=== PATIENT | female | born 1945 | race Caucasian/White ===

== ENCOUNTER 2018-02-16 22:19 | Emergency (ER) | payer MEDICARE, MEDICAID ==
[2018-02-16 23:08] LABS: BASO % 0.3 % (0.0-1.0); EOS # 0.4 10^3/uL (0.0-0.50); EOS % 4.5 % (0.0-3.0); HEMATOCRIT 36.9 % (36.0-47.0); IMMATURE GRANULOCYTE % 0.3 % (0-3.0); LYMPH # 2.3 10^3/uL (1.5-4.5); LYMPH % 27.1 % (24.0-44.0); MEAN CORPUSCULAR HEMOGLOBIN 27.4 pg (27.0-33.0); MEAN CORPUSCULAR HGB CONC 32.5 g/dl (32.0-36.5); MEAN CORPUSCULAR VOLUME 84.2 fl (80.0-96.0); MONO # 0.7 10^3/uL (0.0-0.8); MONO % 7.9 % (0.0-5.0); NEUTROPHILS # 5.1 10^3/uL (1.8-7.7); NEUTROPHILS % 59.9 % (36.0-66.0); PLATELET COUNT, AUTOMATED 235 10^3/uL (150-450); RED BLOOD COUNT 4.38 10^6/uL (4.00-5.40); RED CELL DISTRIBUTION WIDTH 13.4 % (11.5-14.5); WHITE BLOOD COUNT 8.6 10^3/uL (4.0-10.0)
[2018-02-16] MEDS: ASPIRIN 81 MG CHEW TABLET PO (23:08)
[2018-02-16 23:37] LABS: ALBUMIN 3.8 GM/DL (3.2-5.2); ALKALINE PHOSPHATASE 80 U/L (45-117); ALT/SGPT 25 U/L (12-78); ANION GAP 7 MEQ/L (8-16); AST/SGOT 18 U/L (7-37); BILIRUBIN,DIRECT 0.1 MG/DL (0.0-0.2); BILIRUBIN,TOTAL 0.4 MG/DL (0.2-1.0); BLOOD UREA NITROGEN 12 MG/DL (7-18); CALCIUM LEVEL 8.6 MG/DL (8.8-10.2); CARBON DIOXIDE LEVEL 29 MEQ/L (21-32); CHLORIDE LEVEL 105 MEQ/L (98-107); CK-MB VALUE MASS 1.6 NG/ML (<3.6); CPK CREATINE PHOSPHOKINASE 101 U/L (26-192); CREATININE FOR GFR 1.04 MG/DL (0.55-1.30); GLOMERULAR FILTRATION RATE 55.6 (>39); GLUCOSE, FASTING 138 MG/DL (70-100); MB/CK RELATIVE INDEX 1.58 (< OR =4); NT-PRO BNP 108 PG/ML (<125); POTASSIUM SERUM 3.3 MEQ/L (3.5-5.1); SODIUM LEVEL 141 MEQ/L (136-145); TOTAL PROTEIN 7.6 GM/DL (6.4-8.2); TROPONIN I < 0.02 NG/ML (< 0.10)
[2018-02-17] MEDS: PERCOCET 5MG/325MG TAB PO (00:34)
[2018-02-17 02:13] LABS: CPK CREATINE PHOSPHOKINASE 93 U/L (26-192); TROPONIN I 0.02 NG/ML (< 0.10)
[2018-02-17 02:14] LABS: CK-MB VALUE MASS 1.6 NG/ML (<3.6); MB/CK RELATIVE INDEX 1.72 (< OR =4)
== END 2018-02-17 02:34 | disposition home or self-care (01) ==
LOC: M ED 02-17 02:34
DX: R07.9 Chest pain, unspecified (principal); M79.601 Pain in right arm; R06.02 Shortness of breath; I10 Essential (primary) hypertension; I25.2 Old myocardial infarction; E78.5 Hyperlipidemia, unspecified; K44.9 Diaphragmatic hernia without obstruction or gangrene; M54.9 Dorsalgia, unspecified; F41.9 Anxiety disorder, unspecified; F32.9 Major depressive disorder, single episode, unspecified; Z88.0 Allergy status to penicillin; Z79.899 Other long term (current) drug therapy
CPT/HCPCS: 71045

== ENCOUNTER 2019-02-09 20:31 | Emergency (ER) | payer MEDICARE, MEDICAID ==
[~2019-02-09] VITALS: Ht 162.6 cm; Wt 85.5 kg
[~2019-02-09 20:31] MED LIST: ACET65TA OR; BENA20TA2 OR; BENA20TA6 PO; BENICAR HCT OR; CELE20TA OR; COUM1TAB18 OR; COUM2.5T17 PO; HYDR12CA PO; LOSA50TA88 PO; OMEP20TA7 OR; PAXI30TA11 PO; PERC5TAB12 PO; PRAV10TA2 OR; PROAAER10 INH; TRAM50TA2 OR; TYLE325T5 PO; hydrochlorothiazide OR; ibuprofen; naproxen OR
[2019-02-09] MEDS ORDERED: PRAV10TA4 PO (20:42)
[2019-02-09 21:09] LABS: BASO % 0.3 % (0.0-1.0); EOS # 0.3 10^3/uL (0.0-0.50); HEMATOCRIT 38.3 % (36.0-47.0); HEMOGLOBIN 12.3 g/dl (12.0-15.5); LYMPH # 2.1 10^3/uL (1.5-4.5); LYMPH % 15.5 % (24.0-44.0); MEAN CORPUSCULAR HEMOGLOBIN 27.8 pg (27.0-33.0); MEAN CORPUSCULAR HGB CONC 32.1 g/dl (32.0-36.5); MEAN CORPUSCULAR VOLUME 86.7 fl (80.0-96.0); MONO # 1.1 10^3/uL (0.0-0.8); MONO % 7.9 % (0.0-5.0); NEUTROPHILS # 9.9 10^3/uL (1.8-7.7); NEUTROPHILS % 73.9 % (36.0-66.0); PLATELET COUNT, AUTOMATED 237 10^3/uL (150-450); RED BLOOD COUNT 4.42 10^6/uL (4.00-5.40); WHITE BLOOD COUNT 13.4 10^3/uL (4.0-10.0)
[2019-02-09 21:25] LABS: BLOOD UREA NITROGEN 13 MG/DL (7-18); CARBON DIOXIDE LEVEL 28 MEQ/L (21-32); CHLORIDE LEVEL 102 MEQ/L (98-107); CPK CREATINE PHOSPHOKINASE 70 U/L (26-192); CREATININE FOR GFR 0.83 MG/DL (0.55-1.30); GLOMERULAR FILTRATION RATE > 60.0 (>39); GLUCOSE, FASTING 121 MG/DL (70-100); MB/CK RELATIVE INDEX 1.86 (< OR =4); POTASSIUM SERUM 3.6 MEQ/L (3.5-5.1); SODIUM LEVEL 136 MEQ/L (136-145); TROPONIN I < 0.02 NG/ML (< 0.10)
[2019-02-09] MEDS ORDERED: KETOROLAC 30 MG/ML VIAL (J1885) IV ONE (21:45)
--- NOTE | 2019-02-09 22:02 | REP ---
Clinical: Acute chest pain . Comparison: 02/16/2018 to the . Technique: PA and lateral. Findings: The mediastinum and cardiac silhouette are normal. The lung clark are clear and without acute consolidation, effusion, or pneumothorax. The skeletal structures are intact and normal. Impression: 1. No acute cardiopulmonary process. Electronically Signed by Harish Murray MD 02/09/2019 09:54 P
[2019-02-09] MEDS ORDERED: ISOVUE-370 76% 100ML VIAL (Q9967) As Ordered ONE (23:48)
--- NOTE | 2019-02-10 00:17 | REP ---
Clinical: Acute chest pain. Technique: Axial contrast enhanced images from the thoracic inlet to the upper abdomen using 100 ml Isovue 370 intravenous contrast material with coronal and sagittal re-formations. Findings: Satisfactory enhancement of the pulmonary vasculature is achieved and no filling defects are identified to suggest pulmonary embolus. Atherosclerotic changes to the thoracic aorta noted along with aneurysmal dilatation of the ascending thoracic aorta measuring 4.6 cm maximal diameter. Heart and pericardium are normal. Minimal posterior basilar dependent changes and trace atelectasis. No nodule or mass lesion. No pleural effusion/reaction. No pneumothorax. No adenopathy. Impression: No evidence for pulmonary embolus. Ascending thoracic aorta measures 4.6 cm maximal diameter. Minimal posterior basilar dependent changes and trace atelectasis. Electronically Signed by Harish Murray MD 02/10/2019 12:07 A
[2019-02-10 01:01] VITALS: BP 145/86
[2019-02-10] MEDS ORDERED: HYDR-3715 PO (01:07)
[2019-02-10] MEDS ORDERED: NAPR-885 PO (01:07)
[2019-02-10] MEDS ORDERED: NORCO 5/325MG TABLET (BULK FOR ED) PO ONE (01:15)
--- NOTE | 2019-02-10 20:14 | ECGEPIP ---
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
--- NOTE | 2019-02-14 14:01 | ED PDOC ---
Post-Departure Follow-Up dr abi srinivasan faxed formal report of cta chest for fu Portia Smith MD Feb 14, 2019 14:00
== END 2019-02-10 01:30 | disposition home or self-care (01) ==
LOC: M ED 20:31
DX: S22.000A Wedge compression fracture of unspecified thoracic vertebra, initial encounter for closed fracture (principal); X58.XXXA Exposure to other specified factors, initial encounter; Y92.89 Other specified places as the place of occurrence of the external cause; I10 Essential (primary) hypertension; I25.10 Atherosclerotic heart disease of native coronary artery without angina pectoris; K21.9 Gastro-esophageal reflux disease without esophagitis; E78.5 Hyperlipidemia, unspecified; Z79.899 Other long term (current) drug therapy; Z88.0 Allergy status to penicillin; Z88.5 Allergy status to narcotic agent; Z87.891 Personal history of nicotine dependence
CPT/HCPCS: 71046; 71275; 80048; 82550; 82553; 84484; 85025; 85379; 93005; 93041; 94760; 96374; 99285; J1885; Q9967

== ENCOUNTER → 2019-03-22 | Outpatient (CLI) | payer MEDICARE, MEDICAID ==
[~2019-03-22] MED LIST changes: +HYDR-3715 PO; +NAPR-885 PO; +PRAV10TA4 PO
[2019-03-22 12:45] LABS: BASO % 0.5 % (0.0-1.0); EOS # 0.3 10^3/uL (0.0-0.50); EOS % 4.5 % (0.0-3.0); HEMATOCRIT 38.7 % (36.0-47.0); HEMOGLOBIN 12.2 g/dl (12.0-15.5); LYMPH # 2.3 10^3/uL (1.5-4.5); LYMPH % 31.1 % (24.0-44.0); MEAN CORPUSCULAR HEMOGLOBIN 27.4 pg (27.0-33.0); MEAN CORPUSCULAR HGB CONC 31.5 g/dl (32.0-36.5); MONO # 0.6 10^3/uL (0.0-0.8); MONO % 8.2 % (0.0-5.0); NEUTROPHILS # 4.1 10^3/uL (1.8-7.7); NEUTROPHILS % 55.2 % (36.0-66.0); PLATELET COUNT, AUTOMATED 272 10^3/uL (150-450); RED BLOOD COUNT 4.45 10^6/uL (4.00-5.40); WHITE BLOOD COUNT 7.4 10^3/uL (4.0-10.0)
[2019-03-22 12:46] LABS: BLOOD UREA NITROGEN 11 MG/DL (7-18); CALCIUM LEVEL 8.8 MG/DL (8.8-10.2); CARBON DIOXIDE LEVEL 31 MEQ/L (21-32); CHLORIDE LEVEL 102 MEQ/L (98-107); CREATININE FOR GFR 0.76 MG/DL (0.55-1.30); GLOMERULAR FILTRATION RATE > 60.0 (>39); GLUCOSE, FASTING 113 MG/DL (70-100); POTASSIUM SERUM 4.1 MEQ/L (3.5-5.1); SODIUM LEVEL 138 MEQ/L (136-145)
== END ==
LOC: M WUC 09:50
PROVIDERS: ATTEND Internal Medicine Cardiovascular Disease
DX: Z01.810 Encounter for preprocedural cardiovascular examination (principal); I35.0 Nonrheumatic aortic (valve) stenosis

== ENCOUNTER 2020-12-30 13:35 | Emergency (ER) | payer MEDICARE ==
[~2020-12-30] VITALS: Ht 162.6 cm; Wt 86.4 kg
--- OUTSIDE RECORDS SUMMARY | 2020-12-30 13:41 | CCD | Continuity of Care Document ---
Author Author Chelle BRISENO D.O. Organization Unknown Address [address] [place] [id number] Phone [phone] Problems Active Problems Provider Date Depressive disorder Nir Covarrubias RPA Onset: 12/03/2006 Gastroesophageal reflux disease Nir Covarrubias RPA Onset : 12/03/2006 Hyperlipidemia Nir Covarrubias RPA Onset: 12/03/2006 Essential hypertension Nir Covarrubias RPA Onset: 008 Sleep apnea Robert Briseno D.O., GEOVANNYFP Onset: 11/08 Note: C PAP Diaphragmatic hernia Robert Briseno D.O., GEOVANNYFP Onset: Benign essential hypertension Kristen Bartlett, INTERFACE CONTROL OFFICER-C Onset: 05/23/2013 Diverticulosis of sigmoid colon Robert Briseno D.O., FAAFP Onset: 11/12/2014 Note: SANTOS DIVERTICULOSIS Social History Type Date Description Comments Sex Unknown Tobacco Use Start: Unknown End: Unknown Former Cigarette Smo ker 2 Packs Daily for 40 years Tobacco Use Start: Unknown , quit 2002. 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 Recreational Drug Use Denies Drug Use Tobacco Use Start: Unknown End: Unknown Patient is a former smoker Smoking Status Reviewed: 12/05/20 Patient is a former smoker Exercise Type/Frequency Does not currently exerc ise Allergies, Adverse Reactions, Alerts Active Allergies Reaction Severity Comments Date Penicillin (Hives) 07/31/2005 Naproxen Urticaria Rash Generalized 8 Medications Active Medications SIG Qnty Indications Ordering Provide r Date Sertraline HCL 50mg Tablets 1 by mouth every day 90tabs Robert Briseno D.O., FAAFP Betamethasone Dipropionate 0.05% C ream apply three times a day to left ankle 30units Robert Briseno D.O., [facility] 01/05/2019 Shingrix 50mcg Suspension Rec Recieved Both 1 intramuscular today repeat in 2-6 months 1units Robert Briseno D.O., [facility] Proventil HFA 108(90Base) mcg/Act Aerosol 2 puffs every 6 hours as needed 1units Robert Briseno D.O., [facility] 11/22/2015 Pravastatin Sodium 40mg Tablets Take 1 tablet by mouth once daily 90tabs Robert Briseno D.O. , [facility] 02/13/2015 Replacement Cpap Machine And Supplies as directed for obstructiv e Sleep Apnea 780.57 Robert Briseno D.O., [facility] 10/26/2013 Hydrochlorothiazide 12.5mg Capsule s Take 1 Capsule By Mouth Once Daily . DO Not Exceed 1 Per 24 Hours [facility] Robert Briseno D.O., [facility] 04/26/[address] Take 1 Capsule By Mouth In The Morning . DO Not Exceed 1 Per 24 Hours [facility] Robert Briseno D.O., [facility] 11/25/2011 Aspirin Ec 325mg Tablets DR 1 by mouth every day Unknown Losartan Potassium 25mg Tablets take 1 tablet by mouth once daily 90tabs Robert Briseno D.O. , [facility] Metoprolol Tartrate 25mg Tablets take 1/2 (one-half) tablet by mouth twice daily 90tabs Robert Briseno D.O., [facility] History Medications Clindamycin HCL 300mg Capsules 2 caps po 30-60 min prior to procedure 2caps Brian Merida., [facility] 09/26/2020 - 09/27/2020 Medications Administered in Office Medication SIG Qnty Indications Ordering Provider Date Injection (SC)/(Im) Injection Robert Briseno D.O., [facility] 09/08/2017 Injection Subcutaneous Or Intramuscular Injection Nir Covarrubias, RPA 03/14 Injection (SC)/(Im) Injection Nir Covarrubias, RPA 07/31/2005 Immunizations CPT Code Status Date Vaccine Reaction Lot # [id number] Given 08/29/2020 Influenza Virus Vaccine, Quadrivalent, Slit Virus, Im Use 3Y & Up [id number] 62222 Given 07/26/2019 Influenza Virus Vaccine, Quadrivalent, Slit Virus, Im Use 3Y & Up [id number] 83290 Given 07/07/2018 Influenza Virus Vaccine, Quadrivalent, Slit Virus, Im Use 3Y & Up [id number] 51535 Given 09/08/2017 Influenza Virus Vaccine, Quadrivalent, Slit Virus, Im Use 3Y & Up [id number] 19244 Given 08/07/2016 Influenza Vaccin e (Fluzone) 3Yrs Of Age Or Older Medicare Plans [id number] 56957 Given 08/07/2016 Influenza Virus Vaccine, Quadrivalent, Slit Virus, Im Use 3Y & Up 05116 Given 09/06/2015 Influenza Vaccin e (Fluzone) 3Yrs Of Age Or Older Medicare Plans [id number] 61493 Given 08/01/2014 Influenza Vaccin e (Fluzone) 3Yrs Of Age Or Older Medicare Plans [id number] Given 08/01/2014 Influenza Vaccin e (Fluvirin) 3Yrs Of Age Or Older Medicare Plans [id number] 75665 Given 08/23/2013 Influenza Virus Vac. Split Virus Individuals 3 Years And Above [id number] 57100 Given 09/21/2012 Pneumococcal Immunization [id number] 70112 Given 09/21/2012 Influenza Virus Vac. Split Virus Individuals 3 Years And Above [id number] 96269 Given 07/31/2005 Influenza Virus Vac. Split Virus Individuals 3 Years And Above Vital Signs Date Vital Result Comment 12/05/2020 1:09pm BP Systolic 126 mmHg BP Diastolic 84 mmHg Body Temperature 97.3 F Heart Rate 70 /min Respiratory Rate 16 /min Height 64 inches 5'4" Weight 190.00 lb [place] Body Weight 120 lb BMI (Body Mass Index) 32.6 kg/m2 O2 % BldC Oximetry 97 % 09/23/2020 10:22am BP Systolic 132 mmHg BP Diastolic 80 mmHg Body Temperature 97.8 F Heart Rate 73 /min Respiratory Rate 16 /min Height 64 inches 5'4" Weight 189.00 lb [place] Body Weight 120 lb BMI (Body Mass Index) 32.4 kg/m2 O2 % BldC Oximetry 92 % (AT Rest), (Room Air ) Results Test Acquired Date Facility Test Result H/L Range Note Laboratory test finding 12/05/2020 [facility] TSH <pending> Laboratory test finding 12/05/2020 [facility] CK <pending> Influenza A And B Rna Probe 11/01/2020 [place] [address] [phone] Influenza A NEGATIVE Normal: Negative Influenza B NEGATIVE Normal: Negative Influenza A Reenter NEGATIVE Normal: Negative Influenza B [place]enter NEGATIVE Normal: Negative 1 Laboratory test finding 11/01/2020 [place] [address] [phone] Coronavirus Covid-19 Not Detected Not Dete cted 2 Laboratory test finding 09/26/2020 [place] [address] [phone] Coronavirus Covid-19 Not Detected Not Dete cted 3 U/A DIP 09/23/2020 [facility] Color lt yellow QUAL 4 Clarity clear QUAL Glucose-Ua Negative g/dL Negative Bilirubin,Urine Negative QUAL Negative Ketone Negative mg/dL Negative Specific [place] 1.015 # 1.000 - 1.030 Blood - Ua Trace-intact QUAL Abnormal Negative pH 6.0 # 5.0 - 8.0 Protein Negative mg/dL Negative Urobilinogen 0.2 NA 0.2 - 1.0 Nitrite Negative QUAL Negative Leukocyte Large QUAL Abnormal Negative Comment SAMPLE QNS NA High CMP 09/23/2020 [facility] Glu 108 mg/dL 70 - 110 BUN 9 mg/dL 8 - 23 Creat 0.9 mg/dL 0.5 - 1.0 BUN/Creatinine Ratio 10.0 CALC Na 136 mmol/L 136 - 145 K 4.9 mmol/L 3.5 - 5.1 CL 98.7 mmol/L 98.0 - 107.0 Co2 29.6 mmol/L High 22.0 - 29.0 CA 9.7 mg/dL 8.6 - 10.2 TP 6.5 g/dL Low 6.6 - 8.7 Alb 4.2 g/dL 3.4 - 4.8 A/G Ratio 1.8 CALC Globulin 2.3 CALC Alp 57.8 U/L 35 - 129 Alt (SGPT) 16 U/L 0 - 41 Ast (Sgot) 19 U/L 0 - 40 Tbili 0.37 mg/dL 0.0 - 1.2 Osmolality-Calculated 271.0 CALC Anion Gap 12 mmol/L eGFR 74 # Calc 5 eGFR Non-Afr. [place] 63 # Calc 6 CBC 09/23/2020 [facility] WBC 6.4 10E3/uL 4.1 - 10.9 RBC 4.37 10E6/uL 4.20 - 6.30 HGB 13.1 g/dL 12.0 - 18.0 HCT 39.4 % 37.0 - 51.0 MCV 90.2 fL 80.0 - 97.0 MCH 30.0 pg 26.0 - 32.0 MCHC 33.2 g/dL 31.0 - 36.0 PLT 214 10E3/uL 140 - 440 RDW-CV 12.9 % 11.5 - 14.5 Lym% 29.1 % 10.0 - 58.5 Neut% 61.4 % 37.0 - 92.0 MXD% 9.5 % 0.1 - 24.0 Lym# 1.9 10E3/uL 0.6 - 4.1 Neut# 3.9 % 2.0 - 7.8 MXD# 0.6 10E3/uL 0.0 - 1.8 MPV 8.6 fL Low 9.0 - 13.0 U/A DIP [facility]PA 08/29/2020 [facility] Asso ciates Color Urine YELLOW Yellow Appearance CLEAR Clear Specific [place] 1.015 1.00-1.03 PH Urine 6.0 5.0-8.0 Glucose Urine NEG Negative Bilirubin Urine NEG Negative Ketones NEG Negative Blood Urine TRACE Negative Protein Urine NEG Negative Urobilinogen .2 EU/dl 0.2-1.0 Nitrite NEG Negative Leukocytes 2+ High Negative Microalb/Creat Ratio 08/29/2020 [facility] Alb 10 mg/L 1 - 30 Creatinine, Urine 50 mg/dL 10 - 300 A/C Ratio 30 - 300 mg/g % Abnormal CBC 08/29/2020 [facility] WBC 6.8 10E3/uL 4.1 - 10.9 7 RBC 4.40 10E6/uL 4.20 - 6.30 HGB 13.4 g/dL 12.0 - 18.0 HCT 40.0 % 37.0 - 51.0 MCV 90.9 fL 80.0 - 97.0 MCH 30.5 pg 26.0 - 32.0 MCHC 33.5 g/dL 31.0 - 36.0 PLT 203 10E3/uL 140 - 440 RDW-CV 12.4 % 11.5 - 14.5 Lym% 22.7 % 10.0 - 58.5 Neut% 67.5 % 37.0 - 92.0 MXD% 9.8 % 0.1 - 24.0 Lym# 1.5 10E3/uL 0.6 - 4.1 Neut# 4.6 % 2.0 - 7.8 MXD# 0.7 10E3/uL 0.0 - 1.8 MPV 8.9 fL Low 9.0 - 13.0 CMP 08/29/2020 [facility] Glu 96 mg/dL 70 - 110 BUN 13 mg/dL 8 - 23 Creat 0.8 mg/dL 0.5 - 1.0 BUN/Creatinine Ratio 15.4 CALC Na 135 mmol/L Low 136 - 145 K 4.5 mmol/L 3.5 - 5.1 CL 98.3 mmol/L 98.0 - 107.0 Co2 23.9 mmol/L 22.0 - 29.0 CA 9.5 mg/dL 8.6 - 10.2 TP 6.8 g/dL 6.6 - 8.7 Alb 4.3 g/dL 3.4 - 4.8 A/G Ratio 1.7 CALC Globulin 2.5 CALC Alp 58.3 U/L 35 - 129 Alt (SGPT) 16 U/L 0 - 41 Ast (Sgot) 19 U/L 0 - 40 Tbili 0.49 mg/dL 0.0 - 1.2 Osmolality-Calculated 269.4 CALC Anion Gap 17 mmol/L eGFR 85 # Calc 8 eGFR Non-Afr. [place]er 73 # Calc 9 Lipid Panel 08/29/2020 [facility] Chol 189 mg/dL 0 - 200 Trig 162 mg/dL 40 - 200 HDL 48 mg/dL 45 - 65 LDL_C 108 Calc 75 - 129 Cho/HDL Ratio 3.9 CALC Laboratory test finding 08/29/2020 [facility] CK 49 U/L 26 - 192 1 PROCEDURAL CONTROL VALID KIT LOT # _[id number] 12/25/20.1346.TAD. . . KIT EXP DATE _01.28.21 11/01/201346.TAD. . . The Influenza A & B assay is a rapid molecular in vitro diagnostic test utilizing an isothermal nucleic acid amplification technology for the qualitative detection of influenza A and B viral RNA. Negative results do not preclude influenza virus infection and should not be used as the sole basis for diagnosis, treatment or other patient management decisions. 2 This nucleic acid amplificat ion test was developed and its performance characteristics determined by [employer]. Nucleic acid amplification tests include PCR and TMA. This test has not been FDA cleared or approved. This test has been authorized by FDA under an Emergency Use Authorization (EUA). This test is only authorized for the duration of time the declaration that circumstances exist justifying the authorization of the emergency use of in vitro diagnostic tests for detection of SARS-CoV-2 virus and/or diagnosis of COVID-19 infection under section 564(b)(1) of the Act, 21 U.S.C. 360bbb-3(b) (1), unless the authorizatio n is terminated or revoked sooner. When diagnostic testing is negative, the possibility of a false negative result should be considered in the context of a patient's recent exposures and the presence of clinical signs and symptoms consistent with COVID-19. An individual without symptoms of COVID-19 and who is not shedding SARS-CoV-2 virus would expect to have a negative (not detected) result in this assay. 3 This nucleic acid amplificat ion test was developed and its performance characteristics determined by [employer]. Nucleic acid amplification tests include PCR and TMA. This test has not been FDA cleared or approved. This test has been authorized by FDA under an Emergency Use Authorization (EUA). This test is only authorized for the duration of time the declaration that circumstances exist justifying the authorization of the emergency use of in vitro diagnostic tests for detection of SARS-CoV-2 virus and/or diagnosis of COVID-19 infection under section 564(b)(1) of the Act, 21 U.S.C. 360bbb-3(b) (1), unless the authorizatio n is terminated or revoked sooner. When diagnostic testing is negative, the possibility of a false negative result should be considered in the context of a patient's recent exposures and the presence of clinical signs and symptoms consistent with COVID-19. An individual without symptoms of COVID-19 and who is not shedding SARS-CoV-2 virus would expect to have a negative (not detected) result in this assay. 4 NORMAL RANGES Age WBC RBC HGB HCT MCV PLT Adult M 4.1-10.9 4.20-6.30 12.0-18.0 37.0-51.0 80-97 140-440 Adult F 4.1-10.9 4.04-5.48 12.0-18.0 37.0-51.0 80-97 140-440 0 -1 Yr 5.0-20.0 3.9-5.9 15-18 MV: 44 MV: 91 MV: 277 2-9 Yr. 6.0-17.0 3.8-5.4 11-13 MV: 37 MV: 78 MV: 300 10 Yrs. 5.0-13.0 3.8-5.4 12-15 MV: 39 MV: 80 MV: 250 NOTE: * FOR ADULT BLACK MALES AND FEMALES, NORMAL WBC IS 2.9-7.7 K/ML * FOR ADULT BLACK MALES AND FEMALES, NORMAL RBC,HGB, AND HCT IS 5% LESS SOURCE FOR DATA: [employer] 1800 OPERATION MANUAL( AUTOMATED BLOOD COUNTS AND DIFF.) APPENDIX B-3 CHRONIC KIDNEY DISEASE STAGING PER NKF: MALE GFR INTERPRETATION: 20-49 YRS: >60 mL/min Normal 50-59 YRS: >56 mL/min Normal 60-69 YRS: >49 mL/min Normal 70-79 YRS: >42 mL/min Normal 80 and above >35 mL/min Normal FEMALE GRF INTERPRETATION: 20-39 YRS: >60 mL/min Normal 40-49 YRS: >58 mL/min Normal 50-59 YRS: >51 mL/min Normal 60-69 YRS: >45 mL/min Normal 70-79 YRS: >39 mL/min Normal 80 and above >32 mL/min Normal 5 CKD-EPI 6 CKD-EPI 7 NORMAL RANGES Age WBC RBC HGB HCT MCV PLT Adult M 4.1-10.9 4.20-6.30 12.0-18.0 37.0-51.0 80-97 140-440 Adult F 4.1-10.9 4.04-5.48 12.0-18.0 37.0-51.0 80-97 140-440 0 -1 Yr 5.0-20.0 3.9-5.9 15-18 MV: 44 MV: 91 MV: 277 2-9 Yr. 6.0-17.0 3.8-5.4 11-13 MV: 37 MV: 78 MV: 300 10 Yrs. 5.0-13.0 3.8-5.4 12-15 MV: 39 MV: 80 MV: 250 NOTE: * FOR ADULT BLACK MALES AND FEMALES, NORMAL WBC IS 2.9-7.7 K/ML * FOR ADULT BLACK MALES AND FEMALES, NORMAL RBC,HGB, AND HCT IS 5% LESS SOURCE FOR DATA: [employer] 1800 OPERATION MANUAL( AUTOMATED BLOOD COUNTS AND DIFF.) APPENDIX B-3 CHRONIC KIDNEY DISEASE STAGING PER NKF: MALE GFR INTERPRETATION: 20-49 YRS: >60 mL/min Normal 50-59 YRS: >56 mL/min Normal 60-69 YRS: >49 mL/min Normal 70-79 YRS: >42 mL/min Normal 80 and above >35 mL/min Normal FEMALE GRF INTERPRETATION: 20-39 YRS: >60 mL/min Normal 40-49 YRS: >58 mL/min Normal 50-59 YRS: >51 mL/min Normal 60-69 YRS: >45 mL/min Normal 70-79 YRS: >39 mL/min Normal 80 and above >32 mL/min NormalCLASSIFICATION CHOLESTEROL FOR ADULTS CHILDREN/ADOLESCENTS* DESIRABLE: <200 MG/DL <170 MG/DL BORDER-LINE HIGH RISK: 200-239 MG/DL 170-199 MG/DL HIGH RISK: >240 MG/DL >200 MG/DL CLASS. FOR PRIMARY LDL CHOL PREVENTION: LDL CHOL-CHILD/ADOLESCENTS* DESIRABLE: <130 MG/DL <110 MG/DL BORDERLINE-HIGH RISK: 130-159 MG/DL 110-129 MG/DL HIGH RISK: >160 MG/DL >130 MG/DL *CHILDREN AND ADOLESCENTS REPRESENTS INDIVIDUALA AGED 2-19 YEARS EXCLUSIVE. 8 CKD-EPI 9 CKD-EPI Procedures Date Code Description Status 09/23/2020 95448 Electrocardiogram Complete Compl eted Medical Devices Description No Information Available Encounters Type Date Location Provider Dx Diagnosis Office Visit 12/05/2020 1:00p [place] [facility] Brian Merida, FAAFP E78.5 Hyperlipidemia, unspecified I10 Essential (primary) hyperten cuauhtemoc F33.8 Other recurrent depressive d isorders K21.9 Gastro-esophageal reflux dis ease without esophagitis Office Visit 09/23/2020 10:20a [place] [facility] Floyd Yates PA Z01.818 Encounter for other preprocedural examin ation Z01.818 Encounter for other preproce dural examination Z12.11 Encounter for screening for malignant neoplasm of colon Z86.010 Personal history of colonic polyps Z80.0 Family history of malignant neoplasm of digestive organs Office Visit 08/29/2020 11:15a [place] [facility] Brian Merida, FAAFP E78.5 Hyperlipidemia, unspecified I10 Essential (primary) hyperten cuauhtemoc F33.8 Other recurrent depressive d isorders K21.9 Gastro-esophageal reflux dis ease without esophagitis Z86.010 Personal history of colonic polyps Z80.0 Family history of malignant neoplasm of digestive organs G31.84 Mild cognitive impairment, s o stated Z23 Encounter for immunization Assessments Date Code Description Provider 12/05/2020 E78.5 Hyperlipidemia, unspecified Al Briseno D.O., FAAFP 12/05/2020 I10 Essential (primary) hypertension Robert Briseno D.O., FAAFP 12/05/2020 F33.8 Other recurrent depressive disor ders Robert Briseno D.O., FAAFP 12/05/2020 K21.9 Gastro-esophageal reflux disease without esophagitis Robert Briseno D.O., [facility] 09/23/2020 Z01.818 Encounter for other preprocedura l examination Mary Yates PA 09/23/2020 Z01.818 Encounter for other preprocedura l examination Mary Yates PA 09/23/2020 Z12.11 Encounter for screening for kriss gnant neoplasm of colon Mary Yatse, PA 09/23/2020 Z86.010 Personal history of colonic poly ps Mary Yates PA 09/23/2020 Z80.0 Family history of malignant neop lasm of digestive organs Mary Yates PA 08/29/2020 E78.5 Hyperlipidemia, unspecified Al Briseno D.O., FAAFP 08/29/2020 I10 Essential (primary) hypertension Robert Briseno D.O., FAAFP 08/29/2020 F33.8 Other recurrent depressive disor ders Robert Briseno D.O., FAAFP 08/29/2020 K21.9 Gastro-esophageal reflux disease without esophagitis Robert Briseno D.O., FAAFP 08/29/2020 Z86.010 Personal history of colonic poly ps Robert Briseno D.O., FAAFP 08/29/2020 Z80.0 Family history of malignant neop lasm of digestive organs Robert rBiseno D.O., FAAFP 08/29/2020 G31.84 Mild cognitive impairment, so st ated Robert Briseno D.O., [facility] 08/29/2020 Z23 Encounter for immunization Guevara Briseno D.O., [facility] Plan of Treatment Future Appointment(s):* 03/20/2021 2:00 pm - Robert Briseno D.O., [facility] at [facility] Functional Status Description No Information Available Mental Status Description No Information Available Referrals Refer to Reason for Referral Status Appt Date Pierce Kebede M.D. family hx colon cancer pt hx of polyps please edward for screening colonoscopy Sent [address] [place], [place] [id number] [phone]
--- OUTSIDE RECORDS SUMMARY | 2020-12-30 13:42 | CCD ---
Author Author [facility] Organization [facility] Address Unknown Phone Unavailable Care Team Providers Care Seamless Hosiery Knitter Name Role Phone JATIN PRIEST MD Unavailable Unavailable JATIN PRIEST MD Unavailable Unavailable JATIN PRIEST MD Unavailable Unavailable JATIN PRIEST MD Unavailable Unavailable JATIN PRIEST MD Unavailable Unavailable JATIN PRIEST MD Unavailable Unavailable JATIN PRIEST MD Unavailable Unavailable JATIN PRIEST MD Unavailable Unavailable JATIN PRIEST MD Unavailable Unavailable JATIN PRIEST MD Unavailable Unavailable JATIN PRIEST MD Unavailable Unavailable JATIN PRIEST MD Unavailable Unavailable JATIN PRIEST MD Unavailable Unavailable JATIN PRIEST MD Unavailable Unavailable JATIN PRIEST MD Unavailable Unavailable JATIN PRIEST MD Unavailable Unavailable JATIN PRIEST MD Unavailable Unavailable JATIN PRIEST MD Unavailable Unavailable JATIN PRIEST MD Unavailable Unavailable JATIN PRIEST MD Unavailable Unavailable JATIN PRIEST MD Unavailable Unavailable JATIN PRIEST MD Unavailable Unavailable JATIN PRIEST MD Unavailable Unavailable JATIN PRIEST MD Unavailable Unavailable NAZEM, AHMAD MD Unavailable Unavailable NAZEM, AHMAD MD Unavailable Unavailable NAZEM, AHMAD MD Unavailable Unavailable NAZEM, AHMAD MD Unavailable Unavailable NAZEM, AHMAD MD Unavailable Unavailable NAZEM, AHMAD MD Unavailable Unavailable NAZEM, AHMAD MD Unavailable Unavailable NAZEM, AHMAD MD Unavailable Unavailable NAZEM, AHMAD MD Unavailable Unavailable NAZEM, AHMAD MD Unavailable Unavailable NAZEM, AHMAD MD Unavailable Unavailable NAZEM, AHMAD MD Unavailable Unavailable NAZEM, AHMAD MD Unavailable Unavailable NAZEM, AHMAD MD Unavailable Unavailable NAZEM, AHMAD MD Unavailable Unavailable NAZEM, AHMAD MD Unavailable Unavailable NAZEM, AHMAD MD Unavailable Unavailable NAZEM, AHMAD MD Unavailable Unavailable NAZEM, AHMAD MD Unavailable Unavailable NAZEM, AHMAD MD Unavailable Unavailable NAZEM, AHMAD MD Unavailable Unavailable NAZEM, AHMAD MD Unavailable Unavailable NAZEM, AHMAD MD Unavailable Unavailable NAZEM, AHMAD MD Unavailable Unavailable NAZEM, AHMAD MD Unavailable Unavailable NAZEM, AHMAD MD Unavailable Unavailable NAZEM, AHMAD MD Unavailable Unavailable NAZEM, AHMAD MD Unavailable Unavailable NAZEM, AHMAD MD Unavailable Unavailable NAZEM, AHMAD MD Unavailable Unavailable NAZEM, AHMAD MD Unavailable Unavailable NAZEM, AHMAD MD Unavailable Unavailable NAZEM, AHMAD MD Unavailable Unavailable NAZEM, AHMAD MD Unavailable Unavailable NAZEM, AHMAD MD Unavailable Unavailable NAZEM, AHMAD MD Unavailable Unavailable Barraclough, Mary PA Unavailable Unavailable Barraclough, Mary PA Unavailable Unavailable Barraclough, Mary PA Unavailable Unavailable Barraclough, Mary PA Unavailable Unavailable Barraclough, Mary PA Unavailable Unavailable Barraclough, Mary PA Unavailable Unavailable Fish, J Robert Unavailable Unavailable Fish, J Robert Unavailable Unavailable Fish, J Robert Unavailable Unavailable Fish, J Robert Unavailable Unavailable Fish, J Robert Unavailable Unavailable Fish, J Robert Unavailable Unavailable Fish, J Robert Unavailable Unavailable Fish, J Robert Unavailable Unavailable Fish, J Robert Unavailable Unavailable Fish, J Robert Unavailable Unavailable Fish, J Robert Unavailable Unavailable Fish, J Robert Unavailable Unavailable Fish, J Robert Unavailable Unavailable Fish, J Robert Unavailable Unavailable Fish, J Robert Unavailable Unavailable Fish, J Robert Unavailable Unavailable Fish, J Robert Unavailable Unavailable Fish, J Robert Unavailable Unavailable Fish, J Robert Unavailable Unavailable Fish, J Robert Unavailable Unavailable Fish, J Robert Unavailable Unavailable Fish, J Robert Unavailable Unavailable Fish, J Robert Unavailable Unavailable Fish, J Robert Unavailable Unavailable Fish, J Robert Unavailable Unavailable Fish, J Roebrt Unavailable Unavailable Fish, J Robert Unavailable Unavailable Fish, J Robert Unavailable Unavailable Fish, J Robert Unavailable Unavailable Fish, J Robert Unavailable Unavailable Fish, J Robert Unavailable Unavailable Fish, J Robert Unavailable Unavailable Fish, J Robert Unavailable Unavailable Fish, J Robert Unavailable Unavailable Fish, J Robert Unavailable Unavailable Fish, J Robert Unavailable Unavailable Fish, J Robert Unavailable Unavailable Fish, J Robert Unavailable Unavailable Fish, J Robert Unavailable Unavailable Fish, J Robert Unavailable Unavailable Fish, J Robert Unavailable Unavailable Fish, J Robert Unavailable Unavailable Fish, J Robert Unavailable Unavailable Fish, J Robert Unavailable Unavailable Fish, J Robert Unavailable Unavailable Fish, J Robert Unavailable Unavailable Fish, J Robert Unavailable Unavailable Fish, J Robert Unavailable Unavailable Fish, J Robert Unavailable Unavailable Fish, J Robert Unavailable Unavailable Fish, J Robert Unavailable Unavailable Fish, J Robert Unavailable Unavailable Fish, J Robert Unavailable Unavailable Fish, J Robert Unavailable Unavailable Fish, J Robert Unavailable Unavailable Fish, J Robert Unavailable Unavailable Fish, J Robert Unavailable Unavailable Fish, J Robert Unavailable Unavailable Fish, J Robert Unavailable Unavailable Fish, J Robert Unavailable Unavailable Fish, J Robert Unavailable Unavailable Fish, J Robert Unavailable Unavailable Fish, J Robert Unavailable Unavailable Fish, J Robert Unavailable Unavailable Fish, J Robert Unavailable Unavailable Fish, J Robert Unavailable Unavailable Fish, J Robert Unavailable Unavailable Fish, J Robert Unavailable Unavailable Fish, J Robert Unavailable Unavailable Fish, J Robert Unavailable Unavailable Fish, J Robert Unavailable Unavailable Fish, J Robert Unavailable Unavailable Fish, J Robert Unavailable Unavailable Fish, J Robert Unavailable Unavailable Fish, J Robert Unavailable Unavailable Fish, J Robert Unavailable Unavailable Fish, J Robert Unavailable Unavailable Fish, J Robert Unavailable Unavailable Fish, J Robert Unavailable Unavailable Fish, J Robert Unavailable Unavailable Fish, J Robert Unavailable Unavailable Fish, J Robert Unavailable Unavailable Fish, J Robert Unavailable Unavailable Fish, J Robert Unavailable Unavailable Fish, J Robert Unavailable Unavailable Johnny Kebede MD Unavailable Unavailable YandyJohnny stein MD Unavailable Unavailable YandyJohnny stein MD Unavailable Unavailable YandyJohnny stein MD Unavailable Unavailable YandyJohnny stein MD Unavailable Unavailable YandyJohnny stein MD Unavailable Unavailable YandyJohnny stein MD Unavailable Unavailable YandyJohnny stein MD Unavailable Unavailable YandyJohnny stein MD Unavailable Unavailable Johnny Kebede MD Unavailable Unavailable Johnny Kebede MD Unavailable Unavailable Johnny Kebede MD Unavailable Unavailable Johnny Kebede MD Unavailable Unavailable YandyJohnny stein MD Unavailable Unavailable YandyJohnny stein MD Unavailable Unavailable Johnny Kebede MD Unavailable Unavailable YandyJohnny stein MD Unavailable Unavailable YandyJohnny stein MD Unavailable Unavailable YandyJohnny stein MD Unavailable Unavailable Johnny Kebede MD Unavailable Unavailable Johnny Kebede MD Unavailable Unavailable YandyJohnny stein MD Unavailable Unavailable YandyJohnny stein MD Unavailable Unavailable Johnny Kebede MD Unavailable Unavailable Johnny Kebede MD Unavailable Unavailable Johnny Kebede MD Unavailable Unavailable Johnny Kebede MD Unavailable Unavailable Johnny Kebede MD Unavailable Unavailable Johnny Kebede MD Unavailable Unavailable Johnny Kebede MD Unavailable Unavailable Johnny Kebede MD Unavailable Unavailable Johnny Kebede MD Unavailable Unavailable Johnny Kebede MD Unavailable Unavailable Johnny Kebede MD Unavailable Unavailable Johnny Kebede MD Unavailable Unavailable Johnny Kebede MD Unavailable Unavailable Johnny Kebede MD Unavailable Unavailable Johnny Kebede MD Unavailable Unavailable Johnny Kebede MD Unavailable Unavailable Johnny Kebede MD Unavailable Unavailable Johnny Kebede MD Unavailable Unavailable Johnny Kebede MD Unavailable Unavailable YandyJohnny stein MD Unavailable Unavailable YandyJohnny stein MD Unavailable Unavailable Fish, J Robert Unavailable Unavailable Fish, J Robert Unavailable Unavailable Fish, J Robert Unavailable Unavailable Fish, J Robert Unavailable Unavailable Fish, J Robert Unavailable Unavailable Fish, J Robert Unavailable Unavailable Fish, J Robert Unavailable Unavailable Fish, J Robert Unavailable Unavailable Fish, J Robert Unavailable Unavailable Fish, J Robert Unavailable Unavailable Fish, J Robert Unavailable Unavailable Fish, J Robert Unavailable Unavailable Fish, J Robert Unavailable Unavailable Fish, J Robert Unavailable Unavailable Fish, J Robert Unavailable Unavailable Fish, J Robert Unavailable Unavailable Fish, J Robert Unavailable Unavailable Fish, J Robert Unavailable Unavailable Fish, J Robert Unavailable Unavailable Fish, J Robert Unavailable Unavailable Fish, J Robert Unavailable Unavailable Fish, J Robert Unavailable Unavailable Fish, J Robert Unavailable Unavailable Fish, J Robert Unavailable Unavailable Fish, J Robert Unavailable Unavailable Fish, J Robert Unavailable Unavailable Fish, J Robert Unavailable Unavailable Fish, J Robert Unavailable Unavailable Fish, J Robert Unavailable Unavailable Fish, J Robert Unavailable Unavailable Fish, J Robert Unavailable Unavailable Fish, J Robert Unavailable Unavailable Fish, J Robert Unavailable Unavailable Fish, J Robert Unavailable Unavailable Fish, J Robert Unavailable Unavailable Fish, J Robert Unavailable Unavailable Fish, J Robert Unavailable Unavailable Fish, J Robert Unavailable Unavailable Fish, J Robert Unavailable Unavailable Fish, J Robert Unavailable Unavailable Fish, J Robert Unavailable Unavailable Fish, J Robert Unavailable Unavailable Fish, J Robert Unavailable Unavailable Fish, J Robert Unavailable Unavailable Fish, J Robert Unavailable Unavailable Fish, J Robert Unavailable Unavailable Fish, J Robert Unavailable Unavailable Fish, J Robert Unavailable Unavailable Fish, J Robert Unavailable Unavailable Fish, J Robert Unavailable Unavailable Fish, J Robert Unavailable Unavailable Fish, J Robert Unavailable Unavailable Fish, J Robert Unavailable Unavailable Fish, J Robert Unavailable Unavailable Fish, J Robert Unavailable Unavailable Fish, J Robert Unavailable Unavailable Fish, J Robert Unavailable Unavailable Fish, J Robert Unavailable Unavailable Fish, J Robert Unavailable Unavailable Fish, J Robert Unavailable Unavailable Fish, J Robert Unavailable Unavailable Fish, J Robert Unavailable Unavailable Fish, J Robert Unavailable Unavailable Fish, J Robert Unavailable Unavailable Fish, J Robert Unavailable Unavailable Fish, J Robert Unavailable Unavailable Fish, J Robert Unavailable Unavailable Fish, J Robert Unavailable Unavailable Fish, J Robert Unavailable Unavailable Fish, J Robert Unavailable Unavailable Fish, J Robert Unavailable Unavailable Fish, J Robert Unavailable Unavailable Fish, J Robert Unavailable Unavailable Fish, J Robert Unavailable Unavailable Fish, J Robert Unavailable Unavailable Fish, J Robert Unavailable Unavailable Fish, J Robert Unavailable Unavailable Fish, J Robert Unavailable Unavailable Fish, J Robert Unavailable Unavailable Fish, J Robert Unavailable Unavailable Fish, J Robert Unavailable Unavailable Fish, J Robert Unavailable Unavailable Fish, J Robert Unavailable Unavailable Fish, J Robert Unavailable Unavailable Fish, J Robert Unavailable Unavailable NAZEM, AHMAD MD Unavailable Unavailable NAZEM, AHMAD MD Unavailable Unavailable NAZEM, AHMAD MD Unavailable Unavailable NAZEM, AHMAD MD Unavailable Unavailable NAZEM, AHMAD MD Unavailable Unavailable NAZEM, AHMAD MD Unavailable Unavailable NAZEM, AHMAD MD Unavailable Unavailable NAZEM, AHMAD MD Unavailable Unavailable NAZEM, AHMAD MD Unavailable Unavailable NAZEM, AHMAD MD Unavailable Unavailable NAZEM, AHMAD MD Unavailable Unavailable NAZEM, AHMAD MD Unavailable Unavailable NAZEM, AHMAD MD Unavailable Unavailable NAZEM, AHMAD MD Unavailable Unavailable NAZEM, AHMAD MD Unavailable Unavailable NAZEM, AHMAD MD Unavailable Unavailable NAZEM, AHMAD MD Unavailable Unavailable NAZEM, AHMAD MD Unavailable Unavailable NAZEM, AHMAD MD Unavailable Unavailable NAZEM, AHMAD MD Unavailable Unavailable NAZEM, AHMAD MD Unavailable Unavailable NAZEM, AHMAD MD Unavailable Unavailable NAZEM, AHMAD MD Unavailable Unavailable NAZEM, AHMAD MD Unavailable Unavailable NAZEM, AHMAD MD Unavailable Unavailable NAZEM, AHMAD MD Unavailable Unavailable NAZEM, AHMAD MD Unavailable Unavailable NAZEM, AHMAD MD Unavailable Unavailable NAZEM, AHMAD MD Unavailable Unavailable NAZEM, AHMAD MD Unavailable Unavailable NAZEM, AHMAD MD Unavailable Unavailable NAZEM, AHMAD MD Unavailable Unavailable NAZEM, AHMAD MD Unavailable Unavailable NAZEM, AHMAD MD Unavailable Unavailable NAZEM, AHMAD MD Unavailable Unavailable NAZEM, AHMAD MD Unavailable Unavailable NAZEM, AHMAD MD Unavailable Unavailable NAZEM, AHMAD MD Unavailable Unavailable NAZEM, AHMAD MD Unavailable Unavailable NAZEM, AHMAD MD Unavailable Unavailable NAZEM, AHMAD MD Unavailable Unavailable NAZEM, AHMAD MD Unavailable Unavailable NAZEM, AHMAD MD Unavailable Unavailable NAZEM, AHMAD MD Unavailable Unavailable NAZEM, AHMAD MD Unavailable Unavailable NAZEM, AHMAD MD Unavailable Unavailable NAZEM, AHMAD MD Unavailable Unavailable NAZEM, AHMAD MD Unavailable Unavailable NAZEM, AHMAD MD Unavailable Unavailable NAZEM, AHMAD MD Unavailable Unavailable NAZEM, AHMAD MD Unavailable Unavailable NAZEM, AHMAD MD Unavailable Unavailable NAZEM, AHMAD MD Unavailable Unavailable NAZEM, AHMAD MD Unavailable Unavailable NAZEM, AHMAD MD Unavailable Unavailable NAZEM, AHMAD MD Unavailable Unavailable NAZEM, AHMAD MD Unavailable Unavailable NAZEM, AHMAD MD Unavailable Unavailable NAZEM, AHMAD MD Unavailable Unavailable NAZEM, AHMAD MD Unavailable Unavailable Fish, J Robert Unavailable Unavailable Fish, J Robert Unavailable Unavailable Fish, J Robert Unavailable Unavailable Fish, J Robert Unavailable Unavailable Fish, J Robert Unavailable Unavailable Fish, J Robert Unavailable Unavailable Fish, J Robert Unavailable Unavailable Fish, J Robert Unavailable Unavailable Fish, J Robert Unavailable Unavailable Fish, J Robert Unavailable Unavailable Fish, J Robert Unavailable Unavailable Fish, J Robert Unavailable Unavailable Fish, J Robert Unavailable Unavailable Fish, J Robert Unavailable Unavailable Fish, J Robert Unavailable Unavailable Fish, J Robert Unavailable Unavailable Fish, J Robert Unavailable Unavailable Fish, J Robert Unavailable Unavailable Fish, J Robert Unavailable Unavailable Fish, J Robert Unavailable Unavailable Fish, J Robert Unavailable Unavailable Fish, J Robert Unavailable Unavailable Fish, J Robert Unavailable Unavailable Fish, J Robert Unavailable Unavailable Fish, J Robert Unavailable Unavailable Fish, J Robert Unavailable Unavailable Fish, J Robert Unavailable Unavailable Fish, J Robert Unavailable Unavailable Fish, J Robert Unavailable Unavailable Fish, J Robert Unavailable Unavailable Fish, J Robert Unavailable Unavailable Fish, J Robert Unavailable Unavailable Fish, J Robert Unavailable Unavailable Fish, J Robert Unavailable Unavailable Fish, J Robert Unavailable Unavailable Fish, J Robert Unavailable Unavailable Fish, J Robert Unavailable Unavailable Fish, J Robert Unavailable Unavailable Fish, J Robert Unavailable Unavailable Fish, J Robert Unavailable Unavailable Fish, J Robert Unavailable Unavailable Fish, J Robert Unavailable Unavailable Fish, J Robert Unavailable Unavailable Fish, J Robert Unavailable Unavailable Fish, J Robert Unavailable Unavailable Fish, J Robert Unavailable Unavailable Fish, J Robert Unavailable Unavailable Fish, J Robert Unavailable Unavailable Fish, J Robert Unavailable Unavailable Fish, J Robert Unavailable Unavailable Fish, J Robert Unavailable Unavailable Fish, J Robert Unavailable Unavailable Fish, J Robert Unavailable Unavailable Fish, J Robert Unavailable Unavailable Fish, J Robert Unavailable Unavailable Fish, J Robert Unavailable Unavailable Fish, J Robert Unavailable Unavailable Fish, J Robert Unavailable Unavailable Fish, J Robert Unavailable Unavailable Fish, J Robert Unavailable Unavailable Fish, J Robert Unavailable Unavailable Fish, J Robert Unavailable Unavailable Fish, J Robert Unavailable Unavailable Fish, J Robert Unavailable Unavailable Fish, J Robert Unavailable Unavailable Fish, J Robert Unavailable Unavailable Fish, J Robert Unavailable Unavailable Fish, J Robert Unavailable Unavailable Fish, J Robert Unavailable Unavailable Fish, J Robert Unavailable Unavailable Fish, J Robert Unavailable Unavailable Fish, J Robert Unavailable Unavailable Fish, J Robert Unavailable Unavailable Fish, J Robert Unavailable Unavailable Fish, J Robert Unavailable Unavailable Fish, J Robert Unavailable Unavailable Fish, J Robert Unavailable Unavailable Fish, J Robert Unavailable Unavailable Fish, J Robert Unavailable Unavailable Fish, J Robert Unavailable Unavailable Fish, J Robert Unavailable Unavailable Fish, J Robert Unavailable Unavailable Fish, J Robert Unavailable Unavailable Fish, J Robert Unavailable Unavailable Fish, J Robert Unavailable Unavailable Tricia BAEZ MD Unavailable Unavailable Tricia BAEZ MD Unavailable Unavailable Tricia BAEZ MD Unavailable Unavailable Tricia BAEZ MD Unavailable Unavailable Tricia BAEZ MD Unavailable Unavailable Tricia BAEZ MD Unavailable Unavailable Tricia BAEZ MD Unavailable Unavailable Tricia BAEZ MD Unavailable Unavailable Tricia BAEZ MD Unavailable Unavailable Re-disclosure Warning The records that you are about to access may contain information from federally-assisted alcohol or drug abuse programs. If such information is present, then the following federally mandated warning applies: This information has been disclosed to you from records protected by federal confidentiality rules (42 CFR part 2). The federal rules prohibit you from making any further disclosure of this information unless further disclosure is expressly permitted by the written consent of the person to whom it pertains or as otherwise permitted by 42 CFR part 2. A general authorization for the release of medical or other information is NOT sufficient for this purpose. The Federal rules restrict any use of the information to criminally investigate or prosecute any alcohol or drug abuse patient.The records that you are about to access may contain highly sensitive health information, the redisclosure of which is protected by Article 27-F of the [facility] Public Health law. If you continue you may have access to information: Regarding HIV / AIDS; Provided by facilities licensed or operated by the [facility] Office of Mental Health; or Provided by the [facility] Office for People With Developmental Disabilities. If such information is present, then the following [facility] mandated warning applies: This information has been disclosed to you from confidential records which are protected by state law. State law prohibits you from making any further disclosure of this information without the specific written consent of the person to whom it pertains, or as otherwise permitted by law. Any unauthorized further disclosure in violation of state law may result in a fine or skilled nursing sentence or both. A general authorization for the release of medical or other information is NOT sufficient authorization for further disc losure. Allergies and Adverse Reactions Type Description Substance Reaction Status Data Source(s ) CLASS PCN (penicillin) PCN (penicillin) HIVES [facility] Family History Family Member Name Family Member Gender Family Member Status Date o f Status Description Data Source(s) Unknown Unknown Problem [facility] ([facility] Unknown Unknown Problem [facility] ([facility] Unknown Male Problem [facility] ([facility]) Encounters Encounter Providers Location Date Indications Data Source(s ) Outpatient Attender: Robert KanConsultant: Robert Kan 12/13/2020 10:44:00 AM EST - 12/13/2020 11:44:00 AM EST [facility] Patient discharged. Outpatient Attender: Robert KanConsultant: Robert Lucius 12/09/2020 02:56:54 PM EST - 12/10/2020 09:31:00 AM [facility] Patient discharged. Outpatient Attender: Robert Kan [facility] 12/05/2020 12:00:0 0 PM EST [facility] ([facility] Emergency Attender: HARRIET BAEZ MDConsultant: Robert Fi 11/01/2020 12:58:00 PM EST - 11/01/2020 02:19:00 PM [facility] Patient discharged. Outpatient Attender: Pierce Kebede MDConsultant: Robert Thorpe 09/30/2020 07:15:00 AM EST - 09/30/2020 09:24:00 AM [facility] Patient discharged. Outpatient Attender: Pierce Kebede MDConsultant: Robert Fis h 09/26/2020 10:48:00 AM EST - 09/26/2020 11:48:00 AM [facility] Patient discharged. Outpatient Attender: Pierce Kebede MDConsultant: Robert Thorpe 09/26/2020 10:13:36 AM EST - 09/27/2020 11:30:00 AM [facility] Patient discharged. Outpatient Attender: Mary TREADWELL [facility] 09/23/2020 09:20:00 AM EST [facility] ([facility] Outpatient Attender: Pierce Kebede MDConsultant: Robert [facility] 09/19/2020 01:41:00 PM EST - 09/19/2020 01:41:00 PM [facility] Outpatient Attender: Robert Lucius [facility] 08/29/2020 11:15:0 0 AM EDT [facility] ([facility] Outpatient Attender: Robertolga Kan [facility] 05/13/2020 03:00:0 0 PM EDT [facility] ([facility] Outpatient Attender: JATIN ACEVEDO-MOEVE 020 12:00:00 AM EDT - 04/23/2020 10:35:01 AM EDT [facility] Outpatient Referrer: JATIN PRIEST MD 03/25/2020 02:55:04 PM EDT [facility] Outpatient Attender: Robert Kan [facility] 02/27/2020 10:40:0 0 AM EDT MED[facility] ([facility] Outpatient Attender: Robert KanConsultant: Robert Kan 12/05/2019 01:18:00 PM EST [facility] Outpatient Referrer: Robert Kan 11/09/2019 05:57:[address] [facility] Outpatient Referrer: Robert Kan 11/09/2019 05:57:[address] [facility] Outpatient Referrer: Robert Kan 11/09/2019 03:09:[address] [facility] Outpatient Referrer: Robert Lucius 11/09/2019 03:07:[address] [facility] Outpatient Referrer: Robert Kan 11/09/2019 03:05:[address] [facility] Outpatient Referrer: Robert Kan 11/09/2019 03:05:[address] [facility] Outpatient Referrer: Robert Kan 11/09/2019 02:56:[address] [facility] Outpatient Attender: Robert Kan [facility] 11/09/2019 12:45:0 0 PM EST [facility] ([facility] Immunizations Vaccine Date Status Description Data Source(s) New in 2012. IIV4 08/29/2020 11:40:00 AM EDT completed [facility] ([facility] Medications Medication Brand Name Start Date Product Form Dose Route Admi nistrative Instructions Pharmacy Instructions Status Indications Reaction Description Data Source(s) Clindamycin 300 MG Oral Capsule Clindamycin HCL 09/26/2020 12:00:00 A M EST ORAL completed [facility] ([facility] Sertraline 50 MG Oral Tablet Sertraline HCL 08/29/2020 12:00:00 AM EDT ORAL active [facility] ([facility] Paroxetine HCL Paroxetine HCL 05/13/2020 12:00:00 AM EDT OR AL completed [facility] ([facility] include 234 beds at the [facility] Insurance Providers Payer name Policy type / Coverage type Policy ID Covered republican ID Covered republican's relationship to bocanegra Policy [employer] Plan Information ALEX [id number] SP [id number] MEDICARE [id number] SP [id number] [employer] HE[employer] C[employer] OPTIONS -R [id number] 18 [id number] MEDICARE PART A -O/P [id number] 18 [id number] AAR HE[employer] CARE OPTIONS -RECURRING [id number] 18 [id number] MEDICARE PART A [facility] [id number] 18 [id number] SELECT [facility] [id number] Charisse [id number] MEDICAID [id number] Charisse [id number] MEDICARE [id number] Charisse [id number] MEDICARE -RECURRING [id number] 18 [id number] MEDICAID -RECURRING [id number] MEDICAID -CLINIC [id number] MEDICARE PART A -O/P [id number] 18 [id number] MEDICAID -CLINIC [id number] AARP O [id number] S [id number] MEDICAID M [id number] MEDICARE C [id number] S [id number] Medicaid Medigap Part B [id number] Self [id number] Aarp Medigap Part B [id number] Self [id number] Medicare Medicare Primary [id number] Self [id number] [facility] [id number] Charisse [id number] MEDICARE [id number] Charisse [id number] MEDICAID [id number] Charisse [id number] [facility] PI PI MEDICARE PI PI MEDICAID [id number] SP [id number] Medicaid Medigap Part B [id number] Self [id number] Medicare Medicare Primary [id number] Self [id number] MEDICAID PI PI Medicaid Medigap Part B [id number] Self [id number] Medicare Medicare Primary [id number] Self [id number] Medicaid Medigap Part B [id number] Self [id number] Medicare Medicare Primary [id number] Self [id number] Medicaid Medigap Part B [id number] Self [id number] Medicare Medicare Primary [id number] Self [id number] Medicaid Medigap Part B [id number] Self [id number] Medicare Medicare Primary [id number] Self [id number] MEDICARE [id number] SP [id number] [place] Part B [id number] Self [id number] Medicare [place] Gov[place] Serv[place] Medicare Primary [id number] Self [id number] Medicaid Medigap Part B [id number] Self [id number] Medicare Medicare Primary [id number] Self [id number] MEDICARE C [id number] S [id number] [place] [id number] Self [id number] Medicare [place] Gov't Servi Medicare Primary [id number] Self [id number] MEDICAID -O/P [id number] 18 [id number] [place] [id number] Self [id number] Medicare [place] Gov't Servi Medicare Primary [id number] Self [id number] [facility] () Workers Compensation [id number] Self [id number] [facility]() Workers Compensation [id number] Self [id number] [facility] () Workers Compensation [id number] Family Health Plus Medigap Part B [id number] Self [id number] [place] B [id number] Self [id number] Medicare Dme Supplies Medigap Part B [id number] Self [id number] [place] Primary [id number] Self [id number] Medicaid Medigap Part B [id number] Self [id number] Medicare Medicare Primary [id number] Self 06 [id number] Medicaid Medigap Part B [id number] Self [id number] Medicare Medicare Primary [id number] Self 06 [id number] Medicaid Medigap Part B Self Medicare Medicare Primary Self MEDICARE -O/P [id number] 18 [id number] MEDICARE PART A -CLINIC [id number] 18 [id number] MEDICARE [id number] SP [id number] S MEDICARE [id number] SP [id number] S O BLUE [id number] SP [id number] Problems, Conditions, and Diagnoses Code Display Name Description Problem Type Effective Dates Data Source(s) R911 Solitary pulmonary nodule Solitary pulmonary nodule Di agnosis 12/13/2020 10:44:00 AM [facility] I517 Cardiomegaly Cardiomegaly Diagnosis 12/13/2020 10:44:00 A [facility] [id number] Collapsed vertebra, not else where classified, thoracic region, initial encounter for fracture Collapsed vertebra, not elsewhere classi fied, thoracic region, initial encounter for fracture Diagnosis 12/13/2020 10:44:00 A [facility] R99 Ill-defined and unknown cause of mortali ty Ill-defined and unknown cause of mortality Diagnosis 12/10/2020 09:31:00 AM [facility] [id number] Personal history of nicotine dependence Personal history of nicotine dependence Diagnosis 11/01/2020 12:58:00 PM [facility] Z60784 Contact with and (suspected) exposure to other viral communicable diseases Contact with and (suspected) exposure to other viral communicable diseases Diagnosis 11/01/2020 12:58:00 PM [facility] J40 Bronchitis, not specified as acute or ch ronic Bronchitis, not specified as acute or chronic Diagnosis 11/01/2020 12:58:00 PM [facility] R05 Cough Cough Diagnosis 11/01/2020 12:58:00 PM ES T [facility] K648 Other hemorrhoids Other hemorrhoids Diagnosis 09/30/2020 07:15:00 AM [facility] K5730 Diverticulosis of large inte jazmín without perforation or abscess without bleeding Diverticulosis of large intestine withou t perforation or abscess without bleeding Diagnosis 09/30/2020 07:15:00 AM [facility] Z800 Family history of malignant neoplasm of digestive organs Family history of malignant neoplasm of digestive organs Diagnosis 09/30/2020 07:15:00 A M [facility] K921 Melena Melena Diagnosis 09/30/2020 07:15:00 AM ES T [facility] U45037 Encounter for other preprocedural examin ation Encounter for other preprocedural examination Diagnosis 09/27/2020 10:30:00 AM [facility] Z1211 Encounter for screening for malignant ne oplasm of colon Encounter for screening for malignant neoplasm of colon Diagnosis 09/26/2020 10:48:0 0 AM [facility] Z1159 Encounter for screening for other viral diseases Encounter for screening for other viral diseases Diagnosis 09/26/2020 10:48:00 AM [facility] A88312 Primary osteoarthritis, left hand Primary osteoa rthritis, left hand Diagnosis 12/05/2019 01:18:00 PM [facility] L59735 Primary osteoarthritis, right hand Primary osteo arthritis, right hand Diagnosis 12/05/2019 01:18:00 PM [facility] Surgeries/Procedures Procedure Description Date Indications Data Source(s) Electrocardiogram Complete 09/23/2020 12:00:00 AM EST [facility] ([facility] Electrocardiogram Complete 05/13/2020 12:00:00 AM EDT [facility] ([facility] Results ID Date Data Source [id number] 12/16/2020 10:18:00 AM [facility] [address] [place] [address] PHONE: [phone] FAX: [phone] Name .................. : URSULA Garzon Acct Number.................. : [id number] ROOM. ................. : MR Number ................... : [id number] Stay type ............. : O/P Discharge Date......... ... : 12/13/20 Admit Date ....... .. : 12/13/20 Admit Phys .................... : LUCIUS NEW Date of ....... : 1945 Family Phys ................... : LUCISU NEW Phone .................. : [phone] Age ................................ : 75 Film# .................. .:[id number] Sex ................................. : F Unsigned transcriptions are preliminary reports and do not represent a medical or legal document CT THORAX W/O CONTRAST [id number] COMPLETE:12/13/20 12:14 KJE 3682 (REASON FOR CHEST: FORMER SMOKER, CONCERN R UPPER LUNG CT OF THE THORAX WITHOUT CONTRAST: COMPARISON: PA and lateral chest from 03/10/17. CLINICAL HISTORY: Former smoker, concern right upper lung. FINDINGS: The lung clark are free of infiltrates and masses. The right upper lung is normal. There is a 0.3 cm nodule in the right upper lobe on image 35. The heart is enlarged. There is a worsening compression fracture to T12. IMPRESSION: Worsening compression fracture to T12. Cardiomegaly. 0.3 cm nodule in the right upper lobe. A one year follow up examination is suggested. While performing the above CT examination, radiation dose reduction was accomplished utilizing automated exposure control, adjusting of the mA and kV based on the patient's body size and/or the use of imperative reconstructive techniques. CT dose: 464.8 mGycm Electronically Reviewed and Signed By Nir Spencer MD , 12/16/20 10:18, [facility] Transcribe Initials: FREDO , Transcribe Date: 12/14/20 00:41, Dictation Date: Page 1 of [address] [place] [address] PHONE: [phone] FAX: [phone] Name .................. : URSULA Garzon Acct Number.................. : [id number] ROOM. ................. : MR Number ................... : [id number] Stay type ............. : O/P Discharge Date......... ... : 12/13/20 Admit Date ......... : 12/13/20 Admit Phys .................... : LUCIUS NEW Date of ....... : 1945 Family Phys ................... : LUCIUS NEW Phone .................. : [phone] Age ................................ : 75 Film# .................. .:[id number] Sex ................................. : F Unsigned transcriptions are preliminary reports and do not represent a medical or legal document CT THORAX W/O CONTRAST [id number] COMPLETE:12/13/20 12:14 KJE 3682 (REASON FOR CHEST: FORMER SMOKER, CONCERN R UPPER LUNG Copy for: LUCIUS JOY via fax Copy for: 710 MED REC Page 2 of 2 Name Value Range Interpretation Code Description Data Danisha rce(s) Supporting Document(s) ID Date Data Source [id number] 12/05/2020 01:44:00 PM EST [facility] Name Value Range Interpretation Code Description Data Danisha rce(s) Supporting Document(s) Thyrotropin [Units/volume] in Serum or Plasma Laboratory test result [facility] ([facility] ID Date Data Source [id number] 12/05/2020 01:43:00 PM EST [facility] ([facility] Name Value Range Interpretation Code Description Data Danisha rce(s) Supporting Document(s) Creatine kinase [Enzymatic activity/volume] in Serum o r Plasma Laboratory test result [facility] ([facility] ID Date Data Source [id number] 11/01/2020 12:58:00 PM EST [facility] 1 OrderSheet [facility] Emergency Department [address] [place] [address] Phone #: ext- [phone] 11/01/2020 12:55 Patient: CHELLE RIVERA Sex: F : 1945 Age: 75yWEIGHT:83.4 kg (S) HEIGHT:64 inches (S) BMI:31.6ALLERGIES: PenicillinsCHIEF COMPLAINT: "hurts all over", "flu", fever, coughDIAGNOSIS: Severe acute respiratory syndrome coronavirusLAB ORDERSOrder Description Priority Entered Acknowledged InitialedCORONAVIRUS STAT 13:14 11/01/2020 13:14 Berkley Coates-19 Kaylee Coates R.N.; R.N.(Symptomatic as Verbal order per;Defined by CDC) Ayad Ashford(10/31/20) (First PATest) (NotHospitalized) (Not) (NotResident inCongregate CareSetting) (NotEmployed inHealthcare Setting)Influenza Nasal A B STAT 13:14 11/01/2020 13:14 Kaylee Coates Julie R.N.; R.N. Verbal order per; Ayad Ashford PADIAGNOSTIC STUDY ORDERSOrder Description Priority Entered Acknowledged InitialedMEDICATION/IV/DRIP/FLUID ORDERSOrder Description Priority Entered Acknowledged InitialedGENERAL ORDERSOrder Description Priority Entered Acknowledged Initialed[Electronically signed by Kaylee Coates R.N. (14:19 11/01/2020)][Electronically signed by Ayad Ashford (21:48 11/01/2020)][Electronically locked by Kaylee Coates R.N. (14:19 11/01/2020)] Name Value Range Interpretation Code Description Data Danisha rce(s) Supporting Document(s) ID Date Data Source [id number] 11/01/2020 12:58:00 PM EST [facility] 1 Medication Reconciliation Report [facility] Emergency Department [address] [place] [address] Phone #: ext- [phone] 11/01/2020 12:55 Patient: CHELLE RIVERA Sex: F : 1945 Age: 75yWeight: 83.4 kgHeight/Length: 64 in.BMI: 31.6ALLERGIES: PenicillinsThe patient's Home Medications are listed below:CONTINUE TAKING THE FOLLOWING MEDICATIONS: BETABLOCKER Sertraline HCl Oral (50 mg), dailyThe source(s) of the original Home Medication information:Not obtained.The following Medications were given to the patient in the Emergency Department:None.The following Medications were prescribed to the patient:azithromycin 250 mg tablet -- Take 2 tablets on the first day then one tablet daily for 4 days, totalduration is 5 days. Dispense 6 tablet. Refills: 0. Substitution permitted.Pharmacy - [facility] [id number] [id number] [facility] [address] ; [place] [address]. . -- MILE Orellana Name Value Range Interpretation Code Description Data Danisha rce(s) Supporting Document(s) ID Date Data Source [id number] 11/01/2020 12:58:00 PM [facility] 1 Medication Administration Record [facility] Emergency Department [address] [place] [address] Phone #: ext- [phone] 11/01/2020 12:55 Patient: CHELLE RIVERA Sex: F : 1945 Age: 75yWeight: 83.4 kgHeight/Length: 64 inBMI: 31.6ALLERGIES: PenicillinsDate/Time Medication Administered Medication Ordered Name Value Range Interpretation Code Description Data Danisha rce(s) Supporting Document(s) ID Date Data Source [id number] 11/01/2020 12:58:00 PM [facility] 1 General Instructions [facility] Emergency Department [address] [place] [address] Phone #: ext- [phone] 11/01/2020 12:55 Patient: CHELLE RIVERA Sex: F : 1945 Age: 75y Coronavirus COVID-19 presumed (confirmatory testing pending) with bronchitis.INSTRUCTIONS Warnings: GENERAL WARNINGS: Return or contact your physician immediately if your condition worsens or changes unexpectedly, if not improving as expected, or if other problems arise. SPECIFICALLY, return if you develop chest pain, difficulty breathing or fever greater than 102 degrees F and not controlled by acetaminophen and ibuprofen. Your Current Medications: Your c urrent home medications have been reviewed. CONTINUE TAKING THE FOLLOWING MEDICATIONS: BETABLOCKER*. Sertraline HCl Oral : Tablet 50 mg, daily. Prescription Medications: azithromycin 250 mg tablet -- Take 2 tablets on the first day then one tablet daily for 4 days, total duration is 5 days. Dispense 6 tablet. Refills: 0. Substitution permitted. Pharmacy - [facility] [id number] [facility] [address] ; [place] [address]. . Follow-up: Follow up with your doctor in two weeks if not better. Reason for referral: evaluation and treatment. Summary of care pro vided to patient. Understanding of the discharge instructions verbalized by patient. ADDITIONAL INFORMATIONUnderstanding Coronavirus Disease 2019 (COVID-19)Coronavirus disease 2019 (COVID-19) is a virus that causes a respiratory illness. It is caused by acoronavirus called 2019 novel coronavirus (2019-nCoV). There are many types of coronavirus.Coronaviruses are a very common cause of bronchitis. They may sometimes cause lung infection(pneumonia). Symptoms can range from mild to severe respiratory illness. These viruses are alsofound in some animals. COVID- 19 was first found in people in [facility] in late 2018. In 2019,several cases of COVID-19 have been confirmed in the [place] COVID-19 is a rapidly- emerginginfectious disease. This means that scientists are actively researching it. There are information 2 General Instructions [facility] Emergency Department [address] [place] [address], [place] [address] Phone #: ext- [phone] 11/01/2020 12:55 Patient: CHELLE RIVERA Sex: F : 1945 Age: 75yupdates regularly.Public health officials are working to find the source. How the virus spreads is not yet fullyunderstood, but it seems to spread and infect people fairly easily. Some people who have beeninfected in an area may be unsure how or where they became infected. The virus may be spreadthrough droplets of fluid that a person coughs or sneezes into the air. It may be spread if you touch asurface with virus on it, such as a handle or object, and then touch your eyes, nose, or mouth.For the latest information, visit the CDC website at www.cdc.gov/coronavirus/2019-ncov.What are the symptoms of COVID-19?Some people have no symptoms or mild symptoms. Symptoms may appear 2 to 14 days aftercontact with the virus. Symptoms can include: Fever Coughing Trouble breathingWhat are possible complications from COVID-19?In many cases, this virus can cause infection (pneumonia) in both lungs. In some cases, this cancause .How is COVID-19 diagnosed?Your healthcare provider will ask about your symptoms. He or she will also ask about your recenttravel and contact with sick people. If your healthcare provider thinks you may have COVID-19, vladimir kohli will work closely with your local health department and the CDC on testing. Follow a ll instructionsfrom your healthcare provider. COVID-19 is diagnosed by: Nasal and throat swab. A cotton-tipped swab is wiped inside your nose or throat. This is done to check for viruses in your nasal mucus. Sputum culture. A small sample of mucus coughed from your lungs (sputum) is collected if you have a cough. It is checked for the virus.How is COVID-19 treated?There is currently no medicine to treat the virus. Treatment is done to help your body while it fightsthe virus. This is known as supportive care. Supportive care may include: Pain medicine. These include acetaminophen and ibuprofen. They are used to help ease pain and reduce fever. 3 General Instructions [facility] Emergency Department [address] [place] [address] Phone #: ext- [phone] 11/01/2020 12:55 Patient: CHELLE RIVERA Sex: F : 1945 Age: 75y Bed rest. This helps your body fight the illness.For severe illness, you may need to stay in the hospital. Care during severe illness may include: IV (intravenous) fluids.These are given through a vein to help keep your body hydrated. Oxygen. Supplemental oxygen or ventilation with a breathing machine (ventilator) may be given. This is done so you get enough oxygen in your body.Are you at risk for COVID-19?You are at risk for infection if you've been to a place where people have been sick with this virus or ifthere are people with COVID-19 in your area. You are at risk if you: Recently traveled to an area with a COVID-19 outbreak Had contact with a sick person who recently traveled to an area with a COVID-19 outbreak Had contact with a person who was diagnosed with or who may have COVID-19How can COVID-19 be prevented?There is no vaccine yet. The best prevention is to not have contact with the virus. The CDC advisesthat people should not travel to areas where there are COVID-19 outbreaks right now for any reasonthat is not urgent. For the most current CDC travel advisories, visit the CDC website atwww.cdc.gov/coronavirus/2019-ncov/travelers. 4 General Instructions [facility] Emergency Department [address] [place] [address] Phone #: ext- [phone] 11/01/2020 12:55 [facility]: [id number] Sex: F : 1945 Age: 75yTo help prevent spreading the infection, wash your hands often, or use an alcohol-based hand dish cloth inspector.The CDC advises that you shouldn't wear a face mask if you are not sick.To protect yourself from COVID-19: Wash your hands often with soap and clean, running water for at least 20 seconds. If you don't have access to soap and water, use an alcohol-based hand dish cloth inspector often. Make sure it has at least 60% alcohol. Don't touch your eyes, nose, or mouth unless you have clean hands. Don't have contact with people who are sick. Follow local instructions about being in public. For example, you may be told to not use public transport for a period of time. Experts don't know if animals spread 2019-nCoV. But it's always a good idea to wash your hands after touching any animals. Don't touch animals that may be sick. Don't share eating or drinking tools with sick people. 5 General Instructions [facility] Emergency Department [address] [place] [address] Phone #: ext- [phone] 11/01/2020 12:55 Patient: CHELLE RIVERA Sex: F : 1945 Age: 75y Don't kiss someone who is sick. Clean surfaces often with disinfectant.If you were in an area with COVID-19 in the last 14 days: Call your healthcare provider. He or she can talk with local health staff to see what action may be needed. Follow all instructions from your provider. Take your temperature every morning and evening for at least 14 days. This is to check for fever. Keep a record of the readings. Keep watch for symptoms of the virus. Tell your provider right away if you have symptoms. Stay home if you are sick for any reason.If you were in an area with COVID-19 and have a fever or other symptoms: Stay home. Don't panic. Keep in mind that other illnesses can cause similar symptoms. Stay away from work, school, and public places. Limit physical contact with family members. Don't kiss anyone or share eating or drinking utensils. Clean surfaces you touch with disinfectant. This is to help prevent the virus from spreading. Cough or sneeze into a tissue, then throw away the tissue in the trash. Or cough or sneeze into the bend of your elbow. Wear a face mask. Call your healthcare provider. Explain that you have been exposed to COVID-19 and have symptoms. Do this before going to any hospital. Wait for instructions. Keep in mind that healthcare staff may wear protective equipment such as masks, gowns, gloves, and eye protection. You may be put in a separate room. This is to prevent the possible virus from spreading. Tell the healthcare staff about recent travel. This includes local travel on public transport. Staff may need to find other people you have been in contact with. Follow all instructions the healthcare staff give you.If you have been diagnosed with COVID-19 Stay home. Don't leave your home unless you need to get medical care. 6 General Instructions [facility] Emergency Department [address] [place] [address] Phone #: ext- [phone] 11/01/2020 12:55 Patient: CHELLE RIVERA Sex: F D OB: 1945 Age: 75y Follow all instructions from your healthcare provider. Call your healthcare provider's office before going. They can prepare and give you instructions. This will help prevent the virus from spreading. Don't go to work, school, or public areas. Don't use public transport or taxis. Stay away from other people in your home. Wear a face mask. This is to protect other people from your germs. They do not need to wear face masks. Don't share household items or food. Cover your face with a tissue when you cough or sneeze. Throw the tissue away. Then wash your hands. Wash your hands often.Caregivers should: Follow all instructions from healthcare staff. Wear protective clothing as advised. Make sure the sick person wears a mask. Wash hands often. Keep track of the sick person's symptoms. Clean surfaces, fabrics, and laundry thoroughly. Keep other people away from the sick person.When to call your healthcare providerCall your healthcare provider: If you've recently traveled and have symptoms If you have been diagnosed with COVID-19 and your symptoms are worse [phone] [employer]. [address] [place] [address], [place] [address]. All rights reserved. This information is not intended as asubstitute for professional medical care. Always follow your healthcare professional's instructions. You have been given the following additional information: 7 General Instructions [facility] Emergency Department [address] [place] [address] Phone #: ext- [phone] 11/01/2020 12:55 Patient: CHELLE RIVERA Sex: F : 1945 Age: 75y Coronavirus Disease 2019 (COVID-19)(Electronically signed by MILE Orellana 11/01/2020 21:48) Name Value Range Interpretation Code Description Data Danisha rce(s) Supporting Document(s) ID Date Data Source [id number] 11/01/2020 12:58:00 PM EST [facility] 1 Clinical Report - Nurses [facility] Emergency Department [address] [place] [address] Phone #: ext- [phone] 11/01/2020 12:55 Patient: CHELLE RIVERA Sex: F : 1945 Age: 75yTRIAGEArrived by private vehicle. Historian: patient. Unaccompanied. ( body aches, dry cough and feveryesterday).Acuity: LEVEL 3.Chief Complaint: FEVER, COUGH and BODY ACHES.Alert. No acute distress.This started yesterday. She has had a headache. No recent travel.Treatment GENERAL INTERNAL MEDICINE PHYSICIAN:None.SEPSIS SCREEN: SIRS SCREEN NEGATIVE. SEPSIS SCREEN NEGATIVE. No suspected or confirmedsigns of infection present. --13:03 11/01/20 Kaylee Coates R.N.12:55 11/01/20. BP: 120/53. MAP: 75. HR: 65. RR: 20. O2 saturation: 94%. Temp: 97.4 F. Pain level now:0/10. --13:03 11/01/20 Kaylee Coates R.N.Weight: 83.4 kg stated. Height/Length: 64 inches Per Patient. BMI: 31.6. --12:54 11/01/20 Kaylee Coates R.N.MedicationsB ETABLOCKER. --13:00 11/01/20 Kaylee Coates R.N. Sertraline HCl Oral (Tablet 50 mg), daily. --13:38 11/01/20 Kaylee Coates R.N.AllergiesPenicillins. --12:57 11/01/20 Kaylee Coates R.N.PROBLEMS:Depression. --13:00 11/01/20 Kaylee Coates R.N.HistoryPAST MEDICAL HX: Immunizations: up-to-date. The patient is post- menopausal.SOCIAL HX: Smoker- current status unknown (quit 25 years ago). Patient is a recovering alcoholic. (quit25 year ago). No drug use. No recent travel. No known contact with a sick individual. She was offeredHIV testing but declined and hepatitis C testing but declined. She has not traveled outside the [place]Infectious disease exposure: No infectious disease exposure. Patient is not a known carrier of tuberculosis,hepatitis, HIV, MRSA or VRE. Patient is not a known carrier of CRE.SELF HARM ASSESSMENT: Self harm assessment was performed. The patient answered "no" to the 2 Clinical Report - Nurses [facility] Emergency Department [address] [place] [address] Phone #: ext- [phone] 11/01/2020 12:55 Patient: CHELLE RIVERA Sex: F : 1945 Age: 75y question(s) "Have you recently felt down, depressed, or hopeless?", "Do you have thoughts of harming or killing yourself?", "Do you have a plan for harming or killing yourself?", "Have you recently had thoughts about harming or killing others?", "Do you have any dangerous items in your possession?", "Have you noticed less interest or pleasure in doing things?", "Are you here because you tried to hurt yourself?" and "Have you ever tried to hurt yourself before today?". ABUSE ASSESSMENT: Abuse assessment. Abuse denied. No suspicion of abuse. No report of abuse. NUTRITIONAL RISK ASSESSMENT: The nutritional risk assessment revealed no deficiencies. FUNCTIONAL ASSESSMENT: Functional assessment: no impairments noted. LEARNING NEEDS ASSESSMENT: The learning needs assessment revealed no barriers. FALL RISK ASSESSMENT: Fall risk assessment completed. No risk factors identified. SKIN INTEGRITY ASSESSMENT: Skin integrity risk assessment completed. No skin integrity risk identified. --13:11/01/20 Kaylee Coates R.N. Interventions Identification band on patient. To treatment room. --13:11/01/20 Kaylee Coates R.N.PHYSICAL ASSESSMENT( body aches).GENERAL / NEURO / PSYCH: Alert. Oriented X 4. Appears in no acute distress.HEENT: Mucous membranes are pink.RESPIRATORY: Respirations not labored. Nonproductive cough. Chest nontender. Breath soundswithin normal limits.CVS: Normal sinus rhythm noted. Capillary refill less than 2 seconds. Pulses within normal limits.GI / : Abdomen soft and nontender and normal bowel sounds.SKIN: Skin intact. Skin is warm and dry. Normal skin turgor. --13:11/01/20 Kaylee Coates R.N.NURSING PROGRESS NOTESReassurance given. Two patient identifiers checked. Call light placed in reach. Side rails up x 2. Bedplaced in lowest position. Brakes of bed on. Patient ready for evaluation- ED physician and PA notified.--13:11/01/20 Kaylee Coates R.N. ( pt requests a covid test). --13:11/01/20 Kaylee Coates R.N. Patient ID band checked for patient name and birthdate: patient confirmed. COVID-19 specimen obtained by RN via nasopharyngeal swab. Labeled in the presence of the patient and sent to lab. Patient ID band checked for patient name and birthdate: patient confirmed. Flu swab obtained by RN via nasal swab. Labeled in the presence of the patient and sent to lab. --13:14 11/01/20 Kaylee Coates R.N. 3 Clinical Report - Nurses [facility] Emergency Department [address] [place] [address] Phone #: ext- [phone] 11/01/2020 12:55 Patient: CHELLE RIVERA Sex: F : 1945 Age: 75y 13:30 11/01/20. BP: 122/56. MAP: 78. HR: 65. RR: 18. O2 saturation: 96%. --13:58 11/01/20 Kaylee Coates R.N. late entry - 13:30 11/01/20. ( resting waiting on test results). --13:58 11/01/20 Kaylee Coates R.N.DISPOSITION / DISCHARGE Condition at departure: unchanged. No learning barriers present. Discharge instructions provided and reviewed with the patient. Reviewed medication(s) side effects, precautions, dosing and course information. Prescription(s) given to the patient and sent electronically to pharmacy. Reviewed fever care instructions. Patient verbalized understanding. Written instructions provided in Tu[place]uan. ( covid test results will be called to you need to quarantine until you receive results or 14 days). The patient was discharged home and accompanied by spouse. She left ambulatory and via private vehicle. Patient driving. --14:17 11/01/20 Kaylee Coates R.N. 14:14 11/01/20. BP: 118/63. MAP: 81. HR: 59. RR: 18. O2 saturation: 95%. Temp: 98.2 F. Pain level now: 0/10. --14:17 11/01/20 Kaylee Coates R.N. Departure time: 14:17 11/01/2020. --14:17 11/01/20 Kaylee Coates R.N.Locked/Released at 11/01/2020 14:19 by Kaylee Coates R.N. Name Value Range Interpretation Code Description Data Danisha rce(s) Supporting Document(s) ID Date Data Source [id number] 11/01/2020 12:58:00 PM EST [facility] 1 Clinical Report - Physicians/Mid Levels [facility] Emergency Department [address] [place] [address] Phone #: ext- [phone] 11/01/2020 12:55 Patient: CHELLE RIVERA Sex: F : 1945 Age: 75y Time Seen: 13:10 11/01/2020. Arrived- By private vehicle. Historian- patient.HISTORY OF PRESENT ILLNESS Chief Complaint: "FLU", FEVER and COUGH and "HURTS ALL OVER". This started 2 days ago and is still present. The patient has had a cough, fever, chills and muscle aches but not been confused. No skin rash, headache, sinus drainage or nasal congestion or discharge. No sore throat, loss of taste, smell or appetite or difficulty breathing. No chest discomfort or chest pain, nausea, vomiting or diarrhea. No sputum production. 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 Similar symptoms previously. None. Recent medical care: Not recently seen/assessed.REVIEW OF SYSTEMSNo fatigue, weight loss, photophobia, sinus pain or toothache. No weakness, dizziness, palpitations, calfpain or abdominal pain. No bloody stools, joint pain, enlarged lymph nodes, tick bite or back pain.PAST HISTORYProblems:Depression. Medications: BETABLOCKER. Allergies: Penicillins.SOCIAL HISTORYFormer smoker. Patient is a recovering alcoholic. Not exposed to second-hand smoke at home. Nodrug use.PHYSICAL EXAMVital Signs: 11/01/2020 12:55 BP: 120/53. MAP: 75. HR: 65. RR: 20. O2 saturation: 94%. Temp: 97.4 F.Pain level now: 0/10. Have been reviewed as normal. Oxygen saturation normal.Appearance: Alert. No acute distress.Eyes: Pupils equal, round and reactive to light. Eyes normal inspection.ENT: Ears normal. Nose normal. Pharynx normal. Uvula midline.Neck: Normal inspection. Neck supple.CVS: Normal heart rate. Heart sounds normal. 2 Clinical Report - Physicians/Mid Levels [facility] Emergency Department [address] [place] [address] Phone #: ext- [phone] 11/01/2020 12:55 Patient: CHELLE RIVERA Sex: F : 1945 Age: 75y Respiratory: No respiratory distress. Breath sounds normal. Abdomen: Soft and nontender. Back: Normal inspection. Skin: Skin warm and dry. Normal skin color. No rash. Normal skin turgor. Extremities: Extremities exhibit normal ROM. Neuro: Oriented X 3.LABS, X-RAYS, AND EKGLaboratory Tests: Laboratory tests have been ordered, with results reviewed and considered in themedical decision making process. Influenza Nasal A B: (MAGALI: 11/01/2020 13:05) ( MsgRcvd 11/01/2020 13:47) Final results Test Result Flag Units (Reference) INFLUENZA A NEGATIVE (NORMAL: NEGAT INFLUENZA B NEGATIVE (NORMAL: NEGAT INFLUENZA A REENTER NEGATIVE (NORMAL: NEGAT INFLUENZA B REENTER NEGATIVE (NORMAL: NEGAT PROCEDURAL CONTROL VALID KIT LOT # _[id number] 11/01/20.TAD. . . KIT EXP DATE _01.28.21 11/01/20.TAD. . .The Influenza A utilizing an isothermal nucleic acid amplification technology for thequalitative detection of influenza A and B viral RNA.Negative results do not preclude influenza virus infection and should not beused as the sole basis for diagnosis, treatment or other patient managementdecisions..PROGRESS AND PROCEDURESCourse of Care: 13:55 Nov 01 2020. Evaluation after observation. (discussed negative flu test and covidquarantine and pt is agreeable with dx and tx plan.). Patient counseled in person regarding the patient's stable condition, test results and diagnosis. Patient agrees with plan of care. 13:55 Nov 01 2020. Disposition: Discharged home in good and improved condition (13:56 Nov 01 2020).CLINICAL IMPRESSION Cor onavirus COVID-19 presumed (confirmatory testing pending) with bronchitis.INSTRUCTIONS Warnings: GENERAL WARNINGS: Return or contact your physician immediately if your condition worsens or changes unexpectedly, if not improving as expected, or if other problems arise. SPECIFICALLY, return if you develop chest pain, difficulty breathing or fever greater than 102 degrees F and not controlled by acetaminophen and ibuprofen. 3 Clinical Report - Physicians/Mid Levels [facility] Emergency Department [address] [place] [address] Phone #: ext- [phone] 11/01/2020 12:55 Patient: CHELLE RIVERA Sex: F : 1945 Age: 75y Your Current Medications: Your current home medications have been reviewed. CONTINUE TAKING THE FOLLOWING MEDICATIONS: BETABLOCKER*. Sertraline HCl Oral : Tablet 50 mg, daily. Prescription Medications: azithromycin 250 mg tablet -- Take 2 tablets on the first day then one tablet daily for 4 days, total duration is 5 days. Dispense 6 tablet. Refills: 0. Substitution permitted. Pharmacy - [facility] [id number] ; [place] [address]. . Follow-up: Follow up with your doctor in two weeks if not better. Reason for referral: evaluation and treatment. Summary of care provided to patient. Understanding of the discharge instructions verbalized by patient.(Electronically signed by MILE Orellana 11/01/2020 21:48) Name Value Range Interpretation Code Description Data Danisha rce(s) Supporting Document(s) ID Date Data Source [id number] 11/01/2020 12:58:00 PM EST [id number] Date: 15:06covid test negative, pt made aware(Electronically signed by Maribel Smith RN - 11/03/2020 15:06) Name Value Range Interpretation Code Description Data [facility] rce(s) Supporting Document(s) ID Date Data Source [id number] 11/01/2020 01:05:00 PM EST [facility] ([facility] Name Value Range Interpretation Code Description Data [facility] rce(s) Supporting Document(s) Coronavirus Covid-19 Laboratory test result [facility] ([facility] This nucleic acid amplification test was developed and its performance characteristics determined by [employer]. Nucleic acid amplification tests include PCR and [...] negative (not detected) result in this assay. ID Date Data Source [id number] 11/01/2020 01:05:00 PM EST [facility] ([facility] Name Value Range Interpretation Code Description Data Danisha rce(s) Supporting Document(s) Influenza B Laboratory test result [facility] ([facility] Influenza A Laboratory test result [facility] ([facility] Influenza A [facility] Laboratory test result [facility] ([facility] Influenza B [facility] Laboratory test result [facility] ([facility] <content>PROCEDURAL CONTROL VALID</con tent>
<content>KIT LOT # _[id number] 11/01/20.1346.TAD. . .</content>
<content>KIT EXP DATE _01.28.21 11/01/20.1346.TAD. . .</content>
<content>The Influenza A & B assay is a rapid molecular in vitro diagnostic test </content>
<content>utilizing an isothermal nucleic acid amplification technology for the</content>
<content>qualitative detection of influenza A and B viral RNA.</content>
<content>Negative results do not preclude influenza virus infection and should not be</content>
<content>used as the sole basis for diagnosis, treatment or other patient management</content>
<content>decisions.</content>
<content></content> ID Date Data Source [id number] 11/01/2020 01:05:00 PM EST [facility] Name Value Range Interpretation Code Description Data Danisha rce(s) Supporting Document(s) SARS coronavirus 2 [facility] This lab was ordered by [facility] irina and reported by [employer]. ID Date Data Source [id number] 11/03/2020 02:15:00 PM EST [facility] Name Value Range Interpretation Code Description Data Danisha rce(s) Supporting Document(s) SARS-CoV-2, KIAH Not Detected Not Detected [facility] This nucleic acid amplification test was developed and its performancecharacteristics determined by [employer]. Nucleic acidamplification tests include PCR and TMA. This test has not been FDAcleared or approved. This test has been authorized by FDA under anEmergency Use Authorization (EUA). This test is only authorized forthe duration of time the declaration that circumstances existjustifying the authorization of the emergency use of in vitrodiagnostic tests for detection of SARS-CoV-2 virus and/or diagnosisof COVID-19 infection under section 564(b)(1) of the Act, 21 U.S.C.360bbb-3(b) (1), unless the authorization is terminated or revokedsooner.When diagnostic testing is negative, the possibility of a falsenegative result should be considered in the context of a patient'srecent exposures and the presence of clinical signs and symptomsconsistent with COVID- 19. An individual without symptoms of COVID-19and who is not shedding SARS-CoV-2 virus would expect to have anegative (not detected) result in this assay. ID Date Data Source [id number] 11/01/2020 01:46:00 PM [facility] Name Value Range Interpretation Code Description Data Danisha rce(s) Supporting Document(s) Influenza virus A Ag [Presence] in Nasopharynx by [facility] y NEGATIVE NORMAL: NEGATIVE [facility] Influenza virus B Ag [Presence] in Nasopharynx by [facility] y NEGATIVE NORMAL: NEGATIVE [facility] NEGATIVENEGATIVE PROCEDURAL CO NTROL VALID KIT LOT # _[id number] 11/01/201346.TAD. . . KIT EXP DATE _01.28.21 11/01/201346.TAD. . .The Influenza A & B assay is a rapid molecular in vitro diagnostic testutilizing an isothermal nucleic acid amplification technology for thequalitative detection of influenza A and B viral RNA.Negative results do not preclude influenza virus infection and should not beused as the sole basis for diagnosis, treatment or other patient managementdecisions. ID Date Data Source [id number] 09/30/2020 09:03:00 [place] [address] OPERATIVE SUMMARYNAME: URSULA Garzon DATE OF : 1945ENDING PHYS: Pierce Kebede MD DATE: 09/30/20 MR#: [id number] OF PROCEDURE: 09/30/2020PRE- OPERATIVE DIAGNOSIS: Colonoscopy for blood in stool and family history of coloncancer.POST-OPERATIVE DIAGNOSIS: Colonoscopy for blood in stool and family history of coloncancer.ANESTHESIA: IV sedation.ANESTHESIOLOGIST: Dr. Joanna Cantor.ATTENDING SURGEON: Dr. Pierce Kebede.FINDINGS: 1. Severe sigmoid diverticulosis and moderate pandiverticulosis. 2. Severe internal/external hemorrhoids.PROCEDURE PERFORMED: Colonoscopy.DETAILS OF PROCEDURE:Patient was brought to the operating room, placed in the left lateral decubitus position, and givenIV sedation. Flexible colonoscope was inserted in the patient's rectum, and negotiated through therectum, sigmoid, left colon, transverse colon, and right colon. The cecum was clearly identified.During the passage of the colonoscope, the mucosa examined with the above findings noted.Patient had severe sigmoid diverticulosis and moderate pandiverticulosis. The remaining aspects ofthe colonic mucosa appeared normal. Bowel prep was noted to be excellent. After the cecum wasexamined, the scope was slowly and carefully withdrawn with a full re-inspection performed,confirming the above findings. A digital rectal exam was performed, which was unremarkableexcept for very large external/internal hemorrhoids.ESTIMATED BLOOD LOSS: None.IV FLUIDS: Crystalloid.DRAINS: None.COMPLICATIONS: None. [address] [place] [address] OPERATIVE SUMMARYNAME: URSULA Garzon DATE OF : 1945ENDING PHYS: Pierce Kebede MD DATE: 09/30/20 MR#: [id number]:Patient tolerated procedure well, and was sent to the recovery room in good condition.DD: Pierce Kebede MD 09/30/20 08:52DT: LLUVIA 09/30/20 08:59DS: Pierce Kebede MD 10/07/20 11:22 2 Name Value Range Interpretation Code Description Data Danisha rce(s) Supporting Document(s) ID Date Data Source [id number] 09/26/2020 09:30:00 AM EST [facility] ([facility] Name Value Range Interpretation Code Description Data Danisha rce(s) Supporting Document(s) Coronavirus Covid-19 Laboratory test result [facility] ([facility] This nucleic acid amplification test was developed and its performance characteristics determined by [facility]. Nucleic acid amplification tests include PCR and [...] negative (not detected) result in this assay. ID Date Data Source [id number] 09/26/2020 09:30:00 AM EST [facility] Name Value Range Interpretation Code Description Data Danisha e(s) Supporting Document(s) SARS coronavirus 2 RNA [facility] This lab was ordered by [facility] irina and reported by [facility]. ID Date Data Source [id number] 09/28/2020 07:13:00 AM EST [facility] Name Value Range Interpretation Code Description Data Danisha rce(s) Supporting Document(s) SARS-CoV-2, KIAH Not Detected Not Detected [facility] This nucleic acid amplification test was developed and its performancecharacteristics determined by [employer]. Nucleic acidamplification tests include PCR and TMA. This test has not been FDAcleared or approved. This test has been authorized by FDA under anEmergency Use Authorization (EUA). This test is only authorized forthe duration of time the declaration that circumstances existjustifying the authorization of the emergency use of in vitrodiagnostic tests for detection of SARS-CoV-2 virus and/or diagnosisof COVID-19 infection under section 564(b)(1) of the Act, 21 U.S.C.360bbb-3(b) (1), unless the authorization is terminated or revokedsooner.When diagnostic testing is negative, the possibility of a falsenegative result should be considered in the context of a patient'srecent exposures and the presence of clinical signs and symptomsconsistent with COVID- 19. An individual without symptoms of COVID-19and who is not shedding SARS-CoV-2 virus would expect to have anegative (not detected) result in this assay. ID Date Data Source [id number] 09/23/2020 10:48:00 AM [facility] ([facility] Name Value Range Interpretation Code Description Data Danisha rce(s) Supporting Document(s) WBC 6.4 10E3/uL 4.1-10.9 [facility] ([facility] NORMAL RANGES Age WBC RBC HGB HCT [...] HCT IS 5% LESS SOURCE FOR DATA: wiMAN 1800 OPERATION MANUAL( AUTOMATED BLOOD COUNTS AND [...] Normal 80 and above >32 mL/min Normal RBC 4.37 10E6/uL 4.20-6.30 [facility] NORMAL RANGES Age WBC RBC HGB HCT [...] HCT IS 5% LESS SOURCE FOR DATA: wiMAN 1800 OPERATION MANUAL( AUTOMATED BLOOD COUNTS AND [...] Normal 80 and above >32 mL/min Normal MCV 90.2 fL 80.0-97.0 [facility] ([facility] NORMAL RANGES Age WBC RBC HGB HCT [...] HCT IS 5% LESS SOURCE FOR DATA: wiMAN 1800 OPERATION MANUAL( AUTOMATED BLOOD COUNTS AND [...] Normal 80 and above >32 mL/min Normal HGB 13.1 g/dL 12.0-18.0 [facility] ([facility] NORMAL RANGES Age WBC RBC HGB HCT [...] HCT IS 5% LESS SOURCE FOR DATA: wiMAN 1800 OPERATION MANUAL( AUTOMATED BLOOD COUNTS AND [...] Normal 80 and above >32 mL/min Normal HCT 39.4 % 37.0-51.0 [facility] ([facility] NORMAL RANGES Age WBC RBC HGB HCT [...] HCT IS 5% LESS SOURCE FOR DATA: wiMAN 1800 OPERATION MANUAL( AUTOMATED BLOOD COUNTS AND [...] Normal 80 and above >32 mL/min Normal MCHC 33.2 g/dL 31.0-36.0 [facility] ([facility] NORMAL RANGES Age WBC RBC HGB HCT [...] HCT IS 5% LESS SOURCE FOR DATA: wiMAN 1800 OPERATION MANUAL( AUTOMATED BLOOD COUNTS AND [...] Normal 80 and above >32 mL/min Normal MCH 30.0 pg 26.0-32.0 [facility] NORMAL RANGES Age WBC RBC HGB HCT [...] HCT IS 5% LESS SOURCE FOR DATA: wiMAN 1800 OPERATION MANUAL( AUTOMATED BLOOD COUNTS AND [...] Normal 80 and above >32 mL/min Normal PLT 214 10E3/uL 140-440 [facility] ([facility] NORMAL RANGES Age WBC RBC HGB HCT [...] HCT IS 5% LESS SOURCE FOR DATA: wiMAN 1800 OPERATION MANUAL( AUTOMATED BLOOD COUNTS AND [...] Normal 80 and above >32 mL/min Normal RDW-CV 12.9 % 11.5-14.5 [facility] ([facility] NORMAL RANGES Age WBC RBC HGB HCT [...] HCT IS 5% LESS SOURCE FOR DATA: [employer] DYN 1800 OPERATION MANUAL( AUTOMATED BLOOD COUNTS AND [...] Normal 80 and above >32 mL/min Normal Lym% 29.1 % 10.0-58.5 [facility] NORMAL RANGES Age WBC RBC HGB HCT [...] HCT IS 5% LESS SOURCE FOR DATA: wiMAN 1800 OPERATION MANUAL( AUTOMATED BLOOD COUNTS AND [...] Normal 80 and above >32 mL/min Normal Neut% 61.4 % 37.0-92.0 [facility] NORMAL RANGES Age WBC RBC HGB HCT [...] HCT IS 5% LESS SOURCE FOR DATA: wiMAN 1800 OPERATION MANUAL( AUTOMATED BLOOD COUNTS AND [...] Normal 80 and above >32 mL/min Normal MXD% 9.5 % 0.1-24.0 [facility] NORMAL RANGES Age WBC RBC HGB HCT [...] HCT IS 5% LESS SOURCE FOR DATA: wiMAN 1800 OPERATION MANUAL( AUTOMATED BLOOD COUNTS AND [...] Normal 80 and above >32 mL/min Normal Neut# 3.9 % 2.0-7.8 [facility] ([facility] NORMAL RANGES Age WBC RBC HGB HCT [...] HCT IS 5% LESS SOURCE FOR DATA: wiMAN 1800 OPERATION MANUAL( AUTOMATED BLOOD COUNTS AND [...] Normal 80 and above >32 mL/min Normal Lym# 1.9 10E3/uL 0.6-4.1 MED[facility] ([facility] NORMAL RANGES Age WBC RBC HGB HCT [...] HCT IS 5% LESS SOURCE FOR DATA: wiMAN 1800 OPERATION MANUAL( AUTOMATED BLOOD COUNTS AND [...] Normal 80 and above >32 mL/min Normal MXD# 0.6 10E3/uL 0.0-1.8 [facility] ([facility] NORMAL RANGES Age WBC RBC HGB HCT [...] HCT IS 5% LESS SOURCE FOR DATA: wiMAN 1800 OPERATION MANUAL( AUTOMATED BLOOD COUNTS AND [...] Normal 80 and above >32 mL/min Normal MPV 8.6 fL 9.0-13.0 Below low normal [facility] ( [facility] NORMAL RANGES Age WBC RBC HGB HCT [...] HCT IS 5% LESS SOURCE FOR DATA: wiMAN 1800 OPERATION MANUAL( AUTOMATED BLOOD COUNTS AND [...] Normal 80 and above >32 mL/min Normal ID Date Data Source [id number] 09/23/2020 10:48:00 AM EST [facility] ([facility] Name Value Range Interpretation Code Description Data Danisha rce(s) Supporting Document(s) Glu 108 mg/dL 70-110 [facility] NORMAL RANGES Age WBC RBC HGB HCT [...] HCT IS 5% LESS SOURCE FOR DATA: KATI DYN 1800 OPERATION MANUAL( AUTOMATED BLOOD COUNTS AND [...] Normal 80 and above >32 mL/min Normal BUN 9 mg/dL 06-30 [facility] NORMAL RANGES Age WBC RBC HGB HCT [...] HCT IS 5% LESS SOURCE FOR DATA: wiMAN 1800 OPERATION MANUAL( AUTOMATED BLOOD COUNTS AND [...] Normal 80 and above >32 mL/min Normal Creat 0.9 mg/dL 0.5-1.0 [facility] NORMAL RANGES Age WBC RBC HGB HCT [...] HCT IS 5% LESS SOURCE FOR DATA: wiMAN 1800 OPERATION MANUAL( AUTOMATED BLOOD COUNTS AND [...] Normal 80 and above >32 mL/min Normal Na 136 mmol/L 136-145 [facility] ([facility] NORMAL RANGES Age WBC RBC HGB HCT [...] HCT IS 5% LESS SOURCE FOR DATA: wiMAN 1800 OPERATION MANUAL( AUTOMATED BLOOD COUNTS AND [...] Normal 80 and above >32 mL/min Normal BUN/Creatinine Ratio 10.0 [facility] ([facility] NORMAL RANGES Age WBC RBC HGB HCT [...] HCT IS 5% LESS SOURCE FOR DATA: wiMAN 1800 OPERATION MANUAL( AUTOMATED BLOOD COUNTS AND [...] Normal 80 and above >32 mL/min Normal CL 98.7 mmol/L 98.0-107.0 [facility] ([facility] NORMAL RANGES Age WBC RBC HGB HCT [...] HCT IS 5% LESS SOURCE FOR DATA: wiMAN 1800 OPERATION MANUAL( AUTOMATED BLOOD COUNTS AND [...] Normal 80 and above >32 mL/min Normal K 4.9 mmol/L 3.5-5.1 [facility] ([facility] NORMAL RANGES Age WBC RBC HGB HCT [...] HCT IS 5% LESS SOURCE FOR DATA: wiMAN 1800 OPERATION MANUAL( AUTOMATED BLOOD COUNTS AND [...] Normal 80 and above >32 mL/min Normal Co2 29.6 mmol/L 22.0-29.0 Above high normal [facility] ([facility] NORMAL RANGES Age WBC RBC HGB HCT [...] HCT IS 5% LESS SOURCE FOR DATA: wiMAN 1800 OPERATION MANUAL( AUTOMATED BLOOD COUNTS AND [...] Normal 80 and above >32 mL/min Normal TP 6.5 g/dL 6.6-8.7 Below low normal [facility] ( [facility] NORMAL RANGES Age WBC RBC HGB HCT [...] HCT IS 5% LESS SOURCE FOR DATA: wiMAN 1800 OPERATION MANUAL( AUTOMATED BLOOD COUNTS AND [...] Normal 80 and above >32 mL/min Normal CA 9.7 mg/dL 8.6-10.2 [facility] ([facility] NORMAL RANGES Age WBC RBC HGB HCT [...] HCT IS 5% LESS SOURCE FOR DATA: KATI DYN 1800 OPERATION MANUAL( AUTOMATED BLOOD COUNTS AND [...] Normal 80 and above >32 mL/min Normal Alb 4.2 g/dL 3.4-4.8 [facility] NORMAL RANGES Age WBC RBC HGB HCT MCV PLT Adult M 4.1-10.9 4.20-6.30 12.0-18.0 37.0-51.0 80-97 140-440 Adult F 4.1-10.9 4.04-5.48 12.0-18.0 37.0-51.0 80- 140-440 0 -1 Yr 5.0-20.0 3.9-5.9 15-18 [...] HCT IS 5% LESS SOURCE FOR DATA: KATI DYN 1800 OPERATION MANUAL( AUTOMATED BLOOD COUNTS AND [...] Normal 80 and above >32 mL/min Normal Globulin 2.3 [facility] ([facility] NORMAL RANGES Age WBC RBC HGB HCT MCV PLT Adult M 4.1-10.9 4.20-6.30 12.0-18.0 37.0-51.0 80-97 140-440 Adult F 4.1-10.9 4.04-5.48 12.0-18.0 37.0-51.0 80- 140-440 0 -1 Yr 5.0-20.0 3.9-5.9 15-18 [...] HCT IS 5% LESS SOURCE FOR DATA: wiMAN 1800 OPERATION MANUAL( AUTOMATED BLOOD COUNTS AND [...] Normal 80 and above >32 mL/min Normal A/G Ratio 1.8 CALC [facility] NORMAL RANGES Age WBC RBC HGB HCT [...] HCT IS 5% LESS SOURCE FOR DATA: wiMAN 1800 OPERATION MANUAL( AUTOMATED BLOOD COUNTS AND [...] Normal 80 and above >32 mL/min Normal Alp 57.8 U/L 35-129 [facility] ([facility] NORMAL RANGES Age WBC RBC HGB HCT [...] HCT IS 5% LESS SOURCE FOR DATA: wiMAN 1800 OPERATION MANUAL( AUTOMATED BLOOD COUNTS AND [...] Normal 80 and above >32 mL/min Normal Ast (Sgot) 19 U/L 0-40 [facility] ([facility] NORMAL RANGES Age WBC RBC HGB HCT [...] HCT IS 5% LESS SOURCE FOR DATA: wiMAN 1800 OPERATION MANUAL( AUTOMATED BLOOD COUNTS AND [...] Normal 80 and above >32 mL/min Normal Alt (SGPT) 16 U/L 0-41 [facility] ([facility] NORMAL RANGES Age WBC RBC HGB HCT [...] HCT IS 5% LESS SOURCE FOR DATA: wiMAN 1800 OPERATION MANUAL( AUTOMATED BLOOD COUNTS AND [...] Normal 80 and above >32 mL/min Normal Osmolality-Calculated 271.0 [facility] ([facility] NORMAL RANGES Age WBC RBC HGB HCT [...] HCT IS 5% LESS SOURCE FOR DATA: wiMAN 1800 OPERATION MANUAL( AUTOMATED BLOOD COUNTS AND [...] Normal 80 and above >32 mL/min Normal Tbili 0.37 mg/dL 0.0-1.2 [facility] ([facility] NORMAL RANGES Age WBC RBC HGB HCT [...] HCT IS 5% LESS SOURCE FOR DATA: wiMAN 1800 OPERATION MANUAL( AUTOMATED BLOOD COUNTS AND [...] Normal 80 and above >32 mL/min Normal Anion Gap 12 mmol/L [facility] ([facility] NORMAL RANGES Age WBC RBC HGB HCT [...] HCT IS 5% LESS SOURCE FOR DATA: wiMAN 1800 OPERATION MANUAL( AUTOMATED BLOOD COUNTS AND [...] Normal 80 and above >32 mL/min Normal eGFR Non-Afr. Nicaraguan 63 # [facility] ([facility] NORMAL RANGES Age WBC RBC HGB HCT [...] HCT IS 5% LESS SOURCE FOR DATA: wiMAN 1800 OPERATION MANUAL( AUTOMATED BLOOD COUNTS AND [...] Normal 80 and above >32 mL/min Normal eGFR 74 # [facility] ( [facility] NORMAL RANGES Age WBC RBC HGB HCT [...] HCT IS 5% LESS SOURCE FOR DATA: wiMAN 1800 OPERATION MANUAL( AUTOMATED BLOOD COUNTS AND [...] Normal 80 and above >32 mL/min Normal ID Date Data Source [id number] 09/23/2020 10:48:00 AM EST [facility] ([facility] Name Value Range Interpretation Code Description Data Danisha rce(s) Supporting Document(s) Color [facility] test [facility] ([facility] NORMAL RANGES Age WBC RBC HGB HCT [...] HCT IS 5% LESS SOURCE FOR DATA: wiMAN 1800 OPERATION MANUAL( AUTOMATED BLOOD COUNTS AND [...] Normal 80 and above >32 mL/min Normal Clarity Laboratory test result [facility] ([facility] NORMAL RANGES Age WBC RBC HGB HCT [...] HCT IS 5% LESS SOURCE FOR DATA: wiMAN 1800 OPERATION MANUAL( AUTOMATED BLOOD COUNTS AND [...] Normal 80 and above >32 mL/min Normal Glucose-Ua Laboratory test result [facility] ([facility] NORMAL RANGES Age WBC RBC HGB HCT [...] HCT IS 5% LESS SOURCE FOR DATA: wiMAN 1800 OPERATION MANUAL( AUTOMATED BLOOD COUNTS AND [...] Normal 80 and above >32 mL/min Normal Ketone Laboratory [facility] ([facility] NORMAL RANGES Age WBC RBC HGB HCT [...] HCT IS 5% LESS SOURCE FOR DATA: wiMAN 1800 OPERATION MANUAL( AUTOMATED BLOOD COUNTS AND [...] Normal 80 and above >32 mL/min Normal Bilirubin,Urine Laboratory test result [facility] ([facility] NORMAL RANGES Age WBC RBC HGB HCT [...] HCT IS 5% LESS SOURCE FOR DATA: wiMAN 1800 OPERATION MANUAL( AUTOMATED BLOOD COUNTS AND [...] Normal 80 and above >32 mL/min Normal Creatine kinase [Enzymatic activity/volume] in Serum or Plas ma 1.015 # 1.000-1.030 [facility] ([facility] NORMAL RANGES Age WBC RBC HGB HCT [...] HCT IS 5% LESS SOURCE FOR DATA: wiMAN 1800 OPERATION MANUAL( AUTOMATED BLOOD COUNTS AND [...] Normal 80 and above >32 mL/min Normal Blood - Ua Laboratory test result Abnormal (applies to non -numeric results) [facility] ([facility] NORMAL RANGES Age WBC RBC HGB HCT [...] HCT IS 5% LESS SOURCE FOR DATA: wiMAN 1800 OPERATION MANUAL( AUTOMATED BLOOD COUNTS AND [...] Normal 80 and above >32 mL/min Normal pH 6.0 # 5.0-8.0 [facility] NORMAL RANGES Age WBC RBC HGB HCT [...] HCT IS 5% LESS SOURCE FOR DATA: wiMAN 1800 OPERATION MANUAL( AUTOMATED BLOOD COUNTS AND [...] Normal 80 and above >32 mL/min Normal Protein Laboratory test result [facility] ([facility] NORMAL RANGES Age WBC RBC HGB HCT [...] HCT IS 5% LESS SOURCE FOR DATA: KATI DYN 1800 OPERATION MANUAL( AUTOMATED BLOOD COUNTS AND [...] Normal 80 and above >32 mL/min Normal Urobilinogen 0.2 NA 0.2-1.0 [facility] ([facility] NORMAL RANGES Age WBC RBC HGB HCT [...] HCT IS 5% LESS SOURCE FOR DATA: wiMAN 1800 OPERATION MANUAL( AUTOMATED BLOOD COUNTS AND [...] Normal 80 and above >32 mL/min Normal Nitrite Laboratory test result [facility] ([facility] NORMAL RANGES Age WBC RBC HGB HCT [...] HCT IS 5% LESS SOURCE FOR DATA: wiMAN 1800 OPERATION MANUAL( AUTOMATED BLOOD COUNTS AND [...] Normal 80 and above >32 mL/min Normal Leukocyte Laboratory test result Abnormal (applies to non -numeric results) [facility] ([facility] NORMAL RANGES Age WBC RBC HGB HCT [...] HCT IS 5% LESS SOURCE FOR DATA: wiMAN 1800 OPERATION MANUAL( AUTOMATED BLOOD COUNTS AND [...] Normal 80 and above >32 mL/min Normal Comment Laboratory test result Above high normal [facility] ([facility] NORMAL RANGES Age WBC RBC HGB HCT [...] HCT IS 5% LESS SOURCE FOR DATA: wiMAN 1800 OPERATION MANUAL( AUTOMATED BLOOD COUNTS AND [...] Normal 80 and above >32 mL/min Normal ID Date Data Source [id number] 08/29/2020 12:23:00 PM EDT [facility] ([facility] Name Value Range Interpretation Code Description Data Danisha rce(s) Supporting Document(s) Color Urine Laboratory test result M [facility] ([facility] Appearance of Urine Laboratory test result [facility] ([facility] Specific Hitchcock 1.015 1.00-1.03 [facility] ([facility] Glucose Urine Laboratory test result [facility] ([facility] PH Urine 6.0 5.0-8.0 [facility] ([facility] Bilirubin.total [Presence] in Urine by Test strip Laboratory test res ult [facility] ([facility] Ketones Laboratory test result [facility] ([facility] Blood Urine Laboratory test result M [facility] ([facility] Nitrite Laboratory test result [facility] ([facility] Urobilinogen 0.2 EU/dl 0.2-1.0 [facility] ([facility] Protein Urine Laboratory test result [facility] ([facility] Leukocytes Laboratory test result Above high normal [facility] ([facility] ID Date Data Source [id number] 08/29/2020 12:22:00 PM EDT [facility] ([facility] Name Value Range Interpretation Code Description Data Danisha rce(s) Supporting Document(s) Alb 10 mg/L 1-30 [facility] (Counts include 234 beds at the [facility] A/C Ratio Laboratory test result Abnormal (applies to non -numeric results) [facility] ([facility] Creatinine, Urine 50 mg/dL 10-300 [facility] ([facility] ID Date Data Source [id number] 08/29/2020 11:59:00 AM EDT [facility] ([facility] Name Value Range Interpretation Code Description Data Danisha rce(s) Supporting Document(s) Creatine kinase [Enzymatic activity/volume] in Serum or Plasma 49 U /L 26-192 [facility] ([facility] NORMAL RANGES Age WBC RBC HGB HCT [...] HCT IS 5% LESS SOURCE FOR DATA: wiMAN 1800 OPERATION MANUAL( AUTOMATED BLOOD COUNTS AND [...] ADOLESCENTS REPRESENTS INDIVIDUALA AGED 2-19 YEARS EXCLUSIVE. ID Date Data Source [id number] 08/29/2020 11:59:00 AM EDT [facility] ([facility] Name Value Range Interpretation Code Description Data Danisha rce(s) Supporting Document(s) Chol 189 mg/dL 0-200 [facility] ([facility] NORMAL RANGES Age WBC RBC HGB HCT [...] HCT IS 5% LESS SOURCE FOR DATA: wiMAN 1800 OPERATION MANUAL( AUTOMATED BLOOD COUNTS AND [...] ADOLESCENTS REPRESENTS INDIVIDUALA AGED 2-19 YEARS EXCLUSIVE. Trig 162 mg/dL 40-200 [facility] ([facility] NORMAL RANGES Age WBC RBC HGB HCT [...] HCT IS 5% LESS SOURCE FOR DATA: Crunchyroll DYN 1800 OPERATION MANUAL( AUTOMATED BLOOD COUNTS AND [...] ADOLESCENTS REPRESENTS INDIVIDUALA AGED 2-19 YEARS EXCLUSIVE. LDL_C 108 Calc 75-129 [facility] ([facility] NORMAL RANGES Age WBC RBC HGB HCT [...] HCT IS 5% LESS SOURCE FOR DATA: wiMAN 1800 OPERATION MANUAL( AUTOMATED BLOOD COUNTS AND [...] ADOLESCENTS REPRESENTS INDIVIDUALA AGED 2-19 YEARS EXCLUSIVE. Cholesterol in HDL [Mass/volume] in Serum or Plasma 48 mg/dL 45-65 [facility] ([facility] NORMAL RANGES Age WBC RBC HGB HCT [...] HCT IS 5% LESS SOURCE FOR DATA: wiMAN 1800 OPERATION MANUAL( AUTOMATED BLOOD COUNTS AND [...] DESIRABLE: <130 MG/DL <110 MG/DL BORDERLINE-HIGH RISK: 130- 159 MG/DL 110-129 MG/DL HIGH RISK: >160 MG/DL >130 MG/DL *CHILDREN AND ADOLESCENTS REPRESENTS INDIVIDUALA AGED 2-19 YEARS EXCLUSIVE. Cho/HDL Ratio 3.9 CALC [facility] ([facility] NORMAL RANGES Age WBC RBC HGB HCT [...] HCT IS 5% LESS SOURCE FOR DATA: wiMAN 1800 OPERATION MANUAL( AUTOMATED BLOOD COUNTS AND [...] DESIRABLE: <130 MG/DL <110 MG/DL BORDERLINE-HIGH RISK: 130- 159 MG/DL 110-129 MG/DL HIGH RISK: >160 MG/DL >130 MG/DL *CHILDREN AND ADOLESCENTS REPRESENTS INDIVIDUALA AGED 2-19 YEARS EXCLUSIVE. ID Date Data Source [id number] 08/29/2020 11:59:00 AM EDT [facility] ([facility] Name Value Range Interpretation Code Description Data Danisha rce(s) Supporting Document(s) Glu 96 mg/dL 70-110 [facility] ([facility] NORMAL RANGES Age WBC RBC HGB HCT [...] HCT IS 5% LESS SOURCE FOR DATA: wiMAN 1800 OPERATION MANUAL( AUTOMATED BLOOD COUNTS AND [...] DESIRABLE: <130 MG/DL <110 MG/DL BORDERLINE-HIGH RISK: 130- 159 MG/DL 110-129 MG/DL HIGH RISK: >160 MG/DL >130 MG/DL *CHILDREN AND ADOLESCENTS REPRESENTS INDIVIDUALA AGED 2-19 YEARS EXCLUSIVE. Creat 0.8 mg/dL 0.5-1.0 [facility] ([facility] NORMAL RANGES Age WBC RBC HGB HCT [...] HCT IS 5% LESS SOURCE FOR DATA: wiMAN 1800 OPERATION MANUAL( AUTOMATED BLOOD COUNTS AND [...] DESIRABLE: <130 MG/DL <110 MG/DL BORDERLINE-HIGH RISK: 130- 159 MG/DL 110-129 MG/DL HIGH RISK: >160 MG/DL >130 MG/DL *CHILDREN AND ADOLESCENTS REPRESENTS INDIVIDUALA AGED 2-19 YEARS EXCLUSIVE. BUN 13 mg/dL 8-23 [facility] ([facility] NORMAL RANGES Age WBC RBC HGB HCT [...] HCT IS 5% LESS SOURCE FOR DATA: wiMAN 1800 OPERATION MANUAL( AUTOMATED BLOOD COUNTS AND [...] DESIRABLE: <130 MG/DL <110 MG/DL BORDERLINE-HIGH RISK: 130- 159 MG/DL 110-129 MG/DL HIGH RISK: >160 MG/DL >130 MG/DL *CHILDREN AND ADOLESCENTS REPRESENTS INDIVIDUALA AGED 2-19 YEARS EXCLUSIVE. BUN/Creatinine Ratio 15.4 CALC [facility] ([facility] NORMAL RANGES Age WBC RBC HGB HCT [...] HCT IS 5% LESS SOURCE FOR DATA: wiMAN 1800 OPERATION MANUAL( AUTOMATED BLOOD COUNTS AND [...] DESIRABLE: <130 MG/DL <110 MG/DL BORDERLINE-HIGH RISK: 130- 159 MG/DL 110-129 MG/DL HIGH RISK: >160 MG/DL >130 MG/DL *CHILDREN AND ADOLESCENTS REPRESENTS INDIVIDUALA AGED 2-19 YEARS EXCLUSIVE. K 4.5 mmol/L 3.5-5.1 [facility] ([facility] NORMAL RANGES Age WBC RBC HGB HCT [...] HCT IS 5% LESS SOURCE FOR DATA: Crunchyroll DYN 1800 OPERATION MANUAL( AUTOMATED BLOOD COUNTS AND [...] DESIRABLE: <130 MG/DL <110 MG/DL BORDERLINE-HIGH RISK: 130- 159 MG/DL 110-129 MG/DL HIGH RISK: >160 MG/DL >130 MG/DL *CHILDREN AND ADOLESCENTS REPRESENTS INDIVIDUALA AGED 2-19 YEARS EXCLUSIVE. Na 135 mmol/L 136-145 Below low normal [facility] ( [facility] NORMAL RANGES Age WBC RBC HGB HCT [...] HCT IS 5% LESS SOURCE FOR DATA: wiMAN 1800 OPERATION MANUAL( AUTOMATED BLOOD COUNTS AND [...] DESIRABLE: <130 MG/DL <110 MG/DL BORDERLINE-HIGH RISK: 130- 159 MG/DL 110-129 MG/DL HIGH RISK: >160 MG/DL >130 MG/DL *CHILDREN AND ADOLESCENTS REPRESENTS INDIVIDUALA AGED 2-19 YEARS EXCLUSIVE. CL 98.3 mmol/L 98.0-107.0 [facility] ([facility] NORMAL RANGES Age WBC RBC HGB HCT [...] HCT IS 5% LESS SOURCE FOR DATA: wiMAN 1800 OPERATION MANUAL( AUTOMATED BLOOD COUNTS AND [...] DESIRABLE: <130 MG/DL <110 MG/DL BORDERLINE-HIGH RISK: 130- 159 MG/DL 110-129 MG/DL HIGH RISK: >160 MG/DL >130 MG/DL *CHILDREN AND ADOLESCENTS REPRESENTS INDIVIDUALA AGED 2-19 YEARS EXCLUSIVE. Co2 23.9 mmol/L 22.0-29.0 [facility] ([facility] NORMAL RANGES Age WBC RBC HGB HCT [...] HCT IS 5% LESS SOURCE FOR DATA: wiMAN 1800 OPERATION MANUAL( AUTOMATED BLOOD COUNTS AND [...] DESIRABLE: <130 MG/DL <110 MG/DL BORDERLINE-HIGH RISK: 130- 159 MG/DL 110-129 MG/DL HIGH RISK: >160 MG/DL >130 MG/DL *CHILDREN AND ADOLESCENTS REPRESENTS INDIVIDUALA AGED 2-19 YEARS EXCLUSIVE. CA 9.5 mg/dL 8.6-10.2 [facility] ([facility] NORMAL RANGES Age WBC RBC HGB HCT [...] HCT IS 5% LESS SOURCE FOR DATA: wiMAN 1800 OPERATION MANUAL( AUTOMATED BLOOD COUNTS AND [...] DESIRABLE: <130 MG/DL <110 MG/DL BORDERLINE-HIGH RISK: 130- 159 MG/DL 110-129 MG/DL HIGH RISK: >160 MG/DL >130 MG/DL *CHILDREN AND ADOLESCENTS REPRESENTS INDIVIDUALA AGED 2-19 YEARS EXCLUSIVE. TP 6.8 g/dL 6.6-8.7 [facility] ([facility] NORMAL RANGES Age WBC RBC HGB HCT [...] HCT IS 5% LESS SOURCE FOR DATA: wiMAN 1800 OPERATION MANUAL( AUTOMATED BLOOD COUNTS AND [...] DESIRABLE: <130 MG/DL <110 MG/DL BORDERLINE-HIGH RISK: 130- 159 MG/DL 110-129 MG/DL HIGH RISK: >160 MG/DL >130 MG/DL *CHILDREN AND ADOLESCENTS REPRESENTS INDIVIDUALA AGED 2-19 YEARS EXCLUSIVE. Alb 4.3 g/dL 3.4-4.8 [facility] ([facility] NORMAL RANGES Age WBC RBC HGB HCT [...] HCT IS 5% LESS SOURCE FOR DATA: Crunchyroll DYN 1800 OPERATION MANUAL( AUTOMATED BLOOD COUNTS AND [...] DESIRABLE: <130 MG/DL <110 MG/DL BORDERLINE-HIGH RISK: 130- 159 MG/DL 110-129 MG/DL HIGH RISK: >160 MG/DL >130 MG/DL *CHILDREN AND ADOLESCENTS REPRESENTS INDIVIDUALA AGED 2-19 YEARS EXCLUSIVE. A/G Ratio 1.7 [facility]C [facility] ([facility] NORMAL RANGES Age WBC RBC HGB HCT [...] HCT IS 5% LESS SOURCE FOR DATA: wiMAN 1800 OPERATION MANUAL( AUTOMATED BLOOD COUNTS AND [...] DESIRABLE: <130 MG/DL <110 MG/DL BORDERLINE-HIGH RISK: 130- 159 MG/DL 110-129 MG/DL HIGH RISK: >160 MG/DL >130 MG/DL *CHILDREN AND ADOLESCENTS REPRESENTS INDIVIDUALA AGED 2-19 YEARS EXCLUSIVE. Alp 58.3 U/L 35-129 [facility] ([facility] NORMAL RANGES Age WBC RBC HGB HCT [...] HCT IS 5% LESS SOURCE FOR DATA: wiMAN 1800 OPERATION MANUAL( AUTOMATED BLOOD COUNTS AND [...] DESIRABLE: <130 MG/DL <110 MG/DL BORDERLINE-HIGH RISK: 130- 159 MG/DL 110-129 MG/DL HIGH RISK: >160 MG/DL >130 MG/DL *CHILDREN AND ADOLESCENTS REPRESENTS INDIVIDUALA AGED 2-19 YEARS EXCLUSIVE. Globulin 2.5 CALC [facility] ([facility] NORMAL RANGES Age WBC RBC HGB HCT [...] HCT IS 5% LESS SOURCE FOR DATA: wiMAN 1800 OPERATION MANUAL( AUTOMATED BLOOD COUNTS AND [...] DESIRABLE: <130 MG/DL <110 MG/DL BORDERLINE-HIGH RISK: 130- 159 MG/DL 110-129 MG/DL HIGH RISK: >160 MG/DL >130 MG/DL *CHILDREN AND ADOLESCENTS REPRESENTS INDIVIDUALA AGED 2-19 YEARS EXCLUSIVE. Alt (SGPT) 16 U/L 0-41 [facility] ([facility] NORMAL RANGES Age WBC RBC HGB HCT [...] HCT IS 5% LESS SOURCE FOR DATA: wiMAN 1800 OPERATION MANUAL( AUTOMATED BLOOD COUNTS AND [...] DESIRABLE: <130 MG/DL <110 MG/DL BORDERLINE-HIGH RISK: 130- 159 MG/DL 110-129 MG/DL HIGH RISK: >160 MG/DL >130 MG/DL *CHILDREN AND ADOLESCENTS REPRESENTS INDIVIDUALA AGED 2-19 YEARS EXCLUSIVE. Ast (Sgot) 19 U/L 0-40 [facility] ([facility] NORMAL RANGES Age WBC RBC HGB HCT [...] HCT IS 5% LESS SOURCE FOR DATA: wiMAN 1800 OPERATION MANUAL( AUTOMATED BLOOD COUNTS AND [...] DESIRABLE: <130 MG/DL <110 MG/DL BORDERLINE-HIGH RISK: 130- 159 MG/DL 110-129 MG/DL HIGH RISK: >160 MG/DL >130 MG/DL *CHILDREN AND ADOLESCENTS REPRESENTS INDIVIDUALA AGED 2-19 YEARS EXCLUSIVE. Osmolality-Calculated 269.4 [facility] ([facility] NORMAL RANGES Age WBC RBC HGB HCT [...] HCT IS 5% LESS SOURCE FOR DATA: wiMAN 1800 OPERATION MANUAL( AUTOMATED BLOOD COUNTS AND [...] DESIRABLE: <130 MG/DL <110 MG/DL BORDERLINE-HIGH RISK: 130- 159 MG/DL 110-129 MG/DL HIGH RISK: >160 MG/DL >130 MG/DL *CHILDREN AND ADOLESCENTS REPRESENTS INDIVIDUALA AGED 2-19 YEARS EXCLUSIVE. Tbili 0.49 mg/dL 0.0-1.2 [facility] ([facility] NORMAL RANGES Age WBC RBC HGB HCT [...] HCT IS 5% LESS SOURCE FOR DATA: wiMAN 1800 OPERATION MANUAL( AUTOMATED BLOOD COUNTS AND [...] DESIRABLE: <130 MG/DL <110 MG/DL BORDERLINE-HIGH RISK: 130- 159 MG/DL 110-129 MG/DL HIGH RISK: >160 MG/DL >130 MG/DL *CHILDREN AND ADOLESCENTS REPRESENTS INDIVIDUALA AGED 2-19 YEARS EXCLUSIVE. Anion Gap 17 mmol/L [facility] ([facility] NORMAL RANGES Age WBC RBC HGB HCT [...] HCT IS 5% LESS SOURCE FOR DATA: Crunchyroll DYN 1800 OPERATION MANUAL( AUTOMATED BLOOD COUNTS AND [...] DESIRABLE: <130 MG/DL <110 MG/DL BORDERLINE-HIGH RISK: 130- 159 MG/DL 110-129 MG/DL HIGH RISK: >160 MG/DL >130 MG/DL *CHILDREN AND ADOLESCENTS REPRESENTS INDIVIDUALA AGED 2-19 YEARS EXCLUSIVE. eGFR 85 # [facility] ( [facility] NORMAL RANGES Age WBC RBC HGB HCT [...] HCT IS 5% LESS SOURCE FOR DATA: wiMAN 1800 OPERATION MANUAL( AUTOMATED BLOOD COUNTS AND [...] DESIRABLE: <130 MG/DL <110 MG/DL BORDERLINE-HIGH RISK: 130- 159 MG/DL 110-129 MG/DL HIGH RISK: >160 MG/DL >130 MG/DL *CHILDREN AND ADOLESCENTS REPRESENTS INDIVIDUALA AGED 2-19 YEARS EXCLUSIVE. eGFR Non-Afr. Nicaraguan 73 # [facility] ([facility] NORMAL RANGES Age WBC RBC HGB HCT [...] HCT IS 5% LESS SOURCE FOR DATA: wiMAN 1800 OPERATION MANUAL( AUTOMATED BLOOD COUNTS AND [...] DESIRABLE: <130 MG/DL <110 MG/DL BORDERLINE-HIGH RISK: 130- 159 MG/DL 110-129 MG/DL HIGH RISK: >160 MG/DL >130 MG/DL *CHILDREN AND ADOLESCENTS REPRESENTS INDIVIDUALA AGED 2-19 YEARS EXCLUSIVE. ID Date Data Source [id number] 08/29/2020 11:59:00 AM EDT [facility] ([facility] Name Value Range Interpretation Code Description Data Danisha rce(s) Supporting Document(s) WBC 6.8 10E3/uL 4.1-10.9 [facility] NORMAL RANGES Age WBC RBC HGB HCT [...] HCT IS 5% LESS SOURCE FOR DATA: Crunchyroll DYN 1800 OPERATION MANUAL( AUTOMATED BLOOD COUNTS AND [...] DESIRABLE: <130 MG/DL <110 MG/DL BORDERLINE-HIGH RISK: 130- 159 MG/DL 110-129 MG/DL HIGH RISK: >160 MG/DL >130 MG/DL *CHILDREN AND ADOLESCENTS REPRESENTS INDIVIDUALA AGED 2-19 YEARS EXCLUSIVE. HGB 13.4 g/dL 12.0-18.0 [facility] ([facility] NORMAL RANGES Age WBC RBC HGB HCT [...] HCT IS 5% LESS SOURCE FOR DATA: wiMAN 1800 OPERATION MANUAL( AUTOMATED BLOOD COUNTS AND [...] DESIRABLE: <130 MG/DL <110 MG/DL BORDERLINE-HIGH RISK: 130- 159 MG/DL 110-129 MG/DL HIGH RISK: >160 MG/DL >130 MG/DL *CHILDREN AND ADOLESCENTS REPRESENTS INDIVIDUALA AGED 2-19 YEARS EXCLUSIVE. RBC 4.40 10E6/uL 4.20-6.30 [facility] NORMAL RANGES Age WBC RBC HGB HCT [...] HCT IS 5% LESS SOURCE FOR DATA: wiMAN 1800 OPERATION MANUAL( AUTOMATED BLOOD COUNTS AND [...] DESIRABLE: <130 MG/DL <110 MG/DL BORDERLINE-HIGH RISK: 130- 159 MG/DL 110-129 MG/DL HIGH RISK: >160 MG/DL >130 MG/DL *CHILDREN AND ADOLESCENTS REPRESENTS INDIVIDUALA AGED 2-19 YEARS EXCLUSIVE. MCH 30.5 pg 26.0-32.0 [facility] ([facility] NORMAL RANGES Age WBC RBC HGB HCT [...] HCT IS 5% LESS SOURCE FOR DATA: wiMAN 1800 OPERATION MANUAL( AUTOMATED BLOOD COUNTS AND [...] DESIRABLE: <130 MG/DL <110 MG/DL BORDERLINE-HIGH RISK: 130- 159 MG/DL 110-129 MG/DL HIGH RISK: >160 MG/DL >130 MG/DL *CHILDREN AND ADOLESCENTS REPRESENTS INDIVIDUALA AGED 2-19 YEARS EXCLUSIVE. MCV 90.9 fL 80.0-97.0 [facility] ([facility] NORMAL RANGES Age WBC RBC HGB HCT [...] HCT IS 5% LESS SOURCE FOR DATA: wiMAN 1800 OPERATION MANUAL( AUTOMATED BLOOD COUNTS AND [...] DESIRABLE: <130 MG/DL <110 MG/DL BORDERLINE-HIGH RISK: 130- 159 MG/DL 110-129 MG/DL HIGH RISK: >160 MG/DL >130 MG/DL *CHILDREN AND ADOLESCENTS REPRESENTS INDIVIDUALA AGED 2-19 YEARS EXCLUSIVE. HCT 40.0 % 37.0-51.0 [facility] NORMAL RANGES Age WBC RBC HGB HCT [...] HCT IS 5% LESS SOURCE FOR DATA: wiMAN 1800 OPERATION MANUAL( AUTOMATED BLOOD COUNTS AND [...] DESIRABLE: <130 MG/DL <110 MG/DL BORDERLINE-HIGH RISK: 130- 159 MG/DL 110-129 MG/DL HIGH RISK: >160 MG/DL >130 MG/DL *CHILDREN AND ADOLESCENTS REPRESENTS INDIVIDUALA AGED 2-19 YEARS EXCLUSIVE. MCHC 33.5 g/dL 31.0-36.0 [facility] ([facility] NORMAL RANGES Age WBC RBC HGB HCT [...] HCT IS 5% LESS SOURCE FOR DATA: wiMAN 1800 OPERATION MANUAL( AUTOMATED BLOOD COUNTS AND [...] DESIRABLE: <130 MG/DL <110 MG/DL BORDERLINE-HIGH RISK: 130- 159 MG/DL 110-129 MG/DL HIGH RISK: >160 MG/DL >130 MG/DL *CHILDREN AND ADOLESCENTS REPRESENTS INDIVIDUALA AGED 2-19 YEARS EXCLUSIVE. RDW-CV 12.4 % 11.5-14.5 [facility] ([facility] NORMAL RANGES Age WBC RBC HGB HCT [...] HCT IS 5% LESS SOURCE FOR DATA: wiMAN 1800 OPERATION MANUAL( AUTOMATED BLOOD COUNTS AND [...] DESIRABLE: <130 MG/DL <110 MG/DL BORDERLINE-HIGH RISK: 130- 159 MG/DL 110-129 MG/DL HIGH RISK: >160 MG/DL >130 MG/DL *CHILDREN AND ADOLESCENTS REPRESENTS INDIVIDUALA AGED 2-19 YEARS EXCLUSIVE. PLT 203 10E3/uL 140-440 [facility] ([facility] NORMAL RANGES Age WBC RBC HGB HCT [...] HCT IS 5% LESS SOURCE FOR DATA: wiMAN 1800 OPERATION MANUAL( AUTOMATED BLOOD COUNTS AND [...] DESIRABLE: <130 MG/DL <110 MG/DL BORDERLINE-HIGH RISK: 130- 159 MG/DL 110-129 MG/DL HIGH RISK: >160 MG/DL >130 MG/DL *CHILDREN AND ADOLESCENTS REPRESENTS INDIVIDUALA AGED 2-19 YEARS EXCLUSIVE. Neut% 67.5 % 37.0-92.0 [facility] ([facility] NORMAL RANGES Age WBC RBC HGB HCT [...] HCT IS 5% LESS SOURCE FOR DATA: wiMAN 1800 OPERATION MANUAL( AUTOMATED BLOOD COUNTS AND [...] DESIRABLE: <130 MG/DL <110 MG/DL BORDERLINE-HIGH RISK: 130- 159 MG/DL 110-129 MG/DL HIGH RISK: >160 MG/DL >130 MG/DL *CHILDREN AND ADOLESCENTS REPRESENTS INDIVIDUALA AGED 2-19 YEARS EXCLUSIVE. Lym% 22.7 % 10.0-58.5 [facility] ([facility] NORMAL RANGES Age WBC RBC HGB HCT [...] HCT IS 5% LESS SOURCE FOR DATA: wiMAN 1800 OPERATION MANUAL( AUTOMATED BLOOD COUNTS AND [...] DESIRABLE: <130 MG/DL <110 MG/DL BORDERLINE-HIGH RISK: 130- 159 MG/DL 110-129 MG/DL HIGH RISK: >160 MG/DL >130 MG/DL *CHILDREN AND ADOLESCENTS REPRESENTS INDIVIDUALA AGED 2-19 YEARS EXCLUSIVE. MXD% 9.8 % 0.1-24.0 [facility] ([facility] NORMAL RANGES Age WBC RBC HGB HCT [...] HCT IS 5% LESS SOURCE FOR DATA: Crunchyroll DYN 1800 OPERATION MANUAL( AUTOMATED BLOOD COUNTS AND [...] DESIRABLE: <130 MG/DL <110 MG/DL BORDERLINE-HIGH RISK: 130- 159 MG/DL 110-129 MG/DL HIGH RISK: >160 MG/DL >130 MG/DL *CHILDREN AND ADOLESCENTS REPRESENTS INDIVIDUALA AGED 2-19 YEARS EXCLUSIVE. Neut# 4.6 % 2.0-7.8 [facility] ([facility] NORMAL RANGES Age WBC RBC HGB HCT [...] HCT IS 5% LESS SOURCE FOR DATA: wiMAN 1800 OPERATION MANUAL( AUTOMATED BLOOD COUNTS AND [...] DESIRABLE: <130 MG/DL <110 MG/DL BORDERLINE-HIGH RISK: 130- 159 MG/DL 110-129 MG/DL HIGH RISK: >160 MG/DL >130 MG/DL *CHILDREN AND ADOLESCENTS REPRESENTS INDIVIDUALA AGED 2-19 YEARS EXCLUSIVE. Lym# 1.5 10E3/uL 0.6-4.1 [facility] ([facility] NORMAL RANGES Age WBC RBC HGB HCT [...] HCT IS 5% LESS SOURCE FOR DATA: wiMAN 1800 OPERATION MANUAL( AUTOMATED BLOOD COUNTS AND [...] DESIRABLE: <130 MG/DL <110 MG/DL BORDERLINE-HIGH RISK: 130- 159 MG/DL 110-129 MG/DL HIGH RISK: >160 MG/DL >130 MG/DL *CHILDREN AND ADOLESCENTS REPRESENTS INDIVIDUALA AGED 2-19 YEARS EXCLUSIVE. MXD# 0.7 10E3/uL 0.0-1.8 [facility] ([facility] NORMAL RANGES Age WBC RBC HGB HCT [...] HCT IS 5% LESS SOURCE FOR DATA: wiMAN 1800 OPERATION MANUAL( AUTOMATED BLOOD COUNTS AND [...] DESIRABLE: <130 MG/DL <110 MG/DL BORDERLINE-HIGH RISK: 130- 159 MG/DL 110-129 MG/DL HIGH RISK: >160 MG/DL >130 MG/DL *CHILDREN AND ADOLESCENTS REPRESENTS INDIVIDUALA AGED 2-19 YEARS EXCLUSIVE. MPV 8.9 fL 9.0-13.0 Below low normal [facility] ( [facility] NORMAL RANGES Age WBC RBC HGB HCT [...] HCT IS 5% LESS SOURCE FOR DATA: wiMAN 1800 OPERATION MANUAL( AUTOMATED BLOOD COUNTS AND [...] DESIRABLE: <130 MG/DL <110 MG/DL BORDERLINE-HIGH RISK: 130- 159 MG/DL 110-129 MG/DL HIGH RISK: >160 MG/DL >130 MG/DL *CHILDREN AND ADOLESCENTS REPRESENTS INDIVIDUALA AGED 2-19 YEARS EXCLUSIVE. ID Date Data Source [id number] 05/13/2020 03:41:00 PM EDT [facility] Name Value Range Interpretation Code Description Data Danisha rce(s) Supporting Document(s) Creatine kinase [Enzymatic activity/volume] in Serum or Plasma 100 U/L 26-192 [facility] ([facility] NORMAL RANGES Age WBC RBC HGB HCT [...] HCT IS 5% LESS SOURCE FOR DATA: wiMAN 1800 OPERATION MANUAL( AUTOMATED BLOOD COUNTS AND [...] Normal 80 and above >32 mL/min Normal ID Date Data Source [id number] 05/13/2020 03:41:00 PM EDT [facility] ([facility] Name Value Range Interpretation Code Description Data Danisha rce(s) Supporting Document(s) Creat 1.0 mg/dL 0.5-1.0 [facility] NORMAL RANGES Age WBC RBC HGB HCT [...] HCT IS 5% LESS SOURCE FOR DATA: Crunchyroll DYN 1800 OPERATION MANUAL( AUTOMATED BLOOD COUNTS AND [...] Normal 80 and above >32 mL/min Normal BUN 13 mg/dL 8 [facility] NORMAL RANGES Age WBC RBC HGB HCT [...] HCT IS 5% LESS SOURCE FOR DATA: wiMAN 1800 OPERATION MANUAL( AUTOMATED BLOOD COUNTS AND [...] Normal 80 and above >32 mL/min Normal Glu 97 mg/dL 70-110 [facility] NORMAL RANGES Age WBC RBC HGB HCT [...] HCT IS 5% LESS SOURCE FOR DATA: wiMAN 1800 OPERATION MANUAL( AUTOMATED BLOOD COUNTS AND [...] Normal 80 and above >32 mL/min Normal K 4.2 mmol/L 3.5-5.1 [facility] ([facility] NORMAL RANGES Age WBC RBC HGB HCT [...] HCT IS 5% LESS SOURCE FOR DATA: wiMAN 1800 OPERATION MANUAL( AUTOMATED BLOOD COUNTS AND [...] Normal 80 and above >32 mL/min Normal Na 139 mmol/L 136-145 [facility] ([facility] NORMAL RANGES Age WBC RBC HGB HCT [...] HCT IS 5% LESS SOURCE FOR DATA: wiMAN 1800 OPERATION MANUAL( AUTOMATED BLOOD COUNTS AND [...] Normal 80 and above >32 mL/min Normal BUN/Creatinine Ratio 13.4 CALC [facility] ([facility] NORMAL RANGES Age WBC RBC HGB HCT [...] HCT IS 5% LESS SOURCE FOR DATA: wiMAN 1800 OPERATION MANUAL( AUTOMATED BLOOD COUNTS AND [...] Normal 80 and above >32 mL/min Normal Co2 28.0 mmol/L 22.0-29.0 [facility] NORMAL RANGES Age WBC RBC HGB HCT [...] HCT IS 5% LESS SOURCE FOR DATA: wiMAN 1800 OPERATION MANUAL( AUTOMATED BLOOD COUNTS AND [...] Normal 80 and above >32 mL/min Normal CA 9.9 mg/dL 8.6-10.2 [facility] NORMAL RANGES Age WBC RBC HGB HCT [...] HCT IS 5% LESS SOURCE FOR DATA: wiMAN 1800 OPERATION MANUAL( AUTOMATED BLOOD COUNTS AND [...] Normal 80 and above >32 mL/min Normal CL 100.4 mmol/L 98.0-107.0 [facility] ([facility] NORMAL RANGES Age WBC RBC HGB HCT [...] HCT IS 5% LESS SOURCE FOR DATA: wiMAN 1800 OPERATION MANUAL( AUTOMATED BLOOD COUNTS AND [...] Normal 80 and above >32 mL/min Normal Alb 4.4 g/dL 3.4-4.8 [facility] ([facility] NORMAL RANGES Age WBC RBC HGB HCT MCV PLT Adult M 4.1-10.9 4.20-6.30 12.0-18.0 37.0-51.0 80- 140-440 Adult F 4.1-10.9 4.04-5.48 12.0-18.0 37.0-51.0 [...] HCT IS 5% LESS SOURCE FOR DATA: KATI DYN 1800 OPERATION MANUAL( AUTOMATED BLOOD COUNTS AND [...] Normal 80 and above >32 mL/min Normal TP 7.0 g/dL 6.6-8.7 [facility] ([facility] NORMAL RANGES Age WBC RBC HGB HCT [...] HCT IS 5% LESS SOURCE FOR DATA: wiMAN 1800 OPERATION MANUAL( AUTOMATED BLOOD COUNTS AND [...] Normal 80 and above >32 mL/min Normal A/G Ratio 1.7 CALC [facility] NORMAL RANGES Age WBC RBC HGB HCT [...] HCT IS 5% LESS SOURCE FOR DATA: wiMAN 1800 OPERATION MANUAL( AUTOMATED BLOOD COUNTS AND [...] Normal 80 and above >32 mL/min Normal Globulin 2.6 CALC [facility] NORMAL RANGES Age WBC RBC HGB HCT [...] HCT IS 5% LESS SOURCE FOR DATA: wiMAN 1800 OPERATION MANUAL( AUTOMATED BLOOD COUNTS AND [...] Normal 80 and above >32 mL/min Normal Alt (SGPT) 21 U/L 0-41 [facility] ([facility] NORMAL RANGES Age WBC RBC HGB HCT [...] HCT IS 5% LESS SOURCE FOR DATA: wiMAN 1800 OPERATION MANUAL( AUTOMATED BLOOD COUNTS AND [...] Normal 80 and above >32 mL/min Normal Alp 59.1 U/L 35-129 [facility] ([facility] NORMAL RANGES Age WBC RBC HGB HCT [...] HCT IS 5% LESS SOURCE FOR DATA: wiMAN 1800 OPERATION MANUAL( AUTOMATED BLOOD COUNTS AND [...] Normal 80 and above >32 mL/min Normal Ast (Sgot) 25 U/L 0-40 [facility] NORMAL RANGES Age WBC RBC HGB HCT [...] HCT IS 5% LESS SOURCE FOR DATA: Crunchyroll DYN 1800 OPERATION MANUAL( AUTOMATED BLOOD COUNTS AND [...] Normal 80 and above >32 mL/min Normal Osmolality-Calculated 278.4 [facility]C [facility] ([facility] NORMAL RANGES Age WBC RBC HGB HCT [...] HCT IS 5% LESS SOURCE FOR DATA: Crunchyroll DYN 1800 OPERATION MANUAL( AUTOMATED BLOOD COUNTS AND [...] Normal 80 and above >32 mL/min Normal Tbili 0.57 mg/dL 0.0-1.2 [facility] ([facility] NORMAL RANGES Age WBC RBC HGB HCT [...] HCT IS 5% LESS SOURCE FOR DATA: wiMAN 1800 OPERATION MANUAL( AUTOMATED BLOOD COUNTS AND [...] Normal 80 and above >32 mL/min Normal eGFR 65 # [facility] ( [facility] NORMAL RANGES Age WBC RBC HGB HCT [...] HCT IS 5% LESS SOURCE FOR DATA: wiMAN 1800 OPERATION MANUAL( AUTOMATED BLOOD COUNTS AND [...] Normal 80 and above >32 mL/min Normal eGFR Non-Afr. Nicaraguan 56 # [facility] ([facility] NORMAL RANGES Age WBC RBC HGB HCT [...] HCT IS 5% LESS SOURCE FOR DATA: KATI DYN 1800 OPERATION MANUAL( AUTOMATED BLOOD COUNTS AND [...] Normal 80 and above >32 mL/min Normal Anion Gap 15 mmol/L [facility] ([facility] NORMAL RANGES Age WBC RBC HGB HCT [...] HCT IS 5% LESS SOURCE FOR DATA: wiMAN 1800 OPERATION MANUAL( AUTOMATED BLOOD COUNTS AND [...] Normal 80 and above >32 mL/min Normal ID Date Data Source [id number] 05/13/2020 03:41:00 PM EDT [facility] ([facility] Name Value Range Interpretation Code Description Data Danisha rce(s) Supporting Document(s) Erythrocyte sedimentation rate by Westergren method 7 mm/hr 0-19 [facility] ([facility] NORMAL RANGES Age WBC RBC HGB HCT [...] HCT IS 5% LESS SOURCE FOR DATA: wiMAN 1800 OPERATION MANUAL( AUTOMATED BLOOD COUNTS AND [...] Normal 80 and above >32 mL/min Normal ID Date Data Source [id number] 05/13/2020 03:41:00 PM EDT [facility] ([facility] Name Value Range Interpretation Code Description Data Danisha rce(s) Supporting Document(s) WBC 8.2 10E3/uL 4.1-10.9 [facility] ([facility] NORMAL RANGES Age WBC RBC HGB HCT [...] HCT IS 5% LESS SOURCE FOR DATA: wiMAN 1800 OPERATION MANUAL( AUTOMATED BLOOD COUNTS AND [...] Normal 80 and above >32 mL/min Normal HCT 40.8 % 37.0-51.0 [facility] ([facility] NORMAL RANGES Age WBC RBC HGB HCT [...] HCT IS 5% LESS SOURCE FOR DATA: wiMAN 1800 OPERATION MANUAL( AUTOMATED BLOOD COUNTS AND [...] Normal 80 and above >32 mL/min Normal RBC 4.49 10E6/uL 4.20-6.30 [facility] ([facility] NORMAL RANGES Age WBC RBC HGB HCT [...] HCT IS 5% LESS SOURCE FOR DATA: wiMAN 1800 OPERATION MANUAL( AUTOMATED BLOOD COUNTS AND [...] Normal 80 and above >32 mL/min Normal HGB 13.8 g/dL 12.0-18.0 [facility] ([facility] NORMAL RANGES Age WBC RBC HGB HCT [...] HCT IS 5% LESS SOURCE FOR DATA: wiMAN 1800 OPERATION MANUAL( AUTOMATED BLOOD COUNTS AND [...] Normal 80 and above >32 mL/min Normal MCH 30.7 pg 26.0-32.0 [facility] NORMAL RANGES Age WBC RBC HGB HCT [...] HCT IS 5% LESS SOURCE FOR DATA: wiMAN 1800 OPERATION MANUAL( AUTOMATED BLOOD COUNTS AND [...] Normal 80 and above >32 mL/min Normal MCHC 33.8 g/dL 31.0-36.0 [facility] ([facility] NORMAL RANGES Age WBC RBC HGB HCT MCV PLT Adult M 4.1-10.9 4.20-6.30 12.0-18.0 37.0-51.0 80 140-440 Adult F 4.1-10.9 4.04-5.48 12.0-18.0 37.0-51.0 140-440 0 -1 Yr 5.0-20.0 3.9-5.9 15-18 [...] HCT IS 5% LESS SOURCE FOR DATA: Crunchyroll DYN 1800 OPERATION MANUAL( AUTOMATED BLOOD COUNTS AND [...] Normal 80 and above >32 mL/min Normal MCV 90.9 fL 80.0-97.0 [facility] ([facility] NORMAL RANGES Age WBC RBC HGB HCT [...] HCT IS 5% LESS SOURCE FOR DATA: wiMAN 1800 OPERATION MANUAL( AUTOMATED BLOOD COUNTS AND [...] Normal 80 and above >32 mL/min Normal Lym% 24.2 % 10.0-58.5 [facility] ([facility] NORMAL RANGES Age WBC RBC HGB HCT [...] HCT IS 5% LESS SOURCE FOR DATA: wiMAN 1800 OPERATION MANUAL( AUTOMATED BLOOD COUNTS AND [...] Normal 80 and above >32 mL/min Normal RDW-CV 12.8 % 11.5-14.5 [facility] ([facility] NORMAL RANGES Age WBC RBC HGB HCT [...] HCT IS 5% LESS SOURCE FOR DATA: wiMAN 1800 OPERATION MANUAL( AUTOMATED BLOOD COUNTS AND [...] Normal 80 and above >32 mL/min Normal PLT 230 10E3/uL 140-440 [facility] ([facility] NORMAL RANGES Age WBC RBC HGB HCT [...] HCT IS 5% LESS SOURCE FOR DATA: wiMAN 1800 OPERATION MANUAL( AUTOMATED BLOOD COUNTS AND [...] Normal 80 and above >32 mL/min Normal Neut% 67.2 % 37.0-92.0 [facility] ([facility] NORMAL RANGES Age WBC RBC HGB HCT [...] HCT IS 5% LESS SOURCE FOR DATA: wiMAN 1800 OPERATION MANUAL( AUTOMATED BLOOD COUNTS AND [...] Normal 80 and above >32 mL/min Normal Lym# 2.0 10E3/uL 0.6-4.1 [facility] ([facility] NORMAL RANGES Age WBC RBC HGB HCT [...] HCT IS 5% LESS SOURCE FOR DATA: wiMAN 1800 OPERATION MANUAL( AUTOMATED BLOOD COUNTS AND [...] Normal 80 and above >32 mL/min Normal MXD% 8.6 % 0.1-24.0 [facility] ([facility] NORMAL RANGES Age WBC RBC HGB HCT [...] HCT IS 5% LESS SOURCE FOR DATA: wiMAN 1800 OPERATION MANUAL( AUTOMATED BLOOD COUNTS AND [...] Normal 80 and above >32 mL/min Normal MPV 8.7 fL 9.0-13.0 Below low normal [facility] ( [facility] NORMAL RANGES Age WBC RBC HGB HCT [...] HCT IS 5% LESS SOURCE FOR DATA: wiMAN 1800 OPERATION MANUAL( AUTOMATED BLOOD COUNTS AND [...] Normal 80 and above >32 mL/min Normal MXD# 0.7 10E3/uL 0.0-1.8 [facility] ([facility] NORMAL RANGES Age WBC RBC HGB HCT [...] HCT IS 5% LESS SOURCE FOR DATA: KATI DYN 1800 OPERATION MANUAL( AUTOMATED BLOOD COUNTS AND [...] Normal 80 and above >32 mL/min Normal Neut# 5.5 % 2.0-7.8 [facility] NORMAL RANGES Age WBC RBC HGB HCT [...] HCT IS 5% LESS SOURCE FOR DATA: Crunchyroll DYN 1800 OPERATION MANUAL( AUTOMATED BLOOD COUNTS AND [...] Normal 80 and above >32 mL/min Normal ID Date Data Source [id number] 04/25/2020 02:06:10 PM [facility]T [facility] Name Date of Age Gend*PT [id number] Chelle Rivera 1945 75 years F ---PT Location Admission Date/Time Visit ID Attending Provider --- --- --- --- EPI ID CSN Admitting Jennifer tirado [id number] ---CT Follow UpAssessment/Plan: Status post repair of the ascending aortic aneurysm and aortic valvereplacement by myself in last April the patient has been doing very well comesfor follow-up CT the patient's CT scan revealed a sending aorta is stable thepatient CT scan also shows there is some smooth thickening of the pericardiumwith the smaller shape of the heart sizePlan is to get Dr. Gordon to do an echocardiogram patient has no symptomatologywhatsoever I emphasized to the patient about losing weight and went over thisfor a while teaching how to have a dietDiagnostic Data: No results found for: VENTRATE, ATRIALRATE, PRINT, QRSDINT,QTINT, QTCINT, PAXIS, RAXIS, TWAVEAXISSubjective: Patient ID: Chelle Rivera is a 75 years female.HPI patient is 75-year-old white female status post aortic and ascending aorticaneurysm repair doing very well has no complaints the patient continues to beobeseThe following portions of the patient's history were reviewed and updated asappropriate: allergies, current medications were reconciled with dischargemedications if applicable, past family history, past medical history, pastsocial history, past surgical history, problem list and nutrition. Encouragedregular exercise and healthy diet. BMI management plan discussed..Past Medical History:Diagnosis Date Cardiac arrest 1997 Prior to gallbladder surgery at [facility] in [place]; hasundergone subsequent cholecystectomy as well as bilateral knee replacementswithout incident Compression fracture of spine Depression Early cataracts, bilateral GERD (gastroesophageal reflux disease) History of ETOH abuse Hyperlipidemia Hypertension Sleep apnea CPAP Valvular diseasePast Surgical History:Procedure Laterality Date CARDIAC CATHETERIZATION N/A 03/24/2019 Procedure: Cardiac catheterization; Surgeon: Tereza Mariee MD; Laterality:N/A; CARDIAC VALVE SURGERY N/A 04/26/2019 Procedure: REPLACEMENT AORTIC VALVE (MAGNA EASE 21MM) W REPLACEMENT ASCENDINGAORTA (HEMASHIELD 32X30),W TRANSESOPHAEGEAL ECHO; Surgeon: Jatin Priest MD;Laterality: N/A; CHOLECYSTECTOMY DILATION AND CURETTAGE, DIAGNOSTIC / THERAPEUTIC dilitation of esophagus JOINT REPLACEMENT Bilat. TKR KNEE SURGERY LAPAROSCOPIC CHOLECYSTECTOMY WRIST SURGERYFamily HistoryProblem Relation Age of Onset Heart disease Mother Emphysema FatherSocial HistorySocioeconomic History Marital status: Spouse name: None Number of children: None Years of education: None Highest education level: NoneOccupational History NoneSocial Needs Financial resource strain: None Food insecurity: Worry: None Inability: None Transportation needs: Medical: None Non-medical: NoneTobacco Use Smoking status: Former Smoker Packs/day: 1.50 Types: Cigarettes Last attempt to quit: 2002 Years since quittin.4 Smokeless tobacco: Never UsedSubstance and Sexual Activity Alcohol use: No Comment: States: "I'm a recovering alcoholic." Drug use: Never Sexual activity: NoneLifestyle Physical activity: Days per week: None Minutes per session: None Stress: NoneRelationships Social connections: Talks on phone: None Gets together: None Attends oriental orthodox service: None Active member of club or organization: None Attends meetings of clubs or organizations: None Relationship status: None Intimate partner violence: Fear of current or ex partner: None Emotionally abused: None Physically abused: None Forced sexual activity: NoneOther Topics Concern Bike Helmet Not Asked History of Falls Not Asked Self-Exams Not Asked Caffeine Concern Not Asked Hobby Hazards Not Asked Sleep Concern Not Asked Daily Calcium Supplement Not Asked Lead Exposure Not Asked Special Diet Not Asked Daily Vitamin D Supplement Not Asked Service Not Asked Stress Concern Not Asked Domestic Violence in home Not Asked Radon exposure Not Asked Weight Concern Not Asked Exercise Not Asked Seat Belt Not Asked Well water Not Asked Firearms in home Not AskedSocial History Narrative NoneCurrent Outpatient MedicationsMedication Sig Dispense Refill albuterol (PROVENTIL HFA;VENTOLIN HFA) 108 (90 Base) MCG/ACT inhaler Inhale 2puffs every 4 (four) hours as needed for wheezing hydrochlorothiazide (HYDRODIURIL) 12.5 MG tablet Take 12.5 mg by mouth daily ketoconazole (NIZORAL) 2 % cream Apply 1 application topically daily as needed(a) apply topically daily to affected area omeprazole (PRILOSEC) 20 MG capsule Take 20 mg by mouth daily PARoxetine (PAXIL) 30 MG tablet Take 30 mg by mouth every morning pravastatin (PRAVACHOL) 40 MG tablet Take 40 mg by mouth nightly 0 betamethasone dipropionate (DIPROLENE) 0.05 % cream Apply 1 applicationtopically 2 (two) times a day as needed (for rash)No current facility-administered medications for this visit.AllergiesAllergen Reactions Anesthesia S-I-60 Cardiac arrest in the pastAKA Propofol - tolerated during multiple surgeries since rxn 20 yrs ago SAS Morphine And Related Nausea And Vomiting Penicillins HivesReview of Systems negative for 14 system except what I mentioned in the historyof present illness and past medical history constitution: No chills, no fever,no skin lesion, no neurological or psycho logical disease, no renal hepaticurinary disease, no ENT issues, no GI or pulmonary disease, no past cardiacdisease, no peripheral edema, no muscular skeletal disease, no arthritis, nohistory of oncology or hematology disease, no thyroid disease or diabetes, noprednisone therapy.Status post aortic valve replacement and ascending aortic aneurysm repairObjective:Vitals: BP 110/72 (BP Location: Right upper arm, Patient Position: Sitting) |Pulse 62 | Resp 16 | LMP (LMP Unknown) | SpO2 96%Physical ExamHEENT:sclera non- icteric, conjunctiva non -anemic,Trachea in midlineNo supraclavicular node involvement, . No neck lymphadenopathy Lungs are clear on both sides no rales ,no rhonchi and no wheezing Chest is symmetric. No lesion. Healed midline incision Heart S1,S2 and no heart murmur No abdominal bruitFemoral pulses are palpable on both sides Back no CVA tenderness .Abdomen no organomegaly nor abdominal mass.Pattelar reflexes in normal limits. Lower extremity no pedal edema ,no cyanosis,and no clubbing. Name Value Range Interpretation Code Description Data Danisha rce(s) Supporting Document(s) ID Date Data Source [id number] 04/23/2020 08:52:00 AM EDT [facility] HEST WO IV CONTRASTCLINICAL HISTORY: Thoracic aortic aneurysm.COMPARISON: 02/09/2019TECHNIQUE: Helical acquisition performed through the chest.Coronal and parasagittal reconstructions are provided.FINDINGS: The patient is status post repair of an ascending thoracic aortic aneurysm with an aortic valve and a graph. There is stable calcification of the aortic arch. There is a normal caliber aortic arch and a normal branching pattern from the arch. There is coronary artery calcification. The patient is status post sternotomy as well. Suspected reactive lymph nodes are seen in the mediastinum. Mild pericardial thickening is new compared to the prior study. I am wondering if this could be causing constriction because the heart looks smaller.Ground-glass opacities are seen in the right upper lobe with measuring approximately 11 x 12 x 14 mm. There are foci of vasculature passing through the structures. Some of these structures appear somewhat branching such as tree-in-bud shape. In retrospect there might be a very small amount of airways disease in this region on axial image 28 and coronal image 65. It seems to be a little bit worse compared to that exam. Similar findings identified medial posterior right lung base. There is no endobronchial mass identified. Visualized portions of thyroid gland and esophagus appear normal. The visualized portions of the upper abdomen are unremarkable.Degenerative changes are seen throughout the thoracic spine and upper lumbar spine. There is an old burst fracture at T12 with posterior retropulsed fracture fragment and a stable AP dimension of approximately 9 or 10 mm.IMPRESSION: Repair of an ascending thoracic aortic aneurysm with an aortic valve stent graft.Probable mild reactive adenopathy in the mediastinum.Smooth thickened pericardium with a smaller shape of the heart size. Echocardiography is recommended.Degenerative changes in the spine. Old burst fracture at T12 with an AP canal dimension of 9 or 10 mm.New or increased parenchymal disease right upper lobe. Follow-up CT chest is recommended in 6 months.Dictated by: PABLO VELEZ M.D. on 04/23/2020 Transcribed by: [email or web address] on <<TranscriptionDateTime1>>cc: Name Value Range Interpretation Code Description Data Danisha rce(s) Supporting Document(s) ID Date Data Source [id number] 02/27/2020 11:13:00 AM EDT [facility] ([facility] Name Value Range Interpretation Code Description Data Danisha rce(s) Supporting Document(s) Trig 164 mg/dL 40-200 [facility] ([facility] CLASSIFICATION CHOLESTEROL FO R ADULTS CHILDREN/ADOLESCENTS* DESIRABLE: <200 MG/DL <170 MG/DL BORDER-LINE HIGH RISK: 200-239 MG/DL 170-199 MG/DL HIGH RISK: >240 MG/DL >200 MG/DL CLASS. FOR PRIMARY LDL CHOL PREVENTION: LDL CHOL-CHILD/ADOLESCENTS* DESIRABLE: <130 MG/DL <110 MG/DL BORDERLINE-HIGH RISK: 130-159 MG/DL 110-129 MG/DL HIGH RISK: >160 MG/DL >130 MG/DL *CHILDREN AND ADOLESCENTS REPRESENTS INDIVIDUALA AGED 2-19 YEARS EXCLUSIVE. CHRONIC KIDNEY DISEASE STAGING PER NKF: MALE [...] mL/min Normal 80 and above >32 mL/min NormalNORMAL RANGES Age WBC RBC HGB HCT MCV PLT Adult M 4.1-10.9 4.20-6.30 12.0-18.0 37.0-51.0 80-97 140-440 Adult F 4.1-10.9 4.04-5.48 12.0-18.0 37.0-51.0 80-97 140-440 0- 1 Yr 5.0-20.0 3.9-5.9 15-18 MV: 44 MV: 91 MV: 277 2-9 Yr. 6.0-17.0 3.8-5.4 11-13 MV: 37 MV: 78 MV: 300 10 Yrs. 5.0-13.0 3.8-5.4 12-15 MV: 39 MV: 80 MV: 250 NOTE: * FOR ADULT BLACK MALES AND FEMALES, NORMAL WBC IS 2.9-7.7 K/ML * FOR ADULT BLACK MALES AND FEMALES, NORMAL RBC,HGB, AND HCT IS 5% LESS SOURCE FOR DATA: KATI DYN 1800 OPERATION MANUAL( AUTOMATED BLOOD COUNTS AND DIFF.) APPENDIX B-3 Chol 191 mg/dL 0-200 [facility] CLASSIFICATION CHOLESTEROL FO R ADULTS CHILDREN/ADOLESCENTS* DESIRABLE: <200 MG/DL <170 MG/DL BORDER-LINE HIGH RISK: 200-239 MG/DL 170-199 MG/DL HIGH RISK: >240 MG/DL >200 MG/DL CLASS. FOR PRIMARY LDL CHOL PREVENTION: LDL CHOL-CHILD/ADOLESCENTS* DESIRABLE: <130 MG/DL <110 MG/DL BORDERLINE-HIGH RISK: 130-159 MG/DL 110-129 MG/DL HIGH RISK: >160 MG/DL >130 MG/DL *CHILDREN AND ADOLESCENTS REPRESENTS INDIVIDUALA AGED 2-19 YEARS EXCLUSIVE. CHRONIC KIDNEY DISEASE STAGING PER NKF: MALE [...] mL/min Normal 80 and above >32 mL/min NormalNORMAL RANGES Age WBC RBC HGB HCT MCV PLT Adult M 4.1-10.9 4.20-6.30 12.0-18.0 37.0-51.0 80-97 140-440 Adult F 4.1-10.9 4.04-5.48 12.0-18.0 37.0-51.0 80-97 140-440 0- 1 Yr 5.0-20.0 3.9-5.9 15-18 MV: 44 MV: 91 MV: 277 2-9 Yr. 6.0-17.0 3.8-5.4 11-13 MV: 37 MV: 78 MV: 300 10 Yrs. 5.0-13.0 3.8-5.4 12-15 MV: 39 MV: 80 MV: 250 NOTE: * FOR ADULT BLACK MALES AND FEMALES, NORMAL WBC IS 2.9-7.7 K/ML * FOR ADULT BLACK MALES AND FEMALES, NORMAL RBC,HGB, AND HCT IS 5% LESS SOURCE FOR DATA: [employer]unch[employer] DYN 1800 OPERATION MANUAL( AUTOMATED BLOOD COUNTS AND DIFF.) APPENDIX B-3 Cholesterol in HDL [Mass/volume] in Serum or Plasma 46 mg/dL 45-65 [facility] ([facility] CLASSIFICATION CHOLESTEROL FO R ADULTS CHILDREN/ADOLESCENTS* DESIRABLE: <200 MG/DL <170 MG/DL BORDER-LINE HIGH RISK: 200-239 MG/DL 170-199 MG/DL HIGH RISK: >240 MG/DL >200 MG/DL CLASS. FOR PRIMARY LDL CHOL PREVENTION: LDL CHOL-CHILD/ADOLESCENTS* DESIRABLE: <130 MG/DL <110 MG/DL BORDERLINE-HIGH RISK: 130-159 MG/DL 110-129 MG/DL HIGH RISK: >160 MG/DL >130 MG/DL *CHILDREN AND ADOLESCENTS REPRESENTS INDIVIDUALA AGED 2-19 YEARS EXCLUSIVE. CHRONIC KIDNEY DISEASE STAGING PER NKF: MALE [...] mL/min Normal 80 and above >32 mL/min NormalNORMAL RANGES Age WBC RBC HGB HCT MCV PLT Adult M 4.1-10.9 4.20-6.30 12.0-18.0 37.0-51.0 80-97 140-440 Adult F 4.1-10.9 4.04-5.48 12.0-18.0 37.0-51.0 80-97 140-440 0- 1 Yr 5.0-20.0 3.9-5.9 15-18 MV: 44 MV: 91 MV: 277 2-9 Yr. 6.0-17.0 3.8-5.4 11-13 MV: 37 MV: 78 MV: 300 10 Yrs. 5.0-13.0 3.8-5.4 12-15 MV: 39 MV: 80 MV: 250 NOTE: * FOR ADULT BLACK MALES AND FEMALES, NORMAL WBC IS 2.9-7.7 K/ML * FOR ADULT BLACK MALES AND FEMALES, NORMAL RBC,HGB, AND HCT IS 5% LESS SOURCE FOR DATA: wiMAN 1800 OPERATION MANUAL( AUTOMATED BLOOD COUNTS AND DIFF.) APPENDIX B-3 LDL_C 112 Calc 75-129 [facility] CLASSIFICATION CHOLESTEROL FO R ADULTS CHILDREN/ADOLESCENTS* DESIRABLE: <200 MG/DL <170 MG/DL BORDER-LINE HIGH RISK: 200-239 MG/DL 170-199 MG/DL HIGH RISK: >240 MG/DL >200 MG/DL CLASS. FOR PRIMARY LDL CHOL PREVENTION: LDL CHOL-CHILD/ADOLESCENTS* DESIRABLE: <130 MG/DL <110 MG/DL BORDERLINE-HIGH RISK: 130-159 MG/DL 110-129 MG/DL HIGH RISK: >160 MG/DL >130 MG/DL *CHILDREN AND ADOLESCENTS REPRESENTS INDIVIDUALA AGED 2-19 YEARS EXCLUSIVE. CHRONIC KIDNEY DISEASE STAGING PER NKF: MALE [...] mL/min Normal 80 and above >32 mL/min NormalNORMAL RANGES Age WBC RBC HGB HCT MCV PLT Adult M 4.1-10.9 4.20-6.30 12.0-18.0 37.0-51.0 80-97 140-440 Adult F 4.1-10.9 4.04-5.48 12.0-18.0 37.0-51.0 80-97 140-440 0- 1 Yr 5.0-20.0 3.9-5.9 15-18 MV: 44 MV: 91 MV: 277 2-9 Yr. 6.0-17.0 3.8-5.4 11-13 MV: 37 MV: 78 MV: 300 10 Yrs. 5.0-13.0 3.8-5.4 12-15 MV: 39 MV: 80 MV: 250 NOTE: * FOR ADULT BLACK MALES AND FEMALES, NORMAL WBC IS 2.9-7.7 K/ML * FOR ADULT BLACK MALES AND FEMALES, NORMAL RBC,HGB, AND HCT IS 5% LESS SOURCE FOR DATA: KATI DYN 1800 OPERATION MANUAL( AUTOMATED BLOOD COUNTS AND DIFF.) APPENDIX B-3 Cho/HDL Ratio 4.2 Calc [facility] ([facility] CLASSIFICATION CHOLESTEROL FO R ADULTS CHILDREN/ADOLESCENTS* DESIRABLE: <200 MG/DL <170 MG/DL BORDER-LINE HIGH RISK: 200-239 MG/DL 170-199 MG/DL HIGH RISK: >240 MG/DL >200 MG/DL CLASS. FOR PRIMARY LDL CHOL PREVENTION: LDL CHOL-CHILD/ADOLESCENTS* DESIRABLE: <130 MG/DL <110 MG/DL BORDERLINE-HIGH RISK: 130-159 MG/DL 110-129 MG/DL HIGH RISK: >160 MG/DL >130 MG/DL *CHILDREN AND ADOLESCENTS REPRESENTS INDIVIDUALA AGED 2-19 YEARS EXCLUSIVE. CHRONIC KIDNEY DISEASE STAGING PER NKF: MALE [...] mL/min Normal 80 and above >32 mL/min NormalNORMAL RANGES Age WBC RBC HGB HCT MCV PLT Adult M 4.1-10.9 4.20-6.30 12.0-18.0 37.0-51.0 80-97 140-440 Adult F 4.1-10.9 4.04-5.48 12.0-18.0 37.0-51.0 80-97 140-440 0- 1 Yr 5.0-20.0 3.9-5.9 15-18 MV: 44 MV: 91 MV: 277 2-9 Yr. 6.0-17.0 3.8-5.4 11-13 MV: 37 MV: 78 MV: 300 10 Yrs. 5.0-13.0 3.8-5.4 12-15 MV: 39 MV: 80 MV: 250 NOTE: * FOR ADULT BLACK MALES AND FEMALES, NORMAL WBC IS 2.9-7.7 K/ML * FOR ADULT BLACK MALES AND FEMALES, NORMAL RBC,HGB, AND HCT IS 5% LESS SOURCE FOR DATA: wiMAN 1800 OPERATION MANUAL( AUTOMATED BLOOD COUNTS AND DIFF.) APPENDIX B-3 ID Date Data Source [id number] 02/27/2020 11:13:00 AM EDT NELL ([facility] Name Value Range Interpretation Code Description Data Danisha rce(s) Supporting Document(s) Creatine kinase [Enzymatic activity/volume] in Serum or Plasma 49 U /L 26-192 [facility] ([facility] CLASSIFICATION CHOLESTEROL FO R ADULTS CHILDREN/ADOLESCENTS* DESIRABLE: <200 MG/DL <170 MG/DL BORDER-LINE HIGH RISK: 200-239 MG/DL 170-199 MG/DL HIGH RISK: >240 MG/DL >200 MG/DL CLASS. FOR PRIMARY LDL CHOL PREVENTION: LDL CHOL-CHILD/ADOLESCENTS* DESIRABLE: <130 MG/DL <110 MG/DL BORDERLINE-HIGH RISK: 130-159 MG/DL 110-129 MG/DL HIGH RISK: >160 MG/DL >130 MG/DL *CHILDREN AND ADOLESCENTS REPRESENTS INDIVIDUALA AGED 2-19 YEARS EXCLUSIVE. CHRONIC KIDNEY DISEASE STAGING PER NKF: MALE [...] mL/min Normal 80 and above >32 mL/min NormalNORMAL RANGES Age WBC RBC HGB HCT MCV PLT Adult M 4.1-10.9 4.20-6.30 12.0-18.0 37.0-51.0 80-97 140-440 Adult F 4.1-10.9 4.04-5.48 12.0-18.0 37.0-51.0 80-97 140-440 0- 1 Yr 5.0-20.0 3.9-5.9 15-18 MV: 44 MV: 91 MV: 277 2-9 Yr. 6.0-17.0 3.8-5.4 11-13 MV: 37 MV: 78 MV: 300 10 Yrs. 5.0-13.0 3.8-5.4 12-15 MV: 39 MV: 80 MV: 250 NOTE: * FOR ADULT BLACK MALES AND FEMALES, NORMAL WBC IS 2.9-7.7 K/ML * FOR ADULT BLACK MALES AND FEMALES, NORMAL RBC,HGB, AND HCT IS 5% LESS SOURCE FOR DATA: wiMAN 1800 OPERATION MANUAL( AUTOMATED BLOOD COUNTS AND DIFF.) APPENDIX B-3 ID Date Data Source [id number] 02/27/2020 11:13:00 AM EDT [facility] ([facility] Name Value Range Interpretation Code Description Data Danisha rce(s) Supporting Document(s) Glu 112 mg/dL 70-110 Above high normal [facility] ([facility] CLASSIFICATION CHOLESTEROL FO R ADULTS CHILDREN/ADOLESCENTS* DESIRABLE: <200 MG/DL <170 MG/DL BORDER-LINE HIGH RISK: 200-239 MG/DL 170-199 MG/DL HIGH RISK: >240 MG/DL >200 MG/DL CLASS. FOR PRIMARY LDL CHOL PREVENTION: LDL CHOL-CHILD/ADOLESCENTS* DESIRABLE: <130 MG/DL <110 MG/DL BORDERLINE-HIGH RISK: 130-159 MG/DL 110-129 MG/DL HIGH RISK: >160 MG/DL >130 MG/DL *CHILDREN AND ADOLESCENTS REPRESENTS INDIVIDUALA AGED 2-19 YEARS EXCLUSIVE. CHRONIC KIDNEY DISEASE STAGING PER NKF: MALE [...] mL/min Normal 80 and above >32 mL/min NormalNORMAL RANGES Age WBC RBC HGB HCT MCV PLT Adult M 4.1-10.9 4.20-6.30 12.0-18.0 37.0-51.0 80-97 140-440 Adult F 4.1-10.9 4.04-5.48 12.0-18.0 37.0-51.0 80-97 140-440 0- 1 Yr 5.0-20.0 3.9-5.9 15-18 MV: 44 MV: 91 MV: 277 2-9 Yr. 6.0-17.0 3.8-5.4 11-13 MV: 37 MV: 78 MV: 300 10 Yrs. 5.0-13.0 3.8-5.4 12-15 MV: 39 MV: 80 MV: 250 NOTE: * FOR ADULT BLACK MALES AND FEMALES, NORMAL WBC IS 2.9-7.7 K/ML * FOR ADULT BLACK MALES AND FEMALES, NORMAL RBC,HGB, AND HCT IS 5% LESS SOURCE FOR DATA: KATI DYN 1800 OPERATION MANUAL( AUTOMATED BLOOD COUNTS AND DIFF.) APPENDIX B-3 BUN 14 mg/dL 06-30 [facility] CLASSIFICATION CHOLESTEROL FO R ADULTS CHILDREN/ADOLESCENTS* DESIRABLE: <200 MG/DL <170 MG/DL BORDER-LINE HIGH RISK: 200-239 MG/DL 170-199 MG/DL HIGH RISK: >240 MG/DL >200 MG/DL CLASS. FOR PRIMARY LDL CHOL PREVENTION: LDL CHOL-CHILD/ADOLESCENTS* DESIRABLE: <130 MG/DL <110 MG/DL BORDERLINE-HIGH RISK: 130-159 MG/DL 110-129 MG/DL HIGH RISK: >160 MG/DL >130 MG/DL *CHILDREN AND ADOLESCENTS REPRESENTS INDIVIDUALA AGED 2-19 YEARS EXCLUSIVE. CHRONIC KIDNEY DISEASE STAGING PER NKF: MALE [...] mL/min Normal 80 and above >32 mL/min NormalNORMAL RANGES Age WBC RBC HGB HCT MCV PLT Adult M 4.1-10.9 4.20-6.30 12.0-18.0 37.0-51.0 80-97 140-440 Adult F 4.1-10.9 4.04-5.48 12.0-18.0 37.0-51.0 80-97 140-440 0- 1 Yr 5.0-20.0 3.9-5.9 15-18 MV: 44 MV: 91 MV: 277 2-9 Yr. 6.0-17.0 3.8-5.4 11-13 MV: 37 MV: 78 MV: 300 10 Yrs. 5.0-13.0 3.8-5.4 12-15 MV: 39 MV: 80 MV: 250 NOTE: * FOR ADULT BLACK MALES AND FEMALES, NORMAL WBC IS 2.9-7.7 K/ML * FOR ADULT BLACK MALES AND FEMALES, NORMAL RBC,HGB, AND HCT IS 5% LESS SOURCE FOR DATA: [employer] DYN 1800 OPERATION MANUAL( AUTOMATED BLOOD COUNTS AND DIFF.) APPENDIX B-3 Creat 0.8 mg/dL 0.5-1.0 [facility] ([facility] CLASSIFICATION CHOLESTEROL FO R ADULTS CHILDREN/ADOLESCENTS* DESIRABLE: <200 MG/DL <170 MG/DL BORDER-LINE HIGH RISK: 200-239 MG/DL 170-199 MG/DL HIGH RISK: >240 MG/DL >200 MG/DL CLASS. FOR PRIMARY LDL CHOL PREVENTION: LDL CHOL-CHILD/ADOLESCENTS* DESIRABLE: <130 MG/DL <110 MG/DL BORDERLINE-HIGH RISK: 130-159 MG/DL 110-129 MG/DL HIGH RISK: >160 MG/DL >130 MG/DL *CHILDREN AND ADOLESCENTS REPRESENTS INDIVIDUALA AGED 2-19 YEARS EXCLUSIVE. CHRONIC KIDNEY DISEASE STAGING PER NKF: MALE [...] mL/min Normal 80 and above >32 mL/min NormalNORMAL RANGES Age WBC RBC HGB HCT MCV PLT Adult M 4.1-10.9 4.20-6.30 12.0-18.0 37.0-51.0 80-97 140-440 Adult F 4.1-10.9 4.04-5.48 12.0-18.0 37.0-51.0 80-97 140-440 0- 1 Yr 5.0-20.0 3.9-5.9 15-18 MV: 44 MV: 91 MV: 277 2-9 Yr. 6.0-17.0 3.8-5.4 11-13 MV: 37 MV: 78 MV: 300 10 Yrs. 5.0-13.0 3.8-5.4 12-15 MV: 39 MV: 80 MV: 250 NOTE: * FOR ADULT BLACK MALES AND FEMALES, NORMAL WBC IS 2.9-7.7 K/ML * FOR ADULT BLACK MALES AND FEMALES, NORMAL RBC,HGB, AND HCT IS 5% LESS SOURCE FOR DATA: wiMAN 1800 OPERATION MANUAL( AUTOMATED BLOOD COUNTS AND DIFF.) APPENDIX B-3 BUN/Creatinine Ratio 17.1 CALC [facility] ([facility] CLASSIFICATION CHOLESTEROL FO R ADULTS CHILDREN/ADOLESCENTS* DESIRABLE: <200 MG/DL <170 MG/DL BORDER-LINE HIGH RISK: 200-239 MG/DL 170-199 MG/DL HIGH RISK: >240 MG/DL >200 MG/DL CLASS. FOR PRIMARY LDL CHOL PREVENTION: LDL CHOL-CHILD/ADOLESCENTS* DESIRABLE: <130 MG/DL <110 MG/DL BORDERLINE-HIGH RISK: 130-159 MG/DL 110-129 MG/DL HIGH RISK: >160 MG/DL >130 MG/DL *CHILDREN AND ADOLESCENTS REPRESENTS INDIVIDUALA AGED 2-19 YEARS EXCLUSIVE. CHRONIC KIDNEY DISEASE STAGING PER NKF: MALE [...] mL/min Normal 80 and above >32 mL/min NormalNORMAL RANGES Age WBC RBC HGB HCT MCV PLT Adult M 4.1-10.9 4.20-6.30 12.0-18.0 37.0-51.0 80- 140-440 Adult F 4.1-10.9 4.04-5.48 12.0-18.0 37.0-51.0 80 140-440 0- 1 Yr 5.0-20.0 3.9-5.9 15-18 MV: 44 MV: 91 MV: 277 2-9 Yr. 6.0-17.0 3.8-5.4 11-13 MV: 37 MV: 78 MV: 300 10 Yrs. 5.0-13.0 3.8-5.4 12-15 MV: 39 MV: 80 MV: 250 NOTE: * FOR ADULT BLACK MALES AND FEMALES, NORMAL WBC IS 2.9-7.7 K/ML * FOR ADULT BLACK MALES AND FEMALES, NORMAL RBC,HGB, AND HCT IS 5% LESS SOURCE FOR DATA: [employer] DYN 1800 OPERATION MANUAL( AUTOMATED BLOOD COUNTS AND DIFF.) APPENDIX B-3 Na 134 mmol/L 136-145 Below low normal [facility] ( [facility] CLASSIFICATION CHOLESTEROL FO R ADULTS CHILDREN/ADOLESCENTS* DESIRABLE: <200 MG/DL <170 MG/DL BORDER-LINE HIGH RISK: 200-239 MG/DL 170-199 MG/DL HIGH RISK: >240 MG/DL >200 MG/DL CLASS. FOR PRIMARY LDL CHOL PREVENTION: LDL CHOL-CHILD/ADOLESCENTS* DESIRABLE: <130 MG/DL <110 MG/DL BORDERLINE-HIGH RISK: 130-159 MG/DL 110-129 MG/DL HIGH RISK: >160 MG/DL >130 MG/DL *CHILDREN AND ADOLESCENTS REPRESENTS INDIVIDUALA AGED 2-19 YEARS EXCLUSIVE. CHRONIC KIDNEY DISEASE STAGING PER NKF: MALE [...] mL/min Normal 80 and above >32 mL/min NormalNORMAL RANGES Age WBC RBC HGB HCT MCV PLT Adult M 4.1-10.9 4.20-6.30 12.0-18.0 37.0-51.0 80-97 140-440 Adult F 4.1-10.9 4.04-5.48 12.0-18.0 37.0-51.0 80-97 140-440 0- 1 Yr 5.0-20.0 3.9-5.9 15-18 MV: 44 MV: 91 MV: 277 2-9 Yr. 6.0-17.0 3.8-5.4 11-13 MV: 37 MV: 78 MV: 300 10 Yrs. 5.0-13.0 3.8-5.4 12-15 MV: 39 MV: 80 MV: 250 NOTE: * FOR ADULT BLACK MALES AND FEMALES, NORMAL WBC IS 2.9-7.7 K/ML * FOR ADULT BLACK MALES AND FEMALES, NORMAL RBC,HGB, AND HCT IS 5% LESS SOURCE FOR DATA: wiMAN 1800 OPERATION MANUAL( AUTOMATED BLOOD COUNTS AND DIFF.) APPENDIX B-3 K 4.5 mmol/L 3.5-5.1 [facility] ([facility] CLASSIFICATION CHOLESTEROL FO R ADULTS CHILDREN/ADOLESCENTS* DESIRABLE: <200 MG/DL <170 MG/DL BORDER-LINE HIGH RISK: 200-239 MG/DL 170-199 MG/DL HIGH RISK: >240 MG/DL >200 MG/DL CLASS. FOR PRIMARY LDL CHOL PREVENTION: LDL CHOL-CHILD/ADOLESCENTS* DESIRABLE: <130 MG/DL <110 MG/DL BORDERLINE-HIGH RISK: 130-159 MG/DL 110-129 MG/DL HIGH RISK: >160 MG/DL >130 MG/DL *CHILDREN AND ADOLESCENTS REPRESENTS INDIVIDUALA AGED 2-19 YEARS EXCLUSIVE. CHRONIC KIDNEY DISEASE STAGING PER NKF: MALE [...] mL/min Normal 80 and above >32 mL/min NormalNORMAL RANGES Age WBC RBC HGB HCT MCV PLT Adult M 4.1-10.9 4.20-6.30 12.0-18.0 37.0-51.0 80-97 140-440 Adult F 4.1-10.9 4.04-5.48 12.0-18.0 37.0-51.0 80-97 140-440 0- 1 Yr 5.0-20.0 3.9-5.9 15-18 MV: 44 MV: 91 MV: 277 2-9 Yr. 6.0-17.0 3.8-5.4 11-13 MV: 37 MV: 78 MV: 300 10 Yrs. 5.0-13.0 3.8-5.4 12-15 MV: 39 MV: 80 MV: 250 NOTE: * FOR ADULT BLACK MALES AND FEMALES, NORMAL WBC IS 2.9-7.7 K/ML * FOR ADULT BLACK MALES AND FEMALES, NORMAL RBC,HGB, AND HCT IS 5% LESS SOURCE FOR DATA: KATI DYN 1800 OPERATION MANUAL( AUTOMATED BLOOD COUNTS AND DIFF.) APPENDIX B-3 CL 95.3 mmol/L 98.0-107.0 Below low normal [facility] ([facility] CLASSIFICATION CHOLESTEROL FO R ADULTS CHILDREN/ADOLESCENTS* DESIRABLE: <200 MG/DL <170 MG/DL BORDER-LINE HIGH RISK: 200-239 MG/DL 170-199 MG/DL HIGH RISK: >240 MG/DL >200 MG/DL CLASS. FOR PRIMARY LDL CHOL PREVENTION: LDL CHOL-CHILD/ADOLESCENTS* DESIRABLE: <130 MG/DL <110 MG/DL BORDERLINE-HIGH RISK: 130-159 MG/DL 110-129 MG/DL HIGH RISK: >160 MG/DL >130 MG/DL *CHILDREN AND ADOLESCENTS REPRESENTS INDIVIDUALA AGED 2-19 YEARS EXCLUSIVE. CHRONIC KIDNEY DISEASE STAGING PER NKF: MALE [...] mL/min Normal 80 and above >32 mL/min NormalNORMAL RANGES Age WBC RBC HGB HCT MCV PLT Adult M 4.1-10.9 4.20-6.30 12.0-18.0 37.0-51.0 80-97 140-440 Adult F 4.1-10.9 4.04-5.48 12.0-18.0 37.0-51.0 80-97 140-440 0- 1 Yr 5.0-20.0 3.9-5.9 15-18 MV: 44 MV: 91 MV: 277 2-9 Yr. 6.0-17.0 3.8-5.4 11-13 MV: 37 MV: 78 MV: 300 10 Yrs. 5.0-13.0 3.8-5.4 12-15 MV: 39 MV: 80 MV: 250 NOTE: * FOR ADULT BLACK MALES AND FEMALES, NORMAL WBC IS 2.9-7.7 K/ML * FOR ADULT BLACK MALES AND FEMALES, NORMAL RBC,HGB, AND HCT IS 5% LESS SOURCE FOR DATA: [employer] DYN 1800 OPERATION MANUAL( AUTOMATED BLOOD COUNTS AND DIFF.) APPENDIX B-3 Co2 25.2 mmol/L 22.0-29.0 [facility] ([facility] CLASSIFICATION CHOLESTEROL FO R ADULTS CHILDREN/ADOLESCENTS* DESIRABLE: <200 MG/DL <170 MG/DL BORDER-LINE HIGH RISK: 200-239 MG/DL 170-199 MG/DL HIGH RISK: >240 MG/DL >200 MG/DL CLASS. FOR PRIMARY LDL CHOL PREVENTION: LDL CHOL-CHILD/ADOLESCENTS* DESIRABLE: <130 MG/DL <110 MG/DL BORDERLINE-HIGH RISK: 130-159 MG/DL 110-129 MG/DL HIGH RISK: >160 MG/DL >130 MG/DL *CHILDREN AND ADOLESCENTS REPRESENTS INDIVIDUALA AGED 2-19 YEARS EXCLUSIVE. CHRONIC KIDNEY DISEASE STAGING PER NKF: MALE [...] mL/min Normal 80 and above >32 mL/min NormalNORMAL RANGES Age WBC RBC HGB HCT MCV PLT Adult M 4.1-10.9 4.20-6.30 12.0-18.0 37.0-51.0 80-97 140-440 Adult F 4.1-10.9 4.04-5.48 12.0-18.0 37.0-51.0 80-97 140-440 0- 1 Yr 5.0-20.0 3.9-5.9 15-18 MV: 44 MV: 91 MV: 277 2-9 Yr. 6.0-17.0 3.8-5.4 11-13 MV: 37 MV: 78 MV: 300 10 Yrs. 5.0-13.0 3.8-5.4 12-15 MV: 39 MV: 80 MV: 250 NOTE: * FOR ADULT BLACK MALES AND FEMALES, NORMAL WBC IS 2.9-7.7 K/ML * FOR ADULT BLACK MALES AND FEMALES, NORMAL RBC,HGB, AND HCT IS 5% LESS SOURCE FOR DATA: KATI DYN 1800 OPERATION MANUAL( AUTOMATED BLOOD COUNTS AND DIFF.) APPENDIX B-3 TP 7.2 g/dL 6.6-8.7 [facility] CLASSIFICATION CHOLESTEROL FO R ADULTS CHILDREN/ADOLESCENTS* DESIRABLE: <200 MG/DL <170 MG/DL BORDER-LINE HIGH RISK: 200-239 MG/DL 170-199 MG/DL HIGH RISK: >240 MG/DL >200 MG/DL CLASS. FOR PRIMARY LDL CHOL PREVENTION: LDL CHOL-CHILD/ADOLESCENTS* DESIRABLE: <130 MG/DL <110 MG/DL BORDERLINE-HIGH RISK: 130-159 MG/DL 110-129 MG/DL HIGH RISK: >160 MG/DL >130 MG/DL *CHILDREN AND ADOLESCENTS REPRESENTS INDIVIDUALA AGED 2-19 YEARS EXCLUSIVE. CHRONIC KIDNEY DISEASE STAGING PER NKF: MALE [...] mL/min Normal 80 and above >32 mL/min NormalNORMAL RANGES Age WBC RBC HGB HCT MCV PLT Adult M 4.1-10.9 4.20-6.30 12.0-18.0 37.0-51.0 80-97 140-440 Adult F 4.1-10.9 4.04-5.48 12.0-18.0 37.0-51.0 80-97 140-440 0- 1 Yr 5.0-20.0 3.9-5.9 15-18 MV: 44 MV: 91 MV: 277 2-9 Yr. 6.0-17.0 3.8-5.4 11-13 MV: 37 MV: 78 MV: 300 10 Yrs. 5.0-13.0 3.8-5.4 12-15 MV: 39 MV: 80 MV: 250 NOTE: * FOR ADULT BLACK MALES AND FEMALES, NORMAL WBC IS 2.9-7.7 K/ML * FOR ADULT BLACK MALES AND FEMALES, NORMAL RBC,HGB, AND HCT IS 5% LESS SOURCE FOR DATA: KATI DYN 1800 OPERATION MANUAL( AUTOMATED BLOOD COUNTS AND DIFF.) APPENDIX B-3 CA 10.0 mg/dL 8.6-10.2 [facility] CLASSIFICATION CHOLESTEROL FO R ADULTS CHILDREN/ADOLESCENTS* DESIRABLE: <200 MG/DL <170 MG/DL BORDER-LINE HIGH RISK: 200-239 MG/DL 170-199 MG/DL HIGH RISK: >240 MG/DL >200 MG/DL CLASS. FOR PRIMARY LDL CHOL PREVENTION: LDL CHOL-CHILD/ADOLESCENTS* DESIRABLE: <130 MG/DL <110 MG/DL BORDERLINE-HIGH RISK: 130-159 MG/DL 110-129 MG/DL HIGH RISK: >160 MG/DL >130 MG/DL *CHILDREN AND ADOLESCENTS REPRESENTS INDIVIDUALA AGED 2-19 YEARS EXCLUSIVE. CHRONIC KIDNEY DISEASE STAGING PER NKF: MALE [...] mL/min Normal 80 and above >32 mL/min NormalNORMAL RANGES Age WBC RBC HGB HCT MCV PLT Adult M 4.1-10.9 4.20-6.30 12.0-18.0 37.0-51.0 80-97 140-440 Adult F 4.1-10.9 4.04-5.48 12.0-18.0 37.0-51.0 80-97 140-440 0- 1 Yr 5.0-20.0 3.9-5.9 15-18 MV: 44 MV: 91 MV: 277 2-9 Yr. 6.0-17.0 3.8-5.4 11-13 MV: 37 MV: 78 MV: 300 10 Yrs. 5.0-13.0 3.8-5.4 12-15 MV: 39 MV: 80 MV: 250 NOTE: * FOR ADULT BLACK MALES AND FEMALES, NORMAL WBC IS 2.9-7.7 K/ML * FOR ADULT BLACK MALES AND FEMALES, NORMAL RBC,HGB, AND HCT IS 5% LESS SOURCE FOR DATA: wiMAN 1800 OPERATION MANUAL( AUTOMATED BLOOD COUNTS AND DIFF.) APPENDIX B-3 Alb 5.1 g/dL 3.4-4.8 Above high normal [facility] ([facility] CLASSIFICATION CHOLESTEROL FO R ADULTS CHILDREN/ADOLESCENTS* DESIRABLE: <200 MG/DL <170 MG/DL BORDER-LINE HIGH RISK: 200-239 MG/DL 170-199 MG/DL HIGH RISK: >240 MG/DL >200 MG/DL CLASS. FOR PRIMARY LDL CHOL PREVENTION: LDL CHOL-CHILD/ADOLESCENTS* DESIRABLE: <130 MG/DL <110 MG/DL BORDERLINE-HIGH RISK: 130-159 MG/DL 110-129 MG/DL HIGH RISK: >160 MG/DL >130 MG/DL *CHILDREN AND ADOLESCENTS REPRESENTS INDIVIDUALA AGED 2-19 YEARS EXCLUSIVE. CHRONIC KIDNEY DISEASE STAGING PER NKF: MALE [...] mL/min Normal 80 and above >32 mL/min NormalNORMAL RANGES Age WBC RBC HGB HCT MCV PLT Adult M 4.1-10.9 4.20-6.30 12.0-18.0 37.0-51.0 80-97 140-440 Adult F 4.1-10.9 4.04-5.48 12.0-18.0 37.0-51.0 80-97 140-440 0- 1 Yr 5.0-20.0 3.9-5.9 15-18 MV: 44 MV: 91 MV: 277 2-9 Yr. 6.0-17.0 3.8-5.4 11-13 MV: 37 MV: 78 MV: 300 10 Yrs. 5.0-13.0 3.8-5.4 12-15 MV: 39 MV: 80 MV: 250 NOTE: * FOR ADULT BLACK MALES AND FEMALES, NORMAL WBC IS 2.9-7.7 K/ML * FOR ADULT BLACK MALES AND FEMALES, NORMAL RBC,HGB, AND HCT IS 5% LESS SOURCE FOR DATA: wiMAN 1800 OPERATION MANUAL( AUTOMATED BLOOD COUNTS AND DIFF.) APPENDIX B-3 Globulin 2.1 [facility] CLASSIFICATION CHOLESTEROL FO R ADULTS CHILDREN/ADOLESCENTS* DESIRABLE: <200 MG/DL <170 MG/DL BORDER-LINE HIGH RISK: 200-239 MG/DL 170-199 MG/DL HIGH RISK: >240 MG/DL >200 MG/DL CLASS. FOR PRIMARY LDL CHOL PREVENTION: LDL CHOL-CHILD/ADOLESCENTS* DESIRABLE: <130 MG/DL <110 MG/DL BORDERLINE-HIGH RISK: 130-159 MG/DL 110-129 MG/DL HIGH RISK: >160 MG/DL >130 MG/DL *CHILDREN AND ADOLESCENTS REPRESENTS INDIVIDUALA AGED 2-19 YEARS EXCLUSIVE. CHRONIC KIDNEY DISEASE STAGING PER NKF: MALE [...] mL/min Normal 80 and above >32 mL/min NormalNORMAL RANGES Age WBC RBC HGB HCT MCV PLT Adult M 4.1-10.9 4.20-6.30 12.0-18.0 37.0-51.0 80-97 140-440 Adult F 4.1-10.9 4.04-5.48 12.0-18.0 37.0-51.0 80-97 140-440 0- 1 Yr 5.0-20.0 3.9-5.9 15-18 MV: 44 MV: 91 MV: 277 2-9 Yr. 6.0-17.0 3.8-5.4 11-13 MV: 37 MV: 78 MV: 300 10 Yrs. 5.0-13.0 3.8-5.4 12-15 MV: 39 MV: 80 MV: 250 NOTE: * FOR ADULT BLACK MALES AND FEMALES, NORMAL WBC IS 2.9-7.7 K/ML * FOR ADULT BLACK MALES AND FEMALES, NORMAL RBC,HGB, AND HCT IS 5% LESS SOURCE FOR DATA: KATI DYN 1800 OPERATION MANUAL( AUTOMATED BLOOD COUNTS AND DIFF.) APPENDIX B-3 A/G Ratio 2.4 CALC [facility] CLASSIFICATION CHOLESTEROL FO R ADULTS CHILDREN/ADOLESCENTS* DESIRABLE: <200 MG/DL <170 MG/DL BORDER-LINE HIGH RISK: 200-239 MG/DL 170-199 MG/DL HIGH RISK: >240 MG/DL >200 MG/DL CLASS. FOR PRIMARY LDL CHOL PREVENTION: LDL CHOL-CHILD/ADOLESCENTS* DESIRABLE: <130 MG/DL <110 MG/DL BORDERLINE-HIGH RISK: 130-159 MG/DL 110-129 MG/DL HIGH RISK: >160 MG/DL >130 MG/DL *CHILDREN AND ADOLESCENTS REPRESENTS INDIVIDUALA AGED 2-19 YEARS EXCLUSIVE. CHRONIC KIDNEY DISEASE STAGING PER NKF: MALE [...] mL/min Normal 80 and above >32 mL/min NormalNORMAL RANGES Age WBC RBC HGB HCT MCV PLT Adult M 4.1-10.9 4.20-6.30 12.0-18.0 37.0-51.0 80-97 140-440 Adult F 4.1-10.9 4.04-5.48 12.0-18.0 37.0-51.0 80-97 140-440 0- 1 Yr 5.0-20.0 3.9-5.9 15-18 MV: 44 MV: 91 MV: 277 2-9 Yr. 6.0-17.0 3.8-5.4 11-13 MV: 37 MV: 78 MV: 300 10 Yrs. 5.0-13.0 3.8-5.4 12-15 MV: 39 MV: 80 MV: 250 NOTE: * FOR ADULT BLACK MALES AND FEMALES, NORMAL WBC IS 2.9-7.7 K/ML * FOR ADULT BLACK MALES AND FEMALES, NORMAL RBC,HGB, AND HCT IS 5% LESS SOURCE FOR DATA: wiMAN 1800 OPERATION MANUAL( AUTOMATED BLOOD COUNTS AND DIFF.) APPENDIX B-3 Alp 65.3 U/L 35-129 [facility] CLASSIFICATION CHOLESTEROL FO R ADULTS CHILDREN/ADOLESCENTS* DESIRABLE: <200 MG/DL <170 MG/DL BORDER-LINE HIGH RISK: 200-239 MG/DL 170-199 MG/DL HIGH RISK: >240 MG/DL >200 MG/DL CLASS. FOR PRIMARY LDL CHOL PREVENTION: LDL CHOL-CHILD/ADOLESCENTS* DESIRABLE: <130 MG/DL <110 MG/DL BORDERLINE-HIGH RISK: 130-159 MG/DL 110-129 MG/DL HIGH RISK: >160 MG/DL >130 MG/DL *CHILDREN AND ADOLESCENTS REPRESENTS INDIVIDUALA AGED 2-19 YEARS EXCLUSIVE. CHRONIC KIDNEY DISEASE STAGING PER NKF: MALE [...] mL/min Normal 80 and above >32 mL/min NormalNORMAL RANGES Age WBC RBC HGB HCT MCV PLT Adult M 4.1-10.9 4.20-6.30 12.0-18.0 37.0-51.0 80-97 140-440 Adult F 4.1-10.9 4.04-5.48 12.0-18.0 37.0-51.0 80-97 140-440 0- 1 Yr 5.0-20.0 3.9-5.9 15-18 MV: 44 MV: 91 MV: 277 2-9 Yr. 6.0-17.0 3.8-5.4 11-13 MV: 37 MV: 78 MV: 300 10 Yrs. 5.0-13.0 3.8-5.4 12-15 MV: 39 MV: 80 MV: 250 NOTE: * FOR ADULT BLACK MALES AND FEMALES, NORMAL WBC IS 2.9-7.7 K/ML * FOR ADULT BLACK MALES AND FEMALES, NORMAL RBC,HGB, AND HCT IS 5% LESS SOURCE FOR DATA: KATI DYN 1800 OPERATION MANUAL( AUTOMATED BLOOD COUNTS AND DIFF.) APPENDIX B-3 Alt (SGPT) 18 U/L 0-41 [facility] ([facility] CLASSIFICATION CHOLESTEROL FO R ADULTS CHILDREN/ADOLESCENTS* DESIRABLE: <200 MG/DL <170 MG/DL BORDER-LINE HIGH RISK: 200-239 MG/DL 170-199 MG/DL HIGH RISK: >240 MG/DL >200 MG/DL CLASS. FOR PRIMARY LDL CHOL PREVENTION: LDL CHOL-CHILD/ADOLESCENTS* DESIRABLE: <130 MG/DL <110 MG/DL BORDERLINE-HIGH RISK: 130-159 MG/DL 110-129 MG/DL HIGH RISK: >160 MG/DL >130 MG/DL *CHILDREN AND ADOLESCENTS REPRESENTS INDIVIDUALA AGED 2-19 YEARS EXCLUSIVE. CHRONIC KIDNEY DISEASE STAGING PER NKF: MALE [...] mL/min Normal 80 and above >32 mL/min NormalNORMAL RANGES Age WBC RBC HGB HCT MCV PLT Adult M 4.1-10.9 4.20-6.30 12.0-18.0 37.0-51.0 80-97 140-440 Adult F 4.1-10.9 4.04-5.48 12.0-18.0 37.0-51.0 80-97 140-440 0- 1 Yr 5.0-20.0 3.9-5.9 15-18 MV: 44 MV: 91 MV: 277 2-9 Yr. 6.0-17.0 3.8-5.4 11-13 MV: 37 MV: 78 MV: 300 10 Yrs. 5.0-13.0 3.8-5.4 12-15 MV: 39 MV: 80 MV: 250 NOTE: * FOR ADULT BLACK MALES AND FEMALES, NORMAL WBC IS 2.9-7.7 K/ML * FOR ADULT BLACK MALES AND FEMALES, NORMAL RBC,HGB, AND HCT IS 5% LESS SOURCE FOR DATA: Crunchyroll DYN 1800 OPERATION MANUAL( AUTOMATED BLOOD COUNTS AND DIFF.) APPENDIX B-3 Ast (Sgot) 21 U/L 0-40 [facility] ([facility] CLASSIFICATION CHOLESTEROL FO R ADULTS CHILDREN/ADOLESCENTS* DESIRABLE: <200 MG/DL <170 MG/DL BORDER-LINE HIGH RISK: 200-239 MG/DL 170-199 MG/DL HIGH RISK: >240 MG/DL >200 MG/DL CLASS. FOR PRIMARY LDL CHOL PREVENTION: LDL CHOL-CHILD/ADOLESCENTS* DESIRABLE: <130 MG/DL <110 MG/DL BORDERLINE-HIGH RISK: 130-159 MG/DL 110-129 MG/DL HIGH RISK: >160 MG/DL >130 MG/DL *CHILDREN AND ADOLESCENTS REPRESENTS INDIVIDUALA AGED 2-19 YEARS EXCLUSIVE. CHRONIC KIDNEY DISEASE STAGING PER NKF: MALE [...] mL/min Normal 80 and above >32 mL/min NormalNORMAL RANGES Age WBC RBC HGB HCT MCV PLT Adult M 4.1-10.9 4.20-6.30 12.0-18.0 37.0-51.0 80-97 140-440 Adult F 4.1-10.9 4.04-5.48 12.0-18.0 37.0-51.0 80-97 140-440 0- 1 Yr 5.0-20.0 3.9-5.9 15-18 MV: 44 MV: 91 MV: 277 2-9 Yr. 6.0-17.0 3.8-5.4 11-13 MV: 37 MV: 78 MV: 300 10 Yrs. 5.0-13.0 3.8-5.4 12-15 MV: 39 MV: 80 MV: 250 NOTE: * FOR ADULT BLACK MALES AND FEMALES, NORMAL WBC IS 2.9-7.7 K/ML * FOR ADULT BLACK MALES AND FEMALES, NORMAL RBC,HGB, AND HCT IS 5% LESS SOURCE FOR DATA: wiMAN 1800 OPERATION MANUAL( AUTOMATED BLOOD COUNTS AND DIFF.) APPENDIX B-3 Tbili 0.49 mg/dL 0.0-1.2 [facility] ([facility] CLASSIFICATION CHOLESTEROL FO R ADULTS CHILDREN/ADOLESCENTS* DESIRABLE: <200 MG/DL <170 MG/DL BORDER-LINE HIGH RISK: 200-239 MG/DL 170-199 MG/DL HIGH RISK: >240 MG/DL >200 MG/DL CLASS. FOR PRIMARY LDL CHOL PREVENTION: LDL CHOL-CHILD/ADOLESCENTS* DESIRABLE: <130 MG/DL <110 MG/DL BORDERLINE-HIGH RISK: 130-159 MG/DL 110-129 MG/DL HIGH RISK: >160 MG/DL >130 MG/DL *CHILDREN AND ADOLESCENTS REPRESENTS INDIVIDUALA AGED 2-19 YEARS EXCLUSIVE. CHRONIC KIDNEY DISEASE STAGING PER NKF: MALE [...] mL/min Normal 80 and above >32 mL/min NormalNORMAL RANGES Age WBC RBC HGB HCT MCV PLT Adult M 4.1-10.9 4.20-6.30 12.0-18.0 37.0-51.0 80-97 140-440 Adult F 4.1-10.9 4.04-5.48 12.0-18.0 37.0-51.0 80-97 140-440 0- 1 Yr 5.0-20.0 3.9-5.9 15-18 MV: 44 MV: 91 MV: 277 2-9 Yr. 6.0-17.0 3.8-5.4 11-13 MV: 37 MV: 78 MV: 300 10 Yrs. 5.0-13.0 3.8-5.4 12-15 MV: 39 MV: 80 MV: 250 NOTE: * FOR ADULT BLACK MALES AND FEMALES, NORMAL WBC IS 2.9-7.7 K/ML * FOR ADULT BLACK MALES AND FEMALES, NORMAL RBC,HGB, AND HCT IS 5% LESS SOURCE FOR DATA: KATI DYN 1800 OPERATION MANUAL( AUTOMATED BLOOD COUNTS AND DIFF.) APPENDIX B-3 Anion Gap 18 mmol/L [facility] CLASSIFICATION CHOLESTEROL FO R ADULTS CHILDREN/ADOLESCENTS* DESIRABLE: <200 MG/DL <170 MG/DL BORDER-LINE HIGH RISK: 200-239 MG/DL 170-199 MG/DL HIGH RISK: >240 MG/DL >200 MG/DL CLASS. FOR PRIMARY LDL CHOL PREVENTION: LDL CHOL-CHILD/ADOLESCENTS* DESIRABLE: <130 MG/DL <110 MG/DL BORDERLINE-HIGH RISK: 130-159 MG/DL 110-129 MG/DL HIGH RISK: >160 MG/DL >130 MG/DL *CHILDREN AND ADOLESCENTS REPRESENTS INDIVIDUALA AGED 2-19 YEARS EXCLUSIVE. CHRONIC KIDNEY DISEASE STAGING PER NKF: MALE [...] mL/min Normal 80 and above >32 mL/min NormalNORMAL RANGES Age WBC RBC HGB HCT MCV PLT Adult M 4.1-10.9 4.20-6.30 12.0-18.0 37.0-51.0 80-97 140-440 Adult F 4.1-10.9 4.04-5.48 12.0-18.0 37.0-51.0 80-97 140-440 0- 1 Yr 5.0-20.0 3.9-5.9 15-18 MV: 44 MV: 91 MV: 277 2-9 Yr. 6.0-17.0 3.8-5.4 11-13 MV: 37 MV: 78 MV: 300 10 Yrs. 5.0-13.0 3.8-5.4 12-15 MV: 39 MV: 80 MV: 250 NOTE: * FOR ADULT BLACK MALES AND FEMALES, NORMAL WBC IS 2.9-7.7 K/ML * FOR ADULT BLACK MALES AND FEMALES, NORMAL RBC,HGB, AND HCT IS 5% LESS SOURCE FOR DATA: KATI DYN 1800 OPERATION MANUAL( AUTOMATED BLOOD COUNTS AND DIFF.) APPENDIX B-3 Osmolality-Calculated 268.6 [facility]C [facility] ([facility] CLASSIFICATION CHOLESTEROL FO R ADULTS CHILDREN/ADOLESCENTS* DESIRABLE: <200 MG/DL <170 MG/DL BORDER-LINE HIGH RISK: 200-239 MG/DL 170-199 MG/DL HIGH RISK: >240 MG/DL >200 MG/DL CLASS. FOR PRIMARY LDL CHOL PREVENTION: LDL CHOL-CHILD/ADOLESCENTS* DESIRABLE: <130 MG/DL <110 MG/DL BORDERLINE-HIGH RISK: 130-159 MG/DL 110-129 MG/DL HIGH RISK: >160 MG/DL >130 MG/DL *CHILDREN AND ADOLESCENTS REPRESENTS INDIVIDUALA AGED 2-19 YEARS EXCLUSIVE. CHRONIC KIDNEY DISEASE STAGING PER NKF: MALE [...] mL/min Normal 80 and above >32 mL/min NormalNORMAL RANGES Age WBC RBC HGB HCT MCV PLT Adult M 4.1-10.9 4.20-6.30 12.0-18.0 37.0-51.0 80-97 140-440 Adult F 4.1-10.9 4.04-5.48 12.0-18.0 37.0-51.0 80-97 140-440 0- 1 Yr 5.0-20.0 3.9-5.9 15-18 MV: 44 MV: 91 MV: 277 2-9 Yr. 6.0-17.0 3.8-5.4 11-13 MV: 37 MV: 78 MV: 300 10 Yrs. 5.0-13.0 3.8-5.4 12-15 MV: 39 MV: 80 MV: 250 NOTE: * FOR ADULT BLACK MALES AND FEMALES, NORMAL WBC IS 2.9-7.7 K/ML * FOR ADULT BLACK MALES AND FEMALES, NORMAL RBC,HGB, AND HCT IS 5% LESS SOURCE FOR DATA: wiMAN 1800 OPERATION MANUAL( AUTOMATED BLOOD COUNTS AND DIFF.) APPENDIX B-3 eGFR 85 # [facility] ( [facility] CLASSIFICATION CHOLESTEROL FO R ADULTS CHILDREN/ADOLESCENTS* DESIRABLE: <200 MG/DL <170 MG/DL BORDER-LINE HIGH RISK: 200-239 MG/DL 170-199 MG/DL HIGH RISK: >240 MG/DL >200 MG/DL CLASS. FOR PRIMARY LDL CHOL PREVENTION: LDL CHOL-CHILD/ADOLESCENTS* DESIRABLE: <130 MG/DL <110 MG/DL BORDERLINE-HIGH RISK: 130-159 MG/DL 110-129 MG/DL HIGH RISK: >160 MG/DL >130 MG/DL *CHILDREN AND ADOLESCENTS REPRESENTS INDIVIDUALA AGED 2-19 YEARS EXCLUSIVE. CHRONIC KIDNEY DISEASE STAGING PER NKF: MALE [...] mL/min Normal 80 and above >32 mL/min NormalNORMAL RANGES Age WBC RBC HGB HCT MCV PLT Adult M 4.1-10.9 4.20-6.30 12.0-18.0 37.0-51.0 80-97 140-440 Adult F 4.1-10.9 4.04-5.48 12.0-18.0 37.0-51.0 80-97 140-440 0- 1 Yr 5.0-20.0 3.9-5.9 15-18 MV: 44 MV: 91 MV: 277 2-9 Yr. 6.0-17.0 3.8-5.4 11-13 MV: 37 MV: 78 MV: 300 10 Yrs. 5.0-13.0 3.8-5.4 12-15 MV: 39 MV: 80 MV: 250 NOTE: * FOR ADULT BLACK MALES AND FEMALES, NORMAL WBC IS 2.9-7.7 K/ML * FOR ADULT BLACK MALES AND FEMALES, NORMAL RBC,HGB, AND HCT IS 5% LESS SOURCE FOR DATA: KATI DYN 1800 OPERATION MANUAL( AUTOMATED BLOOD COUNTS AND DIFF.) APPENDIX B-3 eGFR Non-Afr. Nicaraguan 73 # [facility] ([facility] CLASSIFICATION CHOLESTEROL FO R ADULTS CHILDREN/ADOLESCENTS* DESIRABLE: <200 MG/DL <170 MG/DL BORDER-LINE HIGH RISK: 200-239 MG/DL 170-199 MG/DL HIGH RISK: >240 MG/DL >200 MG/DL CLASS. FOR PRIMARY LDL CHOL PREVENTION: LDL CHOL-CHILD/ADOLESCENTS* DESIRABLE: <130 MG/DL <110 MG/DL BORDERLINE-HIGH RISK: 130-159 MG/DL 110-129 MG/DL HIGH RISK: >160 MG/DL >130 MG/DL *CHILDREN AND ADOLESCENTS REPRESENTS INDIVIDUALA AGED 2-19 YEARS EXCLUSIVE. CHRONIC KIDNEY DISEASE STAGING PER NKF: MALE [...] mL/min Normal 80 and above >32 mL/min NormalNORMAL RANGES Age WBC RBC HGB HCT MCV PLT Adult M 4.1-10.9 4.20-6.30 12.0-18.0 37.0-51.0 80-97 140-440 Adult F 4.1-10.9 4.04-5.48 12.0-18.0 37.0-51.0 80-97 140-440 0- 1 Yr 5.0-20.0 3.9-5.9 15-18 MV: 44 MV: 91 MV: 277 2-9 Yr. 6.0-17.0 3.8-5.4 11-13 MV: 37 MV: 78 MV: 300 10 Yrs. 5.0-13.0 3.8-5.4 12-15 MV: 39 MV: 80 MV: 250 NOTE: * FOR ADULT BLACK MALES AND FEMALES, NORMAL WBC IS 2.9-7.7 K/ML * FOR ADULT BLACK MALES AND FEMALES, NORMAL RBC,HGB, AND HCT IS 5% LESS SOURCE FOR DATA: wiMAN 1800 OPERATION MANUAL( AUTOMATED BLOOD COUNTS AND DIFF.) APPENDIX B-3 ID Date Data Source [id number] 02/27/2020 11:13:00 AM EDT [facility] ([facility] Name Value Range Interpretation Code Description Data Danisha rce(s) Supporting Document(s) WBC 7.6 10E3/uL 4.1-10.9 [facility] ([facility] CLASSIFICATION CHOLESTEROL FO R ADULTS CHILDREN/ADOLESCENTS* DESIRABLE: <200 MG/DL <170 MG/DL BORDER-LINE HIGH RISK: 200-239 MG/DL 170-199 MG/DL HIGH RISK: >240 MG/DL >200 MG/DL CLASS. FOR PRIMARY LDL CHOL PREVENTION: LDL CHOL-CHILD/ADOLESCENTS* DESIRABLE: <130 MG/DL <110 MG/DL BORDERLINE-HIGH RISK: 130-159 MG/DL 110-129 MG/DL HIGH RISK: >160 MG/DL >130 MG/DL *CHILDREN AND ADOLESCENTS REPRESENTS INDIVIDUALA AGED 2-19 YEARS EXCLUSIVE. CHRONIC KIDNEY DISEASE STAGING PER NKF: MALE [...] mL/min Normal 80 and above >32 mL/min NormalNORMAL RANGES Age WBC RBC HGB HCT MCV PLT Adult M 4.1-10.9 4.20-6.30 12.0-18.0 37.0-51.0 80-97 140-440 Adult F 4.1-10.9 4.04-5.48 12.0-18.0 37.0-51.0 80-97 140-440 0- 1 Yr 5.0-20.0 3.9-5.9 15-18 MV: 44 MV: 91 MV: 277 2-9 Yr. 6.0-17.0 3.8-5.4 11-13 MV: 37 MV: 78 MV: 300 10 Yrs. 5.0-13.0 3.8-5.4 12-15 MV: 39 MV: 80 MV: 250 NOTE: * FOR ADULT BLACK MALES AND FEMALES, NORMAL WBC IS 2.9-7.7 K/ML * FOR ADULT BLACK MALES AND FEMALES, NORMAL RBC,HGB, AND HCT IS 5% LESS SOURCE FOR DATA: wiMAN 1800 OPERATION MANUAL( AUTOMATED BLOOD COUNTS AND DIFF.) APPENDIX B-3 HGB 13.7 g/dL 12.0-18.0 [facility] ([facility] CLASSIFICATION CHOLESTEROL FO R ADULTS CHILDREN/ADOLESCENTS* DESIRABLE: <200 MG/DL <170 MG/DL BORDER-LINE HIGH RISK: 200-239 MG/DL 170-199 MG/DL HIGH RISK: >240 MG/DL >200 MG/DL CLASS. FOR PRIMARY LDL CHOL PREVENTION: LDL CHOL-CHILD/ADOLESCENTS* DESIRABLE: <130 MG/DL <110 MG/DL BORDERLINE-HIGH RISK: 130-159 MG/DL 110-129 MG/DL HIGH RISK: >160 MG/DL >130 MG/DL *CHILDREN AND ADOLESCENTS REPRESENTS INDIVIDUALA AGED 2-19 YEARS EXCLUSIVE. CHRONIC KIDNEY DISEASE STAGING PER NKF: MALE [...] mL/min Normal 80 and above >32 mL/min NormalNORMAL RANGES Age WBC RBC HGB HCT MCV PLT Adult M 4.1-10.9 4.20-6.30 12.0-18.0 37.0-51.0 80-97 140-440 Adult F 4.1-10.9 4.04-5.48 12.0-18.0 37.0-51.0 80-97 140-440 0- 1 Yr 5.0-20.0 3.9-5.9 15-18 MV: 44 MV: 91 MV: 277 2-9 Yr. 6.0-17.0 3.8-5.4 11-13 MV: 37 MV: 78 MV: 300 10 Yrs. 5.0-13.0 3.8-5.4 12-15 MV: 39 MV: 80 MV: 250 NOTE: * FOR ADULT BLACK MALES AND FEMALES, NORMAL WBC IS 2.9-7.7 K/ML * FOR ADULT BLACK MALES AND FEMALES, NORMAL RBC,HGB, AND HCT IS 5% LESS SOURCE FOR DATA: KATI DYN 1800 OPERATION MANUAL( AUTOMATED BLOOD COUNTS AND DIFF.) APPENDIX B-3 RBC 4.58 10E6/uL 4.20-6.30 [facility] CLASSIFICATION CHOLESTEROL FO R ADULTS CHILDREN/ADOLESCENTS* DESIRABLE: <200 MG/DL <170 MG/DL BORDER-LINE HIGH RISK: 200-239 MG/DL 170-199 MG/DL HIGH RISK: >240 MG/DL >200 MG/DL CLASS. FOR PRIMARY LDL CHOL PREVENTION: LDL CHOL-CHILD/ADOLESCENTS* DESIRABLE: <130 MG/DL <110 MG/DL BORDERLINE-HIGH RISK: 130-159 MG/DL 110-129 MG/DL HIGH RISK: >160 MG/DL >130 MG/DL *CHILDREN AND ADOLESCENTS REPRESENTS INDIVIDUALA AGED 2-19 YEARS EXCLUSIVE. CHRONIC KIDNEY DISEASE STAGING PER NKF: MALE [...] mL/min Normal 80 and above >32 mL/min NormalNORMAL RANGES Age WBC RBC HGB HCT MCV PLT Adult M 4.1-10.9 4.20-6.30 12.0-18.0 37.0-51.0 80-97 140-440 Adult F 4.1-10.9 4.04-5.48 12.0-18.0 37.0-51.0 80-97 140-440 0- 1 Yr 5.0-20.0 3.9-5.9 15-18 MV: 44 MV: 91 MV: 277 2-9 Yr. 6.0-17.0 3.8-5.4 11-13 MV: 37 MV: 78 MV: 300 10 Yrs. 5.0-13.0 3.8-5.4 12-15 MV: 39 MV: 80 MV: 250 NOTE: * FOR ADULT BLACK MALES AND FEMALES, NORMAL WBC IS 2.9-7.7 K/ML * FOR ADULT BLACK MALES AND FEMALES, NORMAL RBC,HGB, AND HCT IS 5% LESS SOURCE FOR DATA: wiMAN 1800 OPERATION MANUAL( AUTOMATED BLOOD COUNTS AND DIFF.) APPENDIX B-3 HCT 40.8 % 37.0-51.0 [facility] ([facility] CLASSIFICATION CHOLESTEROL FO R ADULTS CHILDREN/ADOLESCENTS* DESIRABLE: <200 MG/DL <170 MG/DL BORDER-LINE HIGH RISK: 200-239 MG/DL 170-199 MG/DL HIGH RISK: >240 MG/DL >200 MG/DL CLASS. FOR PRIMARY LDL CHOL PREVENTION: LDL CHOL-CHILD/ADOLESCENTS* DESIRABLE: <130 MG/DL <110 MG/DL BORDERLINE-HIGH RISK: 130-159 MG/DL 110-129 MG/DL HIGH RISK: >160 MG/DL >130 MG/DL *CHILDREN AND ADOLESCENTS REPRESENTS INDIVIDUALA AGED 2-19 YEARS EXCLUSIVE. CHRONIC KIDNEY DISEASE STAGING PER NKF: MALE [...] mL/min Normal 80 and above >32 mL/min NormalNORMAL RANGES Age WBC RBC HGB HCT MCV PLT Adult M 4.1-10.9 4.20-6.30 12.0-18.0 37.0-51.0 80-97 140-440 Adult F 4.1-10.9 4.04-5.48 12.0-18.0 37.0-51.0 80-97 140-440 0- 1 Yr 5.0-20.0 3.9-5.9 15-18 MV: 44 MV: 91 MV: 277 2-9 Yr. 6.0-17.0 3.8-5.4 11-13 MV: 37 MV: 78 MV: 300 10 Yrs. 5.0-13.0 3.8-5.4 12-15 MV: 39 MV: 80 MV: 250 NOTE: * FOR ADULT BLACK MALES AND FEMALES, NORMAL WBC IS 2.9-7.7 K/ML * FOR ADULT BLACK MALES AND FEMALES, NORMAL RBC,HGB, AND HCT IS 5% LESS SOURCE FOR DATA: Crunch[employer]roll DYN 1800 OPERATION MANUAL( AUTOMATED BLOOD COUNTS AND DIFF.) APPENDIX B-3 MCV 89.1 fL 80.0-97.0 [facility] ([facility] CLASSIFICATION CHOLESTEROL FO R ADULTS CHILDREN/ADOLESCENTS* DESIRABLE: <200 MG/DL <170 MG/DL BORDER-LINE HIGH RISK: 200-239 MG/DL 170-199 MG/DL HIGH RISK: >240 MG/DL >200 MG/DL CLASS. FOR PRIMARY LDL CHOL PREVENTION: LDL CHOL-CHILD/ADOLESCENTS* DESIRABLE: <130 MG/DL <110 MG/DL BORDERLINE-HIGH RISK: 130-159 MG/DL 110-129 MG/DL HIGH RISK: >160 MG/DL >130 MG/DL *CHILDREN AND ADOLESCENTS REPRESENTS INDIVIDUALA AGED 2-19 YEARS EXCLUSIVE. CHRONIC KIDNEY DISEASE STAGING PER NKF: MALE [...] mL/min Normal 80 and above >32 mL/min NormalNORMAL RANGES Age WBC RBC HGB HCT MCV PLT Adult M 4.1-10.9 4.20-6.30 12.0-18.0 37.0-51.0 80-97 140-440 Adult F 4.1-10.9 4.04-5.48 12.0-18.0 37.0-51.0 80-97 140-440 0- 1 Yr 5.0-20.0 3.9-5.9 15-18 MV: 44 MV: 91 MV: 277 2-9 Yr. 6.0-17.0 3.8-5.4 11-13 MV: 37 MV: 78 MV: 300 10 Yrs. 5.0-13.0 3.8-5.4 12-15 MV: 39 MV: 80 MV: 250 NOTE: * FOR ADULT BLACK MALES AND FEMALES, NORMAL WBC IS 2.9-7.7 K/ML * FOR ADULT BLACK MALES AND FEMALES, NORMAL RBC,HGB, AND HCT IS 5% LESS SOURCE FOR DATA: KATI DYN 1800 OPERATION MANUAL( AUTOMATED BLOOD COUNTS AND DIFF.) APPENDIX B-3 MCH 29.9 pg 26.0-32.0 [facility] CLASSIFICATION CHOLESTEROL FO R ADULTS CHILDREN/ADOLESCENTS* DESIRABLE: <200 MG/DL <170 MG/DL BORDER-LINE HIGH RISK: 200-239 MG/DL 170-199 MG/DL HIGH RISK: >240 MG/DL >200 MG/DL CLASS. FOR PRIMARY LDL CHOL PREVENTION: LDL CHOL-CHILD/ADOLESCENTS* DESIRABLE: <130 MG/DL <110 MG/DL BORDERLINE-HIGH RISK: 130-159 MG/DL 110-129 MG/DL HIGH RISK: >160 MG/DL >130 MG/DL *CHILDREN AND ADOLESCENTS REPRESENTS INDIVIDUALA AGED 2-19 YEARS EXCLUSIVE. CHRONIC KIDNEY DISEASE STAGING PER NKF: MALE [...] mL/min Normal 80 and above >32 mL/min NormalNORMAL RANGES Age WBC RBC HGB HCT MCV PLT Adult M 4.1-10.9 4.20-6.30 12.0-18.0 37.0-51.0 80-97 140-440 Adult F 4.1-10.9 4.04-5.48 12.0-18.0 37.0-51.0 80-97 140-440 0- 1 Yr 5.0-20.0 3.9-5.9 15-18 MV: 44 MV: 91 MV: 277 2-9 Yr. 6.0-17.0 3.8-5.4 11-13 MV: 37 MV: 78 MV: 300 10 Yrs. 5.0-13.0 3.8-5.4 12-15 MV: 39 MV: 80 MV: 250 NOTE: * FOR ADULT BLACK MALES AND FEMALES, NORMAL WBC IS 2.9-7.7 K/ML * FOR ADULT BLACK MALES AND FEMALES, NORMAL RBC,HGB, AND HCT IS 5% LESS SOURCE FOR DATA: wiMAN 1800 OPERATION MANUAL( AUTOMATED BLOOD COUNTS AND DIFF.) APPENDIX B-3 PLT 209 10E3/uL 140-440 [facility] CLASSIFICATION CHOLESTEROL FO R ADULTS CHILDREN/ADOLESCENTS* DESIRABLE: <200 MG/DL <170 MG/DL BORDER-LINE HIGH RISK: 200-239 MG/DL 170-199 MG/DL HIGH RISK: >240 MG/DL >200 MG/DL CLASS. FOR PRIMARY LDL CHOL PREVENTION: LDL CHOL-CHILD/ADOLESCENTS* DESIRABLE: <130 MG/DL <110 MG/DL BORDERLINE-HIGH RISK: 130-159 MG/DL 110-129 MG/DL HIGH RISK: >160 MG/DL >130 MG/DL *CHILDREN AND ADOLESCENTS REPRESENTS INDIVIDUALA AGED 2-19 YEARS EXCLUSIVE. CHRONIC KIDNEY DISEASE STAGING PER NKF: MALE [...] mL/min Normal 80 and above >32 mL/min NormalNORMAL RANGES Age WBC RBC HGB HCT MCV PLT Adult M 4.1-10.9 4.20-6.30 12.0-18.0 37.0-51.0 80-97 140-440 Adult F 4.1-10.9 4.04-5.48 12.0-18.0 37.0-51.0 80-97 140-440 0- 1 Yr 5.0-20.0 3.9-5.9 15-18 MV: 44 MV: 91 MV: 277 2-9 Yr. 6.0-17.0 3.8-5.4 11-13 MV: 37 MV: 78 MV: 300 10 Yrs. 5.0-13.0 3.8-5.4 12-15 MV: 39 MV: 80 MV: 250 NOTE: * FOR ADULT BLACK MALES AND FEMALES, NORMAL WBC IS 2.9-7.7 K/ML * FOR ADULT BLACK MALES AND FEMALES, NORMAL RBC,HGB, AND HCT IS 5% LESS SOURCE FOR DATA: [employer] DYN 1800 OPERATION MANUAL( AUTOMATED BLOOD COUNTS AND DIFF.) APPENDIX B-3 MCHC 33.6 g/dL 31.0-36.0 [facility] ([facility] CLASSIFICATION CHOLESTEROL FO R ADULTS CHILDREN/ADOLESCENTS* DESIRABLE: <200 MG/DL <170 MG/DL BORDER-LINE HIGH RISK: 200-239 MG/DL 170-199 MG/DL HIGH RISK: >240 MG/DL >200 MG/DL CLASS. FOR PRIMARY LDL CHOL PREVENTION: LDL CHOL-CHILD/ADOLESCENTS* DESIRABLE: <130 MG/DL <110 MG/DL BORDERLINE-HIGH RISK: 130-159 MG/DL 110-129 MG/DL HIGH RISK: >160 MG/DL >130 MG/DL *CHILDREN AND ADOLESCENTS REPRESENTS INDIVIDUALA AGED 2-19 YEARS EXCLUSIVE. CHRONIC KIDNEY DISEASE STAGING PER NKF: MALE [...] mL/min Normal 80 and above >32 mL/min NormalNORMAL RANGES Age WBC RBC HGB HCT MCV PLT Adult M 4.1-10.9 4.20-6.30 12.0-18.0 37.0-51.0 80-97 140-440 Adult F 4.1-10.9 4.04-5.48 12.0-18.0 37.0-51.0 80-97 140-440 0- 1 Yr 5.0-20.0 3.9-5.9 15-18 MV: 44 MV: 91 MV: 277 2-9 Yr. 6.0-17.0 3.8-5.4 11-13 MV: 37 MV: 78 MV: 300 10 Yrs. 5.0-13.0 3.8-5.4 12-15 MV: 39 MV: 80 MV: 250 NOTE: * FOR ADULT BLACK MALES AND FEMALES, NORMAL WBC IS 2.9-7.7 K/ML * FOR ADULT BLACK MALES AND FEMALES, NORMAL RBC,HGB, AND HCT IS 5% LESS SOURCE FOR DATA: [employer] DYN 1800 OPERATION MANUAL( AUTOMATED BLOOD COUNTS AND DIFF.) APPENDIX B-3 RDW-CV 12.4 % 11.5-14.5 [facility] CLASSIFICATION CHOLESTEROL FO R ADULTS CHILDREN/ADOLESCENTS* DESIRABLE: <200 MG/DL <170 MG/DL BORDER-LINE HIGH RISK: 200-239 MG/DL 170-199 MG/DL HIGH RISK: >240 MG/DL >200 MG/DL CLASS. FOR PRIMARY LDL CHOL PREVENTION: LDL CHOL-CHILD/ADOLESCENTS* DESIRABLE: <130 MG/DL <110 MG/DL BORDERLINE-HIGH RISK: 130-159 MG/DL 110-129 MG/DL HIGH RISK: >160 MG/DL >130 MG/DL *CHILDREN AND ADOLESCENTS REPRESENTS INDIVIDUALA AGED 2-19 YEARS EXCLUSIVE. CHRONIC KIDNEY DISEASE STAGING PER NKF: MALE [...] mL/min Normal 80 and above >32 mL/min NormalNORMAL RANGES Age WBC RBC HGB HCT MCV PLT Adult M 4.1-10.9 4.20-6.30 12.0-18.0 37.0-51.0 80-97 140-440 Adult F 4.1-10.9 4.04-5.48 12.0-18.0 37.0-51.0 80-97 140-440 0- 1 Yr 5.0-20.0 3.9-5.9 15-18 MV: 44 MV: 91 MV: 277 2-9 Yr. 6.0-17.0 3.8-5.4 11-13 MV: 37 MV: 78 MV: 300 10 Yrs. 5.0-13.0 3.8-5.4 12-15 MV: 39 MV: 80 MV: 250 NOTE: * FOR ADULT BLACK MALES AND FEMALES, NORMAL WBC IS 2.9-7.7 K/ML * FOR ADULT BLACK MALES AND FEMALES, NORMAL RBC,HGB, AND HCT IS 5% LESS SOURCE FOR DATA: [employer] DYN 1800 OPERATION MANUAL( AUTOMATED BLOOD COUNTS AND DIFF.) APPENDIX B-3 Lym% 23.7 % 10.0-58.5 [facility] CLASSIFICATION CHOLESTEROL FO R ADULTS CHILDREN/ADOLESCENTS* DESIRABLE: <200 MG/DL <170 MG/DL BORDER-LINE HIGH RISK: 200-239 MG/DL 170-199 MG/DL HIGH RISK: >240 MG/DL >200 MG/DL CLASS. FOR PRIMARY LDL CHOL PREVENTION: LDL CHOL-CHILD/ADOLESCENTS* DESIRABLE: <130 MG/DL <110 MG/DL BORDERLINE-HIGH RISK: 130-159 MG/DL 110-129 MG/DL HIGH RISK: >160 MG/DL >130 MG/DL *CHILDREN AND ADOLESCENTS REPRESENTS INDIVIDUALA AGED 2-19 YEARS EXCLUSIVE. CHRONIC KIDNEY DISEASE STAGING PER NKF: MALE [...] mL/min Normal 80 and above >32 mL/min NormalNORMAL RANGES Age WBC RBC HGB HCT MCV PLT Adult M 4.1-10.9 4.20-6.30 12.0-18.0 37.0-51.0 80-97 140-440 Adult F 4.1-10.9 4.04-5.48 12.0-18.0 37.0-51.0 80-97 140-440 0- 1 Yr 5.0-20.0 3.9-5.9 15-18 MV: 44 MV: 91 MV: 277 2-9 Yr. 6.0-17.0 3.8-5.4 11-13 MV: 37 MV: 78 MV: 300 10 Yrs. 5.0-13.0 3.8-5.4 12-15 MV: 39 MV: 80 MV: 250 NOTE: * FOR ADULT BLACK MALES AND FEMALES, NORMAL WBC IS 2.9-7.7 K/ML * FOR ADULT BLACK MALES AND FEMALES, NORMAL RBC,HGB, AND HCT IS 5% LESS SOURCE FOR DATA: [employer] 1800 OPERATION MANUAL( AUTOMATED BLOOD COUNTS AND DIFF.) APPENDIX B-3 MXD% 9.9 % 0.1-24.0 [facility] ([facility] CLASSIFICATION CHOLESTEROL FO R ADULTS CHILDREN/ADOLESCENTS* DESIRABLE: <200 MG/DL <170 MG/DL BORDER-LINE HIGH RISK: 200-239 MG/DL 170-199 MG/DL HIGH RISK: >240 MG/DL >200 MG/DL CLASS. FOR PRIMARY LDL CHOL PREVENTION: LDL CHOL-CHILD/ADOLESCENTS* DESIRABLE: <130 MG/DL <110 MG/DL BORDERLINE-HIGH RISK: 130-159 MG/DL 110-129 MG/DL HIGH RISK: >160 MG/DL >130 MG/DL *CHILDREN AND ADOLESCENTS REPRESENTS INDIVIDUALA AGED 2-19 YEARS EXCLUSIVE. CHRONIC KIDNEY DISEASE STAGING PER NKF: MALE [...] mL/min Normal 80 and above >32 mL/min NormalNORMAL RANGES Age WBC RBC HGB HCT MCV PLT Adult M 4.1-10.9 4.20-6.30 12.0-18.0 37.0-51.0 80-97 140-440 Adult F 4.1-10.9 4.04-5.48 12.0-18.0 37.0-51.0 80 140-440 0- 1 Yr 5.0-20.0 3.9-5.9 15-18 MV: 44 MV: 91 MV: 277 2-9 Yr. 6.0-17.0 3.8-5.4 11-13 MV: 37 MV: 78 MV: 300 10 Yrs. 5.0-13.0 3.8-5.4 12-15 MV: 39 MV: 80 MV: 250 NOTE: * FOR ADULT BLACK MALES AND FEMALES, NORMAL WBC IS 2.9-7.7 K/ML * FOR ADULT BLACK MALES AND FEMALES, NORMAL RBC,HGB, AND HCT IS 5% LESS SOURCE FOR DATA: [employer] 1800 OPERATION MANUAL( AUTOMATED BLOOD COUNTS AND DIFF.) APPENDIX B-3 Neut% 66.4 % 37.0-92.0 [facility] CLASSIFICATION CHOLESTEROL FO R ADULTS CHILDREN/ADOLESCENTS* DESIRABLE: <200 MG/DL <170 MG/DL BORDER-LINE HIGH RISK: 200-239 MG/DL 170-199 MG/DL HIGH RISK: >240 MG/DL >200 MG/DL CLASS. FOR PRIMARY LDL CHOL PREVENTION: LDL CHOL-CHILD/ADOLESCENTS* DESIRABLE: <130 MG/DL <110 MG/DL BORDERLINE-HIGH RISK: 130-159 MG/DL 110-129 MG/DL HIGH RISK: >160 MG/DL >130 MG/DL *CHILDREN AND ADOLESCENTS REPRESENTS INDIVIDUALA AGED 2-19 YEARS EXCLUSIVE. CHRONIC KIDNEY DISEASE STAGING PER NKF: MALE [...] mL/min Normal 80 and above >32 mL/min NormalNORMAL RANGES Age WBC RBC HGB HCT MCV PLT Adult M 4.1-10.9 4.20-6.30 12.0-18.0 37.0-51.0 80-97 140-440 Adult F 4.1-10.9 4.04-5.48 12.0-18.0 37.0-51.0 80-97 140-440 0- 1 Yr 5.0-20.0 3.9-5.9 15-18 MV: 44 MV: 91 MV: 277 2-9 Yr. 6.0-17.0 3.8-5.4 11-13 MV: 37 MV: 78 MV: 300 10 Yrs. 5.0-13.0 3.8-5.4 12-15 MV: 39 MV: 80 MV: 250 NOTE: * FOR ADULT BLACK MALES AND FEMALES, NORMAL WBC IS 2.9-7.7 K/ML * FOR ADULT BLACK MALES AND FEMALES, NORMAL RBC,HGB, AND HCT IS 5% LESS SOURCE FOR DATA: KATI DYN 1800 OPERATION MANUAL( AUTOMATED BLOOD COUNTS AND DIFF.) APPENDIX B-3 Lym# 1.8 10E3/uL 0.6-4.1 [facility] ([facility] CLASSIFICATION CHOLESTEROL FO R ADULTS CHILDREN/ADOLESCENTS* DESIRABLE: <200 MG/DL <170 MG/DL BORDER-LINE HIGH RISK: 200-239 MG/DL 170-199 MG/DL HIGH RISK: >240 MG/DL >200 MG/DL CLASS. FOR PRIMARY LDL CHOL PREVENTION: LDL CHOL-CHILD/ADOLESCENTS* DESIRABLE: <130 MG/DL <110 MG/DL BORDERLINE-HIGH RISK: 130-159 MG/DL 110-129 MG/DL HIGH RISK: >160 MG/DL >130 MG/DL *CHILDREN AND ADOLESCENTS REPRESENTS INDIVIDUALA AGED 2-19 YEARS EXCLUSIVE. CHRONIC KIDNEY DISEASE STAGING PER NKF: MALE [...] mL/min Normal 80 and above >32 mL/min NormalNORMAL RANGES Age WBC RBC HGB HCT MCV PLT Adult M 4.1-10.9 4.20-6.30 12.0-18.0 37.0-51.0 80-97 140-440 Adult F 4.1-10.9 4.04-5.48 12.0-18.0 37.0-51.0 80-97 140-440 0- 1 Yr 5.0-20.0 3.9-5.9 15-18 MV: 44 MV: 91 MV: 277 2-9 Yr. 6.0-17.0 3.8-5.4 11-13 MV: 37 MV: 78 MV: 300 10 Yrs. 5.0-13.0 3.8-5.4 12-15 MV: 39 MV: 80 MV: 250 NOTE: * FOR ADULT BLACK MALES AND FEMALES, NORMAL WBC IS 2.9-7.7 K/ML * FOR ADULT BLACK MALES AND FEMALES, NORMAL RBC,HGB, AND HCT IS 5% LESS SOURCE FOR DATA: wiMAN 1800 OPERATION MANUAL( AUTOMATED BLOOD COUNTS AND DIFF.) APPENDIX B-3 MXD# 0.8 10E3/uL 0.0-1.8 [facility] ([facility] CLASSIFICATION CHOLESTEROL FO R ADULTS CHILDREN/ADOLESCENTS* DESIRABLE: <200 MG/DL <170 MG/DL BORDER-LINE HIGH RISK: 200-239 MG/DL 170-199 MG/DL HIGH RISK: >240 MG/DL >200 MG/DL CLASS. FOR PRIMARY LDL CHOL PREVENTION: LDL CHOL-CHILD/ADOLESCENTS* DESIRABLE: <130 MG/DL <110 MG/DL BORDERLINE-HIGH RISK: 130-159 MG/DL 110-129 MG/DL HIGH RISK: >160 MG/DL >130 MG/DL *CHILDREN AND ADOLESCENTS REPRESENTS INDIVIDUALA AGED 2-19 YEARS EXCLUSIVE. CHRONIC KIDNEY DISEASE STAGING PER NKF: MALE [...] mL/min Normal 80 and above >32 mL/min NormalNORMAL RANGES Age WBC RBC HGB HCT MCV PLT Adult M 4.1-10.9 4.20-6.30 12.0-18.0 37.0-51.0 80-97 140-440 Adult F 4.1-10.9 4.04-5.48 12.0-18.0 37.0-51.0 80-97 140-440 0- 1 Yr 5.0-20.0 3.9-5.9 15-18 MV: 44 MV: 91 MV: 277 2-9 Yr. 6.0-17.0 3.8-5.4 11-13 MV: 37 MV: 78 MV: 300 10 Yrs. 5.0-13.0 3.8-5.4 12-15 MV: 39 MV: 80 MV: 250 NOTE: * FOR ADULT BLACK MALES AND FEMALES, NORMAL WBC IS 2.9-7.7 K/ML * FOR ADULT BLACK MALES AND FEMALES, NORMAL RBC,HGB, AND HCT IS 5% LESS SOURCE FOR DATA: wiMAN 1800 OPERATION MANUAL( AUTOMATED BLOOD COUNTS AND DIFF.) APPENDIX B-3 Neut# 5.0 % 2.0-7.8 [facility] CLASSIFICATION CHOLESTEROL FO R ADULTS CHILDREN/ADOLESCENTS* DESIRABLE: <200 MG/DL <170 MG/DL BORDER-LINE HIGH RISK: 200-239 MG/DL 170-199 MG/DL HIGH RISK: >240 MG/DL >200 MG/DL CLASS. FOR PRIMARY LDL CHOL PREVENTION: LDL CHOL-CHILD/ADOLESCENTS* DESIRABLE: <130 MG/DL <110 MG/DL BORDERLINE-HIGH RISK: 130-159 MG/DL 110-129 MG/DL HIGH RISK: >160 MG/DL >130 MG/DL *CHILDREN AND ADOLESCENTS REPRESENTS INDIVIDUALA AGED 2-19 YEARS EXCLUSIVE. CHRONIC KIDNEY DISEASE STAGING PER NKF: MALE [...] mL/min Normal 80 and above >32 mL/min NormalNORMAL RANGES Age WBC RBC HGB HCT MCV PLT Adult M 4.1-10.9 4.20-6.30 12.0-18.0 37.0-51.0 80-97 140-440 Adult F 4.1-10.9 4.04-5.48 12.0-18.0 37.0-51.0 80-97 140-440 0- 1 Yr 5.0-20.0 3.9-5.9 15-18 MV: 44 MV: 91 MV: 277 2-9 Yr. 6.0-17.0 3.8-5.4 11-13 MV: 37 MV: 78 MV: 300 10 Yrs. 5.0-13.0 3.8-5.4 12-15 MV: 39 MV: 80 MV: 250 NOTE: * FOR ADULT BLACK MALES AND FEMALES, NORMAL WBC IS 2.9-7.7 K/ML * FOR ADULT BLACK MALES AND FEMALES, NORMAL RBC,HGB, AND HCT IS 5% LESS SOURCE FOR DATA: wiMAN 1800 OPERATION MANUAL( AUTOMATED BLOOD COUNTS AND DIFF.) APPENDIX B-3 MPV 9.5 fL 9.0-13.0 [facility] CLASSIFICATION CHOLESTEROL FO R ADULTS CHILDREN/ADOLESCENTS* DESIRABLE: <200 MG/DL <170 MG/DL BORDER-LINE HIGH RISK: 200-239 MG/DL 170-199 MG/DL HIGH RISK: >240 MG/DL >200 MG/DL CLASS. FOR PRIMARY LDL CHOL PREVENTION: LDL CHOL-CHILD/ADOLESCENTS* DESIRABLE: <130 MG/DL <110 MG/DL BORDERLINE-HIGH RISK: 130-159 MG/DL 110-129 MG/DL HIGH RISK: >160 MG/DL >130 MG/DL *CHILDREN AND ADOLESCENTS REPRESENTS INDIVIDUALA AGED 2-19 YEARS EXCLUSIVE. CHRONIC KIDNEY DISEASE STAGING PER NKF: MALE [...] mL/min Normal 80 and above >32 mL/min NormalNORMAL RANGES Age WBC RBC HGB HCT MCV PLT Adult M 4.1-10.9 4.20-6.30 12.0-18.0 37.0-51.0 80-97 140-440 Adult F 4.1-10.9 4.04-5.48 12.0-18.0 37.0-51.0 80-97 140-440 0- 1 Yr 5.0-20.0 3.9-5.9 15-18 MV: 44 MV: 91 MV: 277 2-9 Yr. 6.0-17.0 3.8-5.4 11-13 MV: 37 MV: 78 MV: 300 10 Yrs. 5.0-13.0 3.8-5.4 12-15 MV: 39 MV: 80 MV: 250 NOTE: * FOR ADULT BLACK MALES AND FEMALES, NORMAL WBC IS 2.9-7.7 K/ML * FOR ADULT BLACK MALES AND FEMALES, NORMAL RBC,HGB, AND HCT IS 5% LESS SOURCE FOR DATA: KATI DYN 1800 OPERATION MANUAL( AUTOMATED BLOOD COUNTS AND DIFF.) APPENDIX B-3 ID Date Data Source [id number] 12/20/2019 12:04:00 [place] [address] PROGRESS NOTENAME: URSULA Garzon ROOM#:DATE OF : 1945 MR#: [id number] DATE: 12/05/19 OF SERVICE: 12/20/19Patient telephoned to cancel today's scheduled appointment.DD: Christopher Petitto, OT/L, CHT 12/20/19 11:41DT: DMZ 12/20/19 12:03DS: Christopher Petitto, OT/L, CHT 01/01/20 12:06 1 Name Value Range Interpretation Code Description Data Danisha rce(s) Supporting Document(s) ID Date Data Source [id number] 12/14/2019 10:30:00 [place] [address] PROGRESS NOTENAME: URSULA Garzon ROOM#:DATE OF : 1945 MR#: [id number] DATE: 12/05/19 OF SERVICE: 12/14/19Patient telephoned to cancel today's scheduled appointment due to the weather.DD: Christopher Petjoseo, OT/L, CHT 12/14/19 10:25DT: DMZ 12/14/19 10:30DS: Christopher Petitto, OT/L, CHT 12/15/19 08:09 1 Name Value Range Interpretation Code Description Data Danisha rce(s) Supporting Document(s) ID Date Data Source [id number] 12/11/2019 08:02:00 [place] [address] PROGRESS NOTENAME: URSULA Garzon ROOM#:DATE OF : 1945 MR#: [id number] DATE: 12/05/19 THERAPY (HAND THERAPY PROGRAM)INITIAL EVALUATION & TREATMENT:DATE OF SERVICE: 12/05/2019Time start: 1345 Time end: 1445 (60 min - evaluation 20 min, exercise 40 min.)ALLERGIES: PENICILLIN, NAPROXEN.DX: Osteoarthritis bilateral hands.REFERRED BY: Dr. Robert Kan of [facility].RECERTIFICATION/REASSESSMENT TO BE COMPLETED: 01/05/2020.PROCEDURE CODES: [id number], [id number].INSURANCE: Medicare.SUBJECTIVE:Identity verified with two identifiers. The patient presents today complaining of 4/10 pain bilateraldorsal MCP joints 2-5 at rest and with range of motion, including bilateral dorsolateral wrists. Shedenies numbness and paresthesia. She reports that she underwent open heart surgery, and since thenshe was experiencing significant osteoarthritis pain. She reports that symptoms have been exacerbatedapproximately one year ago. 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 She wasreferred by Dr. Kan with osteoarthritis bilateral hands. She presents with 4/10 pain bilateral dorsalMCP joints 2-5 at rest and with range of motion, including bilateral dorsolateral wrists with range ofmotion. Active range of motion is normal bilaterally except right digit #2 is lacking 2.5 cm from tip of [address] [place] [address] PROGRESS NOTENAME: URSULA Garzon ROOM#:DATE OF : 1945 MR#: [id number] DATE: 12/05/19 to distal palmar crease. Linden's and Heberden's nodes are present most IP joints digits 1-5. Shealso has some significant degeneration at the first CMC joint and the second MCP joint bilaterally.PROBLEM LIST:1. Degenerative osteoarthritis changes most joints bilateral hands.2. 4/10 pain bilateral dorsal MCP joints 2-5 at rest and with range of motion.3. 4/10 pain bilateral dorsolateral wrists with range of motion.4. Stiffness right MCP joint #2 in flexion.5. Compromised functional use of bilateral hands and upper extremities.PROVIDED PATIENT WITH:1. Bilateral wrist traction and mobilization o f DRUJ.2. Bilateral P-A and R-U mobilization of proximal carpal row on distal radioulnar joint.3. Bilateral mobilization of metacarpals 2-5.4. Deep soft tissue mobilization to bilateral first web space and muscles of thenar and hypothenar eminence.5. Bilateral stretch to intrinsic musculature serving digits 1-5.6. Thorough education to home program in writing. Patient demonstrated full competency and was without questions.ASSESSMENT:Patient is experiencing typical symptoms of degenerative osteoarthritis, which can be well controlled,and patient appears to be competent and motivated, therefore I anticipate full compliance for optimalself management.PROGNOSIS & REHABILITATION POTENTIAL: Excellent.PLAN: I will see patient 1x/wk for 2-3 weeks p.r.n. (Goals to be achieved within 30 days):1. Fully reduce pain at rest.2. Reduce pain with range of motion by 50%.3. Patient to re-demonstrate full competency with home program at next visit and whenever a change is made.4. Patient to state two d aily activities she is performing with increased ease.5. Restore right digit #2 composite flexion to within normal limits.[facility] GOAL (To be achieved by D/C):1. Restore full functional use of bilateral upper extremities with all daily occupations free from difficulty and discomfort. [address] [place] [address] PROGRESS NOTENAME: URSULA Garzon ROOM#:DATE OF : 1945 MR#: [id number] DATE: 12/05/19 goals formulated with patient collaboration.I will provide patient with manual therapy, therapeutic exercise, thorough re-education to proper selfmanagement of osteoarthritis with proper use of thermal modalities and appropriate dosage andintensity of light range of motion. I thoroughly educated patient to the risks and benefits of all methodsof treatment that will be used. Patient provided verbal consent to all necessary and appropriatetreatment. Patient expressed full agreement, motivation, and satisfaction with plan. Further informedconsent will be obtained as additional treatment methods become necessary. Patient was withoutquestions at the end of today's session.DD: Christopher MilnerDAPHNEY barillas, CHT 12/08/19 09:26DT: LLUVIA 12/11/19 07:48DS: Christopher OliveraEVA/Dorian, CHT 12/15/19 07:56 Signature: Robert Lucius 3 Name Value Range Interpretation Code Description Data Danisha rce(s) Supporting Document(s) ID Date Data Source [id number] 11/09/2019 12:00:00 AM EST [facility] Robert Kan DO Patient Name: ABI RIVERA [facility] Date of : 1945[place] [address] Date of Exam: 11/09/2019#: Fax: [phone] EXAM: HAND LEFT (COMPLETE) X-RAYCLINICAL INFORMATION: Pain. No trauma.Four views. These images were obtained using digital radiography.There are no prior left hand xrays for comparison.There is asymmetric intradigital joint space narrowing, particularlyaffecting the PIP and DIP joints of the 2nd digit. There is prominentmarginal osteophytosis without evidence of marginal erosions orperiarticular osteopenia. There is no evidence of an acute fracture.Degenerative changes are seen involving the wrist.IMPRESSION:Chronic changes as described above.NIYAH Jeff/Jose pitt for referring CHELLE RIVERA to our office. Electronically Signed - ERI GARAY DO 11/09/19 16:23 Name Value Range Interpretation Code Description Data Danisha rce(s) Supporting Document(s) ID Date Data Source [id number] 11/09/2019 02:16:00 PM EST [facility] Name Value Range Interpretation Code Description Data Danisha rce(s) Supporting Document(s) Color Urine YELLOW [facility] Appearance of Urine CLEAR [facility] Specific Hitchcock 1.015 1.00-1.03 [facility] ([facility] Glucose Urine NEG [facility] ([facility] PH Urine 5.5 5.0-8.0 [facility] ([facility] Bilirubin.total [Presence] in Urine by Test strip NEG [facility] ([facility] Ketones NEG [facility] ([facility] Blood Urine NEG [facility] ([facility] Urobilinogen 0.2 EU/dl 0.2-1.0 [facility] ([facility] Protein Urine NEG [facility] ([facility] Nitrite NEG [facility] ([facility] Leukocytes NEG [facility] ([facility] ID Date Data Source [id number] 11/09/2019 02:16:00 PM EST [facility] ([facility] Name Value Range Interpretation Code Description Data Danisha rce(s) Supporting Document(s) Hemoglobin A1c/Hemoglobin.total in Blood 5.8 % 4.50-6.20 [facility] ([facility] ID Date Data Source [id number] 11/09/2019 02:15:00 PM EST [facility] ([facility] Name Value Range Interpretation Code Description Data Danisha rce(s) Supporting Document(s) Creatine kinase [Enzymatic activity/volume] in Serum or Plasma 78 U /L 26-192 [facility] ([facility] CLASSIFICATION CHOLESTEROL FO R ADULTS CHILDREN/ADOLESCENTS* DESIRABLE: <200 MG/DL <170 MG/DL BORDER-LINE HIGH RISK: 200-239 MG/DL 170-199 MG/DL HIGH RISK: >240 MG/DL >200 MG/DL CLASS. FOR PRIMARY LDL CHOL PREVENTION: LDL CHOL-CHILD/ADOLESCENTS* DESIRABLE: <130 MG/DL <110 MG/DL BORDERLINE-HIGH RISK: 130-159 MG/DL 110-129 MG/DL HIGH RISK: >160 MG/DL >130 MG/DL *CHILDREN AND ADOLESCENTS REPRESENTS INDIVIDUALA AGED 2-19 YEARS EXCLUSIVE. CHRONIC KIDNEY DISEASE STAGING PER NKF: MALE [...] mL/min Normal 80 and above >32 mL/min NormalNORMAL RANGES Age WBC RBC HGB HCT MCV PLT Adult M 4.1-10.9 4.20-6.30 12.0-18.0 37.0-51.0 80-97 140-440 Adult F 4.1-10.9 4.04-5.48 12.0-18.0 37.0-51.0 80-97 140-440 0- 1 Yr 5.0-20.0 3.9-5.9 15-18 MV: 44 MV: 91 MV: 277 2-9 Yr. 6.0-17.0 3.8-5.4 11-13 MV: 37 MV: 78 MV: 300 10 Yrs. 5.0-13.0 3.8-5.4 12-15 MV: 39 MV: 80 MV: 250 NOTE: * FOR ADULT BLACK MALES AND FEMALES, NORMAL WBC IS 2.9-7.7 K/ML * FOR ADULT BLACK MALES AND FEMALES, NORMAL RBC,HGB, AND HCT IS 5% LESS SOURCE FOR DATA: wiMAN 1800 OPERATION MANUAL( AUTOMATED BLOOD COUNTS AND DIFF.) APPENDIX B-3 ID Date Data Source [id number] 11/09/2019 02:15:00 PM EST [facility] ([facility] Name Value Range Interpretation Code Description Data Danisha rce(s) Supporting Document(s) Chol 218 mg/dL 0-200 Above high normal [facility] ([facility] CLASSIFICATION CHOLESTEROL FO R ADULTS CHILDREN/ADOLESCENTS* DESIRABLE: <200 MG/DL <170 MG/DL BORDER-LINE HIGH RISK: 200-239 MG/DL 170-199 MG/DL HIGH RISK: >240 MG/DL >200 MG/DL CLASS. FOR PRIMARY LDL CHOL PREVENTION: LDL CHOL-CHILD/ADOLESCENTS* DESIRABLE: <130 MG/DL <110 MG/DL BORDERLINE-HIGH RISK: 130-159 MG/DL 110-129 MG/DL HIGH RISK: >160 MG/DL >130 MG/DL *CHILDREN AND ADOLESCENTS REPRESENTS INDIVIDUALA AGED 2-19 YEARS EXCLUSIVE. CHRONIC KIDNEY DISEASE STAGING PER NKF: MALE [...] mL/min Normal 80 and above >32 mL/min NormalNORMAL RANGES Age WBC RBC HGB HCT MCV PLT Adult M 4.1-10.9 4.20-6.30 12.0-18.0 37.0-51.0 80-97 140-440 Adult F 4.1-10.9 4.04-5.48 12.0-18.0 37.0-51.0 80-97 140-440 0- 1 Yr 5.0-20.0 3.9-5.9 15-18 MV: 44 MV: 91 MV: 277 2-9 Yr. 6.0-17.0 3.8-5.4 11-13 MV: 37 MV: 78 MV: 300 10 Yrs. 5.0-13.0 3.8-5.4 12-15 MV: 39 MV: 80 MV: 250 NOTE: * FOR ADULT BLACK MALES AND FEMALES, NORMAL WBC IS 2.9-7.7 K/ML * FOR ADULT BLACK MALES AND FEMALES, NORMAL RBC,HGB, AND HCT IS 5% LESS SOURCE FOR DATA: wiMAN 1800 OPERATION MANUAL( AUTOMATED BLOOD COUNTS AND DIFF.) APPENDIX B-3 Prostate specific Ag [Mass/volume] in Serum or Plasma 44 mg/dL 45-65 Below low normal [facility] ([facility] CLASSIFICATION CHOLESTEROL FO R ADULTS CHILDREN/ADOLESCENTS* DESIRABLE: <200 MG/DL <170 MG/DL BORDER-LINE HIGH RISK: 200-239 MG/DL 170-199 MG/DL HIGH RISK: >240 MG/DL >200 MG/DL CLASS. FOR PRIMARY LDL CHOL PREVENTION: LDL CHOL-CHILD/ADOLESCENTS* DESIRABLE: <130 MG/DL <110 MG/DL BORDERLINE-HIGH RISK: 130-159 MG/DL 110-129 MG/DL HIGH RISK: >160 MG/DL >130 MG/DL *CHILDREN AND ADOLESCENTS REPRESENTS INDIVIDUALA AGED 2-19 YEARS EXCLUSIVE. CHRONIC KIDNEY DISEASE STAGING PER NKF: MALE [...] mL/min Normal 80 and above >32 mL/min NormalNORMAL RANGES Age WBC RBC HGB HCT MCV PLT Adult M 4.1-10.9 4.20-6.30 12.0-18.0 37.0-51.0 80-97 140-440 Adult F 4.1-10.9 4.04-5.48 12.0-18.0 37.0-51.0 80-97 140-440 0- 1 Yr 5.0-20.0 3.9-5.9 15-18 MV: 44 MV: 91 MV: 277 2-9 Yr. 6.0-17.0 3.8-5.4 11-13 MV: 37 MV: 78 MV: 300 10 Yrs. 5.0-13.0 3.8-5.4 12-15 MV: 39 MV: 80 MV: 250 NOTE: * FOR ADULT BLACK MALES AND FEMALES, NORMAL WBC IS 2.9-7.7 K/ML * FOR ADULT BLACK MALES AND FEMALES, NORMAL RBC,HGB, AND HCT IS 5% LESS SOURCE FOR DATA: KATI DYN 1800 OPERATION MANUAL( AUTOMATED BLOOD COUNTS AND DIFF.) APPENDIX B-3 Trig 302 mg/dL 40-200 Above high normal [facility] ([facility] CLASSIFICATION CHOLESTEROL FO R ADULTS CHILDREN/ADOLESCENTS* DESIRABLE: <200 MG/DL <170 MG/DL BORDER-LINE HIGH RISK: 200-239 MG/DL 170-199 MG/DL HIGH RISK: >240 MG/DL >200 MG/DL CLASS. FOR PRIMARY LDL CHOL PREVENTION: LDL CHOL-CHILD/ADOLESCENTS* DESIRABLE: <130 MG/DL <110 MG/DL BORDERLINE-HIGH RISK: 130-159 MG/DL 110-129 MG/DL HIGH RISK: >160 MG/DL >130 MG/DL *CHILDREN AND ADOLESCENTS REPRESENTS INDIVIDUALA AGED 2-19 YEARS EXCLUSIVE. CHRONIC KIDNEY DISEASE STAGING PER NKF: MALE [...] mL/min Normal 80 and above >32 mL/min NormalNORMAL RANGES Age WBC RBC HGB HCT MCV PLT Adult M 4.1-10.9 4.20-6.30 12.0-18.0 37.0-51.0 80-97 140-440 Adult F 4.1-10.9 4.04-5.48 12.0-18.0 37.0-51.0 80-97 140-440 0- 1 Yr 5.0-20.0 3.9-5.9 15-18 MV: 44 MV: 91 MV: 277 2-9 Yr. 6.0-17.0 3.8-5.4 11-13 MV: 37 MV: 78 MV: 300 10 Yrs. 5.0-13.0 3.8-5.4 12-15 MV: 39 MV: 80 MV: 250 NOTE: * FOR ADULT BLACK MALES AND FEMALES, NORMAL WBC IS 2.9-7.7 K/ML * FOR ADULT BLACK MALES AND FEMALES, NORMAL RBC,HGB, AND HCT IS 5% LESS SOURCE FOR DATA: wiMAN 1800 OPERATION MANUAL( AUTOMATED BLOOD COUNTS AND DIFF.) APPENDIX B-3 Cho/HDL Ratio 5.0 CALC [facility] ([facility] CLASSIFICATION CHOLESTEROL FO R ADULTS CHILDREN/ADOLESCENTS* DESIRABLE: <200 MG/DL <170 MG/DL BORDER-LINE HIGH RISK: 200-239 MG/DL 170-199 MG/DL HIGH RISK: >240 MG/DL >200 MG/DL CLASS. FOR PRIMARY LDL CHOL PREVENTION: LDL CHOL-CHILD/ADOLESCENTS* DESIRABLE: <130 MG/DL <110 MG/DL BORDERLINE-HIGH RISK: 130-159 MG/DL 110-129 MG/DL HIGH RISK: >160 MG/DL >130 MG/DL *CHILDREN AND ADOLESCENTS REPRESENTS INDIVIDUALA AGED 2-19 YEARS EXCLUSIVE. CHRONIC KIDNEY DISEASE STAGING PER NKF: MALE [...] mL/min Normal 80 and above >32 mL/min NormalNORMAL RANGES Age WBC RBC HGB HCT MCV PLT Adult M 4.1-10.9 4.20-6.30 12.0-18.0 37.0-51.0 80-97 140-440 Adult F 4.1-10.9 4.04-5.48 12.0-18.0 37.0-51.0 80-97 140-440 0- 1 Yr 5.0-20.0 3.9-5.9 15-18 MV: 44 MV: 91 MV: 277 2-9 Yr. 6.0-17.0 3.8-5.4 11-13 MV: 37 MV: 78 MV: 300 10 Yrs. 5.0-13.0 3.8-5.4 12-15 MV: 39 MV: 80 MV: 250 NOTE: * FOR ADULT BLACK MALES AND FEMALES, NORMAL WBC IS 2.9-7.7 K/ML * FOR ADULT BLACK MALES AND FEMALES, NORMAL RBC,HGB, AND HCT IS 5% LESS SOURCE FOR DATA: KATI DYN 1800 OPERATION MANUAL( AUTOMATED BLOOD COUNTS AND DIFF.) APPENDIX B-3 LDL_C 114 Calc 75-129 [facility] ([facility] CLASSIFICATION CHOLESTEROL FO R ADULTS CHILDREN/ADOLESCENTS* DESIRABLE: <200 MG/DL <170 MG/DL BORDER-LINE HIGH RISK: 200-239 MG/DL 170-199 MG/DL HIGH RISK: >240 MG/DL >200 MG/DL CLASS. FOR PRIMARY LDL CHOL PREVENTION: LDL CHOL-CHILD/ADOLESCENTS* DESIRABLE: <130 MG/DL <110 MG/DL BORDERLINE-HIGH RISK: 130-159 MG/DL 110-129 MG/DL HIGH RISK: >160 MG/DL >130 MG/DL *CHILDREN AND ADOLESCENTS REPRESENTS INDIVIDUALA AGED 2-19 YEARS EXCLUSIVE. CHRONIC KIDNEY DISEASE STAGING PER NKF: MALE [...] mL/min Normal 80 and above >32 mL/min NormalNORMAL RANGES Age WBC RBC HGB HCT MCV PLT Adult M 4.1-10.9 4.20-6.30 12.0-18.0 37.0-51.0 80-97 140-440 Adult F 4.1-10.9 4.04-5.48 12.0-18.0 37.0-51.0 80-97 140-440 0- 1 Yr 5.0-20.0 3.9-5.9 15-18 MV: 44 MV: 91 MV: 277 2-9 Yr. 6.0-17.0 3.8-5.4 11-13 MV: 37 MV: 78 MV: 300 10 Yrs. 5.0-13.0 3.8-5.4 12-15 MV: 39 MV: 80 MV: 250 NOTE: * FOR ADULT BLACK MALES AND FEMALES, NORMAL WBC IS 2.9-7.7 K/ML * FOR ADULT BLACK MALES AND FEMALES, NORMAL RBC,HGB, AND HCT IS 5% LESS SOURCE FOR DATA: wiMAN 1800 OPERATION MANUAL( AUTOMATED BLOOD COUNTS AND DIFF.) APPENDIX B-3 ID Date Data Source [id number] 11/09/2019 02:15:00 PM EST [facility] ([facility] Name Value Range Interpretation Code Description Data Danisha rce(s) Supporting Document(s) Glu 107 mg/dL 70-110 [facility] CLASSIFICATION CHOLESTEROL FO R ADULTS CHILDREN/ADOLESCENTS* DESIRABLE: <200 MG/DL <170 MG/DL BORDER-LINE HIGH RISK: 200-239 MG/DL 170-199 MG/DL HIGH RISK: >240 MG/DL >200 MG/DL CLASS. FOR PRIMARY LDL CHOL PREVENTION: LDL CHOL-CHILD/ADOLESCENTS* DESIRABLE: <130 MG/DL <110 MG/DL BORDERLINE-HIGH RISK: 130-159 MG/DL 110-129 MG/DL HIGH RISK: >160 MG/DL >130 MG/DL *CHILDREN AND ADOLESCENTS REPRESENTS INDIVIDUALA AGED 2-19 YEARS EXCLUSIVE. CHRONIC KIDNEY DISEASE STAGING PER NKF: MALE [...] mL/min Normal 80 and above >32 mL/min NormalNORMAL RANGES Age WBC RBC HGB HCT MCV PLT Adult M 4.1-10.9 4.20-6.30 12.0-18.0 37.0-51.0 80-97 140-440 Adult F 4.1-10.9 4.04-5.48 12.0-18.0 37.0-51.0 80-97 140-440 0- 1 Yr 5.0-20.0 3.9-5.9 15-18 MV: 44 MV: 91 MV: 277 2-9 Yr. 6.0-17.0 3.8-5.4 11-13 MV: 37 MV: 78 MV: 300 10 Yrs. 5.0-13.0 3.8-5.4 12-15 MV: 39 MV: 80 MV: 250 NOTE: * FOR ADULT BLACK MALES AND FEMALES, NORMAL WBC IS 2.9-7.7 K/ML * FOR ADULT BLACK MALES AND FEMALES, NORMAL RBC,HGB, AND HCT IS 5% LESS SOURCE FOR DATA: [employer] 1800 OPERATION MANUAL( AUTOMATED BLOOD COUNTS AND DIFF.) APPENDIX B-3 Creat 0.8 mg/dL 0.5-1.0 [facility] CLASSIFICATION CHOLESTEROL FO R ADULTS CHILDREN/ADOLESCENTS* DESIRABLE: <200 MG/DL <170 MG/DL BORDER-LINE HIGH RISK: 200-239 MG/DL 170-199 MG/DL HIGH RISK: >240 MG/DL >200 MG/DL CLASS. FOR PRIMARY LDL CHOL PREVENTION: LDL CHOL-CHILD/ADOLESCENTS* DESIRABLE: <130 MG/DL <110 MG/DL BORDERLINE-HIGH RISK: 130-159 MG/DL 110-129 MG/DL HIGH RISK: >160 MG/DL >130 MG/DL *CHILDREN AND ADOLESCENTS REPRESENTS INDIVIDUALA AGED 2-19 YEARS EXCLUSIVE. CHRONIC KIDNEY DISEASE STAGING PER NKF: MALE [...] mL/min Normal 80 and above >32 mL/min NormalNORMAL RANGES Age WBC RBC HGB HCT MCV PLT Adult M 4.1-10.9 4.20-6.30 12.0-18.0 37.0-51.0 80-97 140-440 Adult F 4.1-10.9 4.04-5.48 12.0-18.0 37.0-51.0 80-97 140-440 0- 1 Yr 5.0-20.0 3.9-5.9 15-18 MV: 44 MV: 91 MV: 277 2-9 Yr. 6.0-17.0 3.8-5.4 11-13 MV: 37 MV: 78 MV: 300 10 Yrs. 5.0-13.0 3.8-5.4 12-15 MV: 39 MV: 80 MV: 250 NOTE: * FOR ADULT BLACK MALES AND FEMALES, NORMAL WBC IS 2.9-7.7 K/ML * FOR ADULT BLACK MALES AND FEMALES, NORMAL RBC,HGB, AND HCT IS 5% LESS SOURCE FOR DATA: KATI DYN 1800 OPERATION MANUAL( AUTOMATED BLOOD COUNTS AND DIFF.) APPENDIX B-3 BUN 13 mg/dL 8-23 [facility] ([facility] CLASSIFICATION CHOLESTEROL FO R ADULTS CHILDREN/ADOLESCENTS* DESIRABLE: <200 MG/DL <170 MG/DL BORDER-LINE HIGH RISK: 200-239 MG/DL 170-199 MG/DL HIGH RISK: >240 MG/DL >200 MG/DL CLASS. FOR PRIMARY LDL CHOL PREVENTION: LDL CHOL-CHILD/ADOLESCENTS* DESIRABLE: <130 MG/DL <110 MG/DL BORDERLINE-HIGH RISK: 130-159 MG/DL 110-129 MG/DL HIGH RISK: >160 MG/DL >130 MG/DL *CHILDREN AND ADOLESCENTS REPRESENTS INDIVIDUALA AGED 2-19 YEARS EXCLUSIVE. CHRONIC KIDNEY DISEASE STAGING PER NKF: MALE [...] mL/min Normal 80 and above >32 mL/min NormalNORMAL RANGES Age WBC RBC HGB HCT MCV PLT Adult M 4.1-10.9 4.20-6.30 12.0-18.0 37.0-51.0 80-97 140-440 Adult F 4.1-10.9 4.04-5.48 12.0-18.0 37.0-51.0 80-97 140-440 0- 1 Yr 5.0-20.0 3.9-5.9 15-18 MV: 44 MV: 91 MV: 277 2-9 Yr. 6.0-17.0 3.8-5.4 11-13 MV: 37 MV: 78 MV: 300 10 Yrs. 5.0-13.0 3.8-5.4 12-15 MV: 39 MV: 80 MV: 250 NOTE: * FOR ADULT BLACK MALES AND FEMALES, NORMAL WBC IS 2.9-7.7 K/ML * FOR ADULT BLACK MALES AND FEMALES, NORMAL RBC,HGB, AND HCT IS 5% LESS SOURCE FOR DATA: wiMAN 1800 OPERATION MANUAL( AUTOMATED BLOOD COUNTS AND DIFF.) APPENDIX B-3 Na 138 mmol/L 136-145 [facility] ([facility] CLASSIFICATION CHOLESTEROL FO R ADULTS CHILDREN/ADOLESCENTS* DESIRABLE: <200 MG/DL <170 MG/DL BORDER-LINE HIGH RISK: 200-239 MG/DL 170-199 MG/DL HIGH RISK: >240 MG/DL >200 MG/DL CLASS. FOR PRIMARY LDL CHOL PREVENTION: LDL CHOL-CHILD/ADOLESCENTS* DESIRABLE: <130 MG/DL <110 MG/DL BORDERLINE-HIGH RISK: 130-159 MG/DL 110-129 MG/DL HIGH RISK: >160 MG/DL >130 MG/DL *CHILDREN AND ADOLESCENTS REPRESENTS INDIVIDUALA AGED 2-19 YEARS EXCLUSIVE. CHRONIC KIDNEY DISEASE STAGING PER NKF: MALE [...] mL/min Normal 80 and above >32 mL/min NormalNORMAL RANGES Age WBC RBC HGB HCT MCV PLT Adult M 4.1-10.9 4.20-6.30 12.0-18.0 37.0-51.0 80-97 140-440 Adult F 4.1-10.9 4.04-5.48 12.0-18.0 37.0-51.0 80-97 140-440 0- 1 Yr 5.0-20.0 3.9-5.9 15-18 MV: 44 MV: 91 MV: 277 2-9 Yr. 6.0-17.0 3.8-5.4 11-13 MV: 37 MV: 78 MV: 300 10 Yrs. 5.0-13.0 3.8-5.4 12-15 MV: 39 MV: 80 MV: 250 NOTE: * FOR ADULT BLACK MALES AND FEMALES, NORMAL WBC IS 2.9-7.7 K/ML * FOR ADULT BLACK MALES AND FEMALES, NORMAL RBC,HGB, AND HCT IS 5% LESS SOURCE FOR DATA: Crunchyroll DYN 1800 OPERATION MANUAL( AUTOMATED BLOOD COUNTS AND DIFF.) APPENDIX B-3 BUN/Creatinine Ratio 16.3 [facility]C [facility] ([facility] CLASSIFICATION CHOLESTEROL FO R ADULTS CHILDREN/ADOLESCENTS* DESIRABLE: <200 MG/DL <170 MG/DL BORDER-LINE HIGH RISK: 200-239 MG/DL 170-199 MG/DL HIGH RISK: >240 MG/DL >200 MG/DL CLASS. FOR PRIMARY LDL CHOL PREVENTION: LDL CHOL-CHILD/ADOLESCENTS* DESIRABLE: <130 MG/DL <110 MG/DL BORDERLINE-HIGH RISK: 130-159 MG/DL 110-129 MG/DL HIGH RISK: >160 MG/DL >130 MG/DL *CHILDREN AND ADOLESCENTS REPRESENTS INDIVIDUALA AGED 2-19 YEARS EXCLUSIVE. CHRONIC KIDNEY DISEASE STAGING PER NKF: MALE [...] mL/min Normal 80 and above >32 mL/min NormalNORMAL RANGES Age WBC RBC HGB HCT MCV PLT Adult M 4.1-10.9 4.20-6.30 12.0-18.0 37.0-51.0 80-97 140-440 Adult F 4.1-10.9 4.04-5.48 12.0-18.0 37.0-51.0 80-97 140-440 0- 1 Yr 5.0-20.0 3.9-5.9 15-18 MV: 44 MV: 91 MV: 277 2-9 Yr. 6.0-17.0 3.8-5.4 11-13 MV: 37 MV: 78 MV: 300 10 Yrs. 5.0-13.0 3.8-5.4 12-15 MV: 39 MV: 80 MV: 250 NOTE: * FOR ADULT BLACK MALES AND FEMALES, NORMAL WBC IS 2.9-7.7 K/ML * FOR ADULT BLACK MALES AND FEMALES, NORMAL RBC,HGB, AND HCT IS 5% LESS SOURCE FOR DATA: wiMAN 1800 OPERATION MANUAL( AUTOMATED BLOOD COUNTS AND DIFF.) APPENDIX B-3 K 5.0 mmol/L 3.5-5.1 [facility] ([facility] CLASSIFICATION CHOLESTEROL FO R ADULTS CHILDREN/ADOLESCENTS* DESIRABLE: <200 MG/DL <170 MG/DL BORDER-LINE HIGH RISK: 200-239 MG/DL 170-199 MG/DL HIGH RISK: >240 MG/DL >200 MG/DL CLASS. FOR PRIMARY LDL CHOL PREVENTION: LDL CHOL-CHILD/ADOLESCENTS* DESIRABLE: <130 MG/DL <110 MG/DL BORDERLINE-HIGH RISK: 130-159 MG/DL 110-129 MG/DL HIGH RISK: >160 MG/DL >130 MG/DL *CHILDREN AND ADOLESCENTS REPRESENTS INDIVIDUALA AGED 2-19 YEARS EXCLUSIVE. CHRONIC KIDNEY DISEASE STAGING PER NKF: MALE [...] mL/min Normal 80 and above >32 mL/min NormalNORMAL RANGES Age WBC RBC HGB HCT MCV PLT Adult M 4.1-10.9 4.20-6.30 12.0-18.0 37.0-51.0 80-97 140-440 Adult F 4.1-10.9 4.04-5.48 12.0-18.0 37.0-51.0 80-97 140-440 0- 1 Yr 5.0-20.0 3.9-5.9 15-18 MV: 44 MV: 91 MV: 277 2-9 Yr. 6.0-17.0 3.8-5.4 11-13 MV: 37 MV: 78 MV: 300 10 Yrs. 5.0-13.0 3.8-5.4 12-15 MV: 39 MV: 80 MV: 250 NOTE: * FOR ADULT BLACK MALES AND FEMALES, NORMAL WBC IS 2.9-7.7 K/ML * FOR ADULT BLACK MALES AND FEMALES, NORMAL RBC,HGB, AND HCT IS 5% LESS SOURCE FOR DATA: wiMAN 1800 OPERATION MANUAL( AUTOMATED BLOOD COUNTS AND DIFF.) APPENDIX B-3 CL 99.9 mmol/L 98.0-107.0 [facility] ([facility] CLASSIFICATION CHOLESTEROL FO R ADULTS CHILDREN/ADOLESCENTS* DESIRABLE: <200 MG/DL <170 MG/DL BORDER-LINE HIGH RISK: 200-239 MG/DL 170-199 MG/DL HIGH RISK: >240 MG/DL >200 MG/DL CLASS. FOR PRIMARY LDL CHOL PREVENTION: LDL CHOL-CHILD/ADOLESCENTS* DESIRABLE: <130 MG/DL <110 MG/DL BORDERLINE-HIGH RISK: 130-159 MG/DL 110-129 MG/DL HIGH RISK: >160 MG/DL >130 MG/DL *CHILDREN AND ADOLESCENTS REPRESENTS INDIVIDUALA AGED 2-19 YEARS EXCLUSIVE. CHRONIC KIDNEY DISEASE STAGING PER NKF: MALE [...] mL/min Normal 80 and above >32 mL/min NormalNORMAL RANGES Age WBC RBC HGB HCT MCV PLT Adult M 4.1-10.9 4.20-6.30 12.0-18.0 37.0-51.0 80-97 140-440 Adult F 4.1-10.9 4.04-5.48 12.0-18.0 37.0-51.0 80-97 140-440 0- 1 Yr 5.0-20.0 3.9-5.9 15-18 MV: 44 MV: 91 MV: 277 2-9 Yr. 6.0-17.0 3.8-5.4 11-13 MV: 37 MV: 78 MV: 300 10 Yrs. 5.0-13.0 3.8-5.4 12-15 MV: 39 MV: 80 MV: 250 NOTE: * FOR ADULT BLACK MALES AND FEMALES, NORMAL WBC IS 2.9-7.7 K/ML * FOR ADULT BLACK MALES AND FEMALES, NORMAL RBC,HGB, AND HCT IS 5% LESS SOURCE FOR DATA: KATI DYN 1800 OPERATION MANUAL( AUTOMATED BLOOD COUNTS AND DIFF.) APPENDIX B-3 Co2 28.7 mmol/L 22.0-29.0 [facility] ([facility] CLASSIFICATION CHOLESTEROL FO R ADULTS CHILDREN/ADOLESCENTS* DESIRABLE: <200 MG/DL <170 MG/DL BORDER-LINE HIGH RISK: 200-239 MG/DL 170-199 MG/DL HIGH RISK: >240 MG/DL >200 MG/DL CLASS. FOR PRIMARY LDL CHOL PREVENTION: LDL CHOL-CHILD/ADOLESCENTS* DESIRABLE: <130 MG/DL <110 MG/DL BORDERLINE-HIGH RISK: 130-159 MG/DL 110-129 MG/DL HIGH RISK: >160 MG/DL >130 MG/DL *CHILDREN AND ADOLESCENTS REPRESENTS INDIVIDUALA AGED 2-19 YEARS EXCLUSIVE. CHRONIC KIDNEY DISEASE STAGING PER NKF: MALE [...] mL/min Normal 80 and above >32 mL/min NormalNORMAL RANGES Age WBC RBC HGB HCT MCV PLT Adult M 4.1-10.9 4.20-6.30 12.0-18.0 37.0-51.0 80-97 140-440 Adult F 4.1-10.9 4.04-5.48 12.0-18.0 37.0-51.0 80-97 140-440 0- 1 Yr 5.0-20.0 3.9-5.9 15-18 MV: 44 MV: 91 MV: 277 2-9 Yr. 6.0-17.0 3.8-5.4 11-13 MV: 37 MV: 78 MV: 300 10 Yrs. 5.0-13.0 3.8-5.4 12-15 MV: 39 MV: 80 MV: 250 NOTE: * FOR ADULT BLACK MALES AND FEMALES, NORMAL WBC IS 2.9-7.7 K/ML * FOR ADULT BLACK MALES AND FEMALES, NORMAL RBC,HGB, AND HCT IS 5% LESS SOURCE FOR DATA: KATI DYN 1800 OPERATION MANUAL( AUTOMATED BLOOD COUNTS AND DIFF.) APPENDIX B-3 CA 9.7 mg/dL 8.6-10.2 [facility] CLASSIFICATION CHOLESTEROL FO R ADULTS CHILDREN/ADOLESCENTS* DESIRABLE: <200 MG/DL <170 MG/DL BORDER-LINE HIGH RISK: 200-239 MG/DL 170-199 MG/DL HIGH RISK: >240 MG/DL >200 MG/DL CLASS. FOR PRIMARY LDL CHOL PREVENTION: LDL CHOL-CHILD/ADOLESCENTS* DESIRABLE: <130 MG/DL <110 MG/DL BORDERLINE-HIGH RISK: 130-159 MG/DL 110-129 MG/DL HIGH RISK: >160 MG/DL >130 MG/DL *CHILDREN AND ADOLESCENTS REPRESENTS INDIVIDUALA AGED 2-19 YEARS EXCLUSIVE. CHRONIC KIDNEY DISEASE STAGING PER NKF: MALE [...] mL/min Normal 80 and above >32 mL/min NormalNORMAL RANGES Age WBC RBC HGB HCT MCV PLT Adult M 4.1-10.9 4.20-6.30 12.0-18.0 37.0-51.0 80-97 140-440 Adult F 4.1-10.9 4.04-5.48 12.0-18.0 37.0-51.0 80-97 140-440 0- 1 Yr 5.0-20.0 3.9-5.9 15-18 MV: 44 MV: 91 MV: 277 2-9 Yr. 6.0-17.0 3.8-5.4 11-13 MV: 37 MV: 78 MV: 300 10 Yrs. 5.0-13.0 3.8-5.4 12-15 MV: 39 MV: 80 MV: 250 NOTE: * FOR ADULT BLACK MALES AND FEMALES, NORMAL WBC IS 2.9-7.7 K/ML * FOR ADULT BLACK MALES AND FEMALES, NORMAL RBC,HGB, AND HCT IS 5% LESS SOURCE FOR DATA: wiMAN 1800 OPERATION MANUAL( AUTOMATED BLOOD COUNTS AND DIFF.) APPENDIX B-3 TP 7.1 g/dL 6.6-8.7 [facility] ([facility] CLASSIFICATION CHOLESTEROL FO R ADULTS CHILDREN/ADOLESCENTS* DESIRABLE: <200 MG/DL <170 MG/DL BORDER-LINE HIGH RISK: 200-239 MG/DL 170-199 MG/DL HIGH RISK: >240 MG/DL >200 MG/DL CLASS. FOR PRIMARY LDL CHOL PREVENTION: LDL CHOL-CHILD/ADOLESCENTS* DESIRABLE: <130 MG/DL <110 MG/DL BORDERLINE-HIGH RISK: 130-159 MG/DL 110-129 MG/DL HIGH RISK: >160 MG/DL >130 MG/DL *CHILDREN AND ADOLESCENTS REPRESENTS INDIVIDUALA AGED 2-19 YEARS EXCLUSIVE. CHRONIC KIDNEY DISEASE STAGING PER NKF: MALE [...] mL/min Normal 80 and above >32 mL/min NormalNORMAL RANGES Age WBC RBC HGB HCT MCV PLT Adult M 4.1-10.9 4.20-6.30 12.0-18.0 37.0-51.0 80-97 140-440 Adult F 4.1-10.9 4.04-5.48 12.0-18.0 37.0-51.0 80-97 140-440 0- 1 Yr 5.0-20.0 3.9-5.9 15-18 MV: 44 MV: 91 MV: 277 2-9 Yr. 6.0-17.0 3.8-5.4 11-13 MV: 37 MV: 78 MV: 300 10 Yrs. 5.0-13.0 3.8-5.4 12-15 MV: 39 MV: 80 MV: 250 NOTE: * FOR ADULT BLACK MALES AND FEMALES, NORMAL WBC IS 2.9-7.7 K/ML * FOR ADULT BLACK MALES AND FEMALES, NORMAL RBC,HGB, AND HCT IS 5% LESS SOURCE FOR DATA: KATI DYN 1800 OPERATION MANUAL( AUTOMATED BLOOD COUNTS AND DIFF.) APPENDIX B-3 Alb 4.1 g/dL 3.4-4.8 [facility] ([facility] CLASSIFICATION CHOLESTEROL FO R ADULTS CHILDREN/ADOLESCENTS* DESIRABLE: <200 MG/DL <170 MG/DL BORDER-LINE HIGH RISK: 200-239 MG/DL 170-199 MG/DL HIGH RISK: >240 MG/DL >200 MG/DL CLASS. FOR PRIMARY LDL CHOL PREVENTION: LDL CHOL-CHILD/ADOLESCENTS* DESIRABLE: <130 MG/DL <110 MG/DL BORDERLINE-HIGH RISK: 130-159 MG/DL 110-129 MG/DL HIGH RISK: >160 MG/DL >130 MG/DL *CHILDREN AND ADOLESCENTS REPRESENTS INDIVIDUALA AGED 2-19 YEARS EXCLUSIVE. CHRONIC KIDNEY DISEASE STAGING PER NKF: MALE [...] mL/min Normal 80 and above >32 mL/min NormalNORMAL RANGES Age WBC RBC HGB HCT MCV PLT Adult M 4.1-10.9 4.20-6.30 12.0-18.0 37.0-51.0 80-97 140-440 Adult F 4.1-10.9 4.04-5.48 12.0-18.0 37.0-51.0 80-97 140-440 0- 1 Yr 5.0-20.0 3.9-5.9 15-18 MV: 44 MV: 91 MV: 277 2-9 Yr. 6.0-17.0 3.8-5.4 11-13 MV: 37 MV: 78 MV: 300 10 Yrs. 5.0-13.0 3.8-5.4 12-15 MV: 39 MV: 80 MV: 250 NOTE: * FOR ADULT BLACK MALES AND FEMALES, NORMAL WBC IS 2.9-7.7 K/ML * FOR ADULT BLACK MALES AND FEMALES, NORMAL RBC,HGB, AND HCT IS 5% LESS SOURCE FOR DATA: Crunch[employer]roll DYN 1800 OPERATION MANUAL( AUTOMATED BLOOD COUNTS AND DIFF.) APPENDIX B-3 A/G Ratio 1.4 [facility] ([facility] CLASSIFICATION CHOLESTEROL FO R ADULTS CHILDREN/ADOLESCENTS* DESIRABLE: <200 MG/DL <170 MG/DL BORDER-LINE HIGH RISK: 200-239 MG/DL 170-199 MG/DL HIGH RISK: >240 MG/DL >200 MG/DL CLASS. FOR PRIMARY LDL CHOL PREVENTION: LDL CHOL-CHILD/ADOLESCENTS* DESIRABLE: <130 MG/DL <110 MG/DL BORDERLINE-HIGH RISK: 130-159 MG/DL 110-129 MG/DL HIGH RISK: >160 MG/DL >130 MG/DL *CHILDREN AND ADOLESCENTS REPRESENTS INDIVIDUALA AGED 2-19 YEARS EXCLUSIVE. CHRONIC KIDNEY DISEASE STAGING PER NKF: MALE [...] mL/min Normal 80 and above >32 mL/min NormalNORMAL RANGES Age WBC RBC HGB HCT MCV PLT Adult M 4.1-10.9 4.20-6.30 12.0-18.0 37.0-51.0 80-97 140-440 Adult F 4.1-10.9 4.04-5.48 12.0-18.0 37.0-51.0 80-97 140-440 0- 1 Yr 5.0-20.0 3.9-5.9 15-18 MV: 44 MV: 91 MV: 277 2-9 Yr. 6.0-17.0 3.8-5.4 11-13 MV: 37 MV: 78 MV: 300 10 Yrs. 5.0-13.0 3.8-5.4 12-15 MV: 39 MV: 80 MV: 250 NOTE: * FOR ADULT BLACK MALES AND FEMALES, NORMAL WBC IS 2.9-7.7 K/ML * FOR ADULT BLACK MALES AND FEMALES, NORMAL RBC,HGB, AND HCT IS 5% LESS SOURCE FOR DATA: wiMAN 1800 OPERATION MANUAL( AUTOMATED BLOOD COUNTS AND DIFF.) APPENDIX B-3 Alp 78.4 U/L 35-129 [facility] CLASSIFICATION CHOLESTEROL FO R ADULTS CHILDREN/ADOLESCENTS* DESIRABLE: <200 MG/DL <170 MG/DL BORDER-LINE HIGH RISK: 200-239 MG/DL 170-199 MG/DL HIGH RISK: >240 MG/DL >200 MG/DL CLASS. FOR PRIMARY LDL CHOL PREVENTION: LDL CHOL-CHILD/ADOLESCENTS* DESIRABLE: <130 MG/DL <110 MG/DL BORDERLINE-HIGH RISK: 130-159 MG/DL 110-129 MG/DL HIGH RISK: >160 MG/DL >130 MG/DL *CHILDREN AND ADOLESCENTS REPRESENTS INDIVIDUALA AGED 2-19 YEARS EXCLUSIVE. CHRONIC KIDNEY DISEASE STAGING PER NKF: MALE [...] mL/min Normal 80 and above >32 mL/min NormalNORMAL RANGES Age WBC RBC HGB HCT MCV PLT Adult M 4.1-10.9 4.20-6.30 12.0-18.0 37.0-51.0 80-97 140-440 Adult F 4.1-10.9 4.04-5.48 12.0-18.0 37.0-51.0 80-97 140-440 0- 1 Yr 5.0-20.0 3.9-5.9 15-18 MV: 44 MV: 91 MV: 277 2-9 Yr. 6.0-17.0 3.8-5.4 11-13 MV: 37 MV: 78 MV: 300 10 Yrs. 5.0-13.0 3.8-5.4 12-15 MV: 39 MV: 80 MV: 250 NOTE: * FOR ADULT BLACK MALES AND FEMALES, NORMAL WBC IS 2.9-7.7 K/ML * FOR ADULT BLACK MALES AND FEMALES, NORMAL RBC,HGB, AND HCT IS 5% LESS SOURCE FOR DATA: KATI DYN 1800 OPERATION MANUAL( AUTOMATED BLOOD COUNTS AND DIFF.) APPENDIX B-3 Globulin 3.0 [facility] ([facility] CLASSIFICATION CHOLESTEROL FO R ADULTS CHILDREN/ADOLESCENTS* DESIRABLE: <200 MG/DL <170 MG/DL BORDER-LINE HIGH RISK: 200-239 MG/DL 170-199 MG/DL HIGH RISK: >240 MG/DL >200 MG/DL CLASS. FOR PRIMARY LDL CHOL PREVENTION: LDL CHOL-CHILD/ADOLESCENTS* DESIRABLE: <130 MG/DL <110 MG/DL BORDERLINE-HIGH RISK: 130-159 MG/DL 110-129 MG/DL HIGH RISK: >160 MG/DL >130 MG/DL *CHILDREN AND ADOLESCENTS REPRESENTS INDIVIDUALA AGED 2-19 YEARS EXCLUSIVE. CHRONIC KIDNEY DISEASE STAGING PER NKF: MALE [...] mL/min Normal 80 and above >32 mL/min NormalNORMAL RANGES Age WBC RBC HGB HCT MCV PLT Adult M 4.1-10.9 4.20-6.30 12.0-18.0 37.0-51.0 80-97 140-440 Adult F 4.1-10.9 4.04-5.48 12.0-18.0 37.0-51.0 80-97 140-440 0- 1 Yr 5.0-20.0 3.9-5.9 15-18 MV: 44 MV: 91 MV: 277 2-9 Yr. 6.0-17.0 3.8-5.4 11-13 MV: 37 MV: 78 MV: 300 10 Yrs. 5.0-13.0 3.8-5.4 12-15 MV: 39 MV: 80 MV: 250 NOTE: * FOR ADULT BLACK MALES AND FEMALES, NORMAL WBC IS 2.9-7.7 K/ML * FOR ADULT BLACK MALES AND FEMALES, NORMAL RBC,HGB, AND HCT IS 5% LESS SOURCE FOR DATA: KATI DYN 1800 OPERATION MANUAL( AUTOMATED BLOOD COUNTS AND DIFF.) APPENDIX B-3 Alt (SGPT) 21 U/L 0-41 [facility] ([facility] CLASSIFICATION CHOLESTEROL FO R ADULTS CHILDREN/ADOLESCENTS* DESIRABLE: <200 MG/DL <170 MG/DL BORDER-LINE HIGH RISK: 200-239 MG/DL 170-199 MG/DL HIGH RISK: >240 MG/DL >200 MG/DL CLASS. FOR PRIMARY LDL CHOL PREVENTION: LDL CHOL-CHILD/ADOLESCENTS* DESIRABLE: <130 MG/DL <110 MG/DL BORDERLINE-HIGH RISK: 130-159 MG/DL 110-129 MG/DL HIGH RISK: >160 MG/DL >130 MG/DL *CHILDREN AND ADOLESCENTS REPRESENTS INDIVIDUALA AGED 2-19 YEARS EXCLUSIVE. CHRONIC KIDNEY DISEASE STAGING PER NKF: MALE [...] mL/min Normal 80 and above >32 mL/min NormalNORMAL RANGES Age WBC RBC HGB HCT MCV PLT Adult M 4.1-10.9 4.20-6.30 12.0-18.0 37.0-51.0 80-97 140-440 Adult F 4.1-10.9 4.04-5.48 12.0-18.0 37.0-51.0 80-97 140-440 0- 1 Yr 5.0-20.0 3.9-5.9 15-18 MV: 44 MV: 91 MV: 277 2-9 Yr. 6.0-17.0 3.8-5.4 11-13 MV: 37 MV: 78 MV: 300 10 Yrs. 5.0-13.0 3.8-5.4 12-15 MV: 39 MV: 80 MV: 250 NOTE: * FOR ADULT BLACK MALES AND FEMALES, NORMAL WBC IS 2.9-7.7 K/ML * FOR ADULT BLACK MALES AND FEMALES, NORMAL RBC,HGB, AND HCT IS 5% LESS SOURCE FOR DATA: [employer]unch[employer] DYN 1800 OPERATION MANUAL( AUTOMATED BLOOD COUNTS AND DIFF.) APPENDIX B-3 Ast (Sgot) 24 U/L 0-40 [facility] CLASSIFICATION CHOLESTEROL FO R ADULTS CHILDREN/ADOLESCENTS* DESIRABLE: <200 MG/DL <170 MG/DL BORDER-LINE HIGH RISK: 200-239 MG/DL 170-199 MG/DL HIGH RISK: >240 MG/DL >200 MG/DL CLASS. FOR PRIMARY LDL CHOL PREVENTION: LDL CHOL-CHILD/ADOLESCENTS* DESIRABLE: <130 MG/DL <110 MG/DL BORDERLINE-HIGH RISK: 130-159 MG/DL 110-129 MG/DL HIGH RISK: >160 MG/DL >130 MG/DL *CHILDREN AND ADOLESCENTS REPRESENTS INDIVIDUALA AGED 2-19 YEARS EXCLUSIVE. CHRONIC KIDNEY DISEASE STAGING PER NKF: MALE [...] mL/min Normal 80 and above >32 mL/min NormalNORMAL RANGES Age WBC RBC HGB HCT MCV PLT Adult M 4.1-10.9 4.20-6.30 12.0-18.0 37.0-51.0 80-97 140-440 Adult F 4.1-10.9 4.04-5.48 12.0-18.0 37.0-51.0 80-97 140-440 0- 1 Yr 5.0-20.0 3.9-5.9 15-18 MV: 44 MV: 91 MV: 277 2-9 Yr. 6.0-17.0 3.8-5.4 11-13 MV: 37 MV: 78 MV: 300 10 Yrs. 5.0-13.0 3.8-5.4 12-15 MV: 39 MV: 80 MV: 250 NOTE: * FOR ADULT BLACK MALES AND FEMALES, NORMAL WBC IS 2.9-7.7 K/ML * FOR ADULT BLACK MALES AND FEMALES, NORMAL RBC,HGB, AND HCT IS 5% LESS SOURCE FOR DATA: wiMAN 1800 OPERATION MANUAL( AUTOMATED BLOOD COUNTS AND DIFF.) APPENDIX B-3 Tbili 0.33 mg/dL 0.0-1.2 [facility] ([facility] CLASSIFICATION CHOLESTEROL FO R ADULTS CHILDREN/ADOLESCENTS* DESIRABLE: <200 MG/DL <170 MG/DL BORDER-LINE HIGH RISK: 200-239 MG/DL 170-199 MG/DL HIGH RISK: >240 MG/DL >200 MG/DL CLASS. FOR PRIMARY LDL CHOL PREVENTION: LDL CHOL-CHILD/ADOLESCENTS* DESIRABLE: <130 MG/DL <110 MG/DL BORDERLINE-HIGH RISK: 130-159 MG/DL 110-129 MG/DL HIGH RISK: >160 MG/DL >130 MG/DL *CHILDREN AND ADOLESCENTS REPRESENTS INDIVIDUALA AGED 2-19 YEARS EXCLUSIVE. CHRONIC KIDNEY DISEASE STAGING PER NKF: MALE [...] mL/min Normal 80 and above >32 mL/min NormalNORMAL RANGES Age WBC RBC HGB HCT MCV PLT Adult M 4.1-10.9 4.20-6.30 12.0-18.0 37.0-51.0 8097 140-440 Adult F 4.1-10.9 4.04-5.48 12.0-18.0 37.0-51.0 80-97 140-440 0- 1 Yr 5.0-20.0 3.9-5.9 15-18 MV: 44 MV: 91 MV: 277 2-9 Yr. 6.0-17.0 3.8-5.4 11-13 MV: 37 MV: 78 MV: 300 10 Yrs. 5.0-13.0 3.8-5.4 12-15 MV: 39 MV: 80 MV: 250 NOTE: * FOR ADULT BLACK MALES AND FEMALES, NORMAL WBC IS 2.9-7.7 K/ML * FOR ADULT BLACK MALES AND FEMALES, NORMAL RBC,HGB, AND HCT IS 5% LESS SOURCE FOR DATA: wiMAN 1800 OPERATION MANUAL( AUTOMATED BLOOD COUNTS AND DIFF.) APPENDIX B-3 Anion Gap 15 mmol/L [facility] CLASSIFICATION CHOLESTEROL FO R ADULTS CHILDREN/ADOLESCENTS* DESIRABLE: <200 MG/DL <170 MG/DL BORDER-LINE HIGH RISK: 200-239 MG/DL 170-199 MG/DL HIGH RISK: >240 MG/DL >200 MG/DL CLASS. FOR PRIMARY LDL CHOL PREVENTION: LDL CHOL-CHILD/ADOLESCENTS* DESIRABLE: <130 MG/DL <110 MG/DL BORDERLINE-HIGH RISK: 130-159 MG/DL 110-129 MG/DL HIGH RISK: >160 MG/DL >130 MG/DL *CHILDREN AND ADOLESCENTS REPRESENTS INDIVIDUALA AGED 2-19 YEARS EXCLUSIVE. CHRONIC KIDNEY DISEASE STAGING PER NKF: MALE [...] mL/min Normal 80 and above >32 mL/min NormalNORMAL RANGES Age WBC RBC HGB HCT MCV PLT Adult M 4.1-10.9 4.20-6.30 12.0-18.0 37.0-51.0 80-97 140-440 Adult F 4.1-10.9 4.04-5.48 12.0-18.0 37.0-51.0 80-97 140-440 0- 1 Yr 5.0-20.0 3.9-5.9 15-18 MV: 44 MV: 91 MV: 277 2-9 Yr. 6.0-17.0 3.8-5.4 11-13 MV: 37 MV: 78 MV: 300 10 Yrs. 5.0-13.0 3.8-5.4 12-15 MV: 39 MV: 80 MV: 250 NOTE: * FOR ADULT BLACK MALES AND FEMALES, NORMAL WBC IS 2.9-7.7 K/ML * FOR ADULT BLACK MALES AND FEMALES, NORMAL RBC,HGB, AND HCT IS 5% LESS SOURCE FOR DATA: [employer] DYN 1800 OPERATION MANUAL( AUTOMATED BLOOD COUNTS AND DIFF.) APPENDIX B-3 Osmolality-Calculated 276.8 CALC MED ENT ([facility] CLASSIFICATION CHOLESTEROL FO R ADULTS CHILDREN/ADOLESCENTS* DESIRABLE: <200 MG/DL <170 MG/DL BORDER-LINE HIGH RISK: 200-239 MG/DL 170-199 MG/DL HIGH RISK: >240 MG/DL >200 MG/DL CLASS. FOR PRIMARY LDL CHOL PREVENTION: LDL CHOL-CHILD/ADOLESCENTS* DESIRABLE: <130 MG/DL <110 MG/DL BORDERLINE-HIGH RISK: 130-159 MG/DL 110-129 MG/DL HIGH RISK: >160 MG/DL >130 MG/DL *CHILDREN AND ADOLESCENTS REPRESENTS INDIVIDUALA AGED 2-19 YEARS EXCLUSIVE. CHRONIC KIDNEY DISEASE STAGING PER NKF: MALE [...] mL/min Normal 80 and above >32 mL/min NormalNORMAL RANGES Age WBC RBC HGB HCT MCV PLT Adult M 4.1-10.9 4.20-6.30 12.0-18.0 37.0-51.0 80-97 140-440 Adult F 4.1-10.9 4.04-5.48 12.0-18.0 37.0-51.0 80-97 140-440 0- 1 Yr 5.0-20.0 3.9-5.9 15-18 MV: 44 MV: 91 MV: 277 2-9 Yr. 6.0-17.0 3.8-5.4 11-13 MV: 37 MV: 78 MV: 300 10 Yrs. 5.0-13.0 3.8-5.4 12-15 MV: 39 MV: 80 MV: 250 NOTE: * FOR ADULT BLACK MALES AND FEMALES, NORMAL WBC IS 2.9-7.7 K/ML * FOR ADULT BLACK MALES AND FEMALES, NORMAL RBC,HGB, AND HCT IS 5% LESS SOURCE FOR DATA: [employer] 1800 OPERATION MANUAL( AUTOMATED BLOOD COUNTS AND DIFF.) APPENDIX B-3 eGFR Non-Afr. [place] 73 # MEDENT ([facility] CKD-EPI eGFR 85 # NELL ( [facility] CKD-EPI ID Date Data Source [id number] 11/09/2019 02:15:00 PM EST NELL ([facility] Name Value Range Interpretation Code Description Data Danisha rce(s) Supporting Document(s) WBC 9.0 10E3/uL 4.1-10.9 NELL ([facility] CLASSIFICATION CHOLESTEROL FO R ADULTS CHILDREN/ADOLESCENTS* DESIRABLE: <200 MG/DL <170 MG/DL BORDER-LINE HIGH RISK: 200-239 MG/DL 170-199 MG/DL HIGH RISK: >240 MG/DL >200 MG/DL CLASS. FOR PRIMARY LDL CHOL PREVENTION: LDL CHOL-CHILD/ADOLESCENTS* DESIRABLE: <130 MG/DL <110 MG/DL BORDERLINE-HIGH RISK: 130-159 MG/DL 110-129 MG/DL HIGH RISK: >160 MG/DL >130 MG/DL *CHILDREN AND ADOLESCENTS REPRESENTS INDIVIDUALA AGED 2-19 YEARS EXCLUSIVE. CHRONIC KIDNEY DISEASE STAGING PER NKF: MALE [...] mL/min Normal 80 and above >32 mL/min NormalNORMAL RANGES Age WBC RBC HGB HCT MCV PLT Adult M 4.1-10.9 4.20-6.30 12.0-18.0 37.0-51.0 80-97 140-440 Adult F 4.1-10.9 4.04-5.48 12.0-18.0 37.0-51.0 80-97 140-440 0- 1 Yr 5.0-20.0 3.9-5.9 15-18 MV: 44 MV: 91 MV: 277 2-9 Yr. 6.0-17.0 3.8-5.4 11-13 MV: 37 MV: 78 MV: 300 10 Yrs. 5.0-13.0 3.8-5.4 12-15 MV: 39 MV: 80 MV: 250 NOTE: * FOR ADULT BLACK MALES AND FEMALES, NORMAL WBC IS 2.9-7.7 K/ML * FOR ADULT BLACK MALES AND FEMALES, NORMAL RBC,HGB, AND HCT IS 5% LESS SOURCE FOR DATA: [employer] 1800 OPERATION MANUAL( AUTOMATED BLOOD COUNTS AND DIFF.) APPENDIX B-3 RBC 4.56 10E6/uL 4.20-6.30 MEDENT ([facility] CLASSIFICATION CHOLESTEROL FO R ADULTS CHILDREN/ADOLESCENTS* DESIRABLE: <200 MG/DL <170 MG/DL BORDER-LINE HIGH RISK: 200-239 MG/DL 170-199 MG/DL HIGH RISK: >240 MG/DL >200 MG/DL CLASS. FOR PRIMARY LDL CHOL PREVENTION: LDL CHOL-CHILD/ADOLESCENTS* DESIRABLE: <130 MG/DL <110 MG/DL BORDERLINE-HIGH RISK: 130-159 MG/DL 110-129 MG/DL HIGH RISK: >160 MG/DL >130 MG/DL *CHILDREN AND ADOLESCENTS REPRESENTS INDIVIDUALA AGED 2-19 YEARS EXCLUSIVE. CHRONIC KIDNEY DISEASE STAGING PER NKF: MALE [...] mL/min Normal 80 and above >32 mL/min NormalNORMAL RANGES Age WBC RBC HGB HCT MCV PLT Adult M 4.1-10.9 4.20-6.30 12.0-18.0 37.0-51.0 80-97 140-440 Adult F 4.1-10.9 4.04-5.48 12.0-18.0 37.0-51.0 80-97 140-440 0- 1 Yr 5.0-20.0 3.9-5.9 15-18 MV: 44 MV: 91 MV: 277 2-9 Yr. 6.0-17.0 3.8-5.4 11-13 MV: 37 MV: 78 MV: 300 10 Yrs. 5.0-13.0 3.8-5.4 12-15 MV: 39 MV: 80 MV: 250 NOTE: * FOR ADULT BLACK MALES AND FEMALES, NORMAL WBC IS 2.9-7.7 K/ML * FOR ADULT BLACK MALES AND FEMALES, NORMAL RBC,HGB, AND HCT IS 5% LESS SOURCE FOR DATA: [employer] DYN 1800 OPERATION MANUAL( AUTOMATED BLOOD COUNTS AND DIFF.) APPENDIX B-3 HGB 13.3 g/dL 12.0-18.0 MEDENT ([facility] CLASSIFICATION CHOLESTEROL FO R ADULTS CHILDREN/ADOLESCENTS* DESIRABLE: <200 MG/DL <170 MG/DL BORDER-LINE HIGH RISK: 200-239 MG/DL 170-199 MG/DL HIGH RISK: >240 MG/DL >200 MG/DL CLASS. FOR PRIMARY LDL CHOL PREVENTION: LDL CHOL-CHILD/ADOLESCENTS* DESIRABLE: <130 MG/DL <110 MG/DL BORDERLINE-HIGH RISK: 130-159 MG/DL 110-129 MG/DL HIGH RISK: >160 MG/DL >130 MG/DL *CHILDREN AND ADOLESCENTS REPRESENTS INDIVIDUALA AGED 2-19 YEARS EXCLUSIVE. CHRONIC KIDNEY DISEASE STAGING PER NKF: MALE [...] mL/min Normal 80 and above >32 mL/min NormalNORMAL RANGES Age WBC RBC HGB HCT MCV PLT Adult M 4.1-10.9 4.20-6.30 12.0-18.0 37.0-51.0 80-97 140-440 Adult F 4.1-10.9 4.04-5.48 12.0-18.0 37.0-51.0 80-97 140-440 0- 1 Yr 5.0-20.0 3.9-5.9 15-18 MV: 44 MV: 91 MV: 277 2-9 Yr. 6.0-17.0 3.8-5.4 11-13 MV: 37 MV: 78 MV: 300 10 Yrs. 5.0-13.0 3.8-5.4 12-15 MV: 39 MV: 80 MV: 250 NOTE: * FOR ADULT BLACK MALES AND FEMALES, NORMAL WBC IS 2.9-7.7 K/ML * FOR ADULT BLACK MALES AND FEMALES, NORMAL RBC,HGB, AND HCT IS 5% LESS SOURCE FOR DATA: [employer] DYN 1800 OPERATION MANUAL( AUTOMATED BLOOD COUNTS AND DIFF.) APPENDIX B-3 HCT 40.2 % 37.0-51.0 [facility] ([facility] CLASSIFICATION CHOLESTEROL FO R ADULTS CHILDREN/ADOLESCENTS* DESIRABLE: <200 MG/DL <170 MG/DL BORDER-LINE HIGH RISK: 200-239 MG/DL 170-199 MG/DL HIGH RISK: >240 MG/DL >200 MG/DL CLASS. FOR PRIMARY LDL CHOL PREVENTION: LDL CHOL-CHILD/ADOLESCENTS* DESIRABLE: <130 MG/DL <110 MG/DL BORDERLINE-HIGH RISK: 130-159 MG/DL 110-129 MG/DL HIGH RISK: >160 MG/DL >130 MG/DL *CHILDREN AND ADOLESCENTS REPRESENTS INDIVIDUALA AGED 2-19 YEARS EXCLUSIVE. CHRONIC KIDNEY DISEASE STAGING PER NKF: MALE [...] mL/min Normal 80 and above >32 mL/min NormalNORMAL RANGES Age WBC RBC HGB HCT MCV PLT Adult M 4.1-10.9 4.20-6.30 12.0-18.0 37.0-51.0 80-97 140-440 Adult F 4.1-10.9 4.04-5.48 12.0-18.0 37.0-51.0 80-97 140-440 0- 1 Yr 5.0-20.0 3.9-5.9 15-18 MV: 44 MV: 91 MV: 277 2-9 Yr. 6.0-17.0 3.8-5.4 11-13 MV: 37 MV: 78 MV: 300 10 Yrs. 5.0-13.0 3.8-5.4 12-15 MV: 39 MV: 80 MV: 250 NOTE: * FOR ADULT BLACK MALES AND FEMALES, NORMAL WBC IS 2.9-7.7 K/ML * FOR ADULT BLACK MALES AND FEMALES, NORMAL RBC,HGB, AND HCT IS 5% LESS SOURCE FOR DATA: [employer] DYN 1800 OPERATION MANUAL( AUTOMATED BLOOD COUNTS AND DIFF.) APPENDIX B-3 MCV 88.2 fL 80.0-97.0 [facility] CLASSIFICATION CHOLESTEROL FO R ADULTS CHILDREN/ADOLESCENTS* DESIRABLE: <200 MG/DL <170 MG/DL BORDER-LINE HIGH RISK: 200-239 MG/DL 170-199 MG/DL HIGH RISK: >240 MG/DL >200 MG/DL CLASS. FOR PRIMARY LDL CHOL PREVENTION: LDL CHOL-CHILD/ADOLESCENTS* DESIRABLE: <130 MG/DL <110 MG/DL BORDERLINE-HIGH RISK: 130-159 MG/DL 110-129 MG/DL HIGH RISK: >160 MG/DL >130 MG/DL *CHILDREN AND ADOLESCENTS REPRESENTS INDIVIDUALA AGED 2-19 YEARS EXCLUSIVE. CHRONIC KIDNEY DISEASE STAGING PER NKF: MALE [...] mL/min Normal 80 and above >32 mL/min NormalNORMAL RANGES Age WBC RBC HGB HCT MCV PLT Adult M 4.1-10.9 4.20-6.30 12.0-18.0 37.0-51.0 80-97 140-440 Adult F 4.1-10.9 4.04-5.48 12.0-18.0 37.0-51.0 80-97 140-440 0- 1 Yr 5.0-20.0 3.9-5.9 15-18 MV: 44 MV: 91 MV: 277 2-9 Yr. 6.0-17.0 3.8-5.4 11-13 MV: 37 MV: 78 MV: 300 10 Yrs. 5.0-13.0 3.8-5.4 12-15 MV: 39 MV: 80 MV: 250 NOTE: * FOR ADULT BLACK MALES AND FEMALES, NORMAL WBC IS 2.9-7.7 K/ML * FOR ADULT BLACK MALES AND FEMALES, NORMAL RBC,HGB, AND HCT IS 5% LESS SOURCE FOR DATA: KATI DYN 1800 OPERATION MANUAL( AUTOMATED BLOOD COUNTS AND DIFF.) APPENDIX B-3 MCHC 33.1 g/dL 31.0-36.0 [facility] CLASSIFICATION CHOLESTEROL FO R ADULTS CHILDREN/ADOLESCENTS* DESIRABLE: <200 MG/DL <170 MG/DL BORDER-LINE HIGH RISK: 200-239 MG/DL 170-199 MG/DL HIGH RISK: >240 MG/DL >200 MG/DL CLASS. FOR PRIMARY LDL CHOL PREVENTION: LDL CHOL-CHILD/ADOLESCENTS* DESIRABLE: <130 MG/DL <110 MG/DL BORDERLINE-HIGH RISK: 130-159 MG/DL 110-129 MG/DL HIGH RISK: >160 MG/DL >130 MG/DL *CHILDREN AND ADOLESCENTS REPRESENTS INDIVIDUALA AGED 2-19 YEARS EXCLUSIVE. CHRONIC KIDNEY DISEASE STAGING PER NKF: MALE [...] mL/min Normal 80 and above >32 mL/min NormalNORMAL RANGES Age WBC RBC HGB HCT MCV PLT Adult M 4.1-10.9 4.20-6.30 12.0-18.0 37.0-51.0 80-97 140-440 Adult F 4.1-10.9 4.04-5.48 12.0-18.0 37.0-51.0 80-97 140-440 0- 1 Yr 5.0-20.0 3.9-5.9 15-18 MV: 44 MV: 91 MV: 277 2-9 Yr. 6.0-17.0 3.8-5.4 11-13 MV: 37 MV: 78 MV: 300 10 Yrs. 5.0-13.0 3.8-5.4 12-15 MV: 39 MV: 80 MV: 250 NOTE: * FOR ADULT BLACK MALES AND FEMALES, NORMAL WBC IS 2.9-7.7 K/ML * FOR ADULT BLACK MALES AND FEMALES, NORMAL RBC,HGB, AND HCT IS 5% LESS SOURCE FOR DATA: wiMAN 1800 OPERATION MANUAL( AUTOMATED BLOOD COUNTS AND DIFF.) APPENDIX B-3 MCH 29.2 pg 26.0-32.0 [facility] ([facility] CLASSIFICATION CHOLESTEROL FO R ADULTS CHILDREN/ADOLESCENTS* DESIRABLE: <200 MG/DL <170 MG/DL BORDER-LINE HIGH RISK: 200-239 MG/DL 170-199 MG/DL HIGH RISK: >240 MG/DL >200 MG/DL CLASS. FOR PRIMARY LDL CHOL PREVENTION: LDL CHOL-CHILD/ADOLESCENTS* DESIRABLE: <130 MG/DL <110 MG/DL BORDERLINE-HIGH RISK: 130-159 MG/DL 110-129 MG/DL HIGH RISK: >160 MG/DL >130 MG/DL *CHILDREN AND ADOLESCENTS REPRESENTS INDIVIDUALA AGED 2-19 YEARS EXCLUSIVE. CHRONIC KIDNEY DISEASE STAGING PER NKF: MALE [...] mL/min Normal 80 and above >32 mL/min NormalNORMAL RANGES Age WBC RBC HGB HCT MCV PLT Adult M 4.1-10.9 4.20-6.30 12.0-18.0 37.0-51.0 80-97 140-440 Adult F 4.1-10.9 4.04-5.48 12.0-18.0 37.0-51.0 80-97 140-440 0- 1 Yr 5.0-20.0 3.9-5.9 15-18 MV: 44 MV: 91 MV: 277 2-9 Yr. 6.0-17.0 3.8-5.4 11-13 MV: 37 MV: 78 MV: 300 10 Yrs. 5.0-13.0 3.8-5.4 12-15 MV: 39 MV: 80 MV: 250 NOTE: * FOR ADULT BLACK MALES AND FEMALES, NORMAL WBC IS 2.9-7.7 K/ML * FOR ADULT BLACK MALES AND FEMALES, NORMAL RBC,HGB, AND HCT IS 5% LESS SOURCE FOR DATA: wiMAN 1800 OPERATION MANUAL( AUTOMATED BLOOD COUNTS AND DIFF.) APPENDIX B-3 RDW-CV 13.5 % 11.5-14.5 [facility] CLASSIFICATION CHOLESTEROL FO R ADULTS CHILDREN/ADOLESCENTS* DESIRABLE: <200 MG/DL <170 MG/DL BORDER-LINE HIGH RISK: 200-239 MG/DL 170-199 MG/DL HIGH RISK: >240 MG/DL >200 MG/DL CLASS. FOR PRIMARY LDL CHOL PREVENTION: LDL CHOL-CHILD/ADOLESCENTS* DESIRABLE: <130 MG/DL <110 MG/DL BORDERLINE-HIGH RISK: 130-159 MG/DL 110-129 MG/DL HIGH RISK: >160 MG/DL >130 MG/DL *CHILDREN AND ADOLESCENTS REPRESENTS INDIVIDUALA AGED 2-19 YEARS EXCLUSIVE. CHRONIC KIDNEY DISEASE STAGING PER NKF: MALE [...] mL/min Normal 80 and above >32 mL/min NormalNORMAL RANGES Age WBC RBC HGB HCT MCV PLT Adult M 4.1-10.9 4.20-6.30 12.0-18.0 37.0-51.0 80-97 140-440 Adult F 4.1-10.9 4.04-5.48 12.0-18.0 37.0-51.0 80-97 140-440 0- 1 Yr 5.0-20.0 3.9-5.9 15-18 MV: 44 MV: 91 MV: 277 2-9 Yr. 6.0-17.0 3.8-5.4 11-13 MV: 37 MV: 78 MV: 300 10 Yrs. 5.0-13.0 3.8-5.4 12-15 MV: 39 MV: 80 MV: 250 NOTE: * FOR ADULT BLACK MALES AND FEMALES, NORMAL WBC IS 2.9-7.7 K/ML * FOR ADULT BLACK MALES AND FEMALES, NORMAL RBC,HGB, AND HCT IS 5% LESS SOURCE FOR DATA: KATI DYN 1800 OPERATION MANUAL( AUTOMATED BLOOD COUNTS AND DIFF.) APPENDIX B-3 PLT 226 10E3/uL 140-440 [facility] CLASSIFICATION CHOLESTEROL FO R ADULTS CHILDREN/ADOLESCENTS* DESIRABLE: <200 MG/DL <170 MG/DL BORDER-LINE HIGH RISK: 200-239 MG/DL 170-199 MG/DL HIGH RISK: >240 MG/DL >200 MG/DL CLASS. FOR PRIMARY LDL CHOL PREVENTION: LDL CHOL-CHILD/ADOLESCENTS* DESIRABLE: <130 MG/DL <110 MG/DL BORDERLINE-HIGH RISK: 130-159 MG/DL 110-129 MG/DL HIGH RISK: >160 MG/DL >130 MG/DL *CHILDREN AND ADOLESCENTS REPRESENTS INDIVIDUALA AGED 2-19 YEARS EXCLUSIVE. CHRONIC KIDNEY DISEASE STAGING PER NKF: MALE [...] mL/min Normal 80 and above >32 mL/min NormalNORMAL RANGES Age WBC RBC HGB HCT MCV PLT Adult M 4.1-10.9 4.20-6.30 12.0-18.0 37.0-51.0 80-97 140-440 Adult F 4.1-10.9 4.04-5.48 12.0-18.0 37.0-51.0 80-97 140-440 0- 1 Yr 5.0-20.0 3.9-5.9 15-18 MV: 44 MV: 91 MV: 277 2-9 Yr. 6.0-17.0 3.8-5.4 11-13 MV: 37 MV: 78 MV: 300 10 Yrs. 5.0-13.0 3.8-5.4 12-15 MV: 39 MV: 80 MV: 250 NOTE: * FOR ADULT BLACK MALES AND FEMALES, NORMAL WBC IS 2.9-7.7 K/ML * FOR ADULT BLACK MALES AND FEMALES, NORMAL RBC,HGB, AND HCT IS 5% LESS SOURCE FOR DATA: wiMAN 1800 OPERATION MANUAL( AUTOMATED BLOOD COUNTS AND DIFF.) APPENDIX B-3 Neut% 61.2 % 37.0-92.0 [facility] ([facility] CLASSIFICATION CHOLESTEROL FO R ADULTS CHILDREN/ADOLESCENTS* DESIRABLE: <200 MG/DL <170 MG/DL BORDER-LINE HIGH RISK: 200-239 MG/DL 170-199 MG/DL HIGH RISK: >240 MG/DL >200 MG/DL CLASS. FOR PRIMARY LDL CHOL PREVENTION: LDL CHOL-CHILD/ADOLESCENTS* DESIRABLE: <130 MG/DL <110 MG/DL BORDERLINE-HIGH RISK: 130-159 MG/DL 110-129 MG/DL HIGH RISK: >160 MG/DL >130 MG/DL *CHILDREN AND ADOLESCENTS REPRESENTS INDIVIDUALA AGED 2-19 YEARS EXCLUSIVE. CHRONIC KIDNEY DISEASE STAGING PER NKF: MALE [...] mL/min Normal 80 and above >32 mL/min NormalNORMAL RANGES Age WBC RBC HGB HCT MCV PLT Adult M 4.1-10.9 4.20-6.30 12.0-18.0 37.0-51.0 80-97 140-440 Adult F 4.1-10.9 4.04-5.48 12.0-18.0 37.0-51.0 80-97 140-440 0- 1 Yr 5.0-20.0 3.9-5.9 15-18 MV: 44 MV: 91 MV: 277 2-9 Yr. 6.0-17.0 3.8-5.4 11-13 MV: 37 MV: 78 MV: 300 10 Yrs. 5.0-13.0 3.8-5.4 12-15 MV: 39 MV: 80 MV: 250 NOTE: * FOR ADULT BLACK MALES AND FEMALES, NORMAL WBC IS 2.9-7.7 K/ML * FOR ADULT BLACK MALES AND FEMALES, NORMAL RBC,HGB, AND HCT IS 5% LESS SOURCE FOR DATA: wiMAN 1800 OPERATION MANUAL( AUTOMATED BLOOD COUNTS AND DIFF.) APPENDIX B-3 Lym% 25.9 % 10.0-58.5 [facility] ([facility] CLASSIFICATION CHOLESTEROL FO R ADULTS CHILDREN/ADOLESCENTS* DESIRABLE: <200 MG/DL <170 MG/DL BORDER-LINE HIGH RISK: 200-239 MG/DL 170-199 MG/DL HIGH RISK: >240 MG/DL >200 MG/DL CLASS. FOR PRIMARY LDL CHOL PREVENTION: LDL CHOL-CHILD/ADOLESCENTS* DESIRABLE: <130 MG/DL <110 MG/DL BORDERLINE-HIGH RISK: 130-159 MG/DL 110-129 MG/DL HIGH RISK: >160 MG/DL >130 MG/DL *CHILDREN AND ADOLESCENTS REPRESENTS INDIVIDUALA AGED 2-19 YEARS EXCLUSIVE. CHRONIC KIDNEY DISEASE STAGING PER NKF: MALE [...] mL/min Normal 80 and above >32 mL/min NormalNORMAL RANGES Age WBC RBC HGB HCT MCV PLT Adult M 4.1-10.9 4.20-6.30 12.0-18.0 37.0-51.0 80-97 140-440 Adult F 4.1-10.9 4.04-5.48 12.0-18.0 37.0-51.0 80-97 140-440 0- 1 Yr 5.0-20.0 3.9-5.9 15-18 MV: 44 MV: 91 MV: 277 2-9 Yr. 6.0-17.0 3.8-5.4 11-13 MV: 37 MV: 78 MV: 300 10 Yrs. 5.0-13.0 3.8-5.4 12-15 MV: 39 MV: 80 MV: 250 NOTE: * FOR ADULT BLACK MALES AND FEMALES, NORMAL WBC IS 2.9-7.7 K/ML * FOR ADULT BLACK MALES AND FEMALES, NORMAL RBC,HGB, AND HCT IS 5% LESS SOURCE FOR DATA: KATI DYN 1800 OPERATION MANUAL( AUTOMATED BLOOD COUNTS AND DIFF.) APPENDIX B-3 MXD% 12.9 % 0.1-24.0 [facility] ([facility] CLASSIFICATION CHOLESTEROL FO R ADULTS CHILDREN/ADOLESCENTS* DESIRABLE: <200 MG/DL <170 MG/DL BORDER-LINE HIGH RISK: 200-239 MG/DL 170-199 MG/DL HIGH RISK: >240 MG/DL >200 MG/DL CLASS. FOR PRIMARY LDL CHOL PREVENTION: LDL CHOL-CHILD/ADOLESCENTS* DESIRABLE: <130 MG/DL <110 MG/DL BORDERLINE-HIGH RISK: 130-159 MG/DL 110-129 MG/DL HIGH RISK: >160 MG/DL >130 MG/DL *CHILDREN AND ADOLESCENTS REPRESENTS INDIVIDUALA AGED 2-19 YEARS EXCLUSIVE. CHRONIC KIDNEY DISEASE STAGING PER NKF: MALE [...] mL/min Normal 80 and above >32 mL/min NormalNORMAL RANGES Age WBC RBC HGB HCT MCV PLT Adult M 4.1-10.9 4.20-6.30 12.0-18.0 37.0-51.0 80-97 140-440 Adult F 4.1-10.9 4.04-5.48 12.0-18.0 37.0-51.0 80-97 140-440 0- 1 Yr 5.0-20.0 3.9-5.9 15-18 MV: 44 MV: 91 MV: 277 2-9 Yr. 6.0-17.0 3.8-5.4 11-13 MV: 37 MV: 78 MV: 300 10 Yrs. 5.0-13.0 3.8-5.4 12-15 MV: 39 MV: 80 MV: 250 NOTE: * FOR ADULT BLACK MALES AND FEMALES, NORMAL WBC IS 2.9-7.7 K/ML * FOR ADULT BLACK MALES AND FEMALES, NORMAL RBC,HGB, AND HCT IS 5% LESS SOURCE FOR DATA: wiMAN 1800 OPERATION MANUAL( AUTOMATED BLOOD COUNTS AND DIFF.) APPENDIX B-3 Lym# 2.3 10E3/uL 0.6-4.1 [facility] ([facility] CLASSIFICATION CHOLESTEROL FO R ADULTS CHILDREN/ADOLESCENTS* DESIRABLE: <200 MG/DL <170 MG/DL BORDER-LINE HIGH RISK: 200-239 MG/DL 170-199 MG/DL HIGH RISK: >240 MG/DL >200 MG/DL CLASS. FOR PRIMARY LDL CHOL PREVENTION: LDL CHOL-CHILD/ADOLESCENTS* DESIRABLE: <130 MG/DL <110 MG/DL BORDERLINE-HIGH RISK: 130-159 MG/DL 110-129 MG/DL HIGH RISK: >160 MG/DL >130 MG/DL *CHILDREN AND ADOLESCENTS REPRESENTS INDIVIDUALA AGED 2-19 YEARS EXCLUSIVE. CHRONIC KIDNEY DISEASE STAGING PER NKF: MALE [...] mL/min Normal 80 and above >32 mL/min NormalNORMAL RANGES Age WBC RBC HGB HCT MCV PLT Adult M 4.1-10.9 4.20-6.30 12.0-18.0 37.0-51.0 80-97 140-440 Adult F 4.1-10.9 4.04-5.48 12.0-18.0 37.0-51.0 80-97 140-440 0- 1 Yr 5.0-20.0 3.9-5.9 15-18 MV: 44 MV: 91 MV: 277 2-9 Yr. 6.0-17.0 3.8-5.4 11-13 MV: 37 MV: 78 MV: 300 10 Yrs. 5.0-13.0 3.8-5.4 12-15 MV: 39 MV: 80 MV: 250 NOTE: * FOR ADULT BLACK MALES AND FEMALES, NORMAL WBC IS 2.9-7.7 K/ML * FOR ADULT BLACK MALES AND FEMALES, NORMAL RBC,HGB, AND HCT IS 5% LESS SOURCE FOR DATA: wiMAN 1800 OPERATION MANUAL( AUTOMATED BLOOD COUNTS AND DIFF.) APPENDIX B-3 Neut# 5.5 % 2.0-7.8 [facility] ([facility] CLASSIFICATION CHOLESTEROL FO R ADULTS CHILDREN/ADOLESCENTS* DESIRABLE: <200 MG/DL <170 MG/DL BORDER-LINE HIGH RISK: 200-239 MG/DL 170-199 MG/DL HIGH RISK: >240 MG/DL >200 MG/DL CLASS. FOR PRIMARY LDL CHOL PREVENTION: LDL CHOL-CHILD/ADOLESCENTS* DESIRABLE: <130 MG/DL <110 MG/DL BORDERLINE-HIGH RISK: 130-159 MG/DL 110-129 MG/DL HIGH RISK: >160 MG/DL >130 MG/DL *CHILDREN AND ADOLESCENTS REPRESENTS INDIVIDUALA AGED 2-19 YEARS EXCLUSIVE. CHRONIC KIDNEY DISEASE STAGING PER NKF: MALE [...] mL/min Normal 80 and above >32 mL/min NormalNORMAL RANGES Age WBC RBC HGB HCT MCV PLT Adult M 4.1-10.9 4.20-6.30 12.0-18.0 37.0-51.0 80-97 140-440 Adult F 4.1-10.9 4.04-5.48 12.0-18.0 37.0-51.0 80-97 140-440 0- 1 Yr 5.0-20.0 3.9-5.9 15-18 MV: 44 MV: 91 MV: 277 2-9 Yr. 6.0-17.0 3.8-5.4 11-13 MV: 37 MV: 78 MV: 300 10 Yrs. 5.0-13.0 3.8-5.4 12-15 MV: 39 MV: 80 MV: 250 NOTE: * FOR ADULT BLACK MALES AND FEMALES, NORMAL WBC IS 2.9-7.7 K/ML * FOR ADULT BLACK MALES AND FEMALES, NORMAL RBC,HGB, AND HCT IS 5% LESS SOURCE FOR DATA: wiMAN 1800 OPERATION MANUAL( AUTOMATED BLOOD COUNTS AND DIFF.) APPENDIX B-3 MXD# 1.2 10E3/uL 0.0-1.8 [facility] ([facility] CLASSIFICATION CHOLESTEROL FO R ADULTS CHILDREN/ADOLESCENTS* DESIRABLE: <200 MG/DL <170 MG/DL BORDER-LINE HIGH RISK: 200-239 MG/DL 170-199 MG/DL HIGH RISK: >240 MG/DL >200 MG/DL CLASS. FOR PRIMARY LDL CHOL PREVENTION: LDL CHOL-CHILD/ADOLESCENTS* DESIRABLE: <130 MG/DL <110 MG/DL BORDERLINE-HIGH RISK: 130-159 MG/DL 110-129 MG/DL HIGH RISK: >160 MG/DL >130 MG/DL *CHILDREN AND ADOLESCENTS REPRESENTS INDIVIDUALA AGED 2-19 YEARS EXCLUSIVE. CHRONIC KIDNEY DISEASE STAGING PER NKF: MALE [...] mL/min Normal 80 and above >32 mL/min NormalNORMAL RANGES Age WBC RBC HGB HCT MCV PLT Adult M 4.1-10.9 4.20-6.30 12.0-18.0 37.0-51.0 80-97 140-440 Adult F 4.1-10.9 4.04-5.48 12.0-18.0 37.0-51.0 80-97 140-440 0- 1 Yr 5.0-20.0 3.9-5.9 15-18 MV: 44 MV: 91 MV: 277 2-9 Yr. 6.0-17.0 3.8-5.4 11-13 MV: 37 MV: 78 MV: 300 10 Yrs. 5.0-13.0 3.8-5.4 12-15 MV: 39 MV: 80 MV: 250 NOTE: * FOR ADULT BLACK MALES AND FEMALES, NORMAL WBC IS 2.9-7.7 K/ML * FOR ADULT BLACK MALES AND FEMALES, NORMAL RBC,HGB, AND HCT IS 5% LESS SOURCE FOR DATA: wiMAN 1800 OPERATION MANUAL( AUTOMATED BLOOD COUNTS AND DIFF.) APPENDIX B-3 MPV 10.0 fL 9.0-13.0 [facility] ([facility] CLASSIFICATION CHOLESTEROL FO R ADULTS CHILDREN/ADOLESCENTS* DESIRABLE: <200 MG/DL <170 MG/DL BORDER-LINE HIGH RISK: 200-239 MG/DL 170-199 MG/DL HIGH RISK: >240 MG/DL >200 MG/DL CLASS. FOR PRIMARY LDL CHOL PREVENTION: LDL CHOL-CHILD/ADOLESCENTS* DESIRABLE: <130 MG/DL <110 MG/DL BORDERLINE-HIGH RISK: 130-159 MG/DL 110-129 MG/DL HIGH RISK: >160 MG/DL >130 MG/DL *CHILDREN AND ADOLESCENTS REPRESENTS INDIVIDUALA AGED 2-19 YEARS EXCLUSIVE. CHRONIC KIDNEY DISEASE STAGING PER NKF: MALE [...] mL/min Normal 80 and above >32 mL/min NormalNORMAL RANGES Age WBC RBC HGB HCT MCV PLT Adult M 4.1-10.9 4.20-6.30 12.0-18.0 37.0-51.0 80-97 140-440 Adult F 4.1-10.9 4.04-5.48 12.0-18.0 37.0-51.0 80-97 140-440 0- 1 Yr 5.0-20.0 3.9-5.9 15-18 MV: 44 MV: 91 MV: 277 2-9 Yr. 6.0-17.0 3.8-5.4 11-13 MV: 37 MV: 78 MV: 300 10 Yrs. 5.0-13.0 3.8-5.4 12-15 MV: 39 MV: 80 MV: 250 NOTE: * FOR ADULT BLACK MALES AND FEMALES, NORMAL WBC IS 2.9-7.7 K/ML * FOR ADULT BLACK MALES AND FEMALES, NORMAL RBC,HGB, AND HCT IS 5% LESS SOURCE FOR DATA: KATI DYN 1800 OPERATION MANUAL( AUTOMATED BLOOD COUNTS AND DIFF.) APPENDIX B-3 ID Date Data Source [id number] 11/09/2019 02:09:00 PM EST [facility] ([facility] Name Value Range Interpretation Code Description Data Danisha rce(s) Supporting Document(s) Erythrocyte sedimentation rate by Westergren method 15 0-20 [facility] ([facility] Procedure Social History Code Duration Value Status Description Data Source(s ) Smoking 12/05/2020 12:00:00 AM EST Patient is a former smoker completed Patient is a former smoker NELL ([facility] ) Vital Signs ID Date Data Source UNK Name Value Range Interpretation Code Description Data Source(s) Oxygen saturation in Arterial blood by Pulse oximetry 97 % 97 % NELL ([facility] Body mass index (BMI) [Ratio] 32.6 kg/m2 32.6 k g/m2 [facility] ([facility] [place] body weight 120 [lb_av] 120 [lb_av] MEDEN T ([facility] Body weight 190.00 [lb_av] 190.00 [lb_av] MED[facility] T ([facility] Body height 64 [in_i] 64 [in_i] NELL ([facility] 5'4" Respiratory rate 16 /min 16 /min NELL ( [facility] Heart rate 70 /min 70 /min MEDKEVIN ([facility] Body temperature 97.3 [degF] 97.3 [degF] [facility] ([facility] Diastolic blood pressure 84 mm[Hg] 84 mm[Hg] [facility] ([facility] Systolic blood pressure 126 mm[Hg] 126 mm[Hg] M EDENT ([facility] Oxygen saturation in Arterial blood by Pulse oximetry 92 % 92 % NELL ([facility] (AT Rest), (Room Air) Body mass index (BMI) [Ratio] 32.4 kg/m2 32.4 k g/m2 [facility] ([facility] [place] body weight 120 [lb_av] 120 [lb_av] MEDEN T ([facility] Body weight 189.00 [lb_av] 189.00 [lb_av] MEDEN T ([facility] Body height 64 [in_i] 64 [in_i] [facility] 5'4" Respiratory rate 16 /min 16 /min [facility] ( [facility] Heart rate 73 /min 73 /min [facility] ([facility] Body temperature 97.8 [degF] 97.8 [degF] [facility] ([facility] Diastolic blood pressure 80 mm[Hg] 80 mm[Hg] [facility] ([facility] Systolic blood pressure 132 mm[Hg] 132 mm[Hg] M EDENT ([facility] Oxygen saturation in Arterial blood by Pulse oximetry 97 % 97 % [facility] ([facility] Body mass index (BMI) [Ratio] 32.1 kg/m2 32.1 k g/m2 [facility] ([facility] [place] body weight 120 [lb_av] 120 [lb_av] MED[facility] T ([facility] Body weight 187.00 [lb_av] 187.00 [lb_av] MED[facility] T ([facility] Body height 64 [in_i] 64 [in_i] [facility] 5'4" Respiratory rate 16 /min 16 /min [facility] ( [facility] Heart rate 64 /min 64 /min [facility] ([facility] Body temperature 98.0 [degF] 98.0 [degF] [facility] ([facility] Diastolic blood pressure 82 mm[Hg] 82 mm[Hg] [facility] ([facility] Systolic blood pressure 110 mm[Hg] 110 mm[Hg] M EDENT ([facility] Oxygen saturation in Arterial blood by Pulse oximetry 94 % 94 % [facility] ([facility] (AT Rest), (Room Air) Body mass index (BMI) [Ratio] 31.6 kg/m2 31.6 k g/m2 [facility] ([facility] [place] body weight 120 [lb_av] 120 [lb_av] [facility] T ([facility] Body weight 184.00 [lb_av] 184.00 [lb_av] MED[facility] T ([facility] Body height 64 [in_i] 64 [in_i] [facility] ([facility] 5'4" Respiratory rate 16 /min 16 /min [facility] ( [facility] Heart rate 70 /min 70 /min [facility] ([facility] Body temperature 99.3 [degF] 99.3 [degF] MED[facility] ([facility] Diastolic blood pressure 76 mm[Hg] 76 mm[Hg] [facility] ([facility] Systolic blood pressure 126 mm[Hg] 126 mm[Hg] M EDENT ([facility] Oxygen saturation in Arterial blood by Pulse oximetry 90 % 90 % MEDENT ([facility] (AT Rest), (Room Air) Body mass index (BMI) [Ratio] 32.6 kg/m2 32.6 k g/m2 [facility] ([facility] Body weight 190.00 [lb_av] 190.00 [lb_av] MEDEN T ([facility] Body height 64 [in_i] 64 [in_i] MEDENT ([facility] 5'4" Respiratory rate 18 /min 18 /min MED[facility] ( [facility] Heart rate 58 /min 58 /min [facility] ([facility] Body temperature 98.3 [degF] 98.3 [degF] MED[facility] ([facility] Diastolic blood pressure 80 mm[Hg] 80 mm[Hg] MED[facility] ([facility] Systolic blood pressure 104 mm[Hg] 104 mm[Hg] M EDENT ([facility] Oxygen saturation in Arterial blood by Pulse oximetry 97 % 97 % MED[facility] ([facility] Body mass index (BMI) [Ratio] 33.3 kg/m2 33.3 k g/m2 MED[facility] ([facility] Body weight 194.00 [lb_av] 194.00 [lb_av] MEDEN T ([facility] Body height 64 [in_i] 64 [in_i] MEDENT ([facility] 5'4" Respiratory rate 18 /min 18 /min MED[facility] ( [facility] Heart rate 84 /min 84 /min MEDENT ([facility] Body temperature 97.6 [degF] 97.6 [degF] NELL ([facility] Diastolic blood pressure 80 mm[Hg] 80 mm[Hg] NELL ([facility] Systolic blood pressure 118 mm[Hg] 118 mm[Hg] M LAURENCE ([facility] ID Date Data Source [id number] 10/07/2020 11:22:56 AM EST [facility] Name Value Range Interpretation Code Description Data Source(s) WEIGHT RECORDED 195.00 pounds 195.00 pounds [facility] Height 64 Inches 064 Inches [facility]
[2020-12-30 14:39] LABS: BASO % 0.3 % (0.0-1.0); EOS # 0.4 10^3/uL (0.0-0.5); EOS % 3.7 % (0.0-3.0); HEMATOCRIT 39.5 % (36.0-47.0); HEMOGLOBIN 12.9 g/dl (12.0-15.5); LYMPH # 1.7 10^3/uL (1.5-5.0); LYMPH % 17.6 % (24.0-44.0); MEAN CORPUSCULAR HEMOGLOBIN 29.9 pg (27.0-33.0); MEAN CORPUSCULAR HGB CONC 32.7 g/dl (32.0-36.5); MEAN CORPUSCULAR VOLUME 91.6 fl (80.0-96.0); MONO # 0.7 10^3/uL (0.0-0.8); MONO % 7.2 % (2.0-8.0); NEUTROPHILS # 6.8 10^3/uL (1.5-8.5); NEUTROPHILS % 70.8 % (36.0-66.0); PLATELET COUNT, AUTOMATED 205 10^3/uL (150-450); RED BLOOD COUNT 4.31 10^6/uL (4.00-5.40); WHITE BLOOD COUNT 9.5 10^3/uL (4.0-10.0)
[2020-12-30 14:49] LABS: INR 0.95; PROTHROMBIN TIME 12.9 SECONDS (12.5-14.3)
[2020-12-30 14:50] LABS: PARTIAL THROMBOPLASTIN TIME 26.9 SECONDS (24.2-38.5)
--- NOTE | 2020-12-30 14:50 | REP ---
INDICATION: CHEST PAIN. COMPARISON: CT and two-view chest 02/09/2019 TECHNIQUE: Semi-erect AP portable chest FINDINGS: Sternotomy wires and cardiac valve replacement now evident. No gross cardiomegaly. There is no vascular redistribution or edema. The aorta is calcified at the arch mildly tortuous. Some basilar fibrotic changes with linear fibrosis or atelectasis left base near the CP angle. No dense consolidation, pleural effusion or acute infiltrate. Visualized bones are unchanged. IMPRESSION: Some basilar fibrosis without definite acute infiltrate. Some superimposed linear atelectatic changes the may be present. No effusion. Interval sternotomy with cardiac valve replacement, no pulmonary edema or widening of the mediastinum. Mildly tortuous calcified aortic arch without aneurysm. <Electronically signed by Shree Mcintosh > 12/30/20 [id number]
[2020-12-30 15:16] LABS: ALBUMIN 3.8 GM/DL (3.2-5.2); ALT/SGPT 25 U/L (12-78); BILIRUBIN,DIRECT 0.1 MG/DL (0.0-0.2); BILIRUBIN,TOTAL 0.4 MG/DL (0.2-1.0); BLOOD UREA NITROGEN 9 MG/DL (7-18); CALCIUM LEVEL 8.9 MG/DL (8.8-10.2); CARBON DIOXIDE LEVEL 30 MEQ/L (21-32); CHLORIDE LEVEL 105 MEQ/L (98-107); CK-MB VALUE MASS 1.3 NG/ML (<3.6); CPK CREATINE PHOSPHOKINASE 91 U/L (26-192); CREATININE FOR GFR 0.79 MG/DL (0.55-1.30); FREE T4 1.05 NG/DL (0.76-1.46); GLOMERULAR FILTRATION RATE > 60.0 (>39); GLUCOSE, FASTING 95 MG/DL (70-100); LIPASE 108 U/L (73-393); MB/CK RELATIVE INDEX 1.43 (< OR =4); POTASSIUM SERUM 3.5 MEQ/L (3.5-5.1); SODIUM LEVEL 142 MEQ/L (136-145); THYROID STIMULATING HORMONE 0.977 uIU/ML (0.358-3.740); TOTAL PROTEIN 6.9 GM/DL (6.4-8.2); TROPONIN I 0.03 NG/ML (< 0.10)
--- OUTSIDE RECORDS SUMMARY | 2020-12-30 15:22 | CCD ---
Author Author [facility] Organization [facility] Address Unknown Phone Unavailable Care Team Providers Care Trim Installer Name Role Phone JATIN PRIEST MD Unavailable Unavailable JATIN PRIEST MD Unavailable Unavailable JATIN PIREST MD Unavailable Unavailable JATIN PRIEST MD Unavailable [...] Fish, J Robert Unavailable Unavailable Fish, J Robetr Unavailable Unavailable Fish, J Robert Unavailable Unavailable [...] Fish, J Robert Unavailable Unavailable Fish, J Robret Unavailable Unavailable Fish, J Robert Unavailable Unavailable [...] is protected by Article 27-F of the [facility] Public Health law. If you continue you may have access to information: Regarding HIV / AIDS; Provided by facilities licensed or operated by the [facility] Office of Mental Health; or Provided by the [facility] Office for People With Developmental Disabilities. If such information is present, then the following [facility] mandated warning applies: This information has been [...] law may result in a fine or nursing home sentence or both. A general authorization for the release of medical or other information is NOT sufficient authorization for further disc losure. Allergies and Adverse Reactions Type Description Substance Reaction Status Data Source(s ) CLASS PCN (penicillin) PCN (penicillin) HIVES [facility] Family History Family Member Name Family [...] 10:44:00 AM EST - 12/13/2020 11:44:00 AM [facility] Patient discharged. Outpatient Attender: Robert KanConsultant: Robert Lucius 12/09/2020 02:56:54 PM EST - 12/10/2020 09:31:00 AM [facility] Patient discharged. Outpatient Attender: Robert Kan [place] [facility] 12/05/2020 12:00:0 0 PM EST [facility] Emergency Attender: HARRIET BAEZ MDConsultant: Robert Hu 11/01/2020 12:58:00 PM EST - 11/01/2020 02:19:00 PM [facility] Patient discharged. Outpatient Attender: Pierce Kebede MDConsultant: Robert Thorpe 09/30/2020 07:15:00 AM [facility] - 09/30/2020 09:24:00 AM [facility] Patient discharged. Outpatient Attender: Pierce Kebede MDConsultant: Robert Fis h 09/26/2020 10:48:00 AM EST - 09/26/2020 11:48:00 AM [facility] Patient discharged. Outpatient Attender: Pierce Kebede MDConsultant: Robert [facility] 09/26/2020 10:13:36 AM EST - 09/27/2020 11:30:00 AM [facility] Patient discharged. Outpatient Attender: Mary zuniga 09/23/2020 09:20:00 AM EST [facility] Outpatient Attender: Pierce Kebede MDConsultant: Robert [facility] 09/19/2020 01:41:00 PM EST - 09/19/2020 01:41:00 PM [facility] Outpatient Attender: Robert Lucius [place] [facility] 08/29/2020 11:15:0 0 AM EDT [facility] ([facility] Outpatient Attender: Robert Lucius [place] [facility] 05/13/2020 03:00:0 0 PM EDT [facility] ([facility] Outpatient Attender: JATIN ACEVEDO-MOEVE 020 12:00:00 AM EDT - 04/23/2020 10:35:01 AM EDT [facility] Outpatient Referrer: JATIN PRIEST MD 03/25/2020 02:55:04 PM EDT [facility] Outpatient Attender: Robert Kan [place] [facility] 02/27/2020 10:40:0 0 AM EDT [facility] ([facility] Outpatient Attender: Robert KanConsultant: Robert Kan 12/05/2019 01:18:00 PM EST [facility] Outpatient Referrer: Robert Kan 11/09/2019 05:57:00 [...] [facility] Outpatient Attender: Robert Kan [place] [facility] 11/09/2019 12:45:0 0 PM EST [facility] ([facility] Immunizations Vaccine Date Status Description Data Source(s) New in 2012. IIV4 08/29/2020 11:40:00 AM EDT completed [facility] ([facility] Medications Medication Brand Name Start Date Product Form Dose Route Admi nistrative Instructions Pharmacy Instructions Status Indications Reaction Description Data Source(s) Clindamycin 300 MG Oral Capsule Clindamycin HCL 09/26/2020 12:00:00 A M EST ORAL completed [facility] ([facility] Sertraline 50 MG Oral Tablet Sertraline HCL 08/29/2020 12:00:00 AM EDT ORAL active [facility] ([facility] Paroxetine HCL Paroxetine HCL 05/13/2020 12:00:00 AM EDT OR AL completed [facility] ([facility] Insurance Providers Payer name Policy type / Coverage type Policy ID Covered libertarian ID Covered libertarian's relationship to bocanegra Policy Bocanegra Plan Information [employer] OPTIONS [id number] SP [id number] MEDICARE [id number] SP [id number] EMEDNY [id number] SP [id number] A[employer] HE[employer] C[employer] OPTIONS -R [id number] 18 [id number] MEDICARE PART A -O/P [id number] 18 [id number] AARP HEALTH CARE OPTIONS -RECURRING [id number] 18 [id number] MEDICARE PART A [facility] [id number] 18 [id number] [facility] [id number] Charisse [id number] MEDICAID [id number] Charisse [id number] MEDICARE [id number] Charisse [id number] MEDICARE -RECURRING [id number] 18 [id number] MEDICAID -RECURRING [id number] MEDICAID -CLINIC [id number] MEDICARE PART A -O/P [id number] 18 [id number] MEDICAID -CLINIC [id number] AARP O [id number] S [id number] MEDICAID M [id number] S [id number] MEDICARE C [id number] S [id number] [id number] Medicaid Medigap Part B [id number] Self [id number] Aarp Medigap Part B [id number] Self [id number] Medicare Medicare Primary [id number] Self [id number] [facility] [id number] Charisse [id number] MEDICARE [id number] Charisse [id number] MEDICAID [id number] Charisse [id number] [facility] PI PI MEDICARE PI PI MEDICAID [id number] SP [id number] Medicaid Medigap Part B [id number] Self [id number] Medicare Medicare Primary [id number] Self [id number] MEDICAID PI PI Medicaid Medigap Part B [id number] Self [id number] Medicare Medicare Primary [id number] Self [id number] Medicaid Medigap Part B [id number] Self [id number] Medicare Medicare Primary [id number] Self [id number] Medicaid Medigap Part B [id number] Self [id number] Medicare Medicare Primary [id number] Self [id number] Medicaid Medigap Part B [id number] Self [id number] Medicare Medicare Primary [id number] Self [id number] MEDICARE [id number] SP [id number] A [place] Medig[place] Part B [id number] Self [id number] Medicare [place] Gov't Servi Medicare Primary [id number] Self [id number] Medicaid Medigap Part B [id number] Self [id number] Medicare Medicare Primary [id number] Self [id number] MEDICARE C [id number] S [id number] Part B [id number] Self [id number] Medicare [place] Gov't Servi Medicare Primary [id number] Self [id number] MEDICAID -O/P [id number] 18 [id number] [place] Medig[place] Part B [id number] Self [id number] Medicare [place] Gov't Servi Medicare Primary [id number] Self [id number] [facility] () Workers Compensation [id number] Self [id number] [facility]() Workers Compensation [id number] Self [id number] [facility] () Workers Compensation [id number] Self [id number] Family Health Plus Medigap Part B [id number] Self [id number] [place] Medig[place] Part B [id number] Self [id number] Medicare Dme Supplies Medigap Part B [id number] Self [id number] Medicare [facility] Medicare Primary [id number] Self [id number] Medicaid Medigap Part B [id number] Self [id number] Medicare Medicare Primary [id number] Self 06 [id number] Medicaid Medigap Part B [id number] Self [id number] Medicare Medicare Primary [id number] Self 06 [id number] Medicaid Medigap Part B Self Medicare Medicare Primary Self MEDICARE -O/P [id number] 18 [id number] MEDICARE PART A -CLINIC [id number] 18 [id number] MEDICARE [id number] SP [id number] S MEDICARE [id number] SP [id number] S HMO BLUE [id number] SP [id number] Problems, Conditions, and Diagnoses Code Display Name Description Problem Type Effective Dates Data Source(s) R911 Solitary pulmonary nodule Solitary pulmonary nodule Di agnosis 12/13/2020 10:44:00 AM [facility] I517 Cardiomegaly Cardiomegaly Diagnosis 12/13/2020 10:44:00 A M [facility] [id number] Collapsed vertebra, not else where classified, thoracic region, initial encounter for fracture Collapsed vertebra, not elsewhere classi fied, thoracic region, initial encounter for fracture Diagnosis 12/13/2020 10:44:00 A M [facility] R99 Ill-defined and unknown cause of mortali ty Ill-defined and unknown cause of mortality Diagnosis 12/10/2020 09:31:00 AM [facility] [id number] Personal history of nicotine dependence Personal history of nicotine dependence Diagnosis 11/01/2020 12:58:00 PM [facility] Q16050 Contact with and (suspected) exposure to other viral communicable diseases Contact with and (suspected) exposure to other viral communicable diseases Diagnosis 11/01/2020 12:58:00 PM [facility] J40 Bronchitis, not specified as acute or ch ronic Bronchitis, not specified as acute or chronic Diagnosis 11/01/2020 12:58:00 PM [facility] R05 Cough Cough Diagnosis 11/01/2020 12:58:00 PM ES T [facility] K648 Other hemorrhoids Other hemorrhoids Diagnosis 09/30/2020 07:15:00 AM [facility] K5730 Diverticulosis of large inte jazmín without perforation or abscess without bleeding Diverticulosis of large intestine withou t perforation or abscess without bleeding Diagnosis 09/30/2020 07:15:00 AM [facility] Z800 Family history of malignant neoplasm of digestive organs Family history of malignant neoplasm of digestive organs Diagnosis 09/30/2020 07:15:00 A M [facility] K921 Melena Melena Diagnosis 09/30/2020 07:15:00 AM ES T [facility] V17117 Encounter for other preprocedural examin ation Encounter for other preprocedural examination Diagnosis 09/27/2020 10:30:00 AM [facility] Z1211 Encounter for screening for malignant ne oplasm of colon Encounter for screening for malignant neoplasm of colon Diagnosis 09/26/2020 10:48:0 0 AM [facility] Z1159 Encounter for screening for other viral diseases Encounter for screening for other viral diseases Diagnosis 09/26/2020 10:48:00 AM [facility] 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, left hand Primary osteoa rthritis, left hand Diagnosis 12/05/2019 01:18:00 PM [facility] 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 : URSULA Garzon Acct Number.................. : [id number] ROOM. ................. : MR Number ................... : [id number] Stay type ............. : O/P Discharge Date......... ... : 12/13/20 Admit Date ....... .. : 12/13/20 Admit Phys .................... : LUCIUS NEW Date of ....... : 1945 Family Phys ................... : LUCIUS NEW Phone .................. : [phone] Age ................................ : 75 Film# .................. .:[id number] Sex ................................. : F Unsigned transcriptions are preliminary reports and do not represent a medical or legal document CT THORAX W/O CONTRAST [id number] COMPLETE:12/13/20 12:14 KJE 3682 (REASON FOR CHEST: [...] Nir Spencer MD , 12/16/20 10:18, [facility] Transcribe Initials: FREDO , Transcribe Date: 12/14/20 00:41, Dictation Date: Page 1 of 2 [facility] [address] [facility] [address] [place] [address] PHONE: [phone] FAX: [phone] Name .................. : URSULA Garzon Acct Number.................. : [id number] ROOM. ................. : MR Number ................... : [id number] Stay type ............. : O/P Discharge Date......... ... : 12/13/20 Admit Date ......... : 12/13/20 Admit Phys .................... : LUCIUS NEW Date of ....... : 1945 Family Phys ................... : LUCIUS NEW Phone .................. : [phone] Age ................................ : 75 Film# .................. .:[id number] Sex ................................. : F Unsigned transcriptions are preliminary reports and do not represent a medical or legal document CT THORAX W/O CONTRAST [id number] COMPLETE:12/13/20 12:14 KJE 3682 (REASON FOR CHEST: FORMER SMOKER, CONCERN R UPPER LUNG Copy for: LUCIUS JOY via fax Copy for: 710 MED REC Page 2 of 2 Name Value Range Interpretation Code Description Data Danisha rce(s) Supporting Document(s) ID Date Data Source [id number] 12/05/2020 01:44:00 PM EST [facility] Name Value Range Interpretation Code Description Data Danisha rce(s) Supporting Document(s) Thyrotropin [Units/volume] in Serum or Plasma Laboratory test result [facility] ([facility] ID Date Data Source [id number] 12/05/2020 01:43:00 PM EST [facility] ([facility] Name Value Range Interpretation Code Description Data Danisha rce(s) Supporting Document(s) Creatine kinase [Enzymatic activity/volume] in Serum o r Plasma Laboratory test result [facility] ([facility] ID Date Data Source [id number] 11/01/2020 12:58:00 PM EST [facility] 1 OrderSheet [facility] Emergency Department [address] [place] [address] Phone #: ext- [phone] 11/01/2020 12:55 Patient: CHELLE RIVERA Sex: F : 1945 Age: 75yWEIGHT:83.4 kg (S) HEIGHT:64 inches (S) BMI:31.6ALLERGIES: PenicillinsCHIEF COMPLAINT: "hurts all over", "flu", fever, coughDIAGNOSIS: Severe acute respiratory syndrome coronavirusLAB ORDERSOrder Description Priority Entered Acknowledged InitialedCORONAVIRUS STAT 13:14 11/01/2020 13:14 Berkley Coates-19 Kaylee Coates R.N.; R.NHany(Symptomatic as Verbal order per;Defined by CDC) Ayad [...] rce(s) Supporting Document(s) ID Date Data Source [id number] 11/01/2020 12:58:00 PM EST [facility] 1 Medication Reconciliation Report [facility] Emergency Department [address] [place] [address] Phone #: ext- [phone] 11/01/2020 12:55 Patient: [...] 6 tablet. Refills: 0. Substitution permitted.Pharmacy - [facility] [address] - [address] ; [place] [address]. . -- MILE Orellana Name Value Range Interpretation Code Description Data Danisha rce(s) Supporting Document(s) ID Date Data Source [id number] 11/01/2020 12:58:00 PM EST [facility] 1 Medication Administration Record [facility] Emergency Department [address] [place] [address] Phone #: ext- [phone] 11/01/2020 12:55 Patient: CHELLE RIVERA Sex: F : 1945 Age: 75yWeight: 83.4 kgHeight/Length: 64 inBMI: 31.6ALLERGIES: PenicillinsDate/Time Medication Administered Medication Ordered Name Value Range Interpretation Code Description Data Danisha rce(s) Supporting Document(s) ID Date Data Source [id number] 11/01/2020 12:58:00 PM EST [facility] 1 General Instructions [facility] Emergency Department [address] [place] [address] Phone #: ext- [phone] 11/01/2020 12:55 Patient: [...] tablet. Refills: 0. Substitution permitted. Pharmacy - [facility] [id number] - [address] ; [place] [address]. . Follow-up: Follow up with your doctor [...] 19 was first found in people in [facility], in late 2018. In 2020,several cases of COVID-19 have been confirmed in the [place] COVID-19 is a rapidly- emerginginfectious disease. This means that scientists are actively researching it. There are information 2 General Instructions [facility] Emergency Department [address] [place] [address] Phone #: ext- [phone] 11/01/2020 12:55 Patient: CHELLE RIVERA Sex: F [...] pain and reduce fever. 3 General Instructions [facility] Emergency Department [address] [place] [address] Phone #: ext- [phone] 11/01/2020 12:55 Patient: [...] the CDC website atwww.cdc.gov/coronavirus/2019-ncov/travelers. 4 General Instructions [facility] Emergency Department [address] [place] [address] Phone #: ext- [phone] 11/01/2020 12:55 Patient: CHELLE RIVERA Sex: F : 1945 Age: 75yTo help prevent spreading the infection, wash your hands often, or use an alcohol-based hand compliance engineer.The CDC advises that you shouldn't wear a face mask if you are not sick.To protect yourself from COVID-19: Wash your hands often with soap and clean, running water for at least 20 seconds. If you don't have access to soap and water, use an alcohol-based hand compliance engineer often. Make sure it has at least [...] tools with sick people. 5 General Instructions [facility] Emergency Department [address] [place] [address] Phone #: ext- [phone] 11/01/2020 12:55 Patient: [...] to get medical care. 6 General Instructions [facility] Emergency Department [address] [place] [address] Phone #: ext- [phone] 11/01/2020 12:55 Patient: [...] with COVID-19 and your symptoms are worse [phone] [employer]. [address] [place] [address]. All rights reserved. This information is not intended as asubstitute for professional medical care. Always follow your healthcare professional's instructions. You have been given the following additional information: 7 General Instructions [facility] Emergency Department [address] [place] [address] Phone #: ext- [phone] 11/01/2020 12:55 Patient: CHELLE RIVERA Sex: F : 1945 Age: 75y Coronavirus Disease 2019 (COVID-19)(Electronically signed by MILE Orellana 11/01/2020 21:48) Name Value Range Interpretation Code Description Data Danisha rce(s) Supporting Document(s) ID Date Data Source [id number] 11/01/2020 12:58:00 PM EST [facility] 1 Clinical Report - Nurses [facility] Emergency Department [address] [place] [address] Phone #: ext- [phone] 11/01/2020 12:55 Patient: CHELLE RIVERA Sex: F : 1945 Age: 75yTRIAGEArrived by private vehicle. Historian: patient. Unaccompanied. ( body aches, dry cough and feveryesterday).Acuity: LEVEL 3.Chief Complaint: FEVER, COUGH and BODY ACHES.Alert. No acute distress.This started yesterday. She has had a headache. 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 SEPSIS SCREEN NEGATIVE. [...] to the 2 Clinical Report - Nurses [facility] Emergency Department [address] [place] [address] Phone #: ext- [phone] 11/01/2020 12:55 Patient: [...] is warm and dry. Normal skin turgor. --13:05 11/01/20 Kaylee Coates R.N.NURSING PROGRESS NOTESReassurance given. Two [...] Coates R.N. 3 Clinical Report - Nurses [facility] Emergency Department [address] [place] [address] Phone #: ext- [phone] 11/01/2020 12:55 Patient: [...] Patient verbalized understanding. Written instructions provided in Greenlandic. ( covid test results will be called [...] rce(s) Supporting Document(s) ID Date Data Source [id number] 11/01/2020 12:58:00 PM EST [facility] 1 Clinical Report - Physicians/Mid Levels [facility] Emergency Department [address] [place] [address] Phone #: ext- [phone] 11/01/2020 12:55 Patient: [...] Heart sounds normal. 2 Clinical Report - Physicians/[facility] Emergency Department [address] [place] [address] Phone #: ext- [phone] 11/01/2020 12:55 Patient: [...] PROCEDURAL CONTROL VALID KIT LOT # _[id number] 11/01/20.1346.TAD. . . KIT EXP DATE _01.28.21 11/01/20.1346.TAD. . .The Influenza A utilizing an isothermal nucleic acid amplification technology for thequalitative detection of influenza A and B viral RNA.Negative results do not preclude influenza virus infection and should not beused as the sole basis for diagnosis, treatment or other patient managementdecisions..PROGRESS AND PROCEDURESCourse of Care: 13:Nov 01 2020. Evaluation after observation. (discussed negative [...] ibuprofen. 3 Clinical Report - Physicians/Mid Levels [facility] Emergency Department [address] [place] [address] Phone #: ext- [phone] 11/01/2020 12:55 Patient: [...] tablet. Refills: 0. Substitution permitted. Pharmacy - [facility] [address] - [address] ; [place] [address]. . Follow-up: Follow up with your doctor in two weeks if not better. Reason for referral: evaluation and treatment. Summary of care provided to patient. Understanding of the discharge instructions verbalized by patient.(Electronically signed by MILE Orellana 11/01/2020 21:48) Name Value Range Interpretation Code Description Data Danisha rce(s) Supporting Document(s) ID Date Data Source [id number] 11/01/2020 12:58:00 PM EST [facility] CHELLE Westbrook VisitID: [id number] Date: 15:06covid test negative, pt made aware(Electronically signed by Maribel Smith RN - 11/03/2020 15:06) Name Value Range Interpretation Code Description Data Danisha rce(s) Supporting Document(s) ID Date Data Source [id number] 11/01/2020 01:05:00 PM EST [facility] ([facility] Name Value Range Interpretation Code Description Data [facility] rce(s) Supporting Document(s) Coronavirus Covid-19 Laboratory test result [facility] ([facility] This nucleic acid amplification test was developed and its performance characteristics determined by [employer]. Nucleic acid amplification tests include PCR and [...] in this assay. ID Date Data Source [id number] 11/01/2020 01:05:00 PM EST [facility] ([facility] Name Value Range Interpretation Code Description Data Danisha rce(s) Supporting Document(s) Influenza B Laboratory test result [facility] ([facility] Influenza A Laboratory test result M [facility] ([facility] Influenza A Reenter Laboratory test result [facility] ([facility] Influenza B [facility] Laboratory test result [facility] ([facility] <content>PROCEDURAL CONTROL VALID</con tent>
<content>KIT LOT [...] management</content>
<content>decisions.</content>
<content></content> ID Date Data Source [id number] 11/01/2020 01:05:00 PM EST [facility] Name Value Range Interpretation Code Description Data Danisha rce(s) Supporting Document(s) SARS [facility] This lab was ordered by [facility] irina and reported by [facility]. ID Date Data Source [id number] 11/03/2020 02:15:00 PM EST [facility] Name Value Range Interpretation Code Description Data Danisha rce(s) Supporting Document(s) SARS-CoV-2, KIAH Not Detected Not Detected [facility] This nucleic acid amplification test was developed and its performancecharacteristics determined by [employer]. Nucleic acidamplification tests include PCR and TMA. [...] in this assay. ID Date Data Source [id number] 11/01/2020 01:46:00 PM [facility] Name Value Range Interpretation Code Description Data Danisha rce(s) Supporting Document(s) Influenza virus A Ag [Presence] in Nasopharynx by Immuno[place] y NEGATIVE NORMAL: NEGATIVE [facility] Influenza virus B Ag [Presence] in Nasopharynx by Immuno[place] y NEGATIVE NORMAL: NEGATIVE [facility] NEGATIVENEGATIVE PROCEDURAL CO NTROL VALID KIT LOT # _[id number] 11/01/201346.TAD. . . KIT EXP DATE _01.28.21 11/01/206.TAD. . .The Influenza A & B assay is a rapid molecular in vitro diagnostic testutilizing an isothermal nucleic acid amplification technology for thequalitative detection of influenza A and B viral RNA.Negative results do not preclude influenza virus infection and should not beused as the sole basis for diagnosis, treatment or other patient managementdecisions. ID Date Data Source [id number] 09/30/2020 09:03:00 AM [address] [place] [address] OPERATIVE SUMMARYNAME: URSULA Garzon DATE OF : 1945ENDING PHYS: Pierce Kebede MD DATE: 09/30/20 MR#: [id number] PROCEDURE: 09/30/2020PRE- OPERATIVE DIAGNOSIS: Colonoscopy for [...] LOSS: None.IV FLUIDS: Crystalloid.DRAINS: None.COMPLICATIONS: None. [address] [place] [address] OPERATIVE SUMMARYNAME: URSULA Garzon DATE OF : 1945ENDING PHYS: Pierce Kebede MD DATE: 09/30/20 MR#: [id number]:Patient tolerated procedure well, and was sent to the recovery room in good condition.DD: Pierce Kebede MD 09/30/20 08:52DT: LLUVIA 09/30/20 08:59DS: Pierce Kebede MD 10/07/20 11:22 2 Name Value Range Interpretation Code Description Data Danisha rce(s) Supporting Document(s) ID Date Data Source [id number] 09/26/2020 09:30:00 AM EST [facility] ([facility] Name Value Range Interpretation Code Description Data Danisha rce(s) Supporting Document(s) Coronavirus Covid-19 Laboratory test result [facility] ([facility] This nucleic acid amplification test was developed and its performance characteristics determined by [facility]. Nucleic acid amplification tests include PCR [...] in this assay. ID Date Data Source [id number] 09/26/2020 09:30:00 AM [facility] Name Value Range Interpretation Code Description Data Danisha e(s) Supporting Document(s) SARS coronavirus 2 RNA [facility] This lab was ordered by [facility] irina and reported by [facility]. ID Date Data Source [id number] 09/28/2020 07:13:00 AM EST [facility] Name Value Range Interpretation Code Description Data Danisha rce(s) Supporting Document(s) SARS-CoV-2, KIAH Not Detected Not Detected [facility] This nucleic acid amplification test was developed and its performancecharacteristics determined by [facility]. Nucleic acidamplification tests include PCR and TMA. [...] in this assay. ID Date Data Source [id number] 09/23/2020 10:48:00 AM EST [facility] ([facility] Name Value Range Interpretation Code Description Data Danisha rce(s) Supporting Document(s) WBC 6.4 10E3/uL 4.1-10.9 [facility] ([facility] NORMAL RANGES Age WBC RBC [...] HCT IS 5% LESS SOURCE FOR DATA: [employer] 1800 OPERATION MANUAL( AUTOMATED BLOOD COUNTS AND [...] >32 mL/min Normal RBC 4.37 10E6/uL 4.20-6.30 [facility] ([facility] NORMAL RANGES Age WBC RBC [...] HCT IS 5% LESS SOURCE FOR DATA: [employer] 1800 OPERATION MANUAL( AUTOMATED BLOOD COUNTS AND [...] >32 mL/min Normal MCV 90.2 fL 80.0-97.0 [facility] ([facility] NORMAL [...] HCT IS 5% LESS SOURCE FOR DATA: [employer] 1800 OPERATION MANUAL( AUTOMATED BLOOD COUNTS AND [...] HCT IS 5% LESS SOURCE FOR DATA: [employer] 1800 OPERATION MANUAL( AUTOMATED BLOOD COUNTS AND [...] >32 mL/min Normal HCT 39.4 % 37.0-51.0 [facility] NORMAL [...] HCT IS 5% LESS SOURCE FOR DATA: [employer] 1800 OPERATION MANUAL( AUTOMATED BLOOD COUNTS AND [...] >32 mL/min Normal MCHC 33.2 g/dL 31.0-36.0 [facility] ([facility] NORMAL RANGES Age WBC [...] HCT IS 5% LESS SOURCE FOR DATA: [employer] 1800 OPERATION MANUAL( AUTOMATED BLOOD COUNTS AND [...] mL/min Normal MCH 30.0 pg 26.0-32.0 [facility] ([facility] NORMAL RANGES Age WBC [...] HCT IS 5% LESS SOURCE FOR DATA: [employer] 1800 OPERATION MANUAL( AUTOMATED BLOOD COUNTS AND [...] >32 mL/min Normal PLT 214 10E3/uL 140-440 [facility] ([facility] NORMAL RANGES Age WBC RBC [...] HCT IS 5% LESS SOURCE FOR DATA: [employer] 1800 OPERATION MANUAL( AUTOMATED BLOOD COUNTS AND [...] >32 mL/min Normal RDW-CV 12.9 % 11.5-14.5 [facility] ([facility] NORMAL RANGES Age [...] HCT IS 5% LESS SOURCE FOR DATA: [employer] 1800 OPERATION MANUAL( AUTOMATED BLOOD COUNTS AND [...] >32 mL/min Normal Lym% 29.1 % 10.0-58.5 [facility] ([facility] NORMAL RANGES Age [...] HCT IS 5% LESS SOURCE FOR DATA: [employer] 1800 OPERATION MANUAL( AUTOMATED BLOOD COUNTS AND [...] >32 mL/min Normal Neut% 61.4 % 37.0-92.0 [facility] NORMAL [...] HCT IS 5% LESS SOURCE FOR DATA: [employer] 1800 OPERATION MANUAL( AUTOMATED BLOOD COUNTS AND [...] >32 mL/min Normal MXD% 9.5 % 0.1-24.0 [facility] ([facility] NORMAL RANGES Age [...] HCT IS 5% LESS SOURCE FOR DATA: [employer] 1800 OPERATION MANUAL( AUTOMATED BLOOD COUNTS AND [...] >32 mL/min Normal Neut# 3.9 % 2.0-7.8 [facility] ([facility] NORMAL [...] HCT IS 5% LESS SOURCE FOR DATA: [employer] 1800 OPERATION MANUAL( AUTOMATED BLOOD COUNTS AND [...] >32 mL/min Normal Lym# 1.9 10E3/uL 0.6-4.1 NE[facility] ([facility] NORMAL RANGES Age WBC RBC [...] HCT IS 5% LESS SOURCE FOR DATA: [employer] 1800 OPERATION MANUAL( AUTOMATED BLOOD COUNTS AND [...] >32 mL/min Normal MXD# 0.6 10E3/uL 0.0-1.8 [facility] ([facility] NORMAL RANGES Age WBC RBC [...] HCT IS 5% LESS SOURCE FOR DATA: [employer] 1800 OPERATION MANUAL( AUTOMATED BLOOD COUNTS AND [...] MPV 8.6 fL 9.0-13.0 Below low normal [facility] ( [facility] NORMAL RANGES Age [...] HCT IS 5% LESS SOURCE FOR DATA: [employer] 1800 OPERATION MANUAL( AUTOMATED BLOOD COUNTS AND [...] >32 mL/min Normal ID Date Data Source [id number] 09/23/2020 10:48:00 AM EST [facility] ([facility] Name Value Range Interpretation Code Description Data Danisha rce(s) Supporting Document(s) Glu 108 mg/dL 70-110 [facility] ([facility] NORMAL RANGES Age [...] above >32 mL/min Normal BUN 9 mg/dL 8- [facility] ([facility] NORMAL RANGES Age WBC [...] HCT IS 5% LESS SOURCE FOR DATA: [employer] 1800 OPERATION MANUAL( AUTOMATED BLOOD COUNTS AND [...] >32 mL/min Normal Creat 0.9 mg/dL 0.5-1.0 [facility] ([facility] NORMAL [...] HCT IS 5% LESS SOURCE FOR DATA: [employer] 1800 OPERATION MANUAL( AUTOMATED BLOOD COUNTS AND [...] >32 mL/min Normal Na 136 mmol/L 136-145 [facility] NORMAL RANGES Age WBC RBC [...] HCT IS 5% LESS SOURCE FOR DATA: [employer] 1800 OPERATION MANUAL( AUTOMATED BLOOD COUNTS AND [...] above >32 mL/min Normal BUN/Creatinine Ratio 10.0 [facility] ([facility] NORMAL RANGES [...] HCT IS 5% LESS SOURCE FOR DATA: [employer] 1800 OPERATION MANUAL( AUTOMATED BLOOD COUNTS AND [...] >32 mL/min Normal CL 98.7 mmol/L 98.0-107.0 [facility] ([facility] NORMAL RANGES Age WBC RBC [...] HCT IS 5% LESS SOURCE FOR DATA: [employer] 1800 OPERATION MANUAL( AUTOMATED BLOOD COUNTS AND [...] mL/min Normal K 4.9 mmol/L 3.5-5.1 [facility] ([facility] NORMAL RANGES Age WBC RBC [...] HCT IS 5% LESS SOURCE FOR DATA: [employer] 1800 OPERATION MANUAL( AUTOMATED BLOOD COUNTS AND [...] Co2 29.6 mmol/L 22.0-29.0 Above high normal [facility] ([facility] NORMAL RANGES Age WBC RBC [...] HCT IS 5% LESS SOURCE FOR DATA: [employer] 1800 OPERATION MANUAL( AUTOMATED BLOOD COUNTS AND [...] TP 6.5 g/dL 6.6-8.7 Below low normal [facility] ( [facility] NORMAL RANGES Age WBC RBC [...] HCT IS 5% LESS SOURCE FOR DATA: [employer] 1800 OPERATION MANUAL( AUTOMATED BLOOD COUNTS AND [...] >32 mL/min Normal CA 9.7 mg/dL 8.6-10.2 [facility] ([facility] NORMAL RANGES Age WBC [...] >32 mL/min Normal Alb 4.2 g/dL 3.4-4.8 [facility] ([facility] NORMAL RANGES Age [...] HCT IS 5% LESS SOURCE FOR DATA: [employer] 1800 OPERATION MANUAL( AUTOMATED BLOOD COUNTS AND [...] >32 mL/min Normal Globulin 2.3 CALC [facility] ([facility] NORMAL RANGES Age [...] HCT IS 5% LESS SOURCE FOR DATA: [employer] 1800 OPERATION MANUAL( AUTOMATED BLOOD COUNTS AND [...] >32 mL/min Normal A/G Ratio 1.8 CALC [facility] ([facility] NORMAL RANGES Age [...] HCT IS 5% LESS SOURCE FOR DATA: [employer] 1800 OPERATION MANUAL( AUTOMATED BLOOD COUNTS AND [...] >32 mL/min Normal Alp 57.8 U/L 35-129 [facility] ([facility] NORMAL RANGES Age [...] HCT IS 5% LESS SOURCE FOR DATA: [employer] 1800 OPERATION MANUAL( AUTOMATED BLOOD COUNTS AND [...] mL/min Normal Ast (Sgot) 19 U/L 0-40 [facility] ([facility] NORMAL RANGES Age WBC RBC [...] HCT IS 5% LESS SOURCE FOR DATA: [employer] 1800 OPERATION MANUAL( AUTOMATED BLOOD COUNTS AND [...] mL/min Normal Alt (SGPT) 16 U/L 0-41 [facility] ([facility] NORMAL RANGES Age [...] HCT IS 5% LESS SOURCE FOR DATA: [employer] 1800 OPERATION MANUAL( AUTOMATED BLOOD COUNTS AND [...] HCT IS 5% LESS SOURCE FOR DATA: [employer] 1800 OPERATION MANUAL( AUTOMATED BLOOD COUNTS AND [...] >32 mL/min Normal Tbili 0.37 mg/dL 0.0-1.2 [facility] ([facility] NORMAL RANGES Age [...] HCT IS 5% LESS SOURCE FOR DATA: [employer] 1800 OPERATION MANUAL( AUTOMATED BLOOD COUNTS AND [...] >32 mL/min Normal Anion Gap 12 mmol/L [facility] ([facility] NORMAL RANGES Age WBC [...] HCT IS 5% LESS SOURCE FOR DATA: [employer] 1800 OPERATION MANUAL( AUTOMATED BLOOD COUNTS AND [...] and above >32 mL/min Normal eGFR Non-Afr. Czech 63 # [facility] ([facility] NORMAL RANGES Age [...] HCT IS 5% LESS SOURCE FOR DATA: [employer] 1800 OPERATION MANUAL( AUTOMATED BLOOD COUNTS AND [...] mL/min Normal eGFR 74 # [facility] ( [facility] NORMAL RANGES Age [...] HCT IS 5% LESS SOURCE FOR DATA: [employer] DYN 1800 OPERATION MANUAL( AUTOMATED BLOOD COUNTS [...] >32 mL/min Normal ID Date Data Source [id number] 09/23/2020 10:48:00 AM EST NE[facility] ([facility] Name Value Range Interpretation Code Description Data Danisha rce(s) Supporting Document(s) Color Laboratory test result NELL ([facility] NORMAL RANGES Age [...] HCT IS 5% LESS SOURCE FOR DATA: [employer] 1800 OPERATION MANUAL( AUTOMATED BLOOD COUNTS AND [...] >32 mL/min Normal Clarity Laboratory [facility] NORMAL RANGES Age [...] HCT IS 5% LESS SOURCE FOR DATA: [employer] 1800 OPERATION MANUAL( AUTOMATED BLOOD COUNTS AND [...] Normal Glucose-Ua Laboratory test result [facility] ([facility] NORMAL RANGES Age [...] HCT IS 5% LESS SOURCE FOR DATA: [employer] 1800 OPERATION MANUAL( AUTOMATED BLOOD COUNTS AND [...] >32 mL/min Normal Ketone Laboratory test result [facility] ([facility] NORMAL RANGES Age [...] HCT IS 5% LESS SOURCE FOR DATA: [employer] 1800 OPERATION MANUAL( AUTOMATED BLOOD COUNTS AND [...] HCT IS 5% LESS SOURCE FOR DATA: [employer] 1800 OPERATION MANUAL( AUTOMATED BLOOD COUNTS AND [...] Serum or Plas ma 1.015 # 1.000-1.030 [facility] ([facility] NORMAL RANGES [...] HCT IS 5% LESS SOURCE FOR DATA: [employer] 1800 OPERATION MANUAL( AUTOMATED BLOOD COUNTS AND [...] Abnormal (applies to non -numeric results) NE[facility] ([facility] NORMAL RANGES Age [...] HCT IS 5% LESS SOURCE FOR DATA: [employer] 1800 OPERATION MANUAL( AUTOMATED BLOOD COUNTS AND [...] >32 mL/min Normal pH 6.0 # 5.0-8.0 [facility] ([facility] NORMAL RANGES Age WBC [...] HCT IS 5% LESS SOURCE FOR DATA: [employer] 1800 OPERATION MANUAL( AUTOMATED BLOOD COUNTS AND [...] >32 mL/min Normal Protein Laboratory test result [facility] ([facility] NORMAL RANGES Age WBC RBC [...] >32 mL/min Normal Urobilinogen 0.2 NA 0.2-1.0 [employer] ([facility] NORMAL RANGES Age WBC RBC [...] HCT IS 5% LESS SOURCE FOR DATA: [employer] 1800 OPERATION MANUAL( AUTOMATED BLOOD COUNTS AND [...] >32 mL/min Normal Nitrite Laboratory test result [facility] ([facility] NORMAL RANGES Age [...] HCT IS 5% LESS SOURCE FOR DATA: [employer] 1800 OPERATION MANUAL( AUTOMATED BLOOD COUNTS AND [...] result Abnormal (applies to non -numeric results) [facility] ([facility] NORMAL RANGES Age [...] HCT IS 5% LESS SOURCE FOR DATA: [employer] 1800 OPERATION MANUAL( AUTOMATED BLOOD COUNTS AND [...] Comment Laboratory test result Above high normal [facility] ([facility] NORMAL RANGES Age [...] HCT IS 5% LESS SOURCE FOR DATA: [employer] 1800 OPERATION MANUAL( AUTOMATED BLOOD COUNTS AND [...] >32 mL/min Normal ID Date Data Source [id number] 08/29/2020 12:23:00 PM EDT [facility] ([facility] Name Value Range Interpretation Code Description Data Danisha rce(s) Supporting Document(s) Color Urine Laboratory test result M [facility] ([facility] Appearance of Urine Laboratory test result [facility] ([facility] Specific [place] 1.015 1.00-1.03 [facility] ([facility] Glucose Urine Laboratory test result [facility] ([facility] PH Urine 6.0 5.0-8.0 [facility] ([facility] Bilirubin.total [Presence] in Urine by Test strip Laboratory test res ult [facility] ([facility] Ketones Laboratory test result [facility] ([facility] Blood Urine Laboratory test result M [facility] ([facility] Nitrite Laboratory test result [facility] ([facility] Urobilinogen 0.2 EU/dl 0.2-1.0 [facility] ([facility] Protein Urine Laboratory test result [facility] ([facility] Leukocytes Laboratory test result Above high normal [facility] ([facility] ID Date Data Source [id number] 08/29/2020 12:22:00 PM EDT [facility] ([facility] Name Value Range Interpretation Code Description Data Danisha rce(s) Supporting Document(s) Alb 10 mg/L 1-30 [facility] ([facility] A/C Ratio Laboratory test result Abnormal (applies to non -numeric results) [facility] ([facility] Creatinine, Urine 50 mg/dL 10-300 [facility] ([facility] ID Date Data Source [id number] 08/29/2020 11:59:00 AM EDT [facility] ([facility] Name Value Range Interpretation Code Description Data Danisha rce(s) Supporting Document(s) Creatine kinase [Enzymatic activity/volume] in Serum or Plasma 49 U /L 26-192 [facility] ([facility] NORMAL RANGES Age [...] HCT IS 5% LESS SOURCE FOR DATA: [employer] 1800 OPERATION MANUAL( AUTOMATED BLOOD COUNTS AND [...] 2-19 YEARS EXCLUSIVE. ID Date Data Source [id number] 08/29/2020 11:59:00 AM EDT NELL ([facility] Name Value Range Interpretation Code Description Data Danisha rce(s) Supporting Document(s) Chol 189 mg/dL 0-200 [facility] ([facility] NORMAL RANGES Age [...] HCT IS 5% LESS SOURCE FOR DATA: [employer] 1800 OPERATION MANUAL( AUTOMATED BLOOD COUNTS AND [...] 2-19 YEARS EXCLUSIVE. Trig 162 mg/dL 40-200 [facility] ([facility] NORMAL [...] HCT IS 5% LESS SOURCE FOR DATA: [employer] 1800 OPERATION MANUAL( AUTOMATED BLOOD COUNTS AND [...] HCT IS 5% LESS SOURCE FOR DATA: [employer] 1800 OPERATION MANUAL( AUTOMATED BLOOD COUNTS AND [...] in Serum or Plasma 48 mg/dL 45-65 [facility] ([facility] NORMAL RANGES Age [...] 2-19 YEARS EXCLUSIVE. Cho/HDL Ratio 3.9 CALC [facility] ([facility] NORMAL RANGES Age WBC RBC [...] HCT IS 5% LESS SOURCE FOR DATA: [employer] 1800 OPERATION MANUAL( AUTOMATED BLOOD COUNTS AND [...] 2-19 YEARS EXCLUSIVE. ID Date Data Source [id number] 08/29/2020 11:59:00 AM EDT [facility] ([facility] Name Value Range Interpretation Code Description Data Danisha rce(s) Supporting Document(s) Glu 96 mg/dL 70-110 [facility] NORMAL RANGES Age WBC [...] HCT IS 5% LESS SOURCE FOR DATA: [employer] 1800 OPERATION MANUAL( AUTOMATED BLOOD COUNTS AND [...] 2-19 YEARS EXCLUSIVE. Creat 0.8 mg/dL 0.5-1.0 [facility] ([facility] NORMAL [...] HCT IS 5% LESS SOURCE FOR DATA: [employer] 1800 OPERATION MANUAL( AUTOMATED BLOOD COUNTS AND [...] 2-19 YEARS EXCLUSIVE. BUN 13 mg/dL 8-23 [facility] ([facility] NORMAL [...] HCT IS 5% LESS SOURCE FOR DATA: [employer] 1800 OPERATION MANUAL( AUTOMATED BLOOD COUNTS AND [...] AGED 2-19 YEARS EXCLUSIVE. BUN/Creatinine Ratio 15.4 [facility] ([facility] NORMAL RANGES Age WBC [...] HCT IS 5% LESS SOURCE FOR DATA: [employer] 1800 OPERATION MANUAL( AUTOMATED BLOOD COUNTS AND [...] 2-19 YEARS EXCLUSIVE. K 4.5 mmol/L 3.5-5.1 [facility] NORMAL RANGES Age [...] HCT IS 5% LESS SOURCE FOR DATA: [employer] DYN 1800 OPERATION MANUAL( AUTOMATED BLOOD COUNTS [...] HCT IS 5% LESS SOURCE FOR DATA: [employer] 1800 OPERATION MANUAL( AUTOMATED BLOOD COUNTS AND [...] 2-19 YEARS EXCLUSIVE. CL 98.3 mmol/L 98.0-107.0 NE[facility] ([facility] NORMAL RANGES Age WBC RBC [...] HCT IS 5% LESS SOURCE FOR DATA: [employer] 1800 OPERATION MANUAL( AUTOMATED BLOOD COUNTS AND [...] 2-19 YEARS EXCLUSIVE. Co2 23.9 mmol/L 22.0-29.0 angelMD ([facility] NORMAL RANGES Age WBC RBC [...] HCT IS 5% LESS SOURCE FOR DATA: [employer] 1800 OPERATION MANUAL( AUTOMATED BLOOD COUNTS AND [...] HCT IS 5% LESS SOURCE FOR DATA: [employer] 1800 OPERATION MANUAL( AUTOMATED BLOOD COUNTS AND [...] 2-19 YEARS EXCLUSIVE. TP 6.8 g/dL 6.6-8.7 [facility] ([facility] NORMAL RANGES Age WBC [...] HCT IS 5% LESS SOURCE FOR DATA: [employer] 1800 OPERATION MANUAL( AUTOMATED BLOOD COUNTS AND [...] 2-19 YEARS EXCLUSIVE. Alb 4.3 g/dL 3.4-4.8 [facility] ([facility] NORMAL [...] HCT IS 5% LESS SOURCE FOR DATA: [employer] 1800 OPERATION MANUAL( AUTOMATED BLOOD COUNTS AND [...] HCT IS 5% LESS SOURCE FOR DATA: [employer] 1800 OPERATION MANUAL( AUTOMATED BLOOD COUNTS AND [...] 2-19 YEARS EXCLUSIVE. Alp 58.3 U/L 35-129 [facility] ([facility] NORMAL RANGES Age [...] HCT IS 5% LESS SOURCE FOR DATA: [employer] 1800 OPERATION MANUAL( AUTOMATED BLOOD COUNTS AND [...] HCT IS 5% LESS SOURCE FOR DATA: [employer] 1800 OPERATION MANUAL( AUTOMATED BLOOD COUNTS AND [...] YEARS EXCLUSIVE. Ast (Sgot) 19 U/L 0-40 [facility] ([facility] NORMAL RANGES Age [...] HCT IS 5% LESS SOURCE FOR DATA: [employer] DYN 1800 OPERATION MANUAL( AUTOMATED BLOOD COUNTS [...] HCT IS 5% LESS SOURCE FOR DATA: [employer] 1800 OPERATION MANUAL( AUTOMATED BLOOD COUNTS AND [...] HCT IS 5% LESS SOURCE FOR DATA: [employer] 1800 OPERATION MANUAL( AUTOMATED BLOOD COUNTS AND [...] 2-19 YEARS EXCLUSIVE. Anion Gap 17 mmol/L [facility] ([facility] NORMAL [...] HCT IS 5% LESS SOURCE FOR DATA: [employer] DYN 1800 OPERATION MANUAL( AUTOMATED BLOOD COUNTS [...] HCT IS 5% LESS SOURCE FOR DATA: [employer] 1800 OPERATION MANUAL( AUTOMATED BLOOD COUNTS AND [...] INDIVIDUALA AGED 2-19 YEARS EXCLUSIVE. eGFR Non-Afr. Czech 73 # [facility] ([facility] [...] HCT IS 5% LESS SOURCE FOR DATA: [employer] 1800 OPERATION MANUAL( AUTOMATED BLOOD COUNTS AND [...] 2-19 YEARS EXCLUSIVE. ID Date Data Source [id number] 08/29/2020 11:59:00 AM EDT [facility] ([facility] Name Value Range Interpretation Code Description Data Danisha rce(s) Supporting Document(s) WBC 6.8 10E3/uL 4.1-10.9 [facility] ([facility] NORMAL RANGES Age WBC RBC [...] HCT IS 5% LESS SOURCE FOR DATA: [employer] DYN 1800 OPERATION MANUAL( AUTOMATED BLOOD COUNTS [...] HCT IS 5% LESS SOURCE FOR DATA: [employer] 1800 OPERATION MANUAL( AUTOMATED BLOOD COUNTS AND [...] YEARS EXCLUSIVE. RBC 4.40 10E6/uL 4.20-6.30 NE[facility] ([facility] NORMAL RANGES Age WBC RBC [...] HCT IS 5% LESS SOURCE FOR DATA: [employer] 1800 OPERATION MANUAL( AUTOMATED BLOOD COUNTS AND [...] 2-19 YEARS EXCLUSIVE. MCH 30.5 pg 26.0-32.0 [facility] ([facility] NORMAL RANGES [...] HCT IS 5% LESS SOURCE FOR DATA: [employer] 1800 OPERATION MANUAL( AUTOMATED BLOOD COUNTS AND [...] HCT IS 5% LESS SOURCE FOR DATA: [employer] 1800 OPERATION MANUAL( AUTOMATED BLOOD COUNTS AND [...] 2-19 YEARS EXCLUSIVE. HCT 40.0 % 37.0-51.0 [facility] ([facility] NORMAL RANGES Age WBC [...] HCT IS 5% LESS SOURCE FOR DATA: [employer] 1800 OPERATION MANUAL( AUTOMATED BLOOD COUNTS AND [...] 2-19 YEARS EXCLUSIVE. MCHC 33.5 g/dL 31.0-36.0 [facility] ([facility] NORMAL [...] HCT IS 5% LESS SOURCE FOR DATA: [employer] 1800 OPERATION MANUAL( AUTOMATED BLOOD COUNTS AND [...] HCT IS 5% LESS SOURCE FOR DATA: [employer] 1800 OPERATION MANUAL( AUTOMATED BLOOD COUNTS AND [...] 2-19 YEARS EXCLUSIVE. PLT 203 10E3/uL 140-440 [facility] ([facility] NORMAL RANGES Age WBC RBC [...] HCT IS 5% LESS SOURCE FOR DATA: [employer] DYN 1800 OPERATION MANUAL( AUTOMATED BLOOD COUNTS [...] 2-19 YEARS EXCLUSIVE. Neut% 67.5 % 37.0-92.0 [facility] ([facility] NORMAL [...] HCT IS 5% LESS SOURCE FOR DATA: [employer] 1800 OPERATION MANUAL( AUTOMATED BLOOD COUNTS AND [...] HCT IS 5% LESS SOURCE FOR DATA: [employer] 1800 OPERATION MANUAL( AUTOMATED BLOOD COUNTS AND [...] 2-19 YEARS EXCLUSIVE. MXD% 9.8 % 0.1-24.0 [facility] ([facility] NORMAL [...] HCT IS 5% LESS SOURCE FOR DATA: [employer] DYN 1800 OPERATION MANUAL( AUTOMATED BLOOD COUNTS [...] 2-19 YEARS EXCLUSIVE. Neut# 4.6 % 2.0-7.8 [facility] ([facility] NORMAL [...] HCT IS 5% LESS SOURCE FOR DATA: [employer] 1800 OPERATION MANUAL( AUTOMATED BLOOD COUNTS AND [...] YEARS EXCLUSIVE. Lym# 1.5 10E3/uL 0.6-4.1 [facility] ([facility] NORMAL RANGES Age WBC RBC [...] HCT IS 5% LESS SOURCE FOR DATA: [employer] 1800 OPERATION MANUAL( AUTOMATED BLOOD COUNTS AND [...] 2-19 YEARS EXCLUSIVE. MXD# 0.7 10E3/uL 0.0-1.8 [facility] ([facility] NORMAL RANGES Age WBC RBC HGB [...] HCT IS 5% LESS SOURCE FOR DATA: [employer] 1800 OPERATION MANUAL( AUTOMATED BLOOD COUNTS AND [...] MPV 8.9 fL 9.0-13.0 Below low normal [facility] ( [facility] [...] HCT IS 5% LESS SOURCE FOR DATA: [employer] 1800 OPERATION MANUAL( AUTOMATED BLOOD COUNTS AND [...] 2-19 YEARS EXCLUSIVE. ID Date Data Source [id number] 05/13/2020 03:41:00 PM EDT [facility] ([facility] Name Value Range Interpretation Code Description Data Danisha rce(s) Supporting Document(s) Creatine kinase [Enzymatic activity/volume] in Serum or Plasma 100 U/L 26-192 [facility] ([facility] NORMAL RANGES Age WBC RBC [...] HCT IS 5% LESS SOURCE FOR DATA: [employer] 1800 OPERATION MANUAL( AUTOMATED BLOOD COUNTS AND [...] >32 mL/min Normal ID Date Data Source [id number] 05/13/2020 03:41:00 PM EDT [facility] ([facility] Name Value Range Interpretation Code Description Data Danisha rce(s) Supporting Document(s) Creat 1.0 mg/dL 0.5-1.0 [facility] ([facility] NORMAL RANGES Age [...] HCT IS 5% LESS SOURCE FOR DATA: [employer] 1800 OPERATION MANUAL( AUTOMATED BLOOD COUNTS AND [...] above >32 mL/min Normal BUN 13 mg/dL 8- [facility] NORMAL RANGES Age [...] HCT IS 5% LESS SOURCE FOR DATA: [employer] 1800 OPERATION MANUAL( AUTOMATED BLOOD COUNTS AND [...] >32 mL/min Normal Glu 97 mg/dL 70-110 [facility] ([facility] NORMAL RANGES Age [...] HCT IS 5% LESS SOURCE FOR DATA: [employer] 1800 OPERATION MANUAL( AUTOMATED BLOOD COUNTS AND [...] >32 mL/min Normal K 4.2 mmol/L 3.5-5.1 [facility] ([facility] NORMAL RANGES Age [...] HCT IS 5% LESS SOURCE FOR DATA: [employer] 1800 OPERATION MANUAL( AUTOMATED BLOOD COUNTS AND [...] >32 mL/min Normal Na 139 mmol/L 136-145 [facility] ([facility] NORMAL RANGES [...] HCT IS 5% LESS SOURCE FOR DATA: [employer] 1800 OPERATION MANUAL( AUTOMATED BLOOD COUNTS AND [...] >32 mL/min Normal BUN/Creatinine Ratio 13.4 CALC [facility] ([facility] NORMAL RANGES [...] HCT IS 5% LESS SOURCE FOR DATA: [employer] 1800 OPERATION MANUAL( AUTOMATED BLOOD COUNTS AND [...] >32 mL/min Normal Co2 28.0 mmol/L 22.0-29.0 [facility] ([facility] NORMAL RANGES Age WBC RBC [...] HCT IS 5% LESS SOURCE FOR DATA: [employer] 1800 OPERATION MANUAL( AUTOMATED BLOOD COUNTS AND [...] >32 mL/min Normal CA 9.9 mg/dL 8.6-10.2 [facility] NORMAL RANGES Age WBC [...] HCT IS 5% LESS SOURCE FOR DATA: [employer] 1800 OPERATION MANUAL( AUTOMATED BLOOD COUNTS AND [...] >32 mL/min Normal CL 100.4 mmol/L 98.0-107.0 [facility] ([facility] NORMAL RANGES Age WBC RBC [...] >32 mL/min Normal Alb 4.4 g/dL 3.4-4.8 [facility] ([facility] NORMAL RANGES Age [...] >32 mL/min Normal TP 7.0 g/dL 6.6-8.7 [facility] ([facility] NORMAL RANGES Age [...] HCT IS 5% LESS SOURCE FOR DATA: [employer] 1800 OPERATION MANUAL( AUTOMATED BLOOD COUNTS AND [...] >32 mL/min Normal A/G Ratio 1.7 CALC [facility] ([facility] NORMAL RANGES Age [...] HCT IS 5% LESS SOURCE FOR DATA: [employer] 1800 OPERATION MANUAL( AUTOMATED BLOOD COUNTS AND [...] >32 mL/min Normal Globulin 2.6 CALC [facility] ([facility] NORMAL RANGES Age [...] HCT IS 5% LESS SOURCE FOR DATA: [employer] 1800 OPERATION MANUAL( AUTOMATED BLOOD COUNTS AND [...] mL/min Normal Alt (SGPT) 21 U/L 0-41 [facility] ([facility] NORMAL RANGES Age [...] HCT IS 5% LESS SOURCE FOR DATA: [employer] 1800 OPERATION MANUAL( AUTOMATED BLOOD COUNTS AND [...] HCT IS 5% LESS SOURCE FOR DATA: [employer] 1800 OPERATION MANUAL( AUTOMATED BLOOD COUNTS AND [...] mL/min Normal Ast (Sgot) 25 U/L 0-40 [facility] ([facility] NORMAL RANGES Age WBC RBC [...] HCT IS 5% LESS SOURCE FOR DATA: [employer] 1800 OPERATION MANUAL( AUTOMATED BLOOD COUNTS AND [...] mL/min Normal Osmolality-Calculated 278.4 [facility]C [facility] ([facility] NORMAL RANGES Age WBC RBC [...] HCT IS 5% LESS SOURCE FOR DATA: [employer] 1800 OPERATION MANUAL( AUTOMATED BLOOD COUNTS AND [...] >32 mL/min Normal Tbili 0.57 mg/dL 0.0-1.2 [facility] ([facility] NORMAL RANGES Age WBC RBC HGB [...] HCT IS 5% LESS SOURCE FOR DATA: [employer] 1800 OPERATION MANUAL( AUTOMATED BLOOD COUNTS AND [...] above >32 mL/min Normal eGFR 65 # [facility] ( [facility] NORMAL RANGES Age [...] and above >32 mL/min Normal eGFR Non-Afr. Czech 56 # [facility] ([facility] NORMAL [...] >32 mL/min Normal Anion Gap 15 mmol/L [facility] ([facility] NORMAL RANGES Age WBC [...] HCT IS 5% LESS SOURCE FOR DATA: [employer] 1800 OPERATION MANUAL( AUTOMATED BLOOD COUNTS AND [...] >32 mL/min Normal ID Date Data Source [id number] 05/13/2020 03:41:00 PM EDT [facility] ([facility] Name Value Range Interpretation Code Description Data Danisha rce(s) Supporting Document(s) Erythrocyte sedimentation rate by Westergren method 7 mm/hr 0-19 [facility] ([facility] NORMAL RANGES Age [...] HCT IS 5% LESS SOURCE FOR DATA: [employer] 1800 OPERATION MANUAL( AUTOMATED BLOOD COUNTS AND [...] >32 mL/min Normal ID Date Data Source [id number] 05/13/2020 03:41:00 PM EDT [facility] ([facility] Name Value Range Interpretation Code Description Data Danisha rce(s) Supporting Document(s) WBC 8.2 10E3/uL 4.1-10.9 [facility] ([facility] NORMAL RANGES Age WBC RBC [...] HCT IS 5% LESS SOURCE FOR DATA: [employer] 1800 OPERATION MANUAL( AUTOMATED BLOOD COUNTS AND [...] >32 mL/min Normal HCT 40.8 % 37.0-51.0 [facility] ([facility] NORMAL [...] HCT IS 5% LESS SOURCE FOR DATA: [employer] 1800 OPERATION MANUAL( AUTOMATED BLOOD COUNTS AND [...] >32 mL/min Normal RBC 4.49 10E6/uL 4.20-6.30 [facility] ([facility] NORMAL RANGES Age WBC RBC [...] HCT IS 5% LESS SOURCE FOR DATA: [employer] 1800 OPERATION MANUAL( AUTOMATED BLOOD COUNTS AND [...] >32 mL/min Normal HGB 13.8 g/dL 12.0-18.0 [facility] ([facility] NORMAL RANGES Age WBC RBC HGB [...] HCT IS 5% LESS SOURCE FOR DATA: [employer] 1800 OPERATION MANUAL( AUTOMATED BLOOD COUNTS AND [...] >32 mL/min Normal MCH 30.7 pg 26.0-32.0 [facility] ([facility] NORMAL RANGES Age [...] >32 mL/min Normal MCHC 33.8 g/dL 31.0-36.0 [facility] ([facility] NORMAL RANGES Age [...] HCT IS 5% LESS SOURCE FOR DATA: [employer] 1800 OPERATION MANUAL( AUTOMATED BLOOD COUNTS AND [...] >32 mL/min Normal MCV 90.9 fL 80.0-97.0 [facility] ([facility] NORMAL RANGES [...] HCT IS 5% LESS SOURCE FOR DATA: [employer] 1800 OPERATION MANUAL( AUTOMATED BLOOD COUNTS AND [...] >32 mL/min Normal Lym% 24.2 % 10.0-58.5 [facility] ([facility] NORMAL RANGES Age [...] HCT IS 5% LESS SOURCE FOR DATA: [employer] 1800 OPERATION MANUAL( AUTOMATED BLOOD COUNTS AND [...] >32 mL/min Normal RDW-CV 12.8 % 11.5-14.5 [facility] ([facility] NORMAL RANGES [...] HCT IS 5% LESS SOURCE FOR DATA: [employer] 1800 OPERATION MANUAL( AUTOMATED BLOOD COUNTS AND [...] >32 mL/min Normal PLT 230 10E3/uL 140-440 [facility] ([facility] NORMAL RANGES Age WBC RBC [...] HCT IS 5% LESS SOURCE FOR DATA: [employer] 1800 OPERATION MANUAL( AUTOMATED BLOOD COUNTS AND [...] HCT IS 5% LESS SOURCE FOR DATA: [employer] 1800 OPERATION MANUAL( AUTOMATED BLOOD COUNTS AND [...] >32 mL/min Normal Lym# 2.0 10E3/uL 0.6-4.1 [facility] ([facility] NORMAL RANGES Age WBC RBC [...] HCT IS 5% LESS SOURCE FOR DATA: [employer] DYN 1800 OPERATION MANUAL( AUTOMATED BLOOD COUNTS [...] >32 mL/min Normal MXD% 8.6 % 0.1-24.0 [facility] ([facility] NORMAL RANGES Age [...] HCT IS 5% LESS SOURCE FOR DATA: [employer] 1800 OPERATION MANUAL( AUTOMATED BLOOD COUNTS AND [...] MPV 8.7 fL 9.0-13.0 Below low normal [facility] ( [facility] NORMAL RANGES Age [...] HCT IS 5% LESS SOURCE FOR DATA: [employer] 1800 OPERATION MANUAL( AUTOMATED BLOOD COUNTS AND [...] >32 mL/min Normal MXD# 0.7 10E3/uL 0.0-1.8 [facility] ([facility] NORMAL RANGES Age WBC RBC [...] HCT IS 5% LESS SOURCE FOR DATA: [employer] 1800 OPERATION MANUAL( AUTOMATED BLOOD COUNTS AND [...] >32 mL/min Normal Neut# 5.5 % 2.0-7.8 [facility] ([facility] NORMAL RANGES Age [...] >32 mL/min Normal ID Date Data Source [id number] 04/25/2020 02:06:10 PM [facility] Name Date of Age Gend*PT [id number] Chelle Rivera 1945 75 years F ---PT Location Admission Date/Time Visit ID Attending Provider --- --- --- --- EPI ID CSN Admitting Jennifer tirado [id number] ---CT Follow UpAssessment/Plan: Status post repair of [...] arrest 1997 Prior to gallbladder surgery at [facility] in [place]; hasundergone subsequent cholecystectomy as well as bilateral [...] on phone: None Gets together: None Attends judaism service: None Active member of club or [...] rce(s) Supporting Document(s) ID Date Data Source [id number] 04/23/2020 08:52:00 AM EDT [facility] WO IV CONTRASTCLINICAL HISTORY: [...] rce(s) Supporting Document(s) ID Date Data Source [id number] 02/27/2020 11:13:00 AM EDT [facility] ([facility] [...] HCT IS 5% LESS SOURCE FOR DATA: [employer] 1800 OPERATION MANUAL( AUTOMATED BLOOD COUNTS AND DIFF.) APPENDIX B-3 Chol 191 mg/dL 0-200 [facility] ([facility] CLASSIFICATION CHOLESTEROL FO [...] HCT IS 5% LESS SOURCE FOR DATA: [employer] 1800 OPERATION MANUAL( AUTOMATED BLOOD COUNTS AND [...] HCT IS 5% LESS SOURCE FOR DATA: [employer] 1800 OPERATION MANUAL( AUTOMATED BLOOD COUNTS AND DIFF.) APPENDIX B-3 LDL_C 112 Calc 75-129 [facility] CLASSIFICATION CHOLESTEROL FO R [...] Cho/HDL Ratio 4.2 Calc [facility] ([facility] CLASSIFICATION CHOLESTEROL FO R ADULTS [...] HCT IS 5% LESS SOURCE FOR DATA: [employer] 1800 OPERATION MANUAL( AUTOMATED BLOOD COUNTS AND DIFF.) APPENDIX B-3 ID Date Data Source [id number] 02/27/2020 11:13:00 AM EDT [facility] ([facility] Name Value Range Interpretation Code Description Data Danisha rce(s) Supporting Document(s) Creatine kinase [Enzymatic activity/volume] in Serum or Plasma 49 U /L 26-192 [facility] ([facility] CLASSIFICATION CHOLESTEROL FO [...] HCT IS 5% LESS SOURCE FOR DATA: [employer] DYN 1800 OPERATION MANUAL( AUTOMATED BLOOD COUNTS AND DIFF.) APPENDIX B-3 ID Date Data Source [id number] 02/27/2020 11:13:00 AM EDT [facility] ([facility] Name Value Range Interpretation Code Description Data Danisha rce(s) Supporting Document(s) Glu 112 mg/dL 70-110 Above high normal [facility] ([facility] CLASSIFICATION CHOLESTEROL FO [...] DIFF.) APPENDIX B-3 BUN 14 mg/dL 06-30 [facility] ([facility] CLASSIFICATION CHOLESTEROL FO R ADULTS [...] DIFF.) APPENDIX B-3 BUN/Creatinine Ratio 17.1 CALC [facility] ([facility] CLASSIFICATION CHOLESTEROL [...] HCT IS 5% LESS SOURCE FOR DATA: [employer] 1800 OPERATION MANUAL( AUTOMATED BLOOD COUNTS AND DIFF.) APPENDIX B-3 Na 134 mmol/L 136-145 Below low normal [facility] ( [facility] CLASSIFICATION [...] HCT IS 5% LESS SOURCE FOR DATA: [employer] 1800 OPERATION MANUAL( AUTOMATED BLOOD COUNTS AND DIFF.) APPENDIX B-3 K 4.5 mmol/L 3.5-5.1 [facility] ([facility] CLASSIFICATION CHOLESTEROL FO [...] HCT IS 5% LESS SOURCE FOR DATA: [employer] 1800 OPERATION MANUAL( AUTOMATED BLOOD COUNTS AND [...] HCT IS 5% LESS SOURCE FOR DATA: [employer] 1800 OPERATION MANUAL( AUTOMATED BLOOD COUNTS AND DIFF.) APPENDIX B-3 Co2 25.2 mmol/L 22.0-29.0 [facility] ([facility] CLASSIFICATION CHOLESTEROL FO R ADULTS [...] HCT IS 5% LESS SOURCE FOR DATA: KTAI DYN 1800 OPERATION MANUAL( AUTOMATED BLOOD COUNTS AND DIFF.) APPENDIX B-3 TP 7.2 g/dL 6.6-8.7 [facility] ([facility], [...] DIFF.) APPENDIX B-3 CA 10.0 mg/dL 8.6-10.2 [facility] ([facility] CLASSIFICATION CHOLESTEROL FO R ADULTS [...] HCT IS 5% LESS SOURCE FOR DATA: [employer] 1800 OPERATION MANUAL( AUTOMATED BLOOD COUNTS AND [...] HCT IS 5% LESS SOURCE FOR DATA: [employer] DYN 1800 OPERATION MANUAL( AUTOMATED BLOOD COUNTS AND DIFF.) APPENDIX B-3 Globulin 2.1 CALC [facility] ([facility] [...] APPENDIX B-3 A/G Ratio 2.4 CALC [facility] ([facility] CLASSIFICATION CHOLESTEROL FO [...] HCT IS 5% LESS SOURCE FOR DATA: [employer] DYN 1800 OPERATION MANUAL( AUTOMATED BLOOD COUNTS AND DIFF.) APPENDIX B-3 Alp 65.3 U/L 35-129 [facility] ([facility] CLASSIFICATION CHOLESTEROL FO [...] HCT IS 5% LESS SOURCE FOR DATA: [employer] DYN 1800 OPERATION MANUAL( AUTOMATED BLOOD COUNTS AND DIFF.) APPENDIX B-3 Alt (SGPT) 18 U/L 0-41 [facility] CLASSIFICATION CHOLESTEROL FO [...] APPENDIX B-3 Ast (Sgot) 21 U/L 0-40 [facility] ([facility] CLASSIFICATION CHOLESTEROL FO R ADULTS [...] HCT IS 5% LESS SOURCE FOR DATA: [employer] DYN 1800 OPERATION MANUAL( AUTOMATED BLOOD COUNTS AND DIFF.) APPENDIX B-3 Tbili 0.49 mg/dL 0.0-1.2 [facility] CLASSIFICATION CHOLESTEROL FO [...] HCT IS 5% LESS SOURCE FOR DATA: [employer] 1800 OPERATION MANUAL( AUTOMATED BLOOD COUNTS AND DIFF.) APPENDIX B-3 Anion Gap 18 mmol/L [facility] ([facility] CLASSIFICATION CHOLESTEROL FO [...] HCT IS 5% LESS SOURCE FOR DATA: [employer] DYN 1800 OPERATION MANUAL( AUTOMATED BLOOD COUNTS [...] HCT IS 5% LESS SOURCE FOR DATA: [employer] 1800 OPERATION MANUAL( AUTOMATED BLOOD COUNTS AND DIFF.) APPENDIX B-3 eGFR Non-Afr. Czech 73 # [facility] ([facility] [...] HCT IS 5% LESS SOURCE FOR DATA: [employer] 1800 OPERATION MANUAL( AUTOMATED BLOOD COUNTS AND DIFF.) APPENDIX B-3 ID Date Data Source [id number] 02/27/2020 11:13:00 AM EDT [facility] ([facility] Name Value Range Interpretation Code Description Data Danisha rce(s) Supporting Document(s) WBC 7.6 10E3/uL 4.1-10.9 [facility] ([facility] CLASSIFICATION CHOLESTEROL FO R ADULTS [...] HCT IS 5% LESS SOURCE FOR DATA: [employer] 1800 OPERATION MANUAL( AUTOMATED BLOOD COUNTS AND [...] DIFF.) APPENDIX B-3 RBC 4.58 10E6/uL 4.20-6.30 [facility] ([facility] CLASSIFICATION CHOLESTEROL FO R [...] HCT IS 5% LESS SOURCE FOR DATA: [employer] 1800 OPERATION MANUAL( AUTOMATED BLOOD COUNTS AND [...] HCT IS 5% LESS SOURCE FOR DATA: [employer] DYN 1800 OPERATION MANUAL( AUTOMATED BLOOD COUNTS AND DIFF.) APPENDIX B-3 MCH 29.9 pg 26.0-32.0 [facility] ([facility] CLASSIFICATION CHOLESTEROL FO [...] HCT IS 5% LESS SOURCE FOR DATA: [employer] 1800 OPERATION MANUAL( AUTOMATED BLOOD COUNTS AND DIFF.) APPENDIX B-3 PLT 209 10E3/uL 140-440 [facility] ([facility] CLASSIFICATION CHOLESTEROL FO R ADULTS [...] DIFF.) APPENDIX B-3 RDW-CV 12.4 % 11.5-14.5 [facility] ([facility] CLASSIFICATION CHOLESTEROL FO R [...] HCT IS 5% LESS SOURCE FOR DATA: [employer] DYN 1800 OPERATION MANUAL( AUTOMATED BLOOD COUNTS AND DIFF.) APPENDIX B-3 Lym% 23.7 % 10.0-58.5 [facility] ([facility] CLASSIFICATION CHOLESTEROL FO [...] HCT IS 5% LESS SOURCE FOR DATA: [employer] 1800 OPERATION MANUAL( AUTOMATED BLOOD COUNTS AND [...] HCT IS 5% LESS SOURCE FOR DATA: [employer] 1800 OPERATION MANUAL( AUTOMATED BLOOD COUNTS AND DIFF.) APPENDIX B-3 Neut% 66.4 % 37.0-92.0 [facility] ([facility] [...] HCT IS 5% LESS SOURCE FOR DATA: [employer] 1800 OPERATION MANUAL( AUTOMATED BLOOD COUNTS AND DIFF.) APPENDIX B-3 Lym# 1.8 10E3/uL 0.6-4.1 [facility] ([facility] CLASSIFICATION CHOLESTEROL FO R ADULTS [...] HCT IS 5% LESS SOURCE FOR DATA: [employer] 1800 OPERATION MANUAL( AUTOMATED BLOOD COUNTS AND DIFF.) APPENDIX B-3 MXD# 0.8 10E3/uL 0.0-1.8 [facility] ([facility] CLASSIFICATION CHOLESTEROL FO R ADULTS [...] HCT IS 5% LESS SOURCE FOR DATA: [employer] 1800 OPERATION MANUAL( AUTOMATED BLOOD COUNTS AND DIFF.) APPENDIX B-3 Neut# 5.0 % 2.0-7.8 [facility] ([facility] CLASSIFICATION CHOLESTEROL FO R [...] IS 5% LESS SOURCE FOR DATA: KATI SSEV 1800 OPERATION MANUAL( AUTOMATED BLOOD COUNTS AND DIFF.) APPENDIX B-3 MPV 9.5 fL 9.0-13.0 [facility] ([facility] CLASSIFICATION [...] DIFF.) APPENDIX B-3 ID Date Data Source [id number] 12/20/2019 12:04:00 [place] [address] PROGRESS NOTENAME: URSULA Garzon ROOM#:DATE OF : 1945 MR#: [id number] DATE: 12/05/19 OF SERVICE: 12/20/19Patient telephoned to cancel today's scheduled appointment.DD: Christopher Olivera, OT/L, CHT 12/20/19 11:41DT: DMZ 12/20/19 12:03DS: Christopher Olivera, OT/L, CHT 01/01/20 12:06 1 Name Value Range Interpretation Code Description Data Danisha rce(s) Supporting Document(s) ID Date Data Source [id number] 12/14/2019 10:30:00 [place] [address] PROGRESS NOTENAME: URSULA Garzon ROOM#:DATE OF : 1945 MR#: [id number] DATE: 12/05/19 OF SERVICE: 12/14/19Patient telephoned to cancel today's scheduled appointment due to the weather.DD: Christopher Olivera, OT/L, CHT 12/14/19 10:25DT: DMZ 12/14/19 10:30DS: Christopher Milneritto, OT/L, CHT 12/15/19 08:09 1 Name Value Range Interpretation Code Description Data Danisha rce(s) Supporting Document(s) ID Date Data Source [id number] 12/11/2019 08:02:00 [place] [address] PROGRESS NOTENAME: URSULA Garzon ROOM#:DATE OF : 1945 MR#: [id number] DATE: 12/05/19 THERAPY (HAND THERAPY PROGRAM)INITIAL EVALUATION & TREATMENT:DATE OF SERVICE: 12/05/2019Time start: 1345 Time end: 1445 (60 min - evaluation 20 min, exercise 40 min.)ALLERGIES: PENICILLIN, NAPROXEN.DX: Osteoarthritis bilateral hands.REFERRED BY: Dr. Robert Kan of [facility].RECERTIFICATION/REASSESSMENT TO BE COMPLETED: 01/05/2020.PROCEDURE CODES: [id number], [id number].INSURANCE: Medicare.SUBJECTIVE:Identity verified with two identifiers. 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 She wasreferred by Dr. Kan with osteoarthritis bilateral hands. She presents with 4/10 pain bilateral dorsalMCP joints 2-5 at rest and with range of motion, including bilateral dorsolateral wrists with range ofmotion. Active range of motion is normal bilaterally except right digit #2 is lacking 2.5 cm from tip of [address] [place] [address] PROGRESS NOTENAME: URSULA Garzon ROOM#:DATE OF : 1945 MR#: [id number] DATE: 12/05/19 to distal palmar crease. Linden's [...] digit #2 composite flexion to within normal limits.FORENSIC SCIENTIST GOAL (To be achieved by D/C):1. Restore full functional use of bilateral upper extremities with all daily occupations free from difficulty and discomfort. [address] [place] [address] PROGRESS NOTENAME: URSULA Garzon ROOM#:DATE OF : 1945 MR#: [id number] DATE: 12/05/19 goals formulated with patient collaboration.I [...] withoutquestions at the end of today's session.DD: DAPHNEY Vásquez, CHT 12/08/19 09:26DT: LLUVIA 12/11/19 07:48DS: DAPNHEY Vásquez, CHT 12/15/19 07:56 Signature: Dr. Robert Kan 3 Name Value Range Interpretation Code Description Data Danisha rce(s) Supporting Document(s) ID Date Data Source [id number] 11/09/2019 12:00:00 AM EST [facility] ology Imaging Robert Lucius DO Patient Name: ABI RIVERA [facility] Date of : 1945[place] [address] Date of Exam: 11/09/2019#: Fax: [phone] EXAM: [...] rce(s) Supporting Document(s) ID Date Data Source [id number] 11/09/2019 02:16:00 PM EST [facility] ([facility] Name Value Range Interpretation Code Description Data Danisha rce(s) Supporting Document(s) Color Urine YELLOW [facility] ([facility] Appearance of Urine CLEAR [facility] ([facility] Specific [place] 1.015 1.00-1.03 [facility] ([facility] Glucose Urine NEG [facility] ([facility] PH Urine 5.5 5.0-8.0 [facility] ([facility] Bilirubin.total [Presence] in Urine by Test strip NEG [facility] ([facility] Ketones NEG [facility] ([facility] Blood Urine NEG [facility] ([facility] Urobilinogen 0.2 EU/dl 0.2-1.0 [facility] ([facility] Protein Urine NEG [facility] ([facility] Nitrite NEG [facility] Leukocytes NEG [facility] ([facility] ID Date Data Source [id number] 11/09/2019 02:16:00 PM EST [facility] ([facility] Name Value Range Interpretation Code Description Data Danisha rce(s) Supporting Document(s) Hemoglobin A1c/Hemoglobin.total in Blood 5.8 % 4.50-6.20 [facility] ([facility] ID Date Data Source [id number] 11/09/2019 02:15:00 PM EST [facility] ([facility] Name Value Range Interpretation Code Description Data Danisha rce(s) Supporting Document(s) Creatine kinase [Enzymatic activity/volume] in Serum or Plasma 78 U /L 26-192 [facility] CLASSIFICATION CHOLESTEROL FO [...] HCT IS 5% LESS SOURCE FOR DATA: [employer] 1800 OPERATION MANUAL( AUTOMATED BLOOD COUNTS AND DIFF.) APPENDIX B-3 ID Date Data Source [id number] 11/09/2019 02:15:00 PM EST [facility] ([facility] Name Value Range Interpretation Code Description Data Danisha rce(s) Supporting Document(s) Chol 218 mg/dL 0-200 Above high normal [facility] ([facility] CLASSIFICATION CHOLESTEROL FO [...] HCT IS 5% LESS SOURCE FOR DATA: [employer] DYN 1800 OPERATION MANUAL( AUTOMATED BLOOD COUNTS [...] Trig 302 mg/dL 40-200 Above high normal [facility] CLASSIFICATION CHOLESTEROL FO [...] HCT IS 5% LESS SOURCE FOR DATA: [employer] 1800 OPERATION MANUAL( AUTOMATED BLOOD COUNTS AND DIFF.) APPENDIX B-3 Cho/HDL Ratio 5.0 CALC [facility] CLASSIFICATION CHOLESTEROL FO R ADULTS [...] HCT IS 5% LESS SOURCE FOR DATA: [employer] 1800 OPERATION MANUAL( AUTOMATED BLOOD COUNTS AND DIFF.) APPENDIX B-3 LDL_C 114 Calc 75-129 [facility] CLASSIFICATION [...] HCT IS 5% LESS SOURCE FOR DATA: [employer] DYN 1800 OPERATION MANUAL( AUTOMATED BLOOD COUNTS AND DIFF.) APPENDIX B-3 ID Date Data Source [id number] 11/09/2019 02:15:00 PM EST [facility] ([facility] Name Value Range Interpretation Code Description Data Danisha rce(s) Supporting Document(s) Glu 107 mg/dL 70-110 [facility] ([facility] CLASSIFICATION CHOLESTEROL FO [...] AND DIFF.) APPENDIX B-3 BUN 13 mg/dL 8- [facility] CLASSIFICATION CHOLESTEROL FO [...] HCT IS 5% LESS SOURCE FOR DATA: [employer] 1800 OPERATION MANUAL( AUTOMATED BLOOD COUNTS AND DIFF.) APPENDIX B-3 Na 138 mmol/L 136-145 [facility] ([facility] CLASSIFICATION CHOLESTEROL FO R ADULTS [...] APPENDIX B-3 BUN/Creatinine Ratio 16.3 CALC [facility] ([facility] CLASSIFICATION CHOLESTEROL [...] APPENDIX B-3 K 5.0 mmol/L 3.5-5.1 [facility] CLASSIFICATION CHOLESTEROL FO [...] HCT IS 5% LESS SOURCE FOR DATA: [employer] 1800 OPERATION MANUAL( AUTOMATED BLOOD COUNTS AND [...] HCT IS 5% LESS SOURCE FOR DATA: [employer] 1800 OPERATION MANUAL( AUTOMATED BLOOD COUNTS AND DIFF.) APPENDIX B-3 Co2 28.7 mmol/L 22.0-29.0 [facility] ([facility] CLASSIFICATION CHOLESTEROL FO R ADULTS [...] HCT IS 5% LESS SOURCE FOR DATA: [employer] DYN 1800 OPERATION MANUAL( AUTOMATED BLOOD COUNTS AND DIFF.) APPENDIX B-3 CA 9.7 mg/dL 8.6-10.2 [facility] ([facility] CLASSIFICATION CHOLESTEROL FO R [...] HCT IS 5% LESS SOURCE FOR DATA: [employer] DYN 1800 OPERATION MANUAL( AUTOMATED BLOOD COUNTS AND DIFF.) APPENDIX B-3 TP 7.1 g/dL 6.6-8.7 [facility] CLASSIFICATION CHOLESTEROL FO [...] HCT IS 5% LESS SOURCE FOR DATA: [employer] DYN 1800 OPERATION MANUAL( AUTOMATED BLOOD COUNTS [...] DIFF.) APPENDIX B-3 Alp 78.4 U/L 35-129 [facility] CLASSIFICATION CHOLESTEROL FO [...] HCT IS 5% LESS SOURCE FOR DATA: [employer] 1800 OPERATION MANUAL( AUTOMATED BLOOD COUNTS AND DIFF.) APPENDIX B-3 Globulin 3.0 CALC [facility] CLASSIFICATION CHOLESTEROL FO [...] APPENDIX B-3 Alt (SGPT) 21 U/L 0-41 [facility] ([facility] CLASSIFICATION CHOLESTEROL FO R ADULTS [...] APPENDIX B-3 Ast (Sgot) 24 U/L 0-40 [facility] ([facility] CLASSIFICATION CHOLESTEROL FO R ADULTS [...] DIFF.) APPENDIX B-3 Tbili 0.33 mg/dL 0.0-1.2 [facility] ([facility] CLASSIFICATION CHOLESTEROL [...] DIFF.) APPENDIX B-3 Anion Gap 15 mmol/L [facility] CLASSIFICATION CHOLESTEROL FO [...] HCT IS 5% LESS SOURCE FOR DATA: [employer] 1800 OPERATION MANUAL( AUTOMATED BLOOD COUNTS AND [...] HCT IS 5% LESS SOURCE FOR DATA: [employer] 1800 OPERATION MANUAL( AUTOMATED BLOOD COUNTS AND DIFF.) APPENDIX B-3 eGFR Non-Afr. Czech 73 # [facility] ([facility] CKD-EPI eGFR 85 # [facility] ( [facility] CKD-EPI ID Date Data Source [id number] 11/09/2019 02:15:00 PM EST [facility] ([facility] Name Value Range Interpretation Code Description Data Danisha rce(s) Supporting Document(s) WBC 9.0 10E3/uL 4.1-10.9 [facility] ([facility] CLASSIFICATION CHOLESTEROL FO R ADULTS [...] HCT IS 5% LESS SOURCE FOR DATA: [employer] DYN 1800 OPERATION MANUAL( AUTOMATED BLOOD COUNTS [...] HCT IS 5% LESS SOURCE FOR DATA: [employer] 1800 OPERATION MANUAL( AUTOMATED BLOOD COUNTS AND [...] HCT IS 5% LESS SOURCE FOR DATA: [employer] DYN 1800 OPERATION MANUAL( AUTOMATED BLOOD COUNTS AND DIFF.) APPENDIX B-3 HCT 40.2 % 37.0-51.0 [facility] ([facility] [...] HCT IS 5% LESS SOURCE FOR DATA: [employer] DYN 1800 OPERATION MANUAL( AUTOMATED BLOOD COUNTS AND DIFF.) APPENDIX B-3 MCV 88.2 fL 80.0-97.0 [facility] CLASSIFICATION CHOLESTEROL FO [...] IS 5% LESS SOURCE FOR DATA: [employer]I SSEV 1800 OPERATION MANUAL( AUTOMATED BLOOD COUNTS AND DIFF.) APPENDIX B-3 MCHC 33.1 g/dL 31.0-36.0 [facility] CLASSIFICATION [...] HCT IS 5% LESS SOURCE FOR DATA: [employer] DYN 1800 OPERATION MANUAL( AUTOMATED BLOOD COUNTS AND DIFF.) APPENDIX B-3 MCH 29.2 pg 26.0-32.0 [facility] CLASSIFICATION CHOLESTEROL FO [...] HCT IS 5% LESS SOURCE FOR DATA: [employer] 1800 OPERATION MANUAL( AUTOMATED BLOOD COUNTS AND DIFF.) APPENDIX B-3 RDW-CV 13.5 % 11.5-14.5 [facility] CLASSIFICATION [...] DIFF.) APPENDIX B-3 PLT 226 10E3/uL 140-440 [facility] ([facility] CLASSIFICATION CHOLESTEROL FO R ADULTS [...] HCT IS 5% LESS SOURCE FOR DATA: [employer] 1800 OPERATION MANUAL( AUTOMATED BLOOD COUNTS AND [...] HCT IS 5% LESS SOURCE FOR DATA: [employer] DYN 1800 OPERATION MANUAL( AUTOMATED BLOOD COUNTS [...] HCT IS 5% LESS SOURCE FOR DATA: [employer] DYN 1800 OPERATION MANUAL( AUTOMATED BLOOD COUNTS AND DIFF.) APPENDIX B-3 MXD% 12.9 % 0.1-24.0 [facility] ([facility] CLASSIFICATION CHOLESTEROL FO R [...] APPENDIX B-3 Lym# 2.3 10E3/uL 0.6-4.1 [facility] ([facility] CLASSIFICATION CHOLESTEROL FO R ADULTS [...] HCT IS 5% LESS SOURCE FOR DATA: [employer] DYN 1800 OPERATION MANUAL( AUTOMATED BLOOD COUNTS AND DIFF.) APPENDIX B-3 Neut# 5.5 % 2.0-7.8 [facility] CLASSIFICATION [...] DIFF.) APPENDIX B-3 MXD# 1.2 10E3/uL 0.0-1.8 [facility] ([facility] CLASSIFICATION CHOLESTEROL FO R ADULTS [...] DIFF.) APPENDIX B-3 MPV 10.0 fL 9.0-13.0 [facility] ([facility] CLASSIFICATION CHOLESTEROL [...] HCT IS 5% LESS SOURCE FOR DATA: [employer] DYN 1800 OPERATION MANUAL( AUTOMATED BLOOD COUNTS AND DIFF.) APPENDIX B-3 ID Date Data Source [id number] 11/09/2019 02:09:00 PM EST NELL ([facility] Name Value Range Interpretation Code Description Data Danisha rce(s) Supporting Document(s) Erythrocyte sedimentation rate by Westergren method 15 0-20 [facility] ([facility] Procedure Social History Code Duration Value Status Description Data Source(s ) Smoking 12/05/2020 12:00:00 AM EST Patient is a former smoker completed Patient is a former smoker [facility] ([facility] ) Vital Signs ID Date Data Source UNK Name Value Range Interpretation Code Description Data Source(s) Oxygen saturation in Arterial blood by Pulse oximetry 97 % 97 % [facility] ([facility] Body mass index (BMI) [Ratio] 32.6 kg/m2 32.6 k g/m2 [facility] ([facility] [place] body weight 120 [lb_av] 120 [lb_av] MEDEN T ([facility] Body weight 190.00 [lb_av] 190.00 [lb_av] FRANKEN T ([facility] Body height 64 [in_i] 64 [in_i] [facility] ([facility] 5'4" Respiratory rate 16 /min 16 /min [facility] ( [facility] Heart rate 70 /min 70 /min [facility] ([facility] Body temperature 97.3 [degF] 97.3 [degF] NELL ([facility] Diastolic blood pressure 84 mm[Hg] 84 mm[Hg] NELL ([facility] Systolic blood pressure 126 mm[Hg] 126 mm[Hg] M EDENT ([facility] Oxygen saturation in Arterial blood by Pulse oximetry 92 % 92 % NELL ([facility] ([place] Rest), (Room Air) Body mass index (BMI) [Ratio] 32.4 kg/m2 32.4 k g/m2 [facility] ([facility] [place] body weight 120 [lb_av] 120 [lb_av] MEDEN T ([facility] Body weight 189.00 [lb_av] 189.00 [lb_av] MEDEN T ([facility] Body height 64 [in_i] 64 [...] k g/m2 [facility] ([facility] [place] body weight 120 [lb_av] 120 [lb_av] MEDEN [...] pressure 110 mm[Hg] 110 mm[Hg] M EDENT ([facility] Oxygen saturation in Arterial blood by Pulse oximetry 94 % 94 % [facility] ([facility] ([place]), (Room Air) Body mass index (BMI) [Ratio] 31.6 kg/m2 31.6 k g/m2 [facility] ([facility] [place] body weight 120 [lb_av] 120 [lb_av] MEDEN T ([facility] Body weight 184.00 [lb_av] 184.00 [lb_av] MEDEN T ([facility] Body height 64 [in_i] 64 [in_i] [facility] ([facility] 5'4" Respiratory rate 16 /min 16 /min [facility] ( [facility] Heart rate 70 /min 70 /min [facility] ([facility] Body temperature 99.3 [degF] 99.3 [degF] [facility] ([facility] Diastolic blood pressure 76 mm[Hg] 76 mm[Hg] [facility] ([facility] Systolic blood pressure 126 mm[Hg] 126 mm[Hg] M EDENT ([facility] Oxygen saturation in Arterial blood by Pulse oximetry 90 % 90 % [facility] ([facility] ([place]), (Room Air) Body mass index (BMI) [Ratio] 32.6 kg/m2 32.6 k g/m2 [facility] ([facility] Body weight 190.00 [lb_av] 190.00 [lb_av] MEDEN T ([facility] Body height 64 [in_i] 64 [in_i] [facility] ([facility] 5'4" Respiratory rate 18 [...] [Ratio] 33.3 kg/m2 33.3 k g/m2 [facility] ([facility] Body weight 194.00 [lb_av] 194.00 [lb_av] FRANKEN T ([facility] Body height 64 [in_i] 64 [in_i] [facility] ([facility] 5'4" Respiratory rate 18 /min 18 /min [facility] ( [facility] Heart rate 84 /min 84 /min [facility] ([facility] Body temperature 97.6 [degF] 97.6 [degF] [facility] ([facility] Diastolic blood pressure 80 mm[Hg] 80 mm[Hg] NELL ([facility] Systolic blood pressure 118 mm[Hg] 118 mm[Hg] M LAURENCE ([facility] ID Date Data Source [id number] 10/07/2020 11:22:56 AM EST [facility] Name Value Range Interpretation Code Description Data Source(s) WEIGHT RECORDED 195.00 pounds 195.00 pounds Car [facility] Height 64 Inches 064 Inches [facility]
[2020-12-30] MEDS ORDERED: ISOVUE-370 76% 100ML VIAL As Ordered ONE (15:43)
--- NOTE | 2020-12-30 16:12 | ECGEPIP ---
[facility] - ED Test Date: 2020-12-30 Pat Name: GLEN VERGARA Department: Room: - Gender: Female Field Care Manager: : 1945 Requested By: Portia Canada Order Number: [id number] Reading MD: Pierce Denson Measurements Intervals [place] Rate: 65 P: 74 [place]: 250 QRS: 14 QRSD: 82 T: 78 QT: 450 QTc: 468 Interpretive Statements Sinus rhythm with 1st degree AV block Similar to tracing done 02-09-19 Electronically Signed on 12-30-2020 16:12:29 EST by Pierce Denson
--- NOTE | 2020-12-30 16:14 | REP ---
INDICATION: hx v replacement, aneursym. COMPARISON: Portable chest 12/30/2020, CT angio 02/09/2019 TECHNIQUE: CT angiogram chest performed following the intravenous administration of 100 cc of Isovue 370. Sagittal and coronal reconstruction images are performed. FINDINGS: Lungs: There is some dependent atelectatic change bilaterally. Some underlying fibrotic changes are seen in mid and lower lung zones. Epicardial fat extends along the left major fissure at the lower lung zone with prominent epicardial fat pads. No dense consolidation, pleural effusion or acute infiltrate. No parenchymal mass or pulmonary nodule. Mediastinum: No pathologic sized adenopathy Pulmonary arteries: The main, right and left pulmonary arteries are without filling defects the main pulmonary artery is prominent suggesting some pulmonary artery hypertension. The lobar arteries are also without filling defects. Right middle and upper lobe artery as well as left upper lobe artery and branches were without filling defects or vessel cut off. The lower lobe arteries are difficult to evaluate because of respiratory motion limiting quality of the exam for that region. I do not see definite thrombus. Yolanda: No adenopathy. Axilla: No adenopathy. Pleura: No effusion. Heart: There is no cardiomegaly, pericardial thickening or effusion. Sternotomy wires and an aortic valve replacement have a than placed since the previous CT. Thoracic aorta: There is a 4.9 cm AP diameter of the ascending aorta which shows a ectasias near aneurysmal dilatation this may be related to post stenotic dilatation from the aortic valve. Regardless it is unchanged and there is no evidence of dissection or focal aneurysm. The arch and descending aorta are more normal caliber and have atherosclerotic calcifications. Upper abdominal structures: The liver, spleen, pancreas, adrenal glands, upper poles of kidneys show no acute finding. There appears to be some scarring laterally in the upper pole on the left kidney and no definite hiatal hernia. Bowel loops intact. No ascites, perforation or free air in the upper abdomen. Prior cholecystectomy. Visualized osseous structures: A degenerative changes in the spine. Old grade 3 compression fracture of T12 is unchanged from the previous CT no acute bony finding IMPRESSION: No CT evidence of pulmonary embolism. The exam is limited for evaluation of the lower lobe vessels due to respiratory motion curving towards the end of the scan. No gross evidence for lower lobe pulmonary artery emboli. No infiltrate seen. There is underlying COPD and fibrosis. Interval sternotomy with aortic valve replacement. 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 No dissection. No acute finding in the mediastinum or upper abdomen. <Electronically signed by Shree Mcintosh > 12/30/20 [id number]
[2020-12-30 17:32] LABS: CK-MB VALUE MASS 1.4 NG/ML (<3.6); MB/CK RELATIVE INDEX 1.35 (< OR =4); TROPONIN I 0.03 NG/ML (< 0.10)
[2020-12-30 17:59] VITALS: BP 151/74
--- NOTE | 2020-12-31 16:24 | ECGEPIP ---
[facility] - ED Test Date: 2020-12-30 Pat Name: GLEN VERGARA Department: Room: - Gender: Female Milieu Technician: ED : 1945 Requested By: Portia Canada Order Number: [id number] Reading MD: Pierce Denson Measurements Intervals [place] Rate: 70 P: 60 [place]: 256 QRS: -2 QRSD: 82 T: 71 QT: 448 QTc: 483 Interpretive Statements Sinus rhythm with 1st degree AV block Similar to tracing done at 14:08 on same date Electronically Signed on 12-31-2020 16:24:44 EST by Pierce Denson
== END 2020-12-30 18:15 | disposition home or self-care (01) ==
LOC: M ED 13:35
DX: R07.9 Chest pain, unspecified (principal); I11.0 Hypertensive heart disease with heart failure; I50.9 Heart failure, unspecified; F33.9 Major depressive disorder, recurrent, unspecified; F41.9 Anxiety disorder, unspecified; G47.30 Sleep apnea, unspecified; I25.2 Old myocardial infarction; Z79.899 Other long term (current) drug therapy; Z88.0 Allergy status to penicillin; Z88.5 Allergy status to narcotic agent; Z87.891 Personal history of nicotine dependence
CPT/HCPCS: 36415; 71045; 71275; 80047; 80048; 80076; 82550; 82553; 83690; 84439; 84443; 84484; 85025; 85610; 85730; 93005; 93041; 94760; 99284; Q9967

== ENCOUNTER → 2021-08-25 | Outpatient (CLI) | payer MEDICARE ==
[~2021-08-25] MED LIST changes: +ECOT81TA5 PO; +METO1TAB87 PO; +OMEP-218 PO
== END ==
LOC: M LABSMTC 09:39
PROVIDERS: ATTEND Anesthesiology
DX: Z01.812 Encounter for preprocedural laboratory examination (principal); Z20.822 Contact with and (suspected) exposure to COVID-19

== ENCOUNTER 2021-08-29 08:54 | Day surgery (SDC) | payer MEDICARE ==
[~2021-08-29] VITALS: Ht 162.6 cm; Wt 75.3 kg
[~2021-08-29 08:54] MED LIST changes: +DUOVISC (0.50ML VISCOAT/0.85ML PROVISC) OPHTH KIT As Ordered ONE; +MIDAZOLAM INJ 2MG/2ML VIAL (J2250 PER 1MG) As Ordered ONE; +MOXIFLOXACIN 0.8MG 0.8ML INTRAOCULAR SYRINGE As Ordered ONE; +PHENYLEPHRINE 1.5%/LIDOCAINE 1% INTRAOCULAR 0.8ML SYRINGE As Ordered ONE; +PROPARACAINE 0.5% OPHTH SOL 15ML OS ONE; +fentaNYL 100 MCG/2 ML INJECTION (J3010) As Ordered ONE
--- OUTSIDE RECORDS SUMMARY | 2021-08-29 08:58 | CCD | Continuity of Care Document ---
Author Author Chelle BRISENO D.O. 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 Recreational Drug Use Denies Drug Use Tobacco Use Start: Unknown End: Unknown Patient is a former smoker Smoking Status Reviewed: 06/24/21 Patient is a former smoker Exercise Type/Frequency Does not currently exerc ise Allergies, Adverse Reactions, Alerts Active Allergies Criticality Reaction | Severity Comments Date Penicillin Unable to assess criticality (Hives) 07/31/2005 Naproxen Unable to assess criticality Urticaria Rash Gener alized 03/02/2018 Medications Active Medications SIG Qnty Indications Ordering Provide r Date Moderna Covid-19 Vaccine 100mcg/0.5ML Suspension pt recieved both Robert Briseno D.O., [facility] 03/20/2021 Sertraline HCL 50mg Tablets Take 1 tablet by mouth once daily 90tabs Robert Briseno D.O., [facility] 08/29/2020 Betamethasone Dipropionate 0.05% C ream apply three times a day to left ankle 30units Robert Briseno D.O., [facility] 01/05/2019 Shingrix 50mcg Suspension Rec Recieved Both 1 intramuscular today repeat in 2-6 months 1units Robert Briseno D.O., FAAFP Proventil HFA 108(90Base) mcg/Act Aerosol 2 puffs every 6 hours as needed Generic 1units [facility]oss[facility] D.O., [facility] 11/22/2015 Pravastatin Sodium 40mg Tablets Take 1 tablet by mouth once daily 90tabs Robert Briseno D.O. , [facility] 02/13/2015 Replacement Cpap Machine And Supplies as directed for obstructive Sleep Apnea not using 780.57 Robert [facility] D.O., [facility] Hydrochlorothiazide 12.5mg Capsule s Take 1 capsule by mouth once daily 90caps Robert Briseno D.O ., [facility] 04/26/[address] Take 1 capsule by mouth in the morning 90caps Robert Briseno D.O., F [facility] 11/25/2011 Aspirin Ec 325mg Tablets DR 1 by mouth every day Unknown Losartan Potassium 25mg Tablets take 1 tablet by mouth once daily 90tabs Robert Briseno D.O. , FAAFP Metoprolol Tartrate 25mg Tablets take 1/2 (one-half) tablet by mouth twice daily 90tabs Ulysses Pruitt M.D. Medications Administered in Office Medication SIG Qnty Indications Ordering Provider Date Injection (SC)/(Im) Injection Robert Briseno D.O., FAAFP 09/08/2017 Injection Subcutaneous Or Intramuscular Injection Nir Covarrubias, RPA 03/14 Injection (SC)/(Im) Injection Nir Covarrubias, RPA 07/31/2005 Immunizations CPT Code Status Date Vaccine Reaction Lot # [id number] Given 08/29/2020 Influenza Virus Vaccine, Quadrivalent, Slit Virus, Im Use 3Y & Up [id number] 02487 Given 07/26/2019 Influenza Virus Vaccine, Quadrivalent, Slit Virus, Im Use 3Y & Up [id number] 04281 Given 07/07/2018 Influenza Virus Vaccine, Quadrivalent, Slit Virus, Im Use 3Y & Up [id number] 46166 Given 09/08/2017 Influenza Virus Vaccine, Quadrivalent, Slit Virus, Im Use 3Y & Up [id number] 48856 Given 08/07/2016 Influenza Vaccin e (Fluzone) 3Yrs Of Age Or Older Medicare Plans [id number] 86748 Given 08/07/2016 Influenza Virus Vaccine, Quadrivalent, Slit Virus, Im Use 3Y & Up 91902 Given 09/06/2015 Influenza Vaccin e (Fluzone) 3Yrs Of Age Or Older Medicare Plans [id number] 61460 Given 08/01/2014 Influenza Vaccin e (Fluzone) 3Yrs Of Age Or Older Medicare Plans [id number] Given 08/01/2014 Influenza Vaccin e (Fluvirin) 3Yrs Of Age Or Older Medicare Plans [id number] 97064 Given 08/23/2013 Influenza Virus Vac. Split Virus Individuals 3 Years And Above [id number] 88703 Given 09/21/2012 Pneumococcal Immunization [id number] 20880 Given 09/21/2012 Influenza Virus Vac. Split Virus Individuals 3 Years And Above [facility] [address] Given 07/31/2005 Influenza Virus Vac. Split Virus Individuals 3 Years And Above Vital Signs Date Vital Result Comment 06/24/2021 9:38am BP Systolic 118 mmHg BP Diastolic 78 mmHg Body Temperature 98.3 F Heart Rate 72 /min Respiratory Rate 16 /min Height 64 inches 5'4" Weight 169.00 lb [place] Body Weight 120 lb BMI (Body Mass Index) 29.0 kg/m2 O2 % BldC Oximetry 95 % 03/20/2021 2:30pm BP Systolic 106 mmHg BP Diastolic 60 mmHg Body Temperature 97.8 F Heart Rate 72 /min Respiratory Rate 16 /min Height 64 inches 5'4" Weight 179.00 lb [place] Body Weight 120 lb BMI (Body Mass Index) 30.7 kg/m2 O2 % BldC Oximetry 96 % Results Test Acquired Date Facility Test Result H/L Range Note CBC W/Automated Diff 05/14/2021 [facility] [place] [address] [phone] CBC W/Automated Diff (SEE NOTE) 1 WBC 4.9 10^3/uL 4.2 - 11.0 RBC 4.26 10^6/uL 4.20 - 5.40 Hemoglobin 12.8 g/dL 12.0 - 16.0 Hematocrit 38.1 % 37.0 - 47.0 MCV 89.4 fL 81.0 - 101 MCH 30.0 pg 27.0 - 34.0 MCHC 33.6 g/dL 31.0 - 36.0 RDW 12.6 % 11.5 - 14.5 Platelets 175 10^3/uL 150 - 450 MPV 9.2 fL 7.4 - 10.4 Neut 53.8 % 37.0 - 80.0 Lymph 29.9 % 25.0 - 40.0 [place] 11.0 % High 3.0 - 8.0 Eos 4.5 % 0.0 - 7.0 Baso 0.4 % 0.0 - 2.5 %Ig 0.4 % High 0.0 - 0.0 %NRBC 0.0 % 0.0 - 0.0 #Neut 2.65 10^3/uL 2.00 - 6.90 #Lymph 1.47 10^3/uL 0.60 - 3.40 #[place] 0.54 10^3/uL 0.00 - 0.90 #Eos 0.22 10^3/uL 0.00 - 0.70 #Baso 0.02 10^3/uL 0.00 - 0.20 #Ig 0.02 10^3/uL 0.00 - 0.10 #NRBC 0.00 10^3/uL 0.00 - 0.00 Manual Diff NOT INDICATED RBC Morph NOT INDICATED Laboratory test finding 05/14/2021 [facility] [place] [address] [phone] Troponin T <0.01 NG/ML 0.00 - 0.10 2 Comprehensive Metabolic Panel 05/14/2021 [place] [address] [phone] Comprehensive Metabo (SEE NOTE) 3 Sodium 140 mEq/L 134 - 153 Potassium 3.6 mEq/L 3.6 - 5.0 Chloride 102 mEq/L 98 - 107 Co2 27 mEq/L 22 - 30 Glucose 89 mg/dL 70 - 99 BUN 12 mg/dL 7 - 21 Creatinine 0.7 mg/dL 0.7 - 1.5 BUN/Creat 17 8 - 27 Total Protein 6.4 g/dL 6.3 - 8.2 Albumin 4.0 g/dL 3.9 - 5.0 Globulin 2.4 GM/DL 2.4 - 3.2 A/G Ratio 1.7 0.8 - 2.0 Calcium 9.2 mg/dL 8.4 - 10.2 Total Bili <0.7 mg/dL 0.2 - 1.3 Alkaline Phos 59 U/L 38 - 126 Sgot/Ast 22 U/L 5 - 40 SGPT/Alt 14 U/L 7 - 56 Anion Gap 11.0 mmol/L 8.0 - 16.0 Age 76 yrs Non-Aa GFR >60 mL/min Afr Amer GFR >60 4 Laboratory test finding 05/14/2021 [place] [address] [phone] Pro-BNP 225 pg/mL High 0 - 125 Laboratory test finding 05/13/2021 [place] [address] [phone] Troponin T <0.01 NG/ML 0.00 - 0.10 5 Pro-BNP 247 pg/mL High 0 - 125 Covid-19 05/13/2021 [facility] [place] [id number] [phone] Covid-19 NOT DETECTED 6 Covid-19 [place]enter NOT DETECTED 7 Laboratory test finding 05/13/2021 [place] [address] [phone] Lipase Serum 28 U/L 13 - 60 8 Troponin T <0.01 NG/ML 0.00 - 0.10 9 Comprehensive Metabolic Panel 05/13/2021 [place] [address] [phone] Comprehensive Metabo (SEE NOTE) 10 Sodium 138 mEq/L 134 - 153 Potassium 3.8 mEq/L 3.6 - 5.0 Chloride 100 mEq/L 98 - 107 Co2 28 mEq/L 22 - 30 Glucose 100 mg/dL High 70 - 99 BUN 14 mg/dL 7 - 21 Creatinine 0.8 mg/dL 0.7 - 1.5 BUN/Creat 18 8 - 27 Total Protein 6.5 g/dL 6.3 - 8.2 Albumin 4.1 g/dL 3.9 - 5.0 Globulin 2.4 GM/DL 2.4 - 3.2 A/G Ratio 1.7 0.8 - 2.0 Calcium 9.4 mg/dL 8.4 - 10.2 Total Bili <0.7 mg/dL 0.2 - 1.3 Alkaline Phos 60 U/L 38 - 126 Sgot/Ast 20 U/L 5 - 40 SGPT/Alt 15 U/L 7 - 56 Anion Gap 10.0 mmol/L 8.0 - 16.0 Age 76 yrs Non-Aa GFR >60 mL/min Afr Amer GFR >60 11 CBC W/Automated Diff 05/13/2021 [place] [address] [phone] CBC W/Automated Diff (SEE NOTE) 12 WBC 6.6 10^3/uL 4.2 - 11.0 RBC 4.54 10^6/uL 4.20 - 5.40 Hemoglobin 13.4 g/dL 12.0 - 16.0 Hematocrit 40.1 % 37.0 - 47.0 MCV 88.3 fL 81.0 - 101 MCH 29.5 pg 27.0 - 34.0 MCHC 33.4 g/dL 31.0 - 36.0 RDW 12.6 % 11.5 - 14.5 Platelets 195 10^3/uL 150 - 450 MPV 10.1 fL 7.4 - 10.4 Neut 66.0 % 37.0 - 80.0 Lymph 19.5 % Low 25.0 - 40.0 [place] 9.9 % High 3.0 - 8.0 Eos 3.7 % 0.0 - 7.0 Baso 0.6 % 0.0 - 2.5 %Ig 0.3 % High 0.0 - 0.0 %NRBC 0.0 % 0.0 - 0.0 #Neut 4.32 10^3/uL 2.00 - 6.90 #Lymph 1.28 10^3/uL 0.60 - 3.40 #[place] 0.65 10^3/uL 0.00 - 0.90 #Eos 0.24 10^3/uL 0.00 - 0.70 #Baso 0.04 10^3/uL 0.00 - 0.20 #Ig 0.02 10^3/uL 0.00 - 0.10 #NRBC 0.00 10^3/uL 0.00 - 0.00 Manual Diff NOT INDICATED RBC Morph NOT INDICATED U/A DIP FPA 03/20/[facility] Color Urine YELLOW Yellow Appearance CLEAR Clear Specific [place] 1.030 1.00-1.03 PH Urine 5.5 5.0-8.0 Glucose Urine NEG Negative Bilirubin Urine NEG Negative Ketones NEG Negative Blood Urine TRACE Negative Protein Urine NEG Negative Urobilinogen .2 EU/dl 0.2-1.0 Nitrite NEG Negative Leukocytes 3+ High Negative CBC 03/20/2021 [facility] WBC 6.2 10E3/uL 4.1 - 10.9 13 RBC 4.40 10E6/uL 4.20 - 6.30 HGB 13.0 g/dL 12.0 - 18.0 HCT 39.5 % 37.0 - 51.0 MCV 89.8 fL 80.0 - 97.0 MCH 29.5 pg 26.0 - 32.0 MCHC 32.9 g/dL 31.0 - 36.0 PLT 221 10E3/uL 140 - 440 RDW-CV 12.1 % 11.5 - 14.5 Lym% 26.0 % 10.0 - 58.5 Neut% 61.9 % 37.0 - 92.0 MXD% 12.1 % 0.1 - 24.0 Lym# 1.6 10E3/uL 0.6 - 4.1 Neut# 3.8 % 2.0 - 7.8 MXD# 0.8 10E3/uL 0.0 - 1.8 MPV 9.9 fL 9.0 - 13.0 CMP 03/20/2021 [facility] Glu 84 mg/dL 70 - 110 BUN 12 mg/dL 8 - 23 Creat 0.8 mg/dL 0.5 - 1.0 BUN/Creatinine Ratio 14.5 CALC Na 137 mmol/L 136 - 145 K 3.9 mmol/L 3.5 - 5.1 CL 100.5 mmol/L 98.0 - 107.0 Co2 23.6 mmol/L 22.0 - 29.0 CA 9.5 mg/dL 8.6 - 10.2 TP 6.9 g/dL 6.6 - 8.7 Alb 4.4 g/dL 3.4 - 4.8 A/G Ratio 1.8 CALC Globulin 2.5 CALC [place] 61.9 U/L 35 - 129 Alt (SGPT) 18 U/L 0 - 41 Ast (Sgot) 22 U/L 0 - 40 Tbili 0.40 mg/dL 0.0 - 1.2 Osmolality-Calculated 272.3 CALC Anion Gap 17 mmol/L eGFR 84 # Calc 14 eGFR Non-Afr. [place] 73 # Calc 15 Laboratory test finding 03/20/2021 [facility] CK 75 U/L 26 - 192 Lipid Panel 03/20/2021 [facility] Chol 183 mg/dL 0 - 200 Trig 123 mg/dL 40 - 200 HDL 46 mg/dL 45 - 65 LDL_C 112 Calc 75 - 129 Cho/HDL Ratio 4.0 CALC Cardiac Marker Panel 12/30/2020 [facility] ( Interface) [phone] CPK Creatine Phosphokinase 104 U/L Normal 26-19 2 16 CK-MB Value Mass 1.4 NG/ML Normal <3.6 MB/CK Relative Index 1.35 Normal < Or =4 17 Troponin I 0.03 NG/ML Normal < 0.10 18 1 COMPLETE BLOOD COUNT 2 TROPONIN T 0.1 ng/ml Recommended as the clinical th reshold value for Troponin T. 3 COMPREHENSIVE METABOLIC PANE L 4 Male GFR Interprentation 20-49 yrs >60 mL/min Normal 50-59 yrs >56 mL/min Normal 60-69 yrs >49 mL/min Normal 70-79yrs >42 mL/min Normal 80 and above >35 mL/min Normal Female GFR Interpretation 20-39 yrs >60 mL/min Normal 40-49 yrs >58 mL/min Normal 50-59 yrs >51 mL/min Normal 60-69 yrs >45 mL/min Normal 70-79 yrs >39 mL/min Normal 80 and above >32 mL/min Normal 5 TROPONIN T 0.1 ng/ml Recommended as the clinical th reshold value for Troponin T. 6 First test?: N~Employed in [facility] [facility]?: N~Symptomatic as defined by CDC?: N~Hospitalized?: N 7 { PROCEDURAL CONTROL VALID KIT LOT # [id number]/13/[id number]. KIT EXP DATE _05/24/21 05/13/[id number].[id number]. NORMAL RANGE IS NOT DETECTED NEGATIVE RESULTS SHOULD BE TREATED PRESUMPTIVE AND, IF INCONSISTENT WITH CLINICAL SIGNS AND SYMPTOMS OR NECESSARY FOR PATIENT MANAGEMENT, SHOULD BE TESTED WITH DIFFERENT AUTHORIZED OR CLEARED MOLECULAR TESTS. NEGATIVE RESULTS DO NOT PRECLUDE SARS-CoV-2 INFECTION AND SHOULD NOT BE USED THE SOLE BASIS FOR PATIENT MANAGEMENT DECISIONS. 8 FIRST SAMPLE HEMOLYZED 9 TROPONIN T 0.1 ng/ml Recommended as the clinical th reshold value for Troponin T. 10 COMPREHENSIVE METABOLIC PANE L 11 Male GFR Interprentation 20-49 yrs >60 mL/min Normal 50-59 yrs >56 mL/min Normal 60-69 yrs >49 mL/min Normal 70-79yrs >42 mL/min Normal 80 and above >35 mL/min Normal Female GFR Interpretation 20-39 yrs >60 mL/min Normal 40-49 yrs >58 mL/min Normal 50-59 yrs >51 mL/min Normal 60-69 yrs >45 mL/min Normal 70-79 yrs >39 mL/min Normal 80 and above >32 mL/min Normal 12 COMPLETE BLOOD COUNT 13 NORMAL RANGES Age WBC RBC HGB HCT [...] HCT IS 5% LESS SOURCE FOR DATA: [employer] 1800 OPERATION MANUAL( AUTOMATED BLOOD COUNTS AND [...] ADOLESCENTS REPRESENTS INDIVIDUALA AGED 2-19 YEARS EXCLUSIVE. 14 CKD-EPI 15 CKD-EPI 16 Testing was performed on a S LIGHTLY hemolyzed specimen. Suggest recollection of specimen for more accurate test results. 17 DIAGNOSIS CRITERIA MMB ng/ml Relative Index (RI) NON-AMI < or = 5 N/A [place] ZONE > 5 < or = 4 AMI > 5 > 4 18 Troponin I Reference Interva l for [employer] [place] LOCI: 99th Percentile= 0.00-0.045 ng/ml Risk Stratification: <= 0.10 ng/ml Decreased Risk for Adverse Clinical Events. 0.10-1.50 ng/ml Increased Risk for Adv erse Clinical Events. Evaluation of additional criterion and/or repeat testing in 2-6 hours is suggested to rule out myocardial damage. >= 1.50 ng/ml Indicative of Myocardial Injury. Procedures Date Code Description Status 03/20/2021 27556 Office/Outpatient Established Mo d MDM 30-39 Min Completed Medical Devices Description No Information Available Encounters Type Date Location Provider Dx Diagnosis Office Visit 03/20/2021 2:00p [place] [facility] Brian Merida, FAAFP E78.5 Hyperlipidemia, unspecified I10 Essential (primary) hyperten cuauhtemoc F33.8 Other recurrent depressive d isorders K21.9 Gastro-esophageal reflux dis ease without esophagitis Assessments Date Code Description Provider 03/20/2021 E78.5 Hyperlipidemia, unspecified Al Briseno D.O., FAAFP 03/20/2021 I10 Essential (primary) hypertension Robert Briseno D.O., FAAFP 03/20/2021 F33.8 Other recurrent depressive disor ders Robert Briseno D.O., FAAFP 03/20/2021 K21.9 Gastro-esophageal reflux disease without esophagitis Robert Briseno D.O., FAAFP Plan of Treatment No Information Available Functional Status Description No Information Available Mental Status Description No Information Available Referrals Description No Information Available
--- OUTSIDE RECORDS SUMMARY | 2021-08-29 08:58 | CCD | Continuity of Care Document ---
Author Author Chelle BRISENO D.O. 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 Recreational Drug Use Denies Drug [...] pt recieved both Robert Briseno D.O., F [facility] 03/20/2021 Sertraline HCL 50mg Tablets Take 1 tablet by mouth once daily 90tabs Robert Briseno D.O., [facility] 08/29/2020 Betamethasone Dipropionate 0.05% C ream apply three times a day to left ankle 30units Robert Briseno D.O., [facility] 01/05/2019 Shingrix 50mcg Suspension Rec Recieved Both 1 intramuscular today repeat in 2-6 months 1units Robert Briseno D.O., FAAFP Proventil HFA 108(90Base) mcg/Act Aerosol 2 puffs every 6 hours as needed Generic 1units [facility] D.O., [facility] 11/22/2015 Pravastatin Sodium 40mg Tablets Take 1 tablet by mouth once daily 90tabs Robert [facility] D.O. , [facility] 02/13/2015 Replacement Cpap Machine And Supplies as directed for obstructive Sleep Apnea not using 780.57 Robert [facility] D.O., [facility] Hydrochlorothiazide 12.5mg Capsule s Take 1 capsule by mouth once daily 90caps Robert [facility] D.O ., [facility] 04/26/[address] Take 1 capsule by mouth bid 90caps Robert Briseno D.O., FAAFP Aspirin Ec 325mg Tablets DR 1 by [...] Injection Subcutaneous Or Intramuscular Injection Nir Covarrubias, LIDYA 03/14 Injection (SC)/(Im) Injection Nir Covarrubias, RPA 07/31/2005 Immunizations CPT Code Status Date Vaccine Reaction Lot # [id number] Given 08/29/2020 Influenza Virus Vaccine, Quadrivalent, Slit Virus, Im Use 3Y & Up [id number] 40257 Given 07/26/2019 Influenza Virus Vaccine, Quadrivalent, Slit Virus, Im Use 3Y & Up [id number] 82401 Given 07/07/2018 Influenza Virus Vaccine, Quadrivalent, Slit Virus, Im Use 3Y & Up [id number] 54467 Given 09/08/2017 Influenza Virus Vaccine, Quadrivalent, Slit Virus, Im Use 3Y & Up [id number] 18891 Given 08/07/2016 Influenza Vaccin e (Fluzone) 3Yrs Of Age Or Older Medicare Plans [id number] 69643 Given 08/07/2016 Influenza Virus Vaccine, Quadrivalent, Slit Virus, Im Use 3Y & Up 71776 Given 09/06/2015 Influenza Vaccin e (Fluzone) 3Yrs Of Age Or Older Medicare Plans [id number] 06111 Given 08/01/2014 Influenza Vaccin e (Fluzone) 3Yrs Of Age Or Older Medicare Plans [id number] Given 08/01/2014 Influenza Vaccin e (Fluvirin) 3Yrs Of Age Or Older Medicare Plans [id number] 13983 Given 08/23/2013 Influenza Virus Vac. Split Virus Individuals 3 Years And Above [id number] 25077 Given 09/21/2012 [facility] 7[facility] Given 09/21/2012 Influenza Virus Vac. Split Virus Individuals 3 Years And Above [facility] [address] Given 07/31/2005 Influenza Virus Vac. Split Virus Individuals 3 Years And Above Vital Signs Date Vital Result Comment 06/24/2021 9:38am BP Systolic 118 mmHg BP Diastolic 78 mmHg Body Temperature 98.3 F Heart Rate 72 /min Respiratory Rate 16 /min Height 64 inches 5'4" Weight 169.00 lb [place] Body Weight 120 lb BMI (Body Mass Index) 29.0 kg/m2 O2 % BldC Oximetry 95 % 03/20/2021 2:30pm BP Systolic 106 mmHg BP Diastolic 60 mmHg Body Temperature 97.8 F Heart Rate 72 /min Respiratory Rate 16 /min Height 64 inches 5'4" Weight 179.00 lb [place] Body Weight 120 lb BMI (Body Mass Index) 30.7 kg/m2 O2 % BldC Oximetry 96 % Results Test Acquired Date Facility Test Result H/L Range Note CBC W/Automated Diff 05/14/2021 [facility] [place] [address] [phone] CBC W/Automated Diff (SEE NOTE) 1 WBC [...] 80.0 Lymph 29.9 % 25.0 - 40.0 [place] 11.0 % High 3.0 - 8.0 Eos 4.5 % 0.0 - 7.0 Baso 0.4 % 0.0 - 2.5 %Ig 0.4 % High 0.0 - 0.0 %NRBC 0.0 % 0.0 - 0.0 #Neut 2.65 10^3/uL 2.00 - 6.90 #Lymph 1.47 10^3/uL 0.60 - 3.40 #[place] 0.54 10^3/uL 0.00 - 0.90 #Eos 0.22 10^3/uL 0.00 - 0.70 #Baso 0.02 10^3/uL 0.00 - 0.20 #Ig 0.02 10^3/uL 0.00 - 0.10 #NRBC 0.00 10^3/uL 0.00 - 0.00 Manual Diff NOT INDICATED RBC Morph NOT INDICATED Laboratory test finding 05/14/2021 [facility] [place] [address] [phone] Troponin T <0.01 NG/ML 0.00 - 0.10 2 Comprehensive Metabolic Panel 05/14/2021 [place] [address] [phone] Comprehensive Metabo (SEE NOTE) 3 Sodium 140 [...] GFR >60 4 Laboratory test finding 05/14/2021 [place] [address] [phone] Pro-BNP 225 pg/mL High 0 - 125 Laboratory test finding 05/13/2021 [place] [address] [phone] Troponin T <0.01 NG/ML 0.00 - 0.10 5 Pro-BNP 247 pg/mL High 0 - 125 Covid-19 05/13/2021 [facility] [place] [address] [phone] Covid-19 NOT DETECTED 6 Covid-19 [place]enter NOT DETECTED 7 Laboratory test finding 05/13/2021 [place] [address] [phone] Lipase Serum 28 U/L 13 - 60 8 Troponin T <0.01 NG/ML 0.00 - 0.10 9 Comprehensive Metabolic Panel 05/13/2021 [place] [address] [phone] Comprehensive Metabo (SEE NOTE) 10 Sodium 138 [...] GFR >60 11 CBC W/Automated Diff 05/13/2021 [place] [address] [phone] CBC W/Automated Diff (SEE NOTE) 12 WBC [...] Lymph 19.5 % Low 25.0 - 40.0 [place] 9.9 % High 3.0 - 8.0 Eos 3.7 % 0.0 - 7.0 Baso 0.6 % 0.0 - 2.5 %Ig 0.3 % High 0.0 - 0.0 %NRBC 0.0 % 0.0 - 0.0 #Neut 4.32 10^3/uL 2.00 - 6.90 #Lymph 1.28 10^3/uL 0.60 - 3.40 #[place] 0.65 10^3/uL 0.00 - 0.90 #Eos 0.24 10^3/uL 0.00 - 0.70 #Baso 0.04 10^3/uL 0.00 - 0.20 #Ig 0.02 10^3/uL 0.00 - 0.10 #NRBC 0.00 10^3/uL 0.00 - 0.00 Manual Diff NOT INDICATED RBC Morph NOT INDICATED U/A DIP FPA 03/20/2021 [facility] Asso ciates Color Urine YELLOW Yellow Appearance CLEAR Clear Specific [place] 1.030 1.00-1.03 PH Urine 5.5 5.0-8.0 Glucose [...] eGFR 84 # Calc 14 eGFR Non-Afr. [place] 73 # Calc 15 Laboratory test finding 03/20/2021 [facility] CK 75 U/L 26 - 192 Lipid Panel 03/20/2021 [facility] Chol 183 mg/dL 0 - 200 Trig 123 mg/dL 40 - 200 HDL 46 mg/dL 45 - 65 LDL_C 112 Calc 75 - 129 Cho/HDL Ratio 4.0 CALC Cardiac Marker Panel 12/30/2020 [facility] ( Interface) [phone] CPK Creatine Phosphokinase 104 U/L Normal 26-19 [...] Troponin T. 6 First test?: N~Employed in [employer]?: N~Symptomatic as defined by CDC?: N~Hospitalized?: N [...] HCT IS 5% LESS SOURCE FOR DATA: [employer] 1800 OPERATION MANUAL( AUTOMATED BLOOD COUNTS AND [...] 18 Troponin I Reference Interva l for [employer] LOCI: 99th Percentile= 0.00-0.045 ng/ml Risk Stratification: <= 0.10 ng/ml Decreased Risk for Adverse Clinical Events. 0.10-1.50 ng/ml Increased Risk for Adv erse Clinical Events. Evaluation of additional criterion and/or repeat testing in 2-6 hours is suggested to rule out myocardial damage. >= 1.50 ng/ml Indicative of Myocardial Injury. Procedures Date Code Description Status 06/24/2021 27629 Office/Outpatient Established Mo d MDM 30-39 Min Completed 03/20/2021 86481 Office/Outpatient Established Mo d MDM 30-39 Min Completed Medical Devices Description No Information Available Encounters Type Date Location Provider Dx Diagnosis Office Visit 06/24/2021 9:30a [place] [facility] Brian Merida, FAAFP E78.5 Hyperlipidemia, unspecified I10 Essential (primary) hyperten cuauhtemoc F33.8 Other recurrent depressive d isorders K21.9 Gastro-esophageal reflux dis ease without esophagitis Office Visit 03/20/2021 2:00p [place] [facility] Brian Merida, FAAFP E78.5 Hyperlipidemia, unspecified I10 Essential (primary) hyperten cuauhtemoc F33.8 Other recurrent depressive d isorders K21.9 Gastro-esophageal reflux dis ease without esophagitis Assessments Date Code Description Provider 06/24/2021 E78.5 Hyperlipidemia, unspecified Al Briseno D.O., FAAFP 06/24/2021 I10 Essential (primary) hypertension Robert Briseno D.O., FAAFP 06/24/2021 F33.8 Other recurrent depressive disor ders Robert Briseno D.O., FAAFP 06/24/2021 K21.9 Gastro-esophageal reflux disease without esophagitis Robert Briseno D.O., FAAFP 03/20/2021 E78.5 Hyperlipidemia, unspecified Al Briseno D.O., FAAFP 03/20/2021 I10 Essential (primary) hypertension Robert Briseno D.O., CAROL 03/20/2021 F33.8 Other recurrent depressive disor ders Robert Briseno D.O., CAROL 03/20/2021 K21.9 Gastro-esophageal reflux disease without esophagitis Robert Briseno D.O., CAROL Plan of Treatment Future Appointment(s):* 10/28/2021 10:00 am - Robert Briseno D.O., FAAFP at [facility] Functional Status Description No Information Available Mental Status Description No Information Available Referrals Description No Information Available
--- OUTSIDE RECORDS SUMMARY | 2021-08-29 08:58 | CCD | Continuity of Care Document ---
Author Author Chelle MALONEY M.D Organization Unknown Address [facility] [address], [place] [address] Phone [phone] Problems Active Problems Provider Date Depressive disorder Nir Covarrubias RPA Onset: 12/03/2006 Gastroesophageal reflux disease Nir Covarrubias RPA Onset : 12/03/2006 Hyperlipidemia Nir Covarrubias RPA Onset: 12/03/2006 Essential hypertension Nir Covarrubias, RPA Onset: 008 Sleep apnea Robert Kan D.O., FAAFP Onset: 11/08 Note: C PAP Diaphragmatic hernia Robert Kan D.O., FAAFP Onset: Benign essential hypertension Kristen Bartlett, [employer]IST[employer]GER-C Onset: 05/23/2013 Diverticulosis of sigmoid colon Robert Kan D.O., FAAFP Onset: 11/12/2014 Note: SANTOS DIVERTICULOSIS Social History Type Date Description Comments Sex Unknown Tobacco Use Start: Unknown End: Unknown Former Cigarette Smo ker 2 Packs Daily for 40 years Tobacco Use Start: Unknown , quit 2002. ETOH Use [facility] alcohol abuse. Recreational Drug Use Denies Drug [...] Vaccine 100mcg/0.5ML Suspension pt recieved both Robert Kan D.O., F AAFP 03/20/2021 Sertraline HCL 50mg Tablets Take 1 tablet by mouth once daily 90tabs Robert Kan D.O., [facility] 08/29/2020 Betamethasone Dipropionate 0.05% C ream apply three times a day to left ankle 30units Robert Kan D.O., [facility] 01/05/2019 Shingrix 50mcg Suspension Rec Recieved Both 1 intramuscular today repeat in 2-6 months 1units Robert Kan D.O., FAAFP Proventil HFA 108(90Base) mcg/Act Aerosol 2 puffs every 6 hours as needed Generic 1units [facility]oss[facility] D.O., [facility] 11/22/2015 Pravastatin Sodium 40mg Tablets Take 1 tablet by mouth once daily 90tabs Robert Kan D.O. , [facility] 02/13/2015 Replacement Cpap Machine And Supplies as directed for obstructive Sleep Apnea not using 780.57 Robert Kan D.O., [facility] Hydrochlorothiazide 12.5mg Capsule s Take 1 capsule by mouth once daily 90caps Eliseo Merida, [facility] 04/26/[address] Take 1 capsule by mouth in the morning 90caps Robert Kan D.O., F [facility] 11/25/2011 Aspirin Ec 325mg Tablets DR 1 by mouth every day Unknown Losartan Potassium 25mg Tablets take 1 tablet by mouth once daily 90tabs Robert Kan D.O. , FAAFP Metoprolol Tartrate 25mg Tablets take 1/2 (one-half) tablet by mouth twice daily 90tabs Ulysses Pruitt M.D. Medications Administered in Office Medication SIG Qnty Indications Ordering Provider Date Injection (SC)/(Im) Injection Robert Kan D.O., FAAFP 09/08/2017 Injection Subcutaneous Or Intramuscular Injection Nir Covarrubias, RPA 03/14 Injection (SC)/(Im) Injection Nir Covarrubias, RPA 07/31/2005 Immunizations CPT Code Status Date Vaccine Reaction Lot # [id number] Given 08/29/2020 Influenza Virus Vaccine, Quadrivalent, Slit Virus, Im Use 3Y & Up [id number] 84917 Given 07/26/2019 Influenza Virus Vaccine, Quadrivalent, Slit Virus, Im Use 3Y & Up [id number] 28159 Given 07/07/2018 Influenza Virus Vaccine, Quadrivalent, Slit Virus, Im Use 3Y & Up [id number] 92490 Given 09/08/2017 Influenza Virus Vaccine, Quadrivalent, Slit Virus, Im Use 3Y & Up [id number] 35003 Given 08/07/2016 Influenza Vaccin e (Fluzone) 3Yrs Of Age Or Older Medicare Plans [id number] 49354 Given 08/07/2016 Influenza Virus Vaccine, Quadrivalent, Slit Virus, Im Use 3Y & Up [id number] Given 09/06/2015 Influenza Vaccin e (Fluzone) 3Yrs Of Age Or Older Medicare Plans [id number] 98035 Given 08/01/2014 Influenza Vaccin e (Fluzone) 3Yrs Of Age Or Older Medicare Plans [id number] Given 08/01/2014 Influenza Vaccin e (Fluvirin) 3Yrs Of Age Or Older Medicare Plans [id number] 77010 Given 08/23/2013 Influenza Virus Vac. Split Virus Individuals 3 Years And Above [id number] 63507 Given 09/21/2012 Pneumococcal Immunization [id number] 14479 Given 09/21/2012 Influenza Virus Vac. Split Virus Individuals 3 Years [facility] Above [facility] Given 07/31/2005 Influenza Virus Vac. Split Virus Individuals 3 Years And Above Vital Signs Date Vital Result Comment 06/24/2021 9:38am BP Systolic 118 mmHg BP Diastolic 78 mmHg Body Temperature 98.3 F Heart Rate 72 /min Respiratory Rate 16 /min Height 64 inches 5'4" Weight 169.00 lb [place] Body Weight 120 lb BMI (Body Mass Index) 29.0 kg/m2 O2 % BldC Oximetry 95 % 03/20/2021 2:30pm BP Systolic 106 mmHg BP Diastolic 60 mmHg Body Temperature 97.8 F Heart Rate 72 /min Respiratory Rate 16 /min Height 64 inches 5'4" Weight 179.00 lb [place] Body Weight 120 lb BMI (Body Mass Index) 30.7 kg/m2 O2 % BldC Oximetry 96 % Results Test Acquired Date Facility Test Result H/L Range Note CBC W/Automated Diff 05/14/2021 [facility] [place] [address] [phone] CBC W/Automated Diff (SEE NOTE) 1 WBC [...] 80.0 Lymph 29.9 % 25.0 - 40.0 [place] 11.0 % High 3.0 - 8.0 Eos 4.5 % 0.0 - 7.0 Baso 0.4 % 0.0 - 2.5 %Ig 0.4 % High 0.0 - 0.0 %NRBC 0.0 % 0.0 - 0.0 #Neut 2.65 10^3/uL 2.00 - 6.90 #Lymph 1.47 10^3/uL 0.60 - 3.40 #[place] 0.54 10^3/uL 0.00 - 0.90 #Eos 0.22 10^3/uL 0.00 - 0.70 #Baso 0.02 10^3/uL 0.00 - 0.20 #Ig 0.02 10^3/uL 0.00 - 0.10 #NRBC 0.00 10^3/uL 0.00 - 0.00 Manual Diff NOT INDICATED RBC Morph NOT INDICATED Laboratory test finding 05/14/2021 [facility] [place] [address] [phone] Troponin T <0.01 NG/ML 0.00 - 0.10 2 Comprehensive Metabolic Panel 05/14/2021 [place] [address] [phone] Comprehensive Metabo (SEE NOTE) 3 Sodium 140 [...] GFR >60 4 Laboratory test finding 05/14/2021 [place] [address] [phone] Pro-BNP 225 pg/mL High 0 - 125 Laboratory test finding 05/13/2021 [place] [address] [phone] Troponin T <0.01 NG/ML 0.00 - 0.10 5 Pro-BNP 247 pg/mL High 0 - 125 Covid-19 05/13/2021 [facility] [place] [address] [phone] Covid-19 NOT DETECTED 6 Covid-19 [place] NOT DETECTED 7 Laboratory test finding 05/13/2021 [place] [address] [phone] Lipase Serum 28 U/L 13 - 60 8 Troponin T <0.01 NG/ML 0.00 - 0.10 9 Comprehensive Metabolic Panel 05/13/2021 [place] [address] [phone] Comprehensive Metabo (SEE NOTE) 10 Sodium 138 [...] GFR >60 11 CBC W/Automated Diff 05/13/2021 [place], [place] [id number] [phone] CBC W/Automated Diff (SEE NOTE) 12 WBC [...] Lymph 19.5 % Low 25.0 - 40.0 [place] 9.9 % High 3.0 - 8.0 Eos 3.7 % 0.0 - 7.0 Baso 0.6 % 0.0 - 2.5 %Ig 0.3 % High 0.0 - 0.0 %NRBC 0.0 % 0.0 - 0.0 #Neut 4.32 10^3/uL 2.00 - 6.90 #Lymph 1.28 10^3/uL 0.60 - 3.40 #[place] 0.65 10^3/uL 0.00 - 0.90 #Eos 0.24 10^3/uL 0.00 - 0.70 #Baso 0.04 10^3/uL 0.00 - 0.20 #Ig 0.02 10^3/uL 0.00 - 0.10 #NRBC 0.00 10^3/uL 0.00 - 0.00 Manual Diff NOT INDICATED RBC Morph NOT INDICATED U/A DIP FPA 03/20/2021 [facility] Asso ciates Color Urine YELLOW Yellow Appearance CLEAR Clear Specific [place] 1.030 1.00-1.03 PH Urine 5.5 5.0-8.0 Glucose [...] eGFR 84 # Calc 14 eGFR Non-Afr. [place] 73 # Calc 15 Laboratory test finding 03/20/2021 [facility]/Inhouse CK 75 U/L 26 - 192 Lipid Panel 03/20/2021 [facility]Inhouse Chol 183 mg/dL 0 - 200 Trig 123 mg/dL 40 - 200 HDL 46 mg/dL 45 - 65 LDL_C 112 Calc 75 - 129 Cho/HDL Ratio 4.0 CALC Cardiac Marker Panel 12/30/2020 [facility] ( Interface) [phone] CPK Creatine Phosphokinase 104 U/L Normal 26-19 [...] Troponin T. 6 First test?: N~Employed in [employer] [facility]?: N~Symptomatic as defined by CDC?: N~Hospitalized?: N 7 { PROCEDURAL CONTROL VALID KIT LOT # [id number] 05/13/21.7.JNL. KIT EXP DATE _05/24/21 05/13/21.7.JNL. NORMAL RANGE IS NOT DETECTED NEGATIVE RESULTS [...] HCT IS 5% LESS SOURCE FOR DATA: [employer] 1800 OPERATION MANUAL( AUTOMATED BLOOD COUNTS AND [...] Troponin I Reference Interva l for Siemens [place] LOCI: 99th Percentile= 0.00-0.045 ng/ml Risk Stratification: <= 0.10 ng/ml Decreased Risk for Adverse Clinical Events. 0.10-1.50 ng/ml Increased Risk for Adv erse Clinical Events. Evaluation of additional criterion and/or repeat testing in 2-6 hours is suggested to rule out myocardial damage. >= 1.50 ng/ml Indicative of Myocardial Injury. Procedures Date Code Description Status 03/20/2021 70642 Office/Outpatient Established Mo d MDM 30-39 Min Completed Medical Devices Description No Information Available Encounters Type Date Location Provider Dx Diagnosis Office Visit 03/20/2021 2:00p [facility] Brian Merida, FAAFP E78.5 Hyperlipidemia, unspecified I10 Essential (primary) hyperten cuauhtemoc F33.8 Other recurrent depressive d isorders K21.9 Gastro-esophageal reflux dis ease without esophagitis Assessments Date Code Description Provider 03/20/2021 E78.5 Hyperlipidemia, unspecified Al Kan D.O., FAAFP 03/20/2021 I10 Essential (primary) hypertension Robert Kan D.O., FAAFP 03/20/2021 F33.8 Other recurrent depressive disor ders Robert Kan D.O., FAAFP 03/20/2021 K21.9 Gastro-esophageal reflux disease without esophagitis Robert Kan D.O., FAAFP Plan of Treatment No Information Available Functional Status Description No Information Available Mental Status Description No Information Available Referrals Description No Information Available
--- OUTSIDE RECORDS SUMMARY | 2021-08-29 09:00 | CCD ---
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 Name Role Phone Vilma Yates Mary PA Unavailable Unavailable Barraclough, M Mary PA Unavailable Unavailable Barraclough M Mary PA Unavailable Unavailable Barraclough, M Mary PA Unavailable Unavailable Barraclough, M Mary PA Unavailable Unavailable Barraclnoemy, M Mary PA Unavailable Unavailable Barraclnoemy, M Mary PA Unavailable Unavailable Danilo Almonte MD Unavailable Unavailable Danilo Almonte MD Unavailable Unavailable Danilo Almonte MD Unavailable Unavailable Danilo Almonte MD Unavailable Unavailable Danilo Almonte MD Unavailable Unavailable Danilo Almonte MD Unavailable Unavailable SUDHA GORDON MD Unavailable Unavailable SUDHA GORDON MD Unavailable Unavailable SUDHA GORDON MD Unavailable Unavailable SUDAH GORDON MD Unavailable Unavailable SUDHA GORDON MD Unavailable Unavailable SUDHA GORDON MD Unavailable Unavailable SUDHA GORDON MD Unavailable Unavailable SUDHA GORDON MD Unavailable Unavailable SUDHA GORDON MD Unavailable Unavailable SUDHA GORDON MD Unavailable Unavailable BOBBY, MAQBOOL JATINDER MD Unavailable Unavailable BOBBY, MAQBOOL JATINDER MD Unavailable Unavailable BOBBY, MAQBOOL JATINDER MD Unavailable Unavailable BOBBY, MAQBOOL JATINDER MD Unavailable Unavailable BOBBY, MAQBOOL JATINDER MD Unavailable Unavailable BOBBY, MAQBOOL JATINDER MD Unavailable Unavailable BOBBY, MAQBOOL JATINDER MD Unavailable Unavailable BOBBY, MAQBOOL JATINDER MD Unavailable Unavailable BOBBY, MAQBOOL JATINDER MD Unavailable Unavailable BOBBY, MAQBOOL JATINDER MD Unavailable Unavailable BOBBY, MAQBOOL JATINDER MD Unavailable Unavailable BOBBY, MAQBOOL JATINDER MD Unavailable Unavailable BOBBY, MAQBOOL JATINDER MD Unavailable Unavailable BOBBY, MAQBOOL JATINDER MD Unavailable Unavailable BOBBY, MAQBOOL JATINDER MD Unavailable Unavailable BOBBY, MAQBOOL JATINDER MD Unavailable Unavailable BOBBY, MAQBOOL JATINDER MD Unavailable Unavailable BOBBY, MAQBOOL JATINDER MD Unavailable Unavailable BOBBY, MAQBOOL JATINDER MD Unavailable Unavailable BOBBY, MAQBOOL JATINDER MD Unavailable Unavailable BOBBY, MAQBOOL JATINDER MD Unavailable Unavailable BOBBY, MAQBOOL JATINDER MD Unavailable Unavailable BOBBY, MAQBOOL JATINDER MD Unavailable Unavailable BOBBY, MAQBOOL JATINDER MD Unavailable Unavailable BOBBY, MAQBOOL JATINDER MD Unavailable Unavailable BOBBY, MAQBOOL JATINDER MD Unavailable Unavailable BOBBY, MAQBOOL JATINDER MD Unavailable Unavailable BOBBY, MAQBOOL JATINDER MD Unavailable Unavailable BOBBY, MAQBOOL JATINDER MD Unavailable Unavailable BOBBY, MAQBOOL JATINDER MD Unavailable Unavailable BOBBY, MAQBOOL JATINDER MD Unavailable Unavailable BOBBY, MAQBOOL JATINDER MD Unavailable Unavailable BOBBY, MAQBOOL JATINDER MD Unavailable Unavailable BOBBY, MAQBOOL JATINDER MD Unavailable Unavailable BOBBY, MAQBOOL JATINDER MD Unavailable Unavailable BOBBY, MAQBOOL JATINDER MD Unavailable Unavailable BOBBY, MAQBOOL JATINDER MD Unavailable Unavailable BOBBY, MAQBOOL JATINDER MD Unavailable Unavailable BOBBY, MAQBOOL JATINDER MD Unavailable Unavailable BOBBY, MAQBOOL JATINDER MD Unavailable Unavailable BOBBY, MAQBOOL JATINDER MD Unavailable Unavailable BOBBY, MAQBOOL JATINDER MD Unavailable Unavailable BOBBY, MAQBOOL JATINDER MD Unavailable Unavailable BOBBY, MAQBOOL JATINDER MD Unavailable Unavailable BOBBY, MAQBOOL JATINDER MD Unavailable Unavailable BOBBY, MAQBOOL JATINDER MD Unavailable Unavailable BOBBY, MAQBOOL JATINDER MD Unavailable Unavailable BOBBY, MAQBOOL JATINDER MD Unavailable Unavailable BOBBY, MAQBOOL JATINDER MD Unavailable Unavailable BOBBY, MAQBOOL JATINDER MD Unavailable Unavailable BOBBY, MAQBOOL JATINDER MD Unavailable Unavailable BOBBY, MAQBOOL JATINDER MD Unavailable Unavailable BOBBY, MAQBOOL JATINDER MD Unavailable Unavailable BOBBY, MAQBOOL JATINDER MD Unavailable Unavailable BOBBY, MAQBOOL JATINDER MD Unavailable Unavailable BOBBY, MAQBOOL JATINDER MD Unavailable Unavailable BOBBY, MAQBOOL JATINDER MD Unavailable Unavailable BOBBY, MAQBOOL JATINDER MD Unavailable Unavailable BOBBY, MAQBOOL JATINDER MD Unavailable Unavailable BOBBY, MAQBOOL JATINDER MD Unavailable Unavailable BOBBY, MAQBOOL JATINDER MD Unavailable Unavailable BOBBY, MAQBOOL JATINDER MD Unavailable Unavailable BOBBY, MAQBOOL JATINDER MD Unavailable Unavailable BOBBY, MAQBOOL JATINDER MD Unavailable Unavailable BOBBY, MAQBOOL JATINDER MD Unavailable Unavailable BOBBY, MAQBOOL JATINDER MD Unavailable Unavailable BOBBY, MAQBOOL JATINDER MD Unavailable Unavailable BOBBY, MAQBOOL JATINDER MD Unavailable Unavailable Johnny Kebede MD Unavailable [...] Unavailable Unavailable Johnny Kebede MD Unavailable Unavailable Tricia BAEZ MD Unavailable Unavailable Tricia BAEZ MD Unavailable Unavailable Tricia BAEZ MD Unavailable Unavailable Tricia BAEZ MD Unavailable Unavailable Tricia BAEZ MD Unavailable Unavailable Tricia BAEZ MD Unavailable Unavailable Tricia BAEZ MD Unavailable Unavailable Tricia BAEZ MD Unavailable Unavailable Tricia BAEZ MD Unavailable Unavailable Fish, J Robert Unavailable [...] Fish, J Robert Unavailable Unavailable Fish, J Rboert Unavailable Unavailable Fish, J Robert Unavailable Unavailable [...] Unavailable Unavailable Fish, J Robert Unavailable Unavailable BOBBY, MAQBOOL JATINDER MD Unavailable Unavailable BOBBY, MAQBOOL JATINDER MD Unavailable Unavailable BOBBY, MAQBOOL JATINDER MD Unavailable Unavailable BOBBY, MAQBOOL JATINDER MD Unavailable Unavailable BOBBY, MAQBOOL JATINDER MD Unavailable Unavailable BOBBY, MAQBOOL JATINDER MD Unavailable Unavailable BOBBY, MAQBOOL JATINDER MD Unavailable Unavailable BOBBY, MAQBOOL JATINDER MD Unavailable Unavailable BOBBY, MAQBOOL JATINDER MD Unavailable Unavailable BOBBY, MAQBOOL JATINDER MD Unavailable Unavailable BOBBY, MAQBOOL JATINDER MD Unavailable Unavailable BOBBY, MAQBOOL JATINDER MD Unavailable Unavailable BOBBY, MAQBOOL JATINDER MD Unavailable Unavailable BOBBY, MAQBOOL JATINDER MD Unavailable Unavailable BOBBY, MAQBOOL JATINDER MD Unavailable Unavailable BOBBY, MAQBOOL JATINDER MD Unavailable Unavailable BOBBY, MAQBOOL JATINDER MD Unavailable Unavailable BOBBY, MAQBOOL JATINDER MD Unavailable Unavailable BOBBY, MAQBOOL JATINDER MD Unavailable Unavailable BOBBY, MAQBOOL JATINDER MD Unavailable Unavailable BOBBY, MAQBOOL JATINDER MD Unavailable Unavailable BOBBY, MAQBOOL JATINDER MD Unavailable Unavailable BOBBY, MAQBOOL JATINDER MD Unavailable Unavailable BOBBY, MAQBOOL JATINDER MD Unavailable Unavailable BOBBY, MAQBOOL JATINDER MD Unavailable Unavailable BOBBY, MAQBOOL JATINDER MD Unavailable Unavailable BOBBY, MAQBOOL JATINDER MD Unavailable Unavailable BOBBY, MAQBOOL JATINDER MD Unavailable Unavailable BOBBY, MAQBOOL JATINDER MD Unavailable Unavailable BOBBY, MAQBOOL JATINDER MD Unavailable Unavailable BOBBY, MAQBOOL JATINDER MD Unavailable Unavailable BOBBY, MAQBOOL JATINDER MD Unavailable Unavailable BOBBY, MAQBOOL JATINDER MD Unavailable Unavailable BOBBY, MAQBOOL JATINDER MD Unavailable Unavailable BOBBY, MAQBOOL JATINDER MD Unavailable Unavailable BOBBY, MAQBOOL JATINDER MD Unavailable Unavailable BOBBY, MAQBOOL JATINDER MD Unavailable Unavailable BOBBY, MAQBOOL JATINDER MD Unavailable Unavailable BOBBY, MAQBOOL JATINDER MD Unavailable Unavailable BOBBY, MAQBOOL JATINDER MD Unavailable Unavailable BOBBY, MAQBOOL JATINDER MD Unavailable Unavailable BOBBY, MAQBOOL JATINDER MD Unavailable Unavailable BOBBY, MAQBOOL JATINDER MD Unavailable Unavailable BOBBY, MAQBOOL JATINDER MD Unavailable Unavailable BOBBY, MAQBOOL JATINDER MD Unavailable Unavailable BOBBY, MAQBOOL JATINDER MD Unavailable Unavailable BOBBY, MAQBOOL JATINDER MD Unavailable Unavailable BOBBY, MAQBOOL JATINDER MD Unavailable Unavailable BOBBY, MAQBOOL JATINDER MD Unavailable Unavailable BOBBY, MAQBOOL JATINDER MD Unavailable Unavailable BOBBY, MAQBOOL JATINDER MD Unavailable Unavailable BOBBY, MAQBOOL JATINDER MD Unavailable Unavailable BOBBY, MAQBOOL JATINDER MD Unavailable Unavailable BOBBY, MAQBOOL JATINDER MD Unavailable Unavailable BOBBY, MAQBOOL JATINDER MD Unavailable Unavailable BOBBY, MAQBOOL JATINDER MD Unavailable Unavailable BOBBY, MAQBOOL JATINDER MD Unavailable Unavailable BOBBY, MAQBOOL JATINDER MD Unavailable Unavailable BOBBY, MAQBOOL JATINDER MD Unavailable Unavailable BOBBY, MAQBOOL JATINDER MD Unavailable Unavailable BOBBY, MAQBOOL JATINDER MD Unavailable Unavailable BOBBY, MAQBOOL JATINDER MD Unavailable Unavailable BOBBY, MAQBOOL JATINDER MD Unavailable Unavailable BOBBY, MAQBOOL JATINDER MD Unavailable Unavailable BOBBY, MAQBOOL JATINDER MD Unavailable Unavailable BOBBY, MAQBOOL JATINDER MD Unavailable Unavailable BOBBY, MAQBOOL JATINDER MD Unavailable Unavailable BOBBY, MAQBOOL JATINDER MD Unavailable Unavailable BOBBY, MAQBOOL JATINDER MD Unavailable Unavailable BOBBY, MAQBOOL JATINDER MD Unavailable Unavailable BOBBY, MAQBOOL JATINDER MD Unavailable Unavailable BOBBY, MAQBOOL JATINDER MD Unavailable Unavailable BOBBY, MAQBOOL JATINDER MD Unavailable Unavailable BOBBY, MAQBOOL JATINDER MD Unavailable Unavailable BOBBY, MAQBOOL JATINDER MD Unavailable Unavailable BOBBY, MAQBOOL JATINDER MD Unavailable Unavailable BOBBY, MAQBOOL JATINDER MD Unavailable Unavailable BOBBY, MAQBOOL JATINDER MD Unavailable Unavailable Re-disclosure Warning The records [...] is protected by Article 27-F of the [facility] Public Health law. If you continue you may have access to information: Regarding HIV / AIDS; Provided by facilities licensed or operated by the [facility] Office of Mental Health; or Provided by the [facility] Office for People With Developmental Disabilities. If such information is present, then the following [facility] mandated warning applies: This information has [...] law may result in a fine or prison sentence or both. A general authorization for the release of medical or other information is NOT sufficient authorization for further disc losure. Allergies and Adverse Reactions Type Description Substance Reaction Status Data Source(s ) Propensity to adverse reactions PCN (penicillin) PCN (penicillin) HIV [facility] Family History Family Member Name Family Member Gender Family Member Status Date o f Status Description Data Source(s) Unknown Unknown Problem [facility] ([facility] Unknown Unknown Problem [facility] ([facility] Unknown Male Problem [facility] ([facility]) Encounters Encounter Providers Location Date Indications Data Source(s ) Outpatient Attender: Robert Kan [facility] 06/24/2021 09:30:0 0 AM EDT [facility] ([facility] Outpatient Attender: JATINDER GORDON MDA александр: Danilo Almonte MDConsultant: Robert Lucius 05/13/2021 01:35:00 PM EDT - 05/14/2021 05:40:00 PM EDT [facility] Patient discharged. Outpatient Attender: Robert Kan [facility] 03/20/2021 02:00:0 0 PM EDT [facility] ([facility] Outpatient Attender: JATINDER GORDON MD Medical [facility] 01/23 04:15:00 PM EDT [facility] ([facility]) Outpatient Attender: JATINDER GORDON MD [facility] 01/03 10:00:00 AM EST [facility] ([facility] Gordon MD) Outpatient Attender: Robert Miyasultant: Robert Lucius 12/13/2020 10:44:00 AM EST - 12/13/2020 11:44:00 AM EST [facility] 12/09/2020 02:56:54 PM EST - 12/10/2020 09:31:00 AM EST [facility] Patient discharged. Outpatient Attender: Robert Kan [facility] 12/05/2020 12:00:0 0 PM EST [facility] ([facility] Emergency Attender: HARRIET BAEZ MDConsultant: Robert mix 11/01/2020 12:58:00 PM EST - 11/01/2020 02:19:00 PM [facility] Patient discharged. Outpatient Attender: Pierce Kebede MDConsultant: Robert Thorpe 09/30/2020 07:15:00 AM EST - 09/30/2020 09:24:00 AM [facility] Patient discharged. Outpatient Attender: Pierce Kebede MDConsultant: Robert [facility] 09/26/2020 10:48:00 AM EST - 09/26/2020 11:48:00 AM [facility] Patient discharged. Outpatient Attender: Pierce Kebede MDConsultant: Robert [facility] 09/26/2020 10:13:36 AM EST - 09/27/2020 11:30:00 AM [facility] Patient discharged. Outpatient Attender: Mary [facility]WELL [facility] 09/23/2020 09:20:00 AM EST [facility] ([facility] Outpatient Attender: Pierce Kebede MDConsultant: Robert [facility] 09/19/2020 01:41:00 PM [facility] - 09/19/2020 01:41:00 PM [facility] Outpatient Attender: Robert Lucius [facility] 08/29/2020 11:15:0 0 AM EDT [facility] ([facility] Immunizations Vaccine Date Status Description Data Source(s) COVID-19 VACCINE Moderna 02/04/2021 12:00:00 AM EDT completed [facility] Vaccine Series Complete: YESThis Data wa s Submitted to [facility] Via [facility]. COVID-19 VACCINE Moderna 01/07/2021 12:00:00 AM EST completed [facility] Vaccine Series Complete: NOThis Data was Submitted to [facility] [employer]. New in 2012. IIV4 08/29/2020 11:40:00 AM EDT completed [facility] ([facility] Medications Medication Brand Name Start Date Product Form Dose Route Admi nistrative Instructions Pharmacy Instructions Status Indications Reaction Description Data Source(s) Moderna Covid-19 Vaccine Moderna Covid-19 Vaccine 03/20/2021 12:00: 00 AM EDT active [facility] Technetium TC 99M Sestamibi 01/10/2021 12:00:00 AM EST completed [facility] ([facility]) Medication administered onsite Clindamycin 300 MG Oral Capsule Clindamycin HCL 09/26/2020 12:00:00 A M EST ORAL completed [facility] ([facility] Sertraline 50 MG Oral Tablet Sertraline HCL 08/29/2020 12:00:00 AM EDT ORAL active [facility] ([facility] Paroxetine HCL Paroxetine HCL 05/13/2020 12:00:00 AM EDT OR AL completed [facility] ([facility] Insurance Providers Payer name Policy type / Coverage type Policy ID Covered libertarian ID Covered libertarian's relationship to bocanegra Policy [place] Plan Information [employer] () Workers Compensation [id number] Self P [id number] [facility] Health Plus Medigap Part B [id number] Self V [id number] Carlotta Grant [facility]() Workers Compensation [id number] Self [id number] [facility]) Workers Compensation [id number] Self [id number] HMO BLUE [id number] SP [id number] Medicare Medicare Primary [id number] Self [id number] Medicare Medicare Primary [id number] Self [id number] Medicare Medicare Primary [id number] Self [id number] Medicare Medicare Primary [id number] Self MEDICARE [id number] [place] [id number] [id number] MEDICARE [id number] Charisse [id number] [id number] Medicare Medicare Primary [id number] Self [id number] Medicare Medicare Primary [id number] Self [id number] Medicare Medicare Primary [id number] Self [id number] Medicare Medicare Primary [id number]. [id number] Self [id number] Medicare Medicare Primary [id number] Self [id number] Medicare Medicare Primary [id number]. [id number] Self [id number] Medicaid [facility] Part B [id number] [id number] Self [id number] [place] [id number] Self [id number] MEDICAID [id number] Charisse [id number] MEDICAID [id number] Charisse [id number] [facility] [id number] Charisse [id number] [facility] [id number] Charisse [id number] [address] [facility] Medigap Part B [id number] Self [id number] Medicaid Medigap Part B [id number] 3.0 Self [id number] MEDICARE [id number] SP [id number] A Medicaid [place] Medigap Part B [id number] Self [id number] Medicare Natl Gov't Servi Medicare Primary [id number] Self [id number] Medicaid Medigap Part B [id number] 3.0 Self [id number] MEDICARE C [id number] S [id number] A [place] Part [place] [id number] Self [id number] Medicare Natl Gov't Servi Medicare Primary [id number] Self [id number] MEDICAID -O/P [id number] [place] Med[place] Part B [id number] Self [id number] Medicare Natl Gov't Servi Medicare Primary [id number] Self [id number] Medicare Dme Supplies Medigap Part B [id number] Self 0 [id number] Medicaid Medigap Part B [id number] 3.0 Self [id number] Medicaid Medigap Part B [id number] 3.0 Self [id number] Medicaid Medigap Part B [id number] Self MEDICARE -O/P [id number] 18 [id number] MEDICARE PART A -CLINIC [id number] 18 [id number] MEDICARE [id number] SP [id number] S MEDICARE [id number] SP [id number] S [id number] Medicaid Medigap Part B [id number] 3.0 Self [id number] MEDICARE [id number] SP [id number] [facility] HE[facility] C[facility] OPTIONS -R [id number] 18 [id number] MEDICARE PART A -O/P [id number] 18 [id number] [place] [id number] SP [id number] [facility] HE[facility] CARE OPTIONS -RECURRING [id number] 18 [id number] MEDICARE PART A [facility] [id number] 18 [id number] MEDICARE -RECURRING [id number] 18 [id number] MEDICAID -RECURRING [id number] MEDICAID -CLINIC [id number] MEDICARE PART A -O/P [id number] 18 [id number] MEDICAID -CLINIC [id number] AARP O [id number] S [id number] 311 MEDICAID M [id number] S [id number] MEDICARE C [id number] S [id number] [id number] Medicaid Medigap Part B [id number] [id number] UHC PI PI MEDICARE PI PI MEDICAID [id number] SP [id number] Medicaid Medigap Part B [id number] Self [id number] MEDICAID PI PI Medicaid Medigap Part B [id number] 3.0 Self [id number] Medicaid Medigap Part B [id number] 3.0 Self [id number] [facility] HEALTH CARE OPTIONS [id number] Problems, Conditions, and Diagnoses Code Display Name Description Problem Type Effective Dates Data Source(s) J449 Chronic obstructive pulmonary disease, u nspecified Chronic obstructive pulmonary disease, unspecified Diagnosis 05/13/2021 01:35:00 PM EDT [facility] Z1152 ENCOUNTER FOR SCREENING FOR COVID-19 ENCOUNTER F OR SCREENING FOR COVID-19 Diagnosis 05/13/2021 01:35:00 PM EDT [facility] U71623 Personal history of nicotine dependence Personal history of nicotine dependence Diagnosis 05/13/2021 01:35:00 PM EDT [facility] Z8616 PERSONAL HISTORY OF COVID-19 PERSONAL HISTORY OF COVID -19 Diagnosis 05/13/2021 01:35:00 PM EDT [facility] K2100 Gastro-esophageal reflux disease with es ophagitis, without bleeding Gastro-esophageal reflux disease with esophagitis, without bleeding Diagnosis 05/13/2021 01:35:00 PM EDT [facility] K449 Diaphragmatic hernia without obstruction or gangrene Diaphragmatic hernia without obstruction or gangrene Diagnosis 05/13/2021 01:35:00 PM EDT [facility] E785 Hyperlipidemia, unspecified Hyperlipidemia, unspecifie d Diagnosis 05/13/2021 01:35:00 PM EDT [facility] I10 Essential (primary) hypertension Essential (primary) h ypertension Diagnosis 05/13/2021 01:35:00 PM EDT [facility] Z954 Presence of other heart-valve replacemen t Presence of other heart-valve replacement Diagnosis 05/13/2021 01:35:00 PM EDT [facility] Z951 Presence of aortocoronary bypass graft P resence of aortocoronary bypass graft Diagnosis 05/13/2021 01:35:00 PM EDT [facility] I2510 Atherosclerotic heart diseas e of [place] coronary artery without angina pectoris Atherosclerotic heart disease of [place] coronary artery without angina pectoris Diagnosis 05/13/2021 01:35:00 PM EDT [facility] R0789 Other chest pain Other chest pain Diagnosis [facility] nodule Solitary pulmonary nodule Di agnosis 12/13/2020 10:44:00 AM [facility] I517 Cardiomegaly Cardiomegaly Diagnosis 12/13/2020 10:44:00 A [facility] [id number] Collapsed vertebra, not else where classified, thoracic region, initial encounter for fracture Collapsed vertebra, not elsewhere classi fied, thoracic region, initial encounter for fracture Diagnosis 12/13/2020 10:44:00 A [facility] R99 Ill-defined and unknown cause of mortali ty Ill-defined and unknown cause of mortality Diagnosis 12/10/2020 09:31:00 AM [facility] K05244 Contact with and (suspected) exposure to other viral communicable diseases Contact with and (suspected) exposure to other viral communicable diseases Diagnosis 11/01/2020 12:58:00 PM [facility] J40 Bronchitis, not specified as acute or ch ronic Bronchitis, not specified as acute or chronic Diagnosis 11/01/2020 12:58:00 PM [facility] R05 Cough Cough Diagnosis 11/01/2020 12:58:00 PM [facility] K648 Other hemorrhoids Other hemorrhoids Diagnosis 09/30/2020 07:15:00 AM [facility] K5730 Diverticulosis of large inte jazmín without perforation or abscess without bleeding Diverticulosis of large intestine withou t perforation or abscess without bleeding Diagnosis 09/30/2020 07:15:00 AM [facility] Z800 Family history of malignant neoplasm of digestive organs Family history of malignant neoplasm of digestive organs Diagnosis 09/30/2020 07:15:00 A [facility] K921 Melena Melena Diagnosis 09/30/2020 07:15:00 AM [facility] [id number] Encounter for other preprocedural examin ation Encounter for other preprocedural examination Diagnosis 09/27/2020 10:30:00 AM [facility] Z1211 Encounter for screening for malignant ne oplasm of colon Encounter for screening for malignant neoplasm of colon Diagnosis 09/26/2020 10:48:0 0 AM [facility] Z1159 Encounter for screening for other viral diseases Encounter for screening for other viral diseases Diagnosis 09/26/2020 10:48:00 AM [facility] Surgeries/Procedures Procedure Description Date Indications Data Source(s) OFFICE OUTPATIENT VISIT 25 MINUTES 06/24/2021 12:00:00 AM EDT [facility] ([facility] CV STRS TST XERS&/OR RX CONT ECG PHYS SI&R 05/14/2021 12:00:00 AM EDT [facility] (Jatinder Gordon MD) OFFICE OUTPATIENT VISIT 25 MINUTES 03/20/2021 12:00:00 AM EDT [facility] ([facility] OFFICE OUTPATIENT VISIT 15 MINUTES 01/23/2021 12:00:00 AM EDT [facility] (Jatinder Gordon MD) MYOCARDIAL SPECT MULTIPLE STUDIES 01/10/2021 12:00:00 AM EST [facility] (J[facility] Gordon MD) CV STRS TST XERS&/OR RX CONT ECG PHYS SI&R 01/10/2021 12:00:00 AM EST [facility] (Jatinder Gordon MD) CV STRS TST XERS&/OR RX CONT ECG PHYS SI&R 01/06/2021 12:00:00 AM EST [facility] (Jatinder Gordon MD) ECG ROUTINE ECG W/LEAST 12 LDS W/I&R 01/03/2021 12:00: 00 AM EST [facility] (Jatinder Gordon MD) ECHO TTHRC R-T 2D W/WOM-MODE COMPL SPEC&COLR DOP 01/03 12:00:00 AM EST [facility] (Jatinder Gordon MD) OFFICE OUTPATIENT VISIT 25 MINUTES 01/03/2021 12:00:00 AM EST [facility] (Jatinder Gordon MD) Electrocardiogram Complete 09/23/2020 12:00:00 AM EST [facility] ([facility] Results ID Date Data Source [id number] 05/14/2021 10:18:00 [place] [address] PROGRESS NOTENAME: URSULA Garzon ROOM#: 106-1DATE OF : 1945 MR#: [id number] DATE: 05/13/21 OF SERVICE: 05/14/2021UBJECTIVE:Patient came with chest pain in the retrosternal area. The pain is better. Also, patient has refluxesophagitis and hiatal hernia. IV Protonix was given. Chest pain is better today.REVIEW OF SYSTEMS:CONSTITUTIONAL: The patient reports no anorexia, fever, night sweats, systemic illness, or recent weightgain/loss.HEAD: No head trauma or headaches.EYES: No blurred or double vision.ENT: No hearing loss, epistaxis, dysphagia, or sinus congestion.RESPIRATORY: No cough, SANCHEZ, wheezing, hemoptysis, sputum production, or SOB.CARDIOVASCULAR: No chest pain, rapid or irregular heartbeat, orthopnea, PND, or lower extremityedema.GI: No nausea, vomiting, abdominal pain, or change in bowel habits.: No pain with urination, urgency or frequency, blood in urine, difficulty starting or stopping urinarystream, urinary infection, stones, or cysts.MUSCULOSKELETAL: No arthritis, joint swelling, or joint stiffness.NEUROLOGIC: No dizziness, syncope, or weakness.ENDOCRINE: No excessive urination or excessive thirst.OBJECTIVE:GENERAL: Moderately built.VITAL SIGNS: Blood pressure 140/80.HEENT: Head is normal.HEART: Regular sinus rhyt hm.EXTREMITIES: No edema of the legs.LABORATORY DATA:WBC 4.9, RBC 4.26, hemoglobin 12.8, hematocrit 38.1, MCV 89.4, MCH 30, MCHC 33.6, RDW12.6, platelets 175, MPV 9.2. Sodium 140, potassium 3.6, chloride 102, CO2 27, glucose 89, BUN 12,creatinine 0.7, BUN/creatinine 17, total protein 6.4, albumin 4, globulin 2.4, A/G ratio 1.7, calcium9.2.ASSESSMENT/PLAN:1. Patient's BNP is 225, troponin normal. Chest pain has stabilized. Plan to assess her on treadmill. Nuclear stress test done a few months ago was negative for ischemia. However, if the [address] [place] [address] PROGRESS NOTENAME: URSULA Garzon ROOM#: [id number] OF : 1945 MR#: [id number] DATE: 05/13/21 stress test on treadmill does show any ischemic changes, we will send her for coronary angiogram. 2. History of coronary artery disease, coronary bypass, and aortic valve prosthesis. She seems to be doing well. 3. Acute coronary event has been ruled out. Plan to do a stress test on the treadmill.DD: Jatinder Gordon MD, PC 05/14/21 09:17DT: SSR 05/14/21 10:18DS: Jatinder Gordon MD, PC 05/29/21 08:54 2 Name Value Range Interpretation Code Description Data Danisha rce(s) Supporting Document(s) ID Date Data Source [id number] 05/14/2021 01:33:00 [place] [address] HISTORY AND PHYSICALNAME: URSULA Garzon ROOM#: 106-1DATE OF : 1945 MR#: [id number] PHYS: Jatinder Gordon MD, P C DATE: 05/13/21CHIEF COMPLAINT: This is a 76-year-old white female who presented with chest pain.HISTORY OF PRESENT ILLNESS:This patient was on the porch trying to play a puzzle when suddenly she stood up and had prolongedretrosternal chest pressure which started in the intrascapular area and came forward to the retrosternal area andlasted a half an hour. She felt nauseated after that and she vomited once. She does complain of tiredness andfatigue. She still has a dull ache today in the chest. She has known history of coronary artery disease, coronarybypass, aortic valve prosthesis with surgery in January 2021. She feels better. Her Troponin was normal, butstill she complains of dull chest pressure in the retrosternal area. The patient complains of chest pain whichlasted almost one hour. The pain is quite sharp. There is no radiation of the pain to the neck and arm. There issome associated dyspnea, sweating and nausea. The patient denies an y chest pain on exertion.PAST MEDICAL HISTORY:The patient has known history of hypertension, hyperlipidemia, coronary artery disease, coronarybypass, aortic valve prosthesis.PAST SURGICAL HISTORY:The patient had coronary bypass, aortic valve prosthesis in January 2021. She had replacement of theascending aorta also. She has known history of cholecystectomy, D&C, left knee replacement, rightknee replacement.PERSONAL HISTORY:Nonsmoker.FAMILY HISTORY:Father and mother both had heart disease.ALLERGIES:None.MEDICATIONS: 1. Losartan 25 mg daily 2. Metoprolol 25 mg pill b.i.d. 3. Prilosec 20 mg daily 4. Paroxetine 40 mg dailyREVIEW OF SYSTEMS: [address] [place] [address] HISTORY AND PHYSICALNAME: URSULA Garzon ROOM#: 106-1DATE OF : 1945 MR#: [id number] PHYS: Jatinder Gordon MD, DATE: 05/13/21CONSTITUTIONAL: The patient reports no anorexia, fever, night sweats, systemic illness, or recent weightgain/loss.HEAD: No head trauma or headaches.EYES: No blurred or double vision.ENT: No hearing loss, epistaxis, dysphagia, or sinus congestion.RESPIRATORY: No cough, SANCHEZ, wheezing, hemoptysis, sputum production, or SOB.CARDIOVASCULAR: No chest pain, rapid or irregular heartbeat, orthopnea, PND, or lower extremityedema.GI: No nausea, vomiting, abdominal pain, or change in bowel habits.: No pain with urination, urgency or frequency, blood in urine, difficulty starting or stopping urinarystream, urina ry infection, stones, or cysts.MUSCULOSKELETAL: No arthritis, joint swelling, or joint stiffness.NEUROLOGIC: No dizziness, syncope, or weakness.ENDOCRINE: No excessive urination or excessive thirst.PHYSICAL EXAMINATION:GENERAL: Moderately-built.VITAL SIGNS: Blood pressure is 140/80. Pulse is 80. Temperature 98. Respirations 18.HEENT: Head is normal. Pupils and fundus are normal. Mouth normal. Tongue dry.NECK: Supple. No lymphadenopathy. Thyroid not enlarged. Neck veins are not distended. No carotidbruits.CHEST: Symmetrical.HEART: Regular sinus rhythm. No murmur or gallop.LUNGS: Clear with no rales or rhonchi.ABDOMEN: Soft and nontender. No visceromegaly.EXTREMITIES: Normal. Peripheral pulses are palpable.NEUROLOGICAL: Normal.LABORATORY DATA:CBC and CMP, Troponin are normal. EKG is normal and within normal limits.IMPRESSION: 1. Chest pain, rule out acute coronary event. 2. History of aortic valve prosthesis and replacement of ascending aorta. 3. History of coronary bypass. 4. History of hypertension. 5. History of hyperlipidemia. [address] [place] [address] HISTORY AND PHYSICALNAME: URSULA Garzon ROOM#: 106-1DATE OF : 1945 MR#: [id number] PHYS: Jatinder Gordon MD, PC DATE: 05/13/21PLAN:This patient will be admitted to rule out acute coronary event. She will be monitored with telemetrymonitoring. Repeat Troponin and BNP will be done in a couple of hours again.DD: Jatinder Grodon MD, 05/13/21 17:27DT: SARA 05/14/21 01:22DS: Jatinder Gordon MD, PC 05/29/21 08:54 3 Name Value Range Interpretation Code Description Data Danisha rce(s) Supporting Document(s) ID Date Data Source [id number] 05/14/2021 06:00:00 [place] [address] DISCHARGE SUMMARYNAME: URSULA Garzon ROOM#: 106-1DATE OF : 1945 MR#: [id number] PHYS: Jatinder Gordon MD, PC ACC T#: [id number] DATE: 05/13/21 DISCHARGED:REASON FOR ADMISSION: This 76-year-old white female presented with chest pain.HISTORY OF PRESENT ILLNESS:This patient was standing and suddenly felt like indigestion and pain in the intrascapular area which radiatedto the chest followed by weakness and sweating. She came to the emergency room and was admitted to ruleout acute coronary event. 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 She was admitted for observation for chestpain to rule out acute coronary event. On exam, moderately built. Blood pressure is 130/80. Head is normal.Heart is regular sinus rhythm. Abdomen is soft. There is no edema in the legs.LABORATORY & X-RAY DATA:Lab tests showed that sodium was 138, potassium was 3.8, BUN was 14, creatinine was 0.8.Hemoglobin was 13.4. Troponin was normal. On 05/14, sodium was 140, potassium was 3.3, BUN 12,creatinine 0.7. Troponin was normal.HOSPITAL COURSE:The patient was treated with nitroglycerin 0.4 mg in the emergency room and felt better. Patient wasgiven nitroglycerin and the pain got better. She was put on morphine 4 mg q 4 hours as needed for painand Nitropatch 0.4 daily and Protonix 40 mg daily IV, thinking that it maybe could be refluxesophagitis. She had been taking Prilosec 20 mg at home. There was no further chest pain during thecourse in the hospital and the nausea got better. There was no heartburn. A stress test was done on 05/14.She ran on the treadmill for 6 minutes. There was no chest pain and no significant ST depression andshe was stable to be discharged and she will be seen in the office in 2 weeks.DISCHARGE DIET:2-gram salt diet.DISCHARGE MEDICATIONS:1. Prilosec 20 mg b.i.d.2. HydroDIURIL 20 mg daily3. Losartan 25 mg daily4. Metoprolol tartrate 25 mg b.i.d.5. Pravastatin 40 mg daily6. Sertraline 50 mg dailyShe was stable to be discharged.FINAL DIAGNOSES: [address] [place] [address] DISCHARGE SUMMARYNAME: URSULA Garzon ROOM#: 106-1DATE OF : 1945 MR#: [id number] PHYS: Jatinder Gordon MD, PC [id number] DATE: 05/13/21 DISCHARGED: 1. Atypical chest pain 2. Reflux esophagitis 3. History of aortic valve prosthesis of the ascending aortic aneurysm with surgery 4. History of coronary bypass 5. History of hypertension 6. HyperlipidemiaDD: Jatinder Gordon MD, 05/14/21 16:58DT: DMZ 05/14/21 17:45DS: Jatinder Gordon MD, 05/29/21 08:54 2 Name Value Range Interpretation Code Description Data Danisha rce(s) Supporting Document(s) ID Date Data Source [id number] 05/16/2021 02:31:00 PM EDT [facility] [address] [place] [address] PHONE: [phone] FAX: [phone] Name .................. : URSULA Garzon Acct Number.................. : [id number] ROOM. ................. : 106 MR Number ................... : [id number] Stay type ............. : O/P Discharge Date......... ... : Admit Date ......... : 04/28 Admit Phys .................... : BOBBY PALACIO Date of ....... : 1945 Family Phys ................... : LUCIUS NEW Phone .................. : [phone] Age ................................ : 76 Film# .................. .:[id number] Sex ................................. : F Unsigned transcriptions are preliminary reports and do not represent a medical or legal document CT CTA CHEST NON-CORONARY Yessenia Ellington 88067 COMPLETE:05/13/21 19:17 GEGE [id number] Reason(s): chest pain CTA OF THE CHEST WITH CONTRAST: FINDINGS: Aneurysmal dilatation of the ascending thoracic aorta with maximal diameter of 4.4 cm is seen. Aortic dissection or pulmonary embolism is not identified. The heart is mildly enlarged. There is no pleural effusion or pericardial effusion. COPD changes are present. Pneumonic infiltrate or pulmonic mass is not seen. There is no mediastinal or hilar adenopathy. The upper abdomen is without suggestion of acute pathology or mass. Degenerative changes are noted in the spine without fracture or destructive osseous lesion. IMPRESSION: Aneurysmal dilatation ascending thoracic aorta measuring 4.4 cm. No aortic dissection or pulmonary embolism. Mild cardiomegaly. COPD changes. While performing the above CT examination, radiation dose reduction was accomplished utilizing automated exposure control, adjusting of the mA and kV based on the patient's body size and/or the use of imperative reconstructive techniques. CT dose: 863.5 mGycm Contrast agent in mL: 75 Isovue 370 Method of administration: Intravenous Electronically Reviewed and Signed By Patricio Silverio MD , 05/16/21 14:31, KGG [address] [place] [address] PHONE: [phone] FAX: [phone] Name .................. : URSULA Garzon Acct Number.................. : [id number] ROOM. ................. : 106-1 MR Number ................... : [id number] Stay type ............. : O/P Discharge Date......... ... : Admit Date ......... : 05/13/21 Admit Phys .................... : BOBBY PIA Date of ....... : 1945 Family Phys ................... : LUCIUS NEW Phone .................. : [phone] Age ................................ : 76 Film# .................. .:[id number] Sex ................................. : F Unsigned transcriptions are preliminary reports and do not represent a medical or legal document CT CTA CHEST NON-CORONARY W C 41906 COMPLETE:05/13/21 19:17 GEGE [id number] Reason(s): chest pain Transcribe Initials: FREDO , Transcribe Date: 05/14/21 02:26, Dictation Date: Copy for: LUCIUS JOY via fax Copy for: EMERGENCY DEPT via modem Copy for: 710 MED REC DISCHARGED Page 2 of 2 Name Value Range Interpretation Code Description Data Danisha rce(s) Supporting Document(s) ID Date Data Source [id number] 05/16/2021 02:30:00 [place] [address] PHONE: [phone] FAX: [phone] Name .................. : URSULA Garzon Acct Number.................. : [id number] ROOM. ................. : TR-02 Number ................... : [id number] Stay type ............. : E/R Discharge Date......... ... : Admit Date ......... : 04/28 Admit Phys .................... : MARY Ellington Date of ....... : 1945 Family Phys ................... : LUCIUS NEW Phone .................. : [phone] Age ................................ : 76 Film# .................. .:[id number] Sex ................................. : F Unsigned transcriptions are preliminary reports and do not represent a medical or legal document CHEST PORTABLE [id number] COMPLETE:05/13/21 14:12 [facility] [address] Reason(s): Chest Pain PORTABLE CHEST X-RAY CLINICAL HISTORY: Chest pain. COMPARISON: 03/10/17 FINDINGS: COPD changes are present. Pneumonic infiltrate, pneumothorax, pleural effusion, cardiomegaly or acute osseous abnormality is not seen. The patient is status post median sternotomy. IMPRESSION: COPD changes. No acute pathology. Electronically Reviewed and Signed By Patricio Silverio MD , 05/16/21 14:30, KGG Transcribe Initials: FREDO , Transcribe Date: 05/13/21 15:58, Dictation Date: Copy for: LUCIUS JOY via fax Copy for: EMERGENCY DEPT via modem Copy for: 710 MED REC DISCHARGED Page 1 of 1 Name Value Range Interpretation Code Description Data Danisha rce(s) Supporting Document(s) ID Date Data Source [id number] 05/14/2021 07:12:00 PM EDT [facility] [address] [place] [address] RESPIRATORY CARE REPORT ==== ---------NAME------- NUMBER SEX AGE ADMIT DISC. XRAY# F/C NEAL Garzon [id number] F 76 05/13/21 05/14/21 [id number] MB4 O/P DATE OF : 1945 M/R# [id number] #: [id number] 106-1 LOCATION: EMERGENCY DEPT EKG [id number] COMPLE TE:05/14/21 00:01 [place] [address] EKG 03138 COMPLETE:05/14/21 08:02 [facility] [address] PHYSICIAN: BOBBY Ellington Name Value Range Interpretation Code Description Data Danisha rce(s) Supporting Document(s) ID Date Data Source [id number] 05/14/2021 05:14:00 AM EDT [facility] Name Value Range Interpretation Code Description Data Danisha rce(s) Supporting Document(s) Natriuretic peptide.B prohormone N-Terminal [Mass/volu me] in Serum or Plasma 225 pg/mL 0-125 Above high normal [facility] ([facility] ID Date Data Source [id number] 05/14/2021 05:14:00 AM EDT [facility] ([facility] Name Value Range Interpretation Code Description Data Danisha rce(s) Supporting Document(s) Comprehensive [facility] Laboratory test result [facility] ([facility] COMPREHENSIVE METABOLIC PANEL Sodium 140 meq/L 134-153 [facility] Potassium 3.6 meq/L 3.6-5.0 [facility] Chloride 102 meq/L 98-107 [facility] Co2 27 meq/L 22-30 [facility] Glucose 89 mg/dL 70-99 [facility] BUN 12 mg/dL 7-21 [facility] ([facility] Creatinine 0.7 mg/dL 0.7-1.5 [facility] BUN/Creat 17 8-27 [facility] Total Protein 6.4 g/dL 6.3-8.2 [facility] ([facility] Albumin 4.0 g/dL 3.9-5.0 [facility] Calcium 9.2 mg/dL 8.4-10.2 [facility] A/G Ratio 1.7 0.8-2.0 [facility] Globulin 2.4 GM/DL 2.4-3.2 [facility] Total Bili Laboratory test result 0.2-1.3 ME DENT ([facility] Alkaline Phos 59 U/L 38-126 [facility] Sgot/Ast 22 U/L 5-40 [facility] Anion Gap 11.0 mmol/L 8.0-16.0 [facility] ([facility] SGPT/Alt 14 U/L 7-56 [facility] ([facility] Non-Aa GFR Laboratory test result ME DENT ([facility] Age 76 yrs [facility] Afr Amer GFR Laboratory test result [facility] ([facility] Male GFR Interprentation 20-49 yrs >60 mL/min [...] >32 mL/min Normal ID Date Data Source [id number] 05/14/2021 05:14:00 AM EDT [facility] ([facility] Name Value Range Interpretation Code Description Data Danisha rce(s) Supporting Document(s) Troponin T.cardiac [Mass/volume] in Serum or Plasma Laborato ry test result 0.00-0.10 [facility] ([facility] TROPONIN T 0.1 ng/ml Recommended as the clinical th reshold value for Troponin T. ID Date Data Source [id number] 05/14/2021 05:14:00 AM EDT [facility] ([facility] Name Value Range Interpretation Code Description Data Danisha rce(s) Supporting Document(s) CBC W/Automated Diff Laboratory test result [facility] ([facility] COMPLETE BLOOD COUNT WBC 4.9 10^3/uL 4.2-11.0 [facility] Hemoglobin 12.8 g/dL 12.0-16.0 [facility] ([facility] RBC 4.26 10^6/uL 4.20-5.40 [facility] Hematocrit 38.1 % 37.0-47.0 [facility] ([facility] MCV 89.4 fL 81.0-101 [facility] MCHC 33.6 g/dL 31.0-36.0 [facility] MCH 30.0 pg 27.0-34.0 [facility] RDW 12.6 % 11.5-14.5 [facility] Platelets 175 10^3/uL 150-450 [facility] Neut 53.8 % 37.0-80.0 [facility] MPV 9.2 fL 7.4-10.4 [facility] Lymph 29.9 % 25.0-40.0 [facility] Hinds 11.0 % 3.0-8.0 Above high normal [facility] ([facility] Eos 4.5 % 0.0-7.0 [facility] %Ig 0.4 % 0.0-0.0 Above high normal [facility] Baso 0.4 % 0.0-2.5 [facility] #Neut 2.65 10^3/uL 2.00-6.90 [facility] #Lymph 1.47 10^3/uL 0.60-3.40 [facility] %NRBC 0.0 % 0.0-0.0 [facility] #Hinds 0.54 10^3/uL 0.00-0.90 [facility] #Baso 0.02 10^3/uL 0.00-0.20 [facility] #Eos 0.22 10^3/uL 0.00-0.70 [facility] #Ig 0.02 10^3/uL 0.00-0.10 [facility] #NRBC 0.00 10^3/uL 0.00-0.00 [facility] RBC Morph Laboratory test result ME MOSHER ([facility] Manual Diff Laboratory test result Vilma DANG ([facility] ID Date Data Source [id number] 05/14/2021 05:14:00 AM EDT [facility] (Jatinder Gordon MD) Name Value Range Interpretation Code Description Data Danisha rce(s) Supporting Document(s) Natriuretic peptide.B prohormone N-Terminal [Mass/volu me] in Serum or Plasma 225 pg/mL 0-125 Above high normal [facility] (Jatinder Gordon MD) ID Date Data Source [id number] 05/14/2021 05:14:00 AM EDT [facility] (Jatinder Gordon MD) Name Value Range Interpretation Code Description Data Danisha rce(s) Supporting Document(s) Laboratory test finding (navigational concept) Laboratory test result [facility] (Jatinder Gordon MD) COMPREHENSIVE METABOLIC PANEL Laboratory test finding (navigational concept) 140 meq/L 134-153 [facility] (Jatinder Gordon MD) Laboratory test finding (navigational concept) 3.6 meq/L 3.6-5.0 [facility] (Jatinder Gordon MD) Laboratory test finding (navigational concept) 102 meq/L 98-107 [facility] (Jatinder Gordon MD) Laboratory test finding (navigational concept) 27 meq/L 22-30 [facility] (Jatinder Gordon MD) Laboratory test finding (navigational concept) 89 mg/dL 70-99 [facility] (Jatinder Gordon MD) Laboratory test finding (navigational concept) 12 mg/dL 7-21 [facility] (Jatinder Gordon MD) Laboratory test finding (navigational concept) 17 8-27 [facility] (Jatinder Gordon MD) Laboratory test finding (navigational concept) 0.7 mg/dL 0.7-1.5 [facility] (Jatinder Gordon MD) Laboratory test finding (navigational concept) 6.4 g/dL 6.3-8.2 [facility] (Jatinder Gordon MD) Laboratory test finding (navigational concept) 4.0 g/dL 3.9-5.0 [facility] (Jatinder Gordon MD) Laboratory test finding (navigational concept) 2.4 GM/DL 2.4-3.2 [facility] (Jatinder Gordon MD) Laboratory test finding (navigational concept) 1.7 0.8-2.0 [facility] (Jatinder Gordon MD) Laboratory test finding (navigational concept) 9.2 mg/dL 8.4-10.2 [facility] (Jatinder Gordon MD) Laboratory test finding (navigational concept) Laboratory test resu lt 0.2-1.3 [facility] (Jatinder Gordon MD) Laboratory test finding (navigational concept) 59 U/L 38-126 [facility] (Jatinder Gordon MD) Laboratory test finding (navigational concept) 22 U/L 5-40 [facility] (Jatinder Gordon MD) Laboratory test finding (navigational concept) 14 U/L 7-56 [facility] (Jatinder Gordon MD) Laboratory test finding (navigational concept) 11.0 mmol/L 8.0-16.0 [facility] (Jatinder Gordon MD) Laboratory test finding (navigational concept) Laboratory test result [facility] (Jatinder Gordon MD) Laboratory test finding (navigational concept) 76 yrs [facility] (Jatinder Gordon MD) Laboratory test finding (navigational concept) Laboratory test result [facility] (Jatinder Gordon MD) Male GFR Interprentation 20-49 yrs >60 mL/min [...] >32 mL/min Normal ID Date Data Source [id number] 05/14/2021 05:14:00 AM EDT [facility] (Jatinder Gordon MD) Name Value Range Interpretation Code Description Data Danisha rce(s) Supporting Document(s) Troponin T.cardiac [Mass/volume] in Serum or Plasma Laborato ry test result 0.00-0.10 [facility] (Jatinder Gordon MD) TROPONIN T 0.1 ng/ml Recommended as the clinical th reshold value for Troponin T. ID Date Data Source [id number] 05/14/2021 05:14:00 AM EDT [facility] (Jatinder Gordon MD) Name Value Range Interpretation Code Description Data Danisha rce(s) Supporting Document(s) Laboratory test finding (navigational concept) Laboratory test result [facility] (Jatinder Gordon MD) COMPLETE BLOOD COUNT Laboratory test finding (navigational concept) 4.9 10^3/uL 4.2-11.0 [facility] (Jatinder Gordon MD) Laboratory test finding (navigational concept) 4.26 10^6/uL 4.20-5.40 [facility] (Jatinder Gordon MD) Laboratory test finding (navigational concept) 12.8 g/dL 12.0-16.0 [facility] (Jatinder Gordon MD) Laboratory test finding (navigational concept) 38.1 % 37.0-47.0 [facility] (Jatinder Gordon MD) Laboratory test finding (navigational concept) 89.4 fL 81.0-101 [facility] (Jatinder Gordon MD) Laboratory test finding (navigational concept) 30.0 pg 27.0-34.0 [facility] (Jatinder Gordon MD) Laboratory test finding (navigational concept) 33.6 g/dL 31.0-36.0 [facility] (Jatinder Gordon MD) Laboratory test finding (navigational concept) 175 10^3/uL 150-450 [facility] (Jatinder Gordon MD) Laboratory test finding (navigational concept) 12.6 % 11.5-14.5 [facility] (Jatinder Gordon MD) Laboratory test finding (navigational concept) 53.8 % 37.0-80.0 [facility] (Jatinder Gordon MD) Laboratory test finding (navigational concept) 29.9 % 25.0-40.0 [facility] (Jatinder Gordon MD) Laboratory test finding (navigational concept) 9.2 fL 7.4-10.4 [facility] (Jatinder Gordon MD) Laboratory test finding (navigational concept) 11.0 % 3.0-8.0 Above high normal [facility] (Jatinder Gordon MD) Laboratory test finding (navigational concept) 0.4 % 0.0-2.5 [facility] (Jatinder Gordon MD) Laboratory test finding (navigational concept) 4.5 % 0.0-7.0 [facility] (Jatinder Gordon MD) Laboratory test finding (navigational concept) 0.4 % 0.0-0.0 Above high normal [facility] (Jatinder Gordon MD) Laboratory test finding (navigational concept) 0.0 % 0.0-0.0 [facility] (Jatinder Gordon MD) Laboratory test finding (navigational concept) 1.47 10^3/uL 0.60-3.40 [facility] (Jatinder Gordon MD) Laboratory test finding (navigational concept) 2.65 10^3/uL 2.00-6.90 [facility] (Jatinder Gordon MD) Laboratory test finding (navigational concept) 0.54 10^3/uL 0.00-0.90 [facility] (Jatinder Gordon MD) Laboratory test finding (navigational concept) 0.02 10^3/uL 0.00-0.20 [facility] (Jatinder Gordon MD) Laboratory test finding (navigational concept) 0.22 10^3/uL 0.00-0.70 [facility] (Jatinder Gordon MD) Laboratory test finding (navigational concept) 0.00 10^3/uL 0.00-0.00 [facility] (Jatinder Gordon MD) Laboratory test finding (navigational concept) 0.02 10^3/uL 0.00-0.10 [facility] (Jatinder Gordon MD) Laboratory test finding (navigational concept) Laboratory test result [facility] (Jatinder Gordon MD) Laboratory test finding (navigational concept) Laboratory test result [facility] (Jatinder Gordon MD) ID Date Data Source [id number] 05/14/2021 06:38:00 AM EDT [facility] Name Value Range Interpretation Code Description Data Danisha rce(s) Supporting Document(s) BNP 225 PG/ML 0 - 125 [facility] ID Date Data Source [id number] 05/14/2021 06:38:00 AM EDT [facility] Name Value Range Interpretation Code Description Data Danisha rce(s) Supporting Document(s) COMPREHENSIVE METABOLIC PANEL [facility] COMPREHENSIVE METABOLIC PANEL Sodium [Moles/volume] in Serum or Plasma 140 mEq/L 134 - 153 [facility] Potassium [Moles/volume] in Serum or Plasma 3.6 mEq/L 3.6 - 5.0 [facility] Chloride [Moles/volume] in Serum or Plasma 102 mEq/L 98 - 107 [facility] Carbon dioxide, total [Moles/volume] in Serum or Plasma 27 MEQ/L 22 - 30 [facility] Glucose [Mass/volume] in Serum or Plasma 89 MG/DL 70 - 99 [facility] BUN 12 MG/DL 7 - 21 [facility] al Creatinine [Mass/volume] in Serum or Plasma 0.7 MG/DL 0.7 - 1.5 [facility] BUN/CREAT 17 8 - 27 [facility] Protein [Mass/volume] in Serum or Plasma 6.4 G/DL 6.3 - 8.2 [facility] Albumin [Mass/volume] in Serum or Plasma 4.0 G/DL 3.9 - 5.0 [facility] Globulin [Mass/volume] in Serum by calculation 2.4 GM/DL 2.4 - 3.2 [facility] A/G RATIO 1.7 0.8 - 2.0 [facility] Calcium [Mass/volume] in Serum or Plasma 9.2 MG/DL 8.4 - 10.2 [facility] Bilirubin.total [Mass/volume] in Serum or Plasma <0.7 MG/DL 0.2 - 1.3 [facility] Alkaline phosphatase [Enzymatic activity/volume] in Serum or Plasma 59 U/L 38 - 126 [facility] Aspartate aminotransferase [Enzymatic activity/volume] in Serum or Plasma 22 U/L 5 - 40 [facility] Alanine aminotransferase [Enzymatic activity/volume] in Seru m or Plasma 14 U/L 7 - 56 [facility] Anion gap 3 in Serum or Plasma 11.0 mmol/L 8.0 - 16.0 [facility] AGE 76 yrs [facility] al NON-AA GFR >60 mL/min [facility] ital AFR AMER GFR >60 [facility] Male GFR In terprentation 20-49 yrs >60 mL/min Normal 50-59 yrs >56 mL/min Normal 60-69 yrs >49 mL/min Normal 70-79yrs >42 mL/min Normal 80 and above >35 mL/min Normal Female GFR Interpretation 20-39 yrs >60 mL/min Normal 40-49 yrs >58 mL/min Normal 50-59 yrs >51 mL/min Normal 60-69 yrs >45 mL/min Normal 70-79 yrs >39 mL/min Normal 80 and above >32 mL/min Normal ID Date Data Source [id number] 05/14/2021 06:33:00 AM EDT [facility] Name Value Range Interpretation Code Description Data Danisha rce(s) Supporting Document(s) TROPONIN T <0.01 NG/ML 0.00 - 0.10 [facility] ospital TROPONIN T0.1 ng/ml Recommended as the c linical threshold value forTroponin T. ID Date Data Source [id number] 05/14/2021 06:30:00 AM EDT [facility] Name Value Range Interpretation Code Description Data Danisha rce(s) Supporting Document(s) CBC W/AUTOMATED DIFF [facility] COMPLETE BLOOD COUNT Leukocytes [#/volume] in Blood by Automated count 4.9 10^3/uL 4.2 - 1 1.0 [facility] Erythrocytes [#/volume] in Blood by Automated count 4.26 10^6/uL 4. 20 - 5.40 [facility] Hemoglobin [Mass/volume] in Blood 12.8 g/dL 12.0 - 16.0 [facility] Hematocrit [Volume Fraction] of Blood by Automated count 38.1 % 3 7.0 - 47.0 [facility] Erythrocyte mean corpuscular volume [Entitic volume] by Auto mated count 89.4 fL 81.0 - 101 [facility] Erythrocyte mean corpuscular hemoglobin [Entitic mass] by Automated count 30.0 pg 27.0 - 34.0 [facility] Erythrocyte mean corpuscular hemoglobin concentration [Mass/volume] by Automated count 33.6 g/dL 31.0 - 36.0 [facility] Erythrocyte distribution width [Ratio] by Automated count 12.6 % 11.5 - 14.5 [facility] Platelets [#/volume] in Blood by Automated count 175 10^3/uL 150 - 45 0 [facility] Platelet mean volume [Entitic volume] in Blood by Automated count 9.2 fL 7.4 - 10.4 [facility] Neutrophils/100 leukocytes in Blood by Automated count 53.8 % 37. 0 - 80.0 [facility] Lymphocytes/100 leukocytes in Blood by Manual count 29.9 % 25.0 - 40.0 [facility] Monocytes/100 leukocytes in Blood by Automated count 11.0 % 3.0 - 8.0 H [facility] Eosinophils/100 leukocytes in Blood by Automated count 4.5 % 0.0 - 7.0 [facility] Basophils/100 leukocytes in Blood by Automated count 0.4 % 0.0 - 2.5 [facility] %IG 0.4 % 0.0 - 0.0 H [facility] al %NRBC 0.0 % 0.0 - 0.0 [facility] al Neutrophils [#/volume] in Blood by Automated count 2.65 10^3/uL 2.00 - 6.90 [facility] Lymphocytes [#/volume] in Blood by Automated count 1.47 10^3/uL 0.60 - 3.40 [facility] Monocytes [#/volume] in Blood by Automated count 0.54 10^3/uL 0.00 - 0.90 [facility] Eosinophils [#/volume] in Blood by Automated count 0.22 10^3/uL 0.00 - 0.70 [facility] Basophils [#/volume] in Blood by Automated count 0.02 10^3/uL 0.00 - 0.20 [facility] #IG 0.02 10^3/uL 0.00 - 0.10 [facility] #NRBC 0.00 10^3/uL 0.00 - 0.00 [facility] MANUAL DIFF NOT INDICATED [facility] RBC MORPH NOT INDICATED [facility] spital ID Date Data Source [id number] 05/13/2021 01:35:00 PM EDT [facility] 1 OrderSheet [facility] Emergency Department [address] [place] [address] Phone #: ext- [phone] 05/13/2021 13:34 Patient: GLEN VERGARA Sex: F : 1945 Age: 76yWEIGHT:78.4 kg (S) HEIGHT:64 inches (S) BMI:29.7ALLERGIES: PenicillinsCHIEF COMPLAINT: chest painDIAGNOSIS: Chest painLAB ORDERSOrder Description Priority Entered Acknowledged InitialedCMP STAT 13:53 05/13/2021 13:59 Mary Fernández Jack ; Thien ChildsCBC w Diff STAT 13:53 05/13/2021 13:59 Mary Fernández Jack ; Thien ChildsLipase STAT 13:53 05/13/2021 13:59 Mary Fernández Jack ; John R.N.Troponin-T STAT 13:53 05/13/2021 13:59 Mary Fernández Jack ; Thien ChildsCOVID-19 CAH (Not STAT 15:46 05/13/2021 15:48 Jadiel Coatesymptomatic as Danilo Almonte ; R.NHanyDefined by CDC)(05/13/2021) (NotFirst Test) (NotHospitalized) (Not) (NotResident inCongregate CareSetting) (NotEmployed inHealthcare Setting)DIAGNOSTIC STUDY ORDERSOrder Description Priority Entered Acknowledged InitialedChest Portable 1 STAT 13:53 05/13/2021 13:59 Linh Fernández Jack ; Thien Childs(Oxygen?(No)) Reason for Study: Chest PainCT CTA CHEST STAT 14:42 05/13/2021 15:48 Kaylee Coates(NONCOR) W CON Danilo Almonte ; R.N.INC PP(Oxygen?(No)) 2 OrderSheet [facility] Emergency Department [address] [place] [address] Phone #: ext- [phone] 05/13/2021 13:34 - Patient: GLEN VERGARA Sex: F : 1945 Age: 76y(IV?(Yes)) NOTES: thoracic aneurysm Reason for Study: chest painMEDICATION/IV/DRIP/FLUID ORDERSOrder Description Priority Entered Acknowledged InitialedNitroGLYCERIN SL 13:53 05/13/2021 13:59 Pradeep,0.4 mg (Do not Danilo Almonte ; Thien Childscrush or chew)GENERAL ORDERSOrder Description Priority Entered Acknowledged InitialedEKG 13:53 05/13/2021 13:58 [facility] Danilo Almonte ; Crystal Sotelo ER Tech1[Electronically signed by Thien Fernández R.N. (17:58 05/13/2021)][Electronically signed by Danilo Almonte (20:47 05/13/2021)][Electronically locked by Thien Fernández R.N. (17:58 05/13/2021)] Name Value Range Interpretation Code Description Data Danisha rce(s) Supporting Document(s) ID Date Data Source [id number] 05/13/2021 01:35:00 PM EDT [facility] 1 Medication Reconciliation Report [facility] Emergency Department [address] [place] [address] Phone #: ext- [phone] 05/13/2021 13:34 Patient: GLEN VERGARA Sex: F : 1945 Age: 76yWeight: 78.4 kgHeight/Length: 64 in.BMI: 29.7ALLERGIES: PenicillinsThe patient's Home Medications are listed below:THE FOLLOWING MEDICATIONS NEED TO BE RECONCILED: hydroCHLOROthiazide Oral (12.5 mg) 1 tablet, daily Lopressor Oral Losartan Potassium Oral (25 mg) 1 tablet, daily Metoprolol Tartrate Oral 25 mg, 2x a day, 1/2 tab Omeprazole Oral (20 mg) 1 tablet, daily Pravastatin Sodium Oral (40 mg) 1 tablet, daily Sertraline HCl Oral (50 mg), dailyThe source(s) of the original Home Medication information:Not obtained.The following Medications were given to the patient in the Emergency Department:Nitroglycerin [SL] SL 0.4 mg, administered: 13:59 05/13/2021The following Medications were prescribed to the patient:None. Name Value Range Interpretation Code Description Data [facility](s) Supporting Document(s) ID Date Data Source [id number] 05/13/2021 01:35:00 PM EDT [facility] 1 Medication Administration Record [facility] Emergency Department [address] [place] [address] Phone #: ext- [phone] 05/13/2021 13:34 Patient: GLEN VERGARA Sex: F : 1945 Age: 76yWeight: 78.4 kgHeight/Length: 64 inBMI: 29.7ALLERGIES: Penicillins Date/Time Medication Administered Medication OrderedGiven NITROGLYCERIN [SL] NitroGLYCERIN SL 0.4 mg (Do not13:59 05/13/2021 Dose: 0.4 mg Tablets SL crush or chew)Thien Fernández R.N. Name Value Range Interpretation Code Description Data [facility](s) Supporting Document(s) ID Date Data Source [id number] 05/13/2021 01:35:00 PM EDT [facility] 1 General Instructions [facility] Emergency Department [address] [place] [address] Phone #: ext- [phone] 05/13/2021 13:34 Patient: GLEN VERGARA Sex: F : 1945 Age: 76yPrecordial chest pain characterized as "discomfort".(Electronically signed by Danilo Almonte 05/13/2021 20:47) Name Value Range Interpretation Code Description Data Danisha rce(s) Supporting Document(s) ID Date Data Source [id number] 05/13/2021 01:35:00 PM EDT [facility] 1 Clinical Report - Nurses [facility] Emergency Department [address] [place] [address] Phone #: [phone]- [phone] 05/13/2021 13:34 Patient: GLEN VERGARA Sex: F : 1945 Age: 76yTRIAGEArrived by private vehicle. Historian: family. Accompanied by family. ( stood up and had sharp uppermid back which came around to the front, and then she vomited, lasted 5 minutes , now chest feels heavy).Acuity: LEVEL 3.Chief Complaint: CHEST PAIN and INDIGESTION and BACK PAIN (back pain to chest pain).Alert.This started today. Onset. (1 1/2 hours aago). 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 SEPSIS SCREEN NEGATIVE. No suspected or confirmedsigns of infection present. --13:44 05/13/21 Kaylee Coates RTyrell13:36 05/13/21. BP: 126/73. MAP: 90. HR: 64. RR: 16. O2 saturation: 97%. Temp: 98.2 F. Pain level now:02/15. --13:44 05/13/21 Kaylee Coates RBoby.Weight: 78.4 kg stated. Height/Length: 64 inches Per Patient. BMI: 29.7. --13:36 05/13/21 Kaylee Coates R.N.MedicationsSertraline HCl Oral (Tablet 50 mg), daily. --13:39 05/13/21 Kaylee Coates R.N. Lopressor Oral. --13:39 05/13/21 Kaylee Coates R.N. Pravastatin Sodium Oral (Tablet 40 mg) 1 tablet, daily. --14:21 05/13/21 Kaylee Coates R.N. Metoprolol Tartrate Oral 25 mg, 2x a day (1/2 tab). --14:22 05/13/21 Kaylee Coates R.N. Losartan Potassium Oral (Tablet 25 mg) 1 tablet, daily. --14:23 05/13/21 Kaylee Coates R.N. hydroCHLOROthiazide Oral (Tablet 12.5 mg) 1 tablet, daily. --14:23 05/13/21 Kaylee Coates R.N. Omeprazole Oral (Tablet Delayed Release 20 mg) 1 tablet, daily. --14:24 05/13/21 Kaylee Coates R.N.AllergiesPenicillins. --13:39 05/13/21 Kaylee Coates R.N.PROBLEMS:COVID- 19.Depression. --13:41 05/13/21 Kaylee Coates R.N.ADDITIONAL SURGERIES:Abdominal Aortic Aneurysm Repair.Mitral valve replacement . --13:41 05/13/21 Kaylee Coates R.N. 2 Clinical Report - Nurses [facility] Emergency Department [address] [place] [address] Phone #: ext- [phone] 05/13/2021 13:34 Patient: GLEN VERGARA [facility]#: [id number] Sex: F : 1945 Age: 76y History PAST MEDICAL HX: Immunizations: up-to-date. The patient is post-menopausal. SOCIAL HX: Smoker- current status unknown (quit 20 years). Alcohol use. (quit 20 years ago). No drug use. She was offered HIV testing but declined and hepatitis C testing but declined. She has not traveled outside the [place] Infectious disease exposure: No infectious disease exposure. The patient was not exposed to Coronavirus. Patient is not a known carrier of tuberculosis, hepatitis, HIV, MRSA or VRE. Patient is not a known carrier of CRE. SELF HARM ASSESSMENT: Self harm assessment was performed. The patient answered "no" to the question(s) "Have you recently felt down, depressed, or hopeless?" and "Do you have thoughts of harming or killing yourself?". ABUSE ASSESSMENT: Abuse assessment. Abuse denied. No [...] assessment completed. No skin integrity risk identified. --13:44 05/13/21 Kaylee Coates R.N. FAMILY HX: Brother(s): Coronary Artery Disease. --14:00 05/13/21 Danilo Almonte. Interventions Identification band on patient. To treatment room. --13:44 05/13/21 Kaylee Coates R.N.PHYSICAL ASSESSMENTGENERAL / NEURO / PSYCH: Alert. Oriented X 4. Appears anxious.RESPIRATORY: Respirations not labored.CVS: Normal sinus rhythm noted.EXTREMITIES: No lower extremity edema.SKIN: Skin is warm and dry. --14:02 05/13/21 Thien Fernández R.N.NURSING PROGRESS NOTESCardiac monitor, NIBP monitor and pulse oximeter placed on patient; monitor alarms on. EKG time:(13:39 05/13/2021). EKG was performed by a tech and shown to the ED physician. Patient gowned.Reassurance given. Two patient identifiers checked. Call light placed in reach. Side rails up x 2. Bedplaced in lowest position. Brakes of bed on. Patient ready for evaluation. --13:44 05/13/21 Kaylee Coates, 3 Clinical Report - Nurses [facility] Emergency Department [address] [place] [address] Phone #: ext- [phone] 05/13/2021 13:34 Patient: GLEN VERGARA Sex: F : 1945 Age: 76y R.N. 13:57 05/13/21. BP: 105/68. MAP: 80. HR: 64. RR: 16. O2 saturation: 100%. --13:57 05/13/21 [place] [id number] 13:59 05/13/2021 Nitroglycerin SL Tablets 0.4 mg given. --13:59 05/13/21 Thien Fernández R.N. Reassessment after medication administered. Pain still present but impr oving. She is calm. --14:07 05/13/21 Thien Fernández R.N. 14:25 05/13/21. BP: 98/61. MAP: 73. HR: 62. RR: 15. O2 saturation: 99%. --14:26 05/13/21 [place] [address] 14:58 05/13/21. BP: 103/67. MAP: 79. HR: 62. RR: 13. O2 saturation: 98%. --14:58 05/13/21 [place] [address] The patient reports no complaints and she is calm and resting quietly. CVS: The patient reports central chest pain is still present but improving and currently described as dull and pressure-like. --15:04 05/13/21 Thien Fernández R.N. Patient ID band checked for patient name and birthdate: patient confirmed. COVID-19 specimen obtained by RN. Labeled in the presence of the patient and sent to lab (rapid). --15:48 05/13/21 Kaylee Coates R.N. The patient is resting quietly. Overall patient status is the same- she states feels the same. --15:57 7/6/21 Thien Fernández R.N. 15:56 05/13/21. BP: 124/68. MAP: 86. HR: 63. RR: 16. O2 saturation: 99%. Temp: deferred. Pain level now: 01/15. --15:57 05/13/21 Thien Fernández R.N. 15:58 05/13/21. BP: 124/68. MAP: 86. HR: 63. RR: 18. O2 saturation: 97%. --15:59 05/13/21 [facility] Tech1 16:25 05/13/21. BP: 131/68. MAP: 89. HR: 69. RR: 18. O2 saturation: 100%. --16:25 05/13/21 [facility] Tech1 16:59 05/13/21. BP: 131/80. MAP: 97. HR: 65. RR: 15. O2 saturation: 96%. --16:59 05/13/21 [facility] Tech ( Dr Anderson here for eval). --17:19 05/13/21 Thien Fernández R.N.DISPOSITION / DISCHARGE Admitted to the Acute Inpatient Unit, Monitored. Report was given to a nurse at bedside. Report included patient's treatment. All questions were answered. Report was acknowledged. --17:58 05/13/21 Thien Fernández R.N. 4 Clinical Report - Nurses [facility] Emergency Department [address] [place] [address] Phone #: ext- [phone] 05/13/2021 13:34 Patient: GLEN VERGARA Sex: F : 1945 Age: 76y 17:57 05/13/21. BP: 122/62. MAP: 82. HR: 63. RR: 17. O2 saturation: 99%. Temp: deferred. Pain level now: 12/18. --17:58 05/13/21 Thien Fernández R.N. Departure time: 17:58 05/13/2021. --17:58 05/13/21 Thien Fernández R.N.Locked/Released at 05/13/2021 17:58 by Thien Fernández R.N. Name Value Range Interpretation Code Description Data Danisha rce(s) Supporting Document(s) ID Date Data Source [id number] 05/13/2021 01:35:00 PM EDT [facility] 1 Clinical Report - Physicians/Mid Levels [facility] Emergency Department [address] [place] [address] Phone #: ext- [phone] 05/13/2021 13:34 Patient: GLEN VERGARA Sex: F : 1945 Age: 76y Time Seen: 13:52 05/13/2021. Arrived- By private vehicle. Historian- patient. Disposition decision: 15:52 05/13/2021.HISTORY OF PRESENT ILLNESS Chief Complaint: CHEST PAIN. This started just prior to arrival and is still present (better). It was abrupt in onset. It is described as tightness and it is described as located in the central chest area and radiating to the chest. At its maximum, severity described as moderate. When seen in the E.D., severity de scribed as mild. The patient has had nausea. No vomiting, difficulty breathing or diaphoresis. (Patient had sudden onset of upper back pain at rest around 12 pm. Pain radiated around the right ribs and now she has tightness to chest. She took her aspirin earlier this morning.). Similar symptoms previously. None. Recent medical care: Not recently seen/assessed.REVIEW OF SYSTEMSNo fever, chills, pedal edema, calf pain or fainting episodes. No headache, sore throat, abdominal pain,skin rash or enlarged lymph nodes. No joint pain, fever, muscle aches, constipation or dizziness. Noweakness or diabetic symptoms. The patient has had chest pain and nausea. All other systemsreviewed and are negative.PAST HISTORYSee nurses notes. No history of pulmonary embolism. Problems: COVID-19. Depression. Additional Surgeries: Knee Prosthesis. Mitral valve replacement . Medications: Lopressor Oral. Sertraline HCl Oral (Tablet 50 mg), daily. Allergies: Penicillins.SOCIAL HISTORYFormer smoker. No alcohol use. 2 Clinical Report - Physicians/Mid Levels [facility] Emergency Department [address] [place] [address] Phone #: [phone] 05/13/2021 13:34 Patient: GLEN VERGARA Sex: F : 1945 Age: 76yFAMILY HISTORYBrother(s): Coronary Artery Disease.ADDITIONAL NOTESThe nursing notes have been reviewed.PHYSICAL EXAMVital Signs: 05/13/2021 13:36 BP: 126/73. MAP: 90. HR: 64. RR: 16. O2 saturation: 97%. Temp: 98.2 F.Pain level now: 4/10.Appearance: Alert. Oriented X3. No acute distress.Eyes: Pupils equal, round and reactive to light. Eyes normal inspection.ENT: Nose normal. Pharynx normal.Neck: Normal inspection. Neck supple.CVS: Normal heart rhythm and rate. 3/6 holosystolic systolic murmur. Pulses normal.Respiratory: No respiratory distress. Breath sounds normal. Chest nontender.Abdomen: Soft and nontender. Bowel sounds normal. No organomegaly. Obese.Back: Normal external inspection.Skin: Skin warm and dry. Normal skin color. Normal skin turgor.Extremities: Extremities exhibit normal ROM. No lower extremity edema.Neuro: Oriented X 3. No motor deficit. No sensory deficit.LABS, X-RAYS, AND EKGEKG: EKG time: 13:39 05/13/2021. No acute ischemia. Normal sinus rhythm. Rate: 64. Normal CATY.Normal QRS complex. Decreased QRS voltage. Normal ST and T waves and QT. The study has beeninterpreted contemporaneously. Interpretation time: 13:53 05/13/2021.Chest X-ray: Abnormal aortic shadow. Normal lung markings present. No infiltrate. No hilaradenopathy. (prominent aorta). The X-rays were independently viewed by me.Laboratory Tests: COVID-19 CAH: (MAGALI: 05/13/2021 15:40) ( [facility] 05/13/2021 16:17) Final results Test Result Flag Units (Reference) COVID-19 NOT DETECTED COVID-19 REENTER NOT DETECTED { PROCEDURAL CONTROL VALID KIT LOT # _[id number] 05/13/21.7.JNL. KIT EXP DATE _05/24/21 05/13/21.JNL. NORMAL RANGE IS NOT DETECTEDNEGATIVE RESULTS SHOULD BE TREATED PRESUMPTIVE AND, IF INCONSISTENT WITHCLINICAL SIGNS AND SYMPTOMS OR NECESSARY FOR PATIENT MANAGEMENT, SHOULD BETESTED WITH DIFFERENT AUTHORIZED OR CLEARED MOLECULAR TESTS. NEGATIVE RESULTSDO NOT PRECLUDE SARS-CoV-2 INFECTION AND SHOULD NOT BE USED THE SOLE BASISFOR PATIENT MANAGEMENT DECISIONS. CMP: (MAGALI: 05/13/2021 14:40) ( [facility] 05/13/2021 15:17) Final results Test Result Flag Units (Reference) COMPREHENSIVE METABOLIC PANEL COMPREHENSIVE METABOLIC PANEL SODIUM 138 mEq/L (134 - 153) POTASSIUM 3.8 mEq/L (3.6 - 5.0) 3 Clinical Report - Physicians/Mid Levels [facility] Emergency Department [address] [place] [address] Phone #: ext- [phone] 05/13/2021 13:34 Patient: GLEN VERGARA [facility]#: [id number] Sex: F : 1945 Age: 76y CHLORIDE 100 mEq/L (98 - 107) CO2 28 MEQ/L (22 - 30) GLUCOSE 100 H MG/DL (70 - 99) BUN 14 MG/DL (7 - 21) CREATININE 0.8 MG/DL (0.7 - 1.5) BUN/CREAT 18 (8 - 27) TOTAL PROTEIN 6.5 G/DL (6.3 - 8.2) ALBUMIN 4.1 G/DL (3.9 - 5.0) GLOBULIN 2.4 GM/DL (2.4 - 3.2) A/G RATIO 1.7 (0.8 - 2.0) CALCIUM 9.4 MG/DL (8.4 - 10.2) TOTAL BILI <0.7 MG/DL (0.2 - 1.3) ALKALINE PHOS 60 U/L (38 - 126) SGOT/AST 20 U/L (5 - 40) SGPT/ALT 15 U/L (7 - 56) ANION GAP 10.0 mmol/L (8.0 - 16.0) AGE 76 yrs NON-AA GFR >60 mL/min AFR AMER GFR >60 Male GFR Interprentation 20-49 yrs >60 mL/min Nzrglx87-64 yrs >56 mL/min Normal 60-69 yrs >49 mL/min Normal 70-79yrs>42 mL/min Normal 80 and above >35 mL/min Normal Female GFRInterpretation 20-39 yrs >60 mL/min Normal 40-49 yrs >58 mL/minNormal 50-59 yrs >51 mL/min Normal 60-69 yrs >45 mL/min Ajvaht86-99 yrs >39 mL/min Normal 80 and above >32 mL/min NormalCBC w Diff: (MAGALI: 05/13/2021 13:55) ( MsgRcvd 05/13/2021 14:20) Fi nal results Test Result Flag Units (Reference) CBC W/AUTOMATED DIFF COMPLETE BLOOD COUNT WBC 6.6 10/uL (4.2 - 11.0) RBC 4.54 10/uL (4.20 - 5.40) HEMOGLOBIN 13.4 g/dL (12.0 - 16.0) HEMATOCRIT 40.1 % (37.0 - 47.0) MCV 88.3 fL (81.0 - 101) MCH 29.5 pg (27.0 - 34.0) MCHC 33.4 g/dL (31.0 - 36.0) RDW 12.6 % (11.5 - 14.5) PLATELETS 195 10/uL (150 - 450) MPV 10.1 fL (7.4 - 10.4) NEUT 66.0 % (37.0 - 80.0) LYMPH 19.5 L % (25.0 - 40.0) MONO 9.9 H % (3.0 - 8.0) EOS 3.7 % (0.0 - 7.0) BASO 0.6 % (0.0 - 2.5) %IG 0.3 H % (0.0 - 0.0) %NRBC 0.0 % (0.0 - 0.0) #NEUT 4.32 10/uL (2.00 - 6.90) #LYMPH 1.28 10/uL (0.60 - 3.40) #MONO 0.65 10/uL (0.00 - 0.90) #EOS 0.24 10/uL (0.00 - 0.70) #BASO 0.04 10/uL (0.00 - 0.20) #IG 0.02 10/uL (0.00 - 0.10) #NRBC 0.00 10/uL (0.00 - 0.00) MANUAL DIFF NOT INDICATED RBC MORPH NOT INDICATEDLipase: (MAGALI: 05/13/2021 14:40) ( MsgRcvd 05/13/2021 15:15) Final results 4 Clinical Report - Physicians/Mid Levels [facility] Emergency Department [address] [place] [address] Phone #: [phone] 05/13/2021 13:34 Patient: GLEN VERGARA Sex: F : 1945 Age: 76y Test Result Flag Units (Reference) LIPASE 28 U/L (13 - 60)Troponin-T: (MAGALI: 05/13/2021 14:40) ( MsgRcvd 05/13/2021 15:15) Final results Test Result Flag Units (Reference) TROPONIN T <0.01 NG/ML (0.00 - 0.10) TROPONIN T0.1 ng/ml Recommended as the clinical threshold value forTroponin T.Chest Portable 1 View: (MAGALI: 05/13/2021 13:53) ( [facility] 05/13/2021 15:59) In ProgressCHEST PORTABLEReason(s): Chest PainTRANSPORTATION: P IV? O2? Oxygen?(No) Room: [place] [address] PHONE: [phone] FAX: [phone] Name .................. : URSULA CARROLL Ryann Acct Number.................. : [id number] ROOM. ................. : TR-02 Number ................... : [id number] Stay type ............. : E/R Discharge Date......... ... : Admit Date ......... : 05/13/21 Admit Phys .................... : MARY Ellington Date of ....... : 1945 Family Phys ................... : LUCIUS DE LEONPinPay Phone .................. : [phone] Age .................. .............. : 76 Film# .................. .:[id number] Sex ................................. : F Unsigned transcriptions are preliminary reports and do not represent a medical or legal document CHEST PORTABLE [id number] COMPLETE:05/13/21 14:12 [facility] [id number] Reason(s): Chest Pain PORTABLE CHEST X-RAY CLINICAL HISTORY: Chest pain. COMPARISON: 03/10/17 FINDINGS: COPD changes are present. Pneumonic infiltrate, pneumothorax, pleural effusion, cardiomegaly or acute osseous abnormality is not seen. The patient is status post median sternotomy. IMPRESSION: COPD changes. No acute pathology. Electronically Reviewed and Signed By DCTNAME , SIGNDATE, KGG Transcribe Initials: FREDO , Transcribe Date: 05/13/21 15:58, Dictation Date: <<REPDIST>> 5 Clinical Report - Physicians/Mid Levels [facility] Emergency Department [address] [place] [address] Phone #: [phone] 05/13/2021 13:34 Patient: GLEN VERGARA Sex: F : 1945 Age: 76y Page 1 of 1.PROGRESS AND PROCEDURESCourse of Care: 15:41 05/13/21. Non-reproducible chest pain. No EKG changes, however, records fromcardiology reported history of coronary artery disease. No improvement with nitroglycerin 15:57 05/13/21. CT scan shows no signs of dissection or aneurysm rupture. Those findings would be unlikely. Heart score of 6. Critical care performed (35 minutes). Time is exclusive of separately billable procedures. Time includes: direct patient care, patient reassessment and interpretation of data. Old medical records ordered. Disposition: Observation in the Acute Inpatient Unit, Monitored.CLINICAL IMPRESSION Precordial chest pain characterized as "discomfort".(Electronically signed by Danilo Almonte 05/13/2021 20:47) Name Value Range Interpretation Code Description Data Danisha rce(s) Supporting Document(s) ID Date Data Source [id number] 05/13/2021 01:35:00 PM [id number] Date: 17:23Med rec request faxed to remote [employer] with t-system overview @ [phone](Electronically signed by Basilio Albarran - 05/13/2021 17:23)05/13/2021 17:34T-System overview faxed to [facility] @ [phone] orders faxed to remote [employer] @ [phone](Electronically signed by Basilio Albarran - 05/13/2021 17:34) Name Value Range Interpretation Code Description Data Danisha rce(s) Supporting Document(s) ID Date Data Source [id number] 05/13/2021 08:05:00 PM EDT [facility] ([facility] Name Value Range Interpretation Code Description Data Danisha rce(s) Supporting Document(s) Natriuretic peptide.B prohormone N-Terminal [Mass/volu me] in Serum or Plasma 247 pg/mL 0-125 Above high normal [facility] ([facility] Troponin T.cardiac [Mass/volume] in Serum or Plasma Laborato ry test result 0.00-0.10 [facility] ([facility] TROPONIN T 0.1 ng/ml Recommended as the clinical th reshold value for Troponin T. ID Date Data Source [id number] 05/13/2021 08:05:00 PM EDT [facility] (Jatinder Gordon MD) Name Value Range Interpretation Code Description Data Danisha rce(s) Supporting Document(s) Troponin T.cardiac [Mass/volume] in Serum or Plasma Laborato ry test result 0.00-0.10 [facility] (Jatinder Gordon MD) TROPONIN T 0.1 ng/ml Recommended as the clinical th reshold value for Troponin T. Natriuretic peptide.B prohormone N-Terminal [Mass/volu me] in Serum or Plasma 247 pg/mL 0-125 Above high normal [facility] (Jatinder Gordon MD) ID Date Data Source [id number] 05/13/2021 08:47:00 PM EDT [facility] Name Value Range Interpretation Code Description Data Danisha rce(s) Supporting Document(s) BNP 247 PG/ML 0 - 125 H [facility] ID Date Data Source [id number] 05/13/2021 08:47:00 PM EDT [facility] Name Value Range Interpretation Code Description Data Danisha rce(s) Supporting Document(s) TROPONIN T <0.01 NG/ML 0.00 - 0.10 [facility] TROPONIN T0.1 ng/ml Recommended as the c linical threshold value forTroponin T. ID Date Data Source [id number] 05/13/2021 03:40:00 PM EDT [facility] ([facility] Name Value Range Interpretation Code Description Data Danisha rce(s) Supporting Document(s) Laboratory test finding (navigational concept) Laboratory test result [facility] ([facility] First test?: N~Employed in healthcare?: N~Symptomatic as defined by CDC?: N~Hospitalized?: N Laboratory test finding (navigational concept) Laboratory test result [facility] ([facility] First test?: N~Employed in healthcare?: N~Symptomatic as defined by CDC?: N~Hospitalized?: N ID Date Data Source [id number] 05/13/2021 03:40:00 PM EDT [facility] Name Value Range Interpretation Code Description Data Danisha rce(s) Supporting Document(s) COVID19 Case rprt NOT DETECTED [facility]. ID Date Data Source [id number] 05/13/2021 03:40:00 PM EDT [facility] (Jatinder Gordon MD) Name Value Range Interpretation Code Description Data Danisha rce(s) Supporting Document(s) Laboratory test finding (navigational concept) Laboratory test result [facility] (Jatinder Gordon MD) First test?: N~Employed in healthcare?: N~Symptomatic as defined by CDC?: N~Hospitalized?: N Laboratory test finding (navigational concept) Laboratory test result [facility] (Jatinder Gordon MD) First test?: N~Employed in healthcare?: N~Symptomatic as defined by CDC?: N~Hospitalized?: N ID Date Data Source [id number] 05/13/2021 04:17:00 PM EDT [facility] NOT DETECTEDNOT DETECTED{ PROC EDURAL CONTROL VALID KIT LOT # [id number] 05/13/21.1616.JNL. KIT EXP DATE _05/24/21 05/13/21.1616.JNL. NORMAL RANGE IS NOT DETECTEDNEGATIVE RESULTS SHOULD BE TREATED PRESUMPTIVE AND, IF INCONSISTENT WITHCLINICAL SIGNS AND SYMPTOMS OR NECESSARY FOR PATIENT MANAGEMENT, SHOULD BETESTED WITH DIFFERENT AUTHORIZED OR CLEARED MOLECULAR TESTS. NEGATIVE RESULTSDO NOT PRECLUDE SARS-CoV-2 INFECTION AND SHOULD NOT BE USED THE SOLE BASISFOR PATIENT MANAGEMENT DECISIONS. Name Value Range Interpretation Code Description Data Danisha rce(s) Supporting Document(s) ID Date Data Source [id number] 05/13/2021 02:40:00 PM EDT [facility] ([facility] Name Value Range Interpretation Code Description Data Danisha e(s) Supporting Document(s) Comprehensive [employer] Laboratory test result [facility] ([facility] FIRST SAMPLE HEMOLYZED Sodium 138 meq/L 134-153 [facility] FIRST SAMPLE HEMOLYZED Chloride 100 meq/L 98-107 [facility] FIRST SAMPLE HEMOLYZED Potassium 3.8 meq/L 3.6-5.0 [facility] FIRST SAMPLE HEMOLYZED Co2 28 meq/L 22-30 [facility] FIRST SAMPLE HEMOLYZED Glucose 100 mg/dL 70-99 Above high normal [facility] ([facility] FIRST SAMPLE HEMOLYZED Creatinine 0.8 mg/dL 0.7-1.5 [facility] FIRST SAMPLE HEMOLYZED BUN 14 mg/dL 7-21 [facility] ([facility] FIRST SAMPLE HEMOLYZED Total Protein 6.5 g/dL 6.3-8.2 [facility] ([facility] FIRST SAMPLE HEMOLYZED BUN/Creat 18 8-27 [facility] ([facility] FIRST SAMPLE HEMOLYZED Albumin 4.1 g/dL 3.9-5.0 [facility] ([facility] FIRST SAMPLE HEMOLYZED Globulin 2.4 GM/DL 2.4-3.2 [facility] ([facility] FIRST SAMPLE HEMOLYZED Calcium 9.4 mg/dL 8.4-10.2 [facility] ([facility] FIRST SAMPLE HEMOLYZED A/G Ratio 1.7 0.8-2.0 [facility] ([facility] FIRST SAMPLE HEMOLYZED Total Bili Laboratory test result 0.2-1.3 [facility] ([facility] FIRST SAMPLE HEMOLYZED Alkaline Phos 60 U/L 38-126 [facility] ([facility] FIRST SAMPLE HEMOLYZED SGPT/Alt 15 U/L 7-56 [facility] FIRST SAMPLE HEMOLYZED Sgot/Ast 20 U/L 5-40 [facility] ([facility] FIRST SAMPLE HEMOLYZED Anion Gap 10.0 mmol/L 8.0-16.0 [facility] ([facility] FIRST SAMPLE HEMOLYZED Age 76 yrs [facility] ([facility] FIRST SAMPLE HEMOLYZED Non-Aa GFR Laboratory test result [facility] ([facility] FIRST SAMPLE HEMOLYZED Afr Amer GFR Laboratory test result [facility] ([facility] FIRST SAMPLE HEMOLYZED ID Date Data Source [id number] 05/13/2021 02:40:00 PM EDT [facility] ([facility] Name Value Range Interpretation Code Description Data Danisha rce(s) Supporting Document(s) Lipoprotein lipase [Enzymatic activity/volume] in Serum or Plasm a 28 U/L 13-60 [facility] ([facility] ) FIRST SAMPLE HEMOLYZED Troponin T.cardiac [Mass/volume] in Serum or Plasma Laborato ry test result 0.00-0.10 [facility] ([facility] FIRST SAMPLE HEMOLYZED ID Date Data Source [id number] 05/13/2021 03:16:00 PM EDT [facility] Name Value Range Interpretation Code Description Data Danisha rce(s) Supporting Document(s) COMPREHENSIVE METABOLIC PANEL [facility] COMPREHENSIVE METABOLIC PANEL Sodium [Moles/volume] in Serum or Plasma 138 mEq/L 134 - 153 [facility] Potassium [Moles/volume] in Serum or Plasma 3.8 mEq/L 3.6 - 5.0 [facility] Chloride [Moles/volume] in Serum or Plasma 100 mEq/L 98 - 107 [facility] Carbon dioxide, total [Moles/volume] in Serum or Plasma 28 MEQ/L 22 - 30 [facility] Glucose [Mass/volume] in Serum or Plasma 100 MG/DL 70 - 99 H [facility] BUN 14 MG/DL 7 - 21 [facility] Creatinine [Mass/volume] in Serum or Plasma 0.8 MG/DL 0.7 - 1.5 [facility] BUN/CREAT 18 8 - 27 [facility] al Protein [Mass/volume] in Serum or Plasma 6.5 G/DL 6.3 - 8.2 [facility] Albumin [Mass/volume] in Serum or Plasma 4.1 G/DL 3.9 - 5.0 [facility] Globulin [Mass/volume] in Serum by calculation 2.4 GM/DL 2.4 - 3.2 [facility] A/G RATIO 1.7 0.8 - 2.0 [facility] Calcium [Mass/volume] in Serum or Plasma 9.4 MG/DL 8.4 - 10.2 [facility] Bilirubin.total [Mass/volume] in Serum or Plasma <0.7 MG/DL 0.2 - 1.3 [facility] Alkaline phosphatase [Enzymatic activity/volume] in Serum or Plasma 60 U/L 38 - 126 [facility] Aspartate aminotransferase [Enzymatic activity/volume] in Serum or Plasma 20 U/L 5 - 40 [facility] Alanine aminotransferase [Enzymatic activity/volume] in Seru m or Plasma 15 U/L 7 - 56 [facility] Anion gap 3 in Serum or Plasma 10.0 mmol/L 8.0 - 16.0 [facility] AGE 76 yrs [facility] NON-AA GFR >60 mL/min [facility] AFR AMER GFR >60 [facility] Male GFR In terprentation 20-49 yrs >60 mL/min Normal 50-59 yrs >56 mL/min Normal 60-69 yrs >49 mL/min Normal 70-79yrs >42 mL/min Normal 80 and above >35 mL/min Normal Female GFR Interpretation 20-39 yrs >60 mL/min Normal 40-49 yrs >58 mL/min Normal 50-59 yrs >51 mL/min Normal 60-69 yrs >45 mL/min Normal 70-79 yrs >39 mL/min Normal 80 and above >32 mL/min Normal ID Date Data Source [id number] 05/13/2021 03:15:00 PM EDT [facility] Name Value Range Interpretation Code Description Data Danisha rce(s) Supporting Document(s) TROPONIN T <0.01 NG/ML 0.00 - 0.10 [facility] TROPONIN T0.1 ng/ml Recommended as the c linical threshold value forTroponin T. ID Date Data Source [id number] 05/13/2021 03:15:00 PM EDT [facility] Name Value Range Interpretation Code Description Data Danisha rce(s) Supporting Document(s) Lipase [Enzymatic activity/volume] in Serum or Plasma 28 U/L 13 - 60 [facility] ID Date Data Source [id number] 05/13/2021 01:55:00 PM EDT [facility] Name Value Range Interpretation Code Description Data Danisha rce(s) Supporting Document(s) CBC W/Automated Diff Laboratory test result [facility] ([facility] COMPLETE BLOOD COUNT WBC 6.6 10^3/uL 4.2-11.0 [facility] RBC 4.54 10^6/uL 4.20-5.40 [facility] ([facility] MCV 88.3 fL 81.0-101 [facility] Hematocrit 40.1 % 37.0-47.0 [facility] ([facility] Hemoglobin 13.4 g/dL 12.0-16.0 [facility] ([facility] MCH 29.5 pg 27.0-34.0 [facility] MCHC 33.4 g/dL 31.0-36.0 [facility] RDW 12.6 % 11.5-14.5 [facility] MPV 10.1 fL 7.4-10.4 [facility] Platelets 195 10^3/uL 150-450 [facility] Neut 66.0 % 37.0-80.0 [facility] Lymph 19.5 % 25.0-40.0 Below low normal [facility] ( [facility] Eos 3.7 % 0.0-7.0 [facility] Hinds 9.9 % 3.0-8.0 Above high normal [facility] ([facility] Baso 0.6 % 0.0-2.5 [facility] %Ig 0.3 % 0.0-0.0 Above high normal [facility] ([facility] %NRBC 0.0 % 0.0-0.0 [facility] #Lymph 1.28 10^3/uL 0.60-3.40 [facility] ([facility] #Neut 4.32 10^3/uL 2.00-6.90 [facility] ([facility] #Hinds 0.65 10^3/uL 0.00-0.90 [facility] ([facility] #Eos 0.24 10^3/uL 0.00-0.70 [facility] ([facility] #Ig 0.02 10^3/uL 0.00-0.10 [facility] ([facility] #Baso 0.04 10^3/uL 0.00-0.20 [facility] ([facility] Manual Diff Laboratory test result M [facility] ([facility] #NRBC 0.00 10^3/uL 0.00-0.00 [facility] ([facility] RBC Morph Laboratory test result ME [facility] ([facility] ID Date Data Source [id number] 05/13/2021 02:16:00 PM EDT [facility] Name Value Range Interpretation Code Description Data Danisha rce(s) Supporting Document(s) CBC W/AUTOMATED DIFF [facility] COMPLETE BLOOD COUNT Leukocytes [#/volume] in Blood by Automated count 6.6 10^3/uL 4.2 - 1 1.0 [facility] Erythrocytes [#/volume] in Blood by Automated count 4.54 10^6/uL 4. 20 - 5.40 [facility] Hemoglobin [Mass/volume] in Blood 13.4 g/dL 12.0 - 16.0 [facility] Hematocrit [Volume Fraction] of Blood by Automated count 40.1 % 3 7.0 - 47.0 [facility] Erythrocyte mean corpuscular volume [Entitic volume] by Auto mated count 88.3 fL 81.0 - 101 [facility] Erythrocyte mean corpuscular hemoglobin [Entitic mass] by Automated count 29.5 pg 27.0 - 34.0 [facility] Erythrocyte mean corpuscular hemoglobin concentration [Mass/volume] by Automated count 33.4 g/dL 31.0 - 36.0 [facility] Erythrocyte distribution width [Ratio] by Automated count 12.6 % 11.5 - 14.5 [facility] Platelets [#/volume] in Blood by Automated count 195 10^3/uL 150 - 45 0 [facility] Platelet mean volume [Entitic volume] in Blood by Automated count 10.1 fL 7.4 - 10.4 [facility] Neutrophils/100 leukocytes in Blood by Automated count 66.0 % 37. 0 - 80.0 [facility] Lymphocytes/100 leukocytes in Blood by Manual count 19.5 % 25.0 - 40.0 L [facility] Monocytes/100 leukocytes in Blood by Automated count 9.9 % 3.0 - 8.0 H [facility] Eosinophils/100 leukocytes in Blood by Automated count 3.7 % 0.0 - 7.0 [facility] Basophils/100 leukocytes in Blood by Automated count 0.6 % 0.0 - 2.5 [facility] %IG 0.3 % 0.0 - 0.[address] [facility] %NRBC 0.0 % 0.0 - 0.0 [facility] al Neutrophils [#/volume] in Blood by Automated count 4.32 10^3/uL 2.00 - 6.90 [facility] Lymphocytes [#/volume] in Blood by Automated count 1.28 10^3/uL 0.60 - 3.40 [facility] Monocytes [#/volume] in Blood by Automated count 0.65 10^3/uL 0.00 - 0.90 [facility] Eosinophils [#/volume] in Blood by Automated count 0.24 10^3/uL 0.00 - 0.70 [facility] Basophils [#/volume] in Blood by Automated count 0.04 10^3/uL 0.00 - 0.20 [facility] #IG 0.02 10^3/uL 0.00 - 0.10 [facility] #NRBC 0.00 10^3/uL 0.00 - 0.00 [facility] MANUAL DIFF NOT INDICATED [facility] RBC MORPH NOT INDICATED [facility] ID Date Data Source [id number] 03/20/2021 04:32:00 PM EDT [facility] ([facility] Name Value Range Interpretation Code Description Data Danisha rce(s) Supporting Document(s) Color Urine Laboratory test result M [facility] ([facility] Specific [place] 1.030 1.00-1.03 [facility] ([facility] Appearance of Urine Laboratory test result [facility] ([facility] PH Urine 5.5 5.0-8.0 [facility] Glucose Urine Laboratory test result [facility] ([facility] Ketones Laboratory test result [facility] ([facility] Bilirubin.total [Presence] in Urine by Test strip Laboratory test res ult [facility] ([facility] Blood Urine Laboratory test result M [facility] ([facility] Urobilinogen 0.2 EU/dl 0.2-1.0 [facility] ([facility] Protein Urine Laboratory test result [facility] ([facility] Leukocytes Laboratory test result Above high normal [facility] ([facility] Nitrite Laboratory test result [facility] ([facility] ID Date Data Source [id number] 03/20/2021 02:47:00 PM EDT [facility] ([facility] Name Value Range Interpretation Code Description Data Danisha rce(s) Supporting Document(s) Chol 183 mg/dL 0-200 [facility] NORMAL RANGES Age [...] HCT IS 5% LESS SOURCE FOR DATA: [employer] 1800 OPERATION MANUAL( AUTOMATED BLOOD COUNTS AND [...] REPRESENTS INDIVIDUALA AGED 2-19 YEARS EXCLUSIVE. Trig 123 mg/dL 40-200 [facility] ([facility] NORMAL RANGES Age [...] HCT IS 5% LESS SOURCE FOR DATA: [employer] 1800 OPERATION MANUAL( AUTOMATED BLOOD COUNTS AND [...] mg/dL 45-65 [facility] ([facility] NORMAL RANGES [...] HCT IS 5% LESS SOURCE FOR DATA: [employer] 1800 OPERATION MANUAL( AUTOMATED BLOOD COUNTS AND [...] INDIVIDUALA AGED 2-19 YEARS EXCLUSIVE. Cho/HDL Ratio 4.0 [facility]C [facility] NORMAL RANGES Age WBC RBC [...] HCT IS 5% LESS SOURCE FOR DATA: [employer] 1800 OPERATION MANUAL( AUTOMATED BLOOD COUNTS AND [...] REPRESENTS INDIVIDUALA AGED 2-19 YEARS EXCLUSIVE. LDL_C 112 Calc 75-129 [facility] ([facility] NORMAL RANGES Age [...] HCT IS 5% LESS SOURCE FOR DATA: [employer] 1800 OPERATION MANUAL( AUTOMATED BLOOD COUNTS AND [...] 2-19 YEARS EXCLUSIVE. ID Date Data Source [id number] 03/20/2021 02:47:00 PM EDT [facility] ([facility] Name Value Range Interpretation Code Description Data Danisha rce(s) Supporting Document(s) Creatine kinase [Enzymatic activity/volume] in Serum or Plasma 75 U /L 26-192 [facility] ([facility] NORMAL RANGES Age WBC [...] HCT IS 5% LESS SOURCE FOR DATA: [employer] 1800 OPERATION MANUAL( AUTOMATED BLOOD COUNTS AND [...] 2-19 YEARS EXCLUSIVE. ID Date Data Source [id number] 03/20/2021 02:47:00 PM EDT [facility] ([facility] Name Value Range Interpretation Code Description Data Danisha rce(s) Supporting Document(s) Glu 84 mg/dL 70-110 [facility] NORMAL RANGES Age WBC [...] HCT IS 5% LESS SOURCE FOR DATA: [employer] 1800 OPERATION MANUAL( AUTOMATED BLOOD COUNTS AND [...] REPRESENTS INDIVIDUALA AGED 2-19 YEARS EXCLUSIVE. BUN 12 mg/dL 8- [facility] ([facility] NORMAL [...] HCT IS 5% LESS SOURCE FOR DATA: [employer] 1800 OPERATION MANUAL( AUTOMATED BLOOD COUNTS AND [...] 2-19 YEARS EXCLUSIVE. Creat 0.8 mg/dL 0.5-1.0 [facility] ([facility] NORMAL [...] HCT IS 5% LESS SOURCE FOR DATA: [employer] 1800 OPERATION MANUAL( AUTOMATED BLOOD COUNTS AND [...] INDIVIDUALA AGED 2-19 YEARS EXCLUSIVE. BUN/Creatinine Ratio 14.5 CALC [facility] ([facility] NORMAL RANGES Age WBC [...] HCT IS 5% LESS SOURCE FOR DATA: [employer] 1800 OPERATION MANUAL( AUTOMATED BLOOD COUNTS AND [...] REPRESENTS INDIVIDUALA AGED 2-19 YEARS EXCLUSIVE. Na 137 mmol/L 136-145 [facility] NORMAL RANGES Age [...] HCT IS 5% LESS SOURCE FOR DATA: [employer] 1800 OPERATION MANUAL( AUTOMATED BLOOD COUNTS AND [...] REPRESENTS INDIVIDUALA AGED 2-19 YEARS EXCLUSIVE. K 3.9 mmol/L 3.5-5.1 [facility] ([facility] [...] HCT IS 5% LESS SOURCE FOR DATA: [employer] 1800 OPERATION MANUAL( AUTOMATED BLOOD COUNTS AND [...] REPRESENTS INDIVIDUALA AGED 2-19 YEARS EXCLUSIVE. Co2 23.6 mmol/L 22.0-29.0 [facility] ([facility] NORMAL RANGES Age WBC RBC HGB [...] HCT IS 5% LESS SOURCE FOR DATA: [employer] 1800 OPERATION MANUAL( AUTOMATED BLOOD COUNTS AND [...] REPRESENTS INDIVIDUALA AGED 2-19 YEARS EXCLUSIVE. CL 100.5 mmol/L 98.0-107.0 [facility] ([facility] NORMAL RANGES Age WBC [...] HCT IS 5% LESS SOURCE FOR DATA: [employer] 1800 OPERATION MANUAL( AUTOMATED BLOOD COUNTS AND [...] REPRESENTS INDIVIDUALA AGED 2-19 YEARS EXCLUSIVE. TP 6.9 g/dL 6.6-8.7 [facility] ([facility] NORMAL [...] HCT IS 5% LESS SOURCE FOR DATA: [employer] 1800 OPERATION MANUAL( AUTOMATED BLOOD COUNTS AND [...] 2-19 YEARS EXCLUSIVE. CA 9.5 mg/dL 8.6-10.2 [facility] ([facility] NORMAL RANGES Age WBC [...] HCT IS 5% LESS SOURCE FOR DATA: [employer] 1800 OPERATION MANUAL( AUTOMATED BLOOD COUNTS AND [...] REPRESENTS INDIVIDUALA AGED 2-19 YEARS EXCLUSIVE. Alb 4.4 g/dL 3.4-4.8 [facility] ([facility] [...] HCT IS 5% LESS SOURCE FOR DATA: [employer] 1800 OPERATION MANUAL( AUTOMATED BLOOD COUNTS AND [...] INDIVIDUALA AGED 2-19 YEARS EXCLUSIVE. A/G Ratio 1.8 [facility] ([facility] NORMAL [...] HCT IS 5% LESS SOURCE FOR DATA: [employer] 1800 OPERATION MANUAL( AUTOMATED BLOOD COUNTS AND [...] HCT IS 5% LESS SOURCE FOR DATA: [employer] 1800 OPERATION MANUAL( AUTOMATED BLOOD COUNTS AND [...] INDIVIDUALA AGED 2-19 YEARS EXCLUSIVE. Alt (SGPT) 18 U/L 0-41 [facility] ([facility] NORMAL [...] HCT IS 5% LESS SOURCE FOR DATA: [employer] 1800 OPERATION MANUAL( AUTOMATED BLOOD COUNTS AND [...] REPRESENTS INDIVIDUALA AGED 2-19 YEARS EXCLUSIVE. Alp 61.9 U/L 35-129 [facility] ([facility] [...] HCT IS 5% LESS SOURCE FOR DATA: [employer] 1800 OPERATION MANUAL( AUTOMATED BLOOD COUNTS AND [...] INDIVIDUALA AGED 2-19 YEARS EXCLUSIVE. Ast (Sgot) 22 U/L 0-40 [facility] ([facility] NORMAL RANGES Age [...] HCT IS 5% LESS SOURCE FOR DATA: [employer] DYN 1800 OPERATION MANUAL( AUTOMATED BLOOD COUNTS [...] REPRESENTS INDIVIDUALA AGED 2-19 YEARS EXCLUSIVE. Osmolality-Calculated 272.3 [facility] ([facility] [...] HCT IS 5% LESS SOURCE FOR DATA: [employer] 1800 OPERATION MANUAL( AUTOMATED BLOOD COUNTS AND [...] REPRESENTS INDIVIDUALA AGED 2-19 YEARS EXCLUSIVE. Tbili 0.40 mg/dL 0.0-1.2 [facility] ([facility], [...] HCT IS 5% LESS SOURCE FOR DATA: [employer] 1800 OPERATION MANUAL( AUTOMATED BLOOD COUNTS AND [...] 2-19 YEARS EXCLUSIVE. Anion Gap 17 mmol/L [facility] ([facility] [...] HCT IS 5% LESS SOURCE FOR DATA: [employer] 1800 OPERATION MANUAL( AUTOMATED BLOOD COUNTS AND [...] INDIVIDUALA AGED 2-19 YEARS EXCLUSIVE. eGFR Non-Afr. Serbian 73 # [facility] ([facility] [...] HCT IS 5% LESS SOURCE FOR DATA: [employer] 1800 OPERATION MANUAL( AUTOMATED BLOOD COUNTS AND [...] REPRESENTS INDIVIDUALA AGED 2-19 YEARS EXCLUSIVE. eGFR 84 # [facility] ( [facility] [...] HCT IS 5% LESS SOURCE FOR DATA: [employer] 1800 OPERATION MANUAL( AUTOMATED BLOOD COUNTS AND [...] 2-19 YEARS EXCLUSIVE. ID Date Data Source [id number] 03/20/2021 02:47:00 PM EDT [facility] ([facility] Name Value Range Interpretation Code Description Data Danisha rce(s) Supporting Document(s) WBC 6.2 10E3/uL 4.1-10.9 [facility] ([facility] NORMAL RANGES Age WBC [...] HCT IS 5% LESS SOURCE FOR DATA: [employer] 1800 OPERATION MANUAL( AUTOMATED BLOOD COUNTS AND [...] 2-19 YEARS EXCLUSIVE. RBC 4.40 10E6/uL 4.20-6.30 [facility] NORMAL RANGES Age WBC [...] HCT IS 5% LESS SOURCE FOR DATA: [employer] 1800 OPERATION MANUAL( AUTOMATED BLOOD COUNTS AND [...] REPRESENTS INDIVIDUALA AGED 2-19 YEARS EXCLUSIVE. HGB 13.0 g/dL 12.0-18.0 [facility] ([facility] NORMAL RANGES Age WBC [...] HCT IS 5% LESS SOURCE FOR DATA: [employer] 1800 OPERATION MANUAL( AUTOMATED BLOOD COUNTS AND [...] REPRESENTS INDIVIDUALA AGED 2-19 YEARS EXCLUSIVE. MCV 89.8 fL 80.0-97.0 [facility] ([facility] NORMAL [...] HCT IS 5% LESS SOURCE FOR DATA: [employer] 1800 OPERATION MANUAL( AUTOMATED BLOOD COUNTS AND [...] REPRESENTS INDIVIDUALA AGED 2-19 YEARS EXCLUSIVE. HCT 39.5 % 37.0-51.0 [facility] ([facility] NORMAL [...] HCT IS 5% LESS SOURCE FOR DATA: [employer] 1800 OPERATION MANUAL( AUTOMATED BLOOD COUNTS AND [...] REPRESENTS INDIVIDUALA AGED 2-19 YEARS EXCLUSIVE. MCH 29.5 pg 26.0-32.0 [facility] ([facility] NORMAL RANGES Age WBC [...] IS 5% LESS SOURCE FOR DATA: KATI 28msec 1800 OPERATION MANUAL( AUTOMATED BLOOD COUNTS AND [...] REPRESENTS INDIVIDUALA AGED 2-19 YEARS EXCLUSIVE. MCHC 32.9 g/dL 31.0-36.0 [facility] ([facility] [...] HCT IS 5% LESS SOURCE FOR DATA: [employer] 1800 OPERATION MANUAL( AUTOMATED BLOOD COUNTS AND [...] REPRESENTS INDIVIDUALA AGED 2-19 YEARS EXCLUSIVE. RDW-CV 12.1 % 11.5-14.5 [facility] ([facility], [...] HCT IS 5% LESS SOURCE FOR DATA: [employer] 1800 OPERATION MANUAL( AUTOMATED BLOOD COUNTS AND [...] REPRESENTS INDIVIDUALA AGED 2-19 YEARS EXCLUSIVE. PLT 221 10E3/uL 140-440 [facility] ([facility] NORMAL RANGES Age WBC [...] REPRESENTS INDIVIDUALA AGED 2-19 YEARS EXCLUSIVE. Neut% 61.9 % 37.0-92.0 [facility] ([facility] [...] HCT IS 5% LESS SOURCE FOR DATA: [employer] 1800 OPERATION MANUAL( AUTOMATED BLOOD COUNTS AND [...] REPRESENTS INDIVIDUALA AGED 2-19 YEARS EXCLUSIVE. Lym% 26.0 % 10.0-58.5 [facility] ([facility], [...] HCT IS 5% LESS SOURCE FOR DATA: [employer] 1800 OPERATION MANUAL( AUTOMATED BLOOD COUNTS AND [...] REPRESENTS INDIVIDUALA AGED 2-19 YEARS EXCLUSIVE. MXD% 12.1 % 0.1-24.0 [facility] ([facility] [...] HCT IS 5% LESS SOURCE FOR DATA: [employer] 1800 OPERATION MANUAL( AUTOMATED BLOOD COUNTS AND [...] REPRESENTS INDIVIDUALA AGED 2-19 YEARS EXCLUSIVE. Lym# 1.6 10E3/uL 0.6-4.1 [facility] ([facility] NORMAL RANGES Age WBC [...] HCT IS 5% LESS SOURCE FOR DATA: [employer] 1800 OPERATION MANUAL( AUTOMATED BLOOD COUNTS AND [...] REPRESENTS INDIVIDUALA AGED 2-19 YEARS EXCLUSIVE. Neut# 3.8 % 2.0-7.8 [facility] ([facility] NORMAL RANGES Age WBC [...] HCT IS 5% LESS SOURCE FOR DATA: [employer] 1800 OPERATION MANUAL( AUTOMATED BLOOD COUNTS AND [...] REPRESENTS INDIVIDUALA AGED 2-19 YEARS EXCLUSIVE. MPV 9.9 fL 9.0-13.0 [facility] ([facility] NORMAL [...] HCT IS 5% LESS SOURCE FOR DATA: [employer] 1800 OPERATION MANUAL( AUTOMATED BLOOD COUNTS AND [...] REPRESENTS INDIVIDUALA AGED 2-19 YEARS EXCLUSIVE. MXD# 0.8 10E3/uL 0.0-1.8 [facility] ([facility] NORMAL RANGES Age WBC [...] HCT IS 5% LESS SOURCE FOR DATA: [employer] 1800 OPERATION MANUAL( AUTOMATED BLOOD COUNTS AND [...] 2-19 YEARS EXCLUSIVE. ID Date Data Source [id number] 12/30/2020 04:37:00 PM EST [facility] ([facility] Name Value Range Interpretation Code Description Data Danisha rce(s) Supporting Document(s) CPK Creatine Phosphokinase 104 U/L 26-192 Earlene l (applies to non-numeric results) [facility] ([facility] ) Testing was performed on a SLIGHTLY hemo lyzed specimen. Suggest recollection of specimen for more accurate test results. CK-MB Value Mass 1.4 ng/mL Normal (applies to non-numeric results) [facility] ([facility] MB/CK Relative Index 1.35 Normal (applies to non-num umesh results) [facility] ([facility] <content>DIAGNOSIS CRITERIA</content>
<content>MMB ng/ml Relative Index (RI)</content>
<content>NON-AMI < or = 5 N/A</content>
<content>ROSENTHAL ZONE > 5 < or = 4</content>
<content>AMI > 5 > 4</content>
<content></content> Troponin I 0.03 ng/mL Normal (applies to non-numeric resul ts) [facility] ([facility] <content>Troponin I Reference Interval f or [employer] [place] LOCI:</content>
<content></content>
<content>99th Percentile= 0.00-0.045 ng/ml</content>
<content></content>
<content>Risk Stratification:</content>
<content><= 0.10 ng/ml Decreased Risk for Adverse Clinical</content>
<content>Events.</content>
<content>0.10-1.50 ng/ml Increased Risk for Adverse Clinical</content>
<content>Events. Evaluation of additional</content>
<content>criterion and/or repeat testing in 2-6</content>
<content>hours is suggested to rule out myocardial</content>
<content>damage.</content>
<content>>= 1.50 ng/ml Indicative of Myocardial Injury.</content>
<content></content> ID Date Data Source [id number] 12/16/2020 10:18:00 AM EST [facility] [address] [place] [address] PHONE: [phone] FAX: [phone] Name .................. : URSULA CARROLL Ryann Acct Number.................. : [id number] ROOM. ................. : Number ................... : [id number] Stay type ............. : O/P Discharge Date......... ... : 12/13/20 Admit Date ....... .. : 12/13/20 Admit Phys .................... : LUCIUS DE LEONMERLENE Date of ....... : 1945 Family Phys ................... : LUCIUS NEW Phone .................. : [phone] Age ................................ : 75 Film# .................. .:[id number] Sex ................................. : F Unsigned transcriptions are preliminary reports and do not represent a medical or legal document CT THORAX W/O CONTRAST [id number] COMPLETE:12/13/20 12:14 KJE [id number] (REASON FOR CHEST: [...] By Nir Spencer MD , 12/16/20 10:18, [facility] Transcribe Initials: FREDO , Transcribe Date: 12/14/20 00:41, Dictation Date: Page 1 of 2 [facility] [address] [place] [address] PHONE: [phone] FAX: [phone] Name .................. : URSULA CARROLL Ryann Acct Number.................. : [id number] ROOM. ................. : Number ................... : [id number] Stay type ............. : O/P Discharge Date......... ... : 12/13/20 Admit Date ......... : 12/13/20 Admit Phys .................... : LUCIUS NEW Date of ....... : 1945 Family Phys ................... : LUCIUS NEW Phone .................. : [phone] Age ................................ : 75 Film# .................. .:[id number] Sex ................................. : F Unsigned transcriptions are preliminary reports and do not represent a medical or legal document CT THORAX W/O CONTRAST [id number] COMPLETE:12/13/20 12:14 KJE [id number] (REASON FOR CHEST: FORMER SMOKER, CONCERN R UPPER LUNG Copy for: LUCIUS JOY via fax Copy for: 710 MED REC Page 2 of 2 Name Value Range Interpretation Code Description Data Danisha rce(s) Supporting Document(s) ID Date Data Source [id number] 12/05/2020 01:44:00 PM EST [facility] ([facility] Name Value Range Interpretation Code Description Data Danisha rce(s) Supporting Document(s) Thyrotropin [Units/volume] in Serum or Plasma 1.486 ulU/mL 0.60-4.8 [facility] ([facility] ID Date Data Source [id number] 12/05/2020 01:43:00 PM EST [facility] ([facility] Name Value Range Interpretation Code Description Data Danisha rce(s) Supporting Document(s) Chol 200 mg/dL 0-200 [facility] NORMAL RANGES Age [...] HCT IS 5% LESS SOURCE FOR DATA: [employer] 1800 OPERATION MANUAL( AUTOMATED BLOOD COUNTS AND [...] REPRESENTS INDIVIDUALA AGED 2-19 YEARS EXCLUSIVE. Trig 206 mg/dL 40-200 Above high normal [facility] ([facility] NORMAL RANGES Age WBC [...] HCT IS 5% LESS SOURCE FOR DATA: [employer] 1800 OPERATION MANUAL( AUTOMATED BLOOD COUNTS AND [...] in HDL [Mass/volume] in Serum or Plasma 44 mg/dL 45-65 Below low normal [facility] ([facility] ) NORMAL RANGES Age WBC RBC HGB HCT [...] HCT IS 5% LESS SOURCE FOR DATA: [employer] 1800 OPERATION MANUAL( AUTOMATED BLOOD COUNTS AND [...] REPRESENTS INDIVIDUALA AGED 2-19 YEARS EXCLUSIVE. LDL_C 115 Calc 75-129 [facility] ([facility], [...] HCT IS 5% LESS SOURCE FOR DATA: [employer] 1800 OPERATION MANUAL( AUTOMATED BLOOD COUNTS AND [...] INDIVIDUALA AGED 2-19 YEARS EXCLUSIVE. Cho/HDL Ratio 4.5 CALC [facility] ([facility] NORMAL RANGES Age WBC RBC HGB [...] IS 5% LESS SOURCE FOR DATA: KATI 28msec 1800 OPERATION MANUAL( AUTOMATED BLOOD COUNTS AND [...] 2-19 YEARS EXCLUSIVE. ID Date Data Source [id number] 12/05/2020 01:43:00 PM EST [facility] ([facility] Name Value Range Interpretation Code Description Data Danisha rce(s) Supporting Document(s) Glu 101 mg/dL 70-110 [facility] ([facility] [...] HCT IS 5% LESS SOURCE FOR DATA: [employer] 1800 OPERATION MANUAL( AUTOMATED BLOOD COUNTS AND [...] 2-19 YEARS EXCLUSIVE. Creat 0.8 mg/dL 0.5-1.0 [facility] ([facility] NORMAL [...] HCT IS 5% LESS SOURCE FOR DATA: [employer] 1800 OPERATION MANUAL( AUTOMATED BLOOD COUNTS AND [...] REPRESENTS INDIVIDUALA AGED 2-19 YEARS EXCLUSIVE. BUN 10 mg/dL 8- [facility] ([facility] NORMAL [...] HCT IS 5% LESS SOURCE FOR DATA: [employer] 1800 OPERATION MANUAL( AUTOMATED BLOOD COUNTS AND [...] INDIVIDUALA AGED 2-19 YEARS EXCLUSIVE. BUN/Creatinine Ratio 12.3 CALC [facility] ([facility] NORMAL RANGES Age [...] HCT IS 5% LESS SOURCE FOR DATA: [employer] 1800 OPERATION MANUAL( AUTOMATED BLOOD COUNTS AND [...] REPRESENTS INDIVIDUALA AGED 2-19 YEARS EXCLUSIVE. Na 137 mmol/L 136-145 [facility] ([facility] NORMAL RANGES Age WBC RBC HGB [...] HCT IS 5% LESS SOURCE FOR DATA: [employer] 1800 OPERATION MANUAL( AUTOMATED BLOOD COUNTS AND [...] REPRESENTS INDIVIDUALA AGED 2-19 YEARS EXCLUSIVE. CL 99.0 mmol/L 98.0-107.0 [facility] NORMAL RANGES Age WBC RBC [...] HCT IS 5% LESS SOURCE FOR DATA: [employer] DYN 1800 OPERATION MANUAL( AUTOMATED BLOOD COUNTS [...] REPRESENTS INDIVIDUALA AGED 2-19 YEARS EXCLUSIVE. K 4.2 mmol/L 3.5-5.1 [facility] ([facility] NORMAL [...] HCT IS 5% LESS SOURCE FOR DATA: [employer] 1800 OPERATION MANUAL( AUTOMATED BLOOD COUNTS AND [...] REPRESENTS INDIVIDUALA AGED 2-19 YEARS EXCLUSIVE. CA 10.0 mg/dL 8.6-10.2 [facility] ([facility]note [facility] NORMAL RANGES Age WBC RBC [...] HCT IS 5% LESS SOURCE FOR DATA: [employer] 1800 OPERATION MANUAL( AUTOMATED BLOOD COUNTS AND [...] REPRESENTS INDIVIDUALA AGED 2-19 YEARS EXCLUSIVE. Co2 25.0 mmol/L 22.0-29.0 [employer] ([facility] NORMAL RANGES Age WBC [...] HCT IS 5% LESS SOURCE FOR DATA: [employer] 1800 OPERATION MANUAL( AUTOMATED BLOOD COUNTS AND [...] REPRESENTS INDIVIDUALA AGED 2-19 YEARS EXCLUSIVE. TP 7.2 g/dL 6.6-8.7 [facility] ([facility] NORMAL [...] HCT IS 5% LESS SOURCE FOR DATA: [employer] 1800 OPERATION MANUAL( AUTOMATED BLOOD COUNTS AND [...] REPRESENTS INDIVIDUALA AGED 2-19 YEARS EXCLUSIVE. Alb 4.4 g/dL 3.4-4.8 [facility] NORMAL RANGES Age [...] HCT IS 5% LESS SOURCE FOR DATA: [employer] 1800 OPERATION MANUAL( AUTOMATED BLOOD COUNTS AND [...] INDIVIDUALA AGED 2-19 YEARS EXCLUSIVE. A/G Ratio 1.6 CALC [facility] ([facility] [...] HCT IS 5% LESS SOURCE FOR DATA: [employer] 1800 OPERATION MANUAL( AUTOMATED BLOOD COUNTS AND [...] REPRESENTS INDIVIDUALA AGED 2-19 YEARS EXCLUSIVE. Globulin 2.8 CALC [facility] ([facility] [...] HCT IS 5% LESS SOURCE FOR DATA: [employer] 1800 OPERATION MANUAL( AUTOMATED BLOOD COUNTS AND [...] YEARS EXCLUSIVE. Alt (SGPT) 16 U/L 0-41 [facility] ([facility]note 3[facility] NORMAL RANGES Age WBC RBC [...] HCT IS 5% LESS SOURCE FOR DATA: [employer] 1800 OPERATION MANUAL( AUTOMATED BLOOD COUNTS AND [...] REPRESENTS INDIVIDUALA AGED 2-19 YEARS EXCLUSIVE. Alp 66.4 U/L 35-129 [facility] ([facility] [...] HCT IS 5% LESS SOURCE FOR DATA: [employer] 1800 OPERATION MANUAL( AUTOMATED BLOOD COUNTS AND [...] REPRESENTS INDIVIDUALA AGED 2-19 YEARS EXCLUSIVE. Tbili 0.55 mg/dL 0.0-1.2 [facility] ([facility], [...] HCT IS 5% LESS SOURCE FOR DATA: [employer] 1800 OPERATION MANUAL( AUTOMATED BLOOD COUNTS AND [...] INDIVIDUALA AGED 2-19 YEARS EXCLUSIVE. Ast (Sgot) 20 U/L 0-40 [facility] NORMAL RANGES Age [...] INDIVIDUALA AGED 2-19 YEARS EXCLUSIVE. Anion Gap 18 mmol/L [facility] ([facility] [...] HCT IS 5% LESS SOURCE FOR DATA: [employer] 1800 OPERATION MANUAL( AUTOMATED BLOOD COUNTS AND [...] REPRESENTS INDIVIDUALA AGED 2-19 YEARS EXCLUSIVE. Osmolality-Calculated 273.8 [facility] ([facility] [...] HCT IS 5% LESS SOURCE FOR DATA: [employer] 1800 OPERATION MANUAL( AUTOMATED BLOOD COUNTS AND [...] INDIVIDUALA AGED 2-19 YEARS EXCLUSIVE. eGFR Non-Afr. Serbian 73 # [facility] ([facility] CKD-EPI eGFR 84 # [facility] ( [facility] CKD-EPI ID Date Data Source [id number] 12/05/2020 01:43:00 PM EST [facility] ([facility] Name Value Range Interpretation Code Description Data Danisha rce(s) Supporting Document(s) Creatine kinase [Enzymatic activity/volume] in Serum or Plasma 54 U /L 26-192 [facility] ([facility] NORMAL RANGES Age WBC [...] HCT IS 5% LESS SOURCE FOR DATA: [employer] DYN 1800 OPERATION MANUAL( AUTOMATED BLOOD COUNTS [...] 2-19 YEARS EXCLUSIVE. ID Date Data Source [id number] 12/05/2020 01:43:00 PM EST [facility] ([facility] Name Value Range Interpretation Code Description Data Danisha rce(s) Supporting Document(s) WBC 7.7 10E3/uL 4.1-10.9 [facility] ([facility] NORMAL [...] HCT IS 5% LESS SOURCE FOR DATA: [employer] 1800 OPERATION MANUAL( AUTOMATED BLOOD COUNTS AND [...] REPRESENTS INDIVIDUALA AGED 2-19 YEARS EXCLUSIVE. RBC 4.48 10E6/uL 4.20-6.30 [facility] NORMAL RANGES Age WBC [...] HCT IS 5% LESS SOURCE FOR DATA: [employer] 1800 OPERATION MANUAL( AUTOMATED BLOOD COUNTS AND [...] REPRESENTS INDIVIDUALA AGED 2-19 YEARS EXCLUSIVE. HGB 13.8 g/dL 12.0-18.0 [facility] ([facility] [...] HCT IS 5% LESS SOURCE FOR DATA: [employer] 1800 OPERATION MANUAL( AUTOMATED BLOOD COUNTS AND [...] REPRESENTS INDIVIDUALA AGED 2-19 YEARS EXCLUSIVE. HCT 40.9 % 37.0-51.0 [facility] ([facility] NORMAL [...] HCT IS 5% LESS SOURCE FOR DATA: [employer] 1800 OPERATION MANUAL( AUTOMATED BLOOD COUNTS AND [...] REPRESENTS INDIVIDUALA AGED 2-19 YEARS EXCLUSIVE. MCV 91.3 fL 80.0-97.0 [facility] ([facility] [...] HCT IS 5% LESS SOURCE FOR DATA: [employer] DYN 1800 OPERATION MANUAL( AUTOMATED BLOOD COUNTS [...] REPRESENTS INDIVIDUALA AGED 2-19 YEARS EXCLUSIVE. MCH 30.8 pg 26.0-32.0 [facility] ([facility] NORMAL [...] HCT IS 5% LESS SOURCE FOR DATA: [employer] 1800 OPERATION MANUAL( AUTOMATED BLOOD COUNTS AND [...] REPRESENTS INDIVIDUALA AGED 2-19 YEARS EXCLUSIVE. MCHC 33.7 g/dL 31.0-36.0 [facility] ([facility] NORMAL RANGES Age WBC [...] HCT IS 5% LESS SOURCE FOR DATA: [employer] 1800 OPERATION MANUAL( AUTOMATED BLOOD COUNTS AND [...] 2-19 YEARS EXCLUSIVE. RDW-CV 12.4 % 11.5-14.5 [facility] ([facility] [...] HCT IS 5% LESS SOURCE FOR DATA: [employer] DYN 1800 OPERATION MANUAL( AUTOMATED BLOOD COUNTS [...] REPRESENTS INDIVIDUALA AGED 2-19 YEARS EXCLUSIVE. PLT 257 10E3/uL 140-440 [facility] ([facility] NORMAL RANGES Age WBC [...] HCT IS 5% LESS SOURCE FOR DATA: [employer] 1800 OPERATION MANUAL( AUTOMATED BLOOD COUNTS AND [...] REPRESENTS INDIVIDUALA AGED 2-19 YEARS EXCLUSIVE. Lym% 19.9 % 10.0-58.5 [facility] ([facility] NORMAL [...] HCT IS 5% LESS SOURCE FOR DATA: [employer] 1800 OPERATION MANUAL( AUTOMATED BLOOD COUNTS AND [...] REPRESENTS INDIVIDUALA AGED 2-19 YEARS EXCLUSIVE. Neut% 70.1 % 37.0-92.0 [facility] ([facility] [...] HCT IS 5% LESS SOURCE FOR DATA: [employer] 1800 OPERATION MANUAL( AUTOMATED BLOOD COUNTS AND [...] REPRESENTS INDIVIDUALA AGED 2-19 YEARS EXCLUSIVE. MXD% 10.0 % 0.1-24.0 [facility] ([facility] NORMAL [...] HCT IS 5% LESS SOURCE FOR DATA: [employer] 1800 OPERATION MANUAL( AUTOMATED BLOOD COUNTS AND [...] 2-19 YEARS EXCLUSIVE. Lym# 1.5 10E3/uL 0.6-4.1 [facility] ([facility] NORMAL RANGES Age WBC RBC HGB [...] HCT IS 5% LESS SOURCE FOR DATA: [employer] 1800 OPERATION MANUAL( AUTOMATED BLOOD COUNTS AND [...] REPRESENTS INDIVIDUALA AGED 2-19 YEARS EXCLUSIVE. Neut# 5.4 % 2.0-7.8 [facility] ([facility] NORMAL [...] HCT IS 5% LESS SOURCE FOR DATA: [employer] 1800 OPERATION MANUAL( AUTOMATED BLOOD COUNTS AND [...] REPRESENTS INDIVIDUALA AGED 2-19 YEARS EXCLUSIVE. MXD# 0.8 10E3/uL 0.0-1.8 [facility] ([facility] NORMAL RANGES Age WBC [...] HCT IS 5% LESS SOURCE FOR DATA: [employer] 1800 OPERATION MANUAL( AUTOMATED BLOOD COUNTS AND [...] REPRESENTS INDIVIDUALA AGED 2-19 YEARS EXCLUSIVE. MPV 9.6 fL 9.0-13.0 [facility] ([facility] NORMAL RANGES Age [...] HCT IS 5% LESS SOURCE FOR DATA: [employer] 1800 OPERATION MANUAL( AUTOMATED BLOOD COUNTS AND [...] 2-19 YEARS EXCLUSIVE. ID Date Data Source [id number] 11/01/2020 12:58:00 PM EST [facility] 1 OrderSheet [facility] Emergency Department [address] [place] [address] Phone #: [phone] 11/01/2020 12:55 Patient: GLEN VERGARA Sex: F : 1945 Age: 75yWEIGHT:83.4 kg (S) HEIGHT:64 inches (S) BMI:31.6ALLERGIES: PenicillinsCHIEF COMPLAINT: "hurts all over", "flu", fever, coughDIAGNOSIS: Severe acute respiratory syndrome coronavirusLAB ORDERSOrder Description Priority Entered Acknowledged InitialedCORONAVIRUS STAT 13:14 11/01/2020 13:14 Kaylee CoatesCOVID-19 Kaylee Coates R.N.; R.NHany(Symptomatic as Verbal order [...] rce(s) Supporting Document(s) ID Date Data Source [id number] 11/01/2020 12:58:00 PM EST [facility] 1 Medication Reconciliation Report [facility] Emergency Department [address] [place] [address] Phone #: ext- [phone] 11/01/2020 12:55 Patient: GLEN VERGARA Sex: F : 1945 Age: 75yWeight: 83.4 [...] 6 tablet. Refills: 0. Substitution permitted.Pharmacy - [phone] - [phone] [facility] [address] ; [place] [address]. . -- MILE Orellana Name Value Range Interpretation Code Description Data Danisha caro center(s) Supporting Document(s) ID Date Data Source [id number] 11/01/2020 12:58:00 PM [facility] 1 Medication Administration Record [facility] Emergency Department [address] [place] [address] Phone #: ext [phone] 11/01/2020 12:55 Patient: GLEN VERGARA Sex: F : 1945 Age: 75yWeight: 83.4 kgHeight/Length: 64 inBMI: 31.6ALLERGIES: PenicillinsDate/Time Medication Administered Medication Ordered Name Value Range Interpretation Code Description Data [facility](s) Supporting Document(s) ID Date Data Source [id number] 11/01/2020 12:58:00 PM [facility] 1 General Instructions [facility] Emergency Department [address] [place] [address] Phone #: ext- [phone] 11/01/2020 12:55 Patient: GLEN VERGARA Sex: F : 1945 Age: 75y Coronavirus [...] tablet. Refills: 0. Substitution permitted. Pharmacy - [facility] [phone] ; [place] [address]. . Follow-up: Follow up with your doctor [...] 19 was first found in people in [facility], in late 2019. In 2020,several cases of COVID-19 have been confirmed in the [place] COVID-19 is a rapidly- emerginginfectious disease. This means that scientists are actively researching it. There are information 2 General Instructions [facility] Emergency Department [address] [place] [address] Phone #: ext- [phone] 11/01/2020 12:55 Patient: GLEN VERGARA Sex: F : 1945 Age: 75yupdates regularly.Public [...] pain and reduce fever. 3 General Instructions [facility] Emergency Department [address] [place] [address] Phone #: ext- [phone] 11/01/2020 12:55 Patient: GELN VERGARA Sex: F : 1945 Age: 75y Bed [...] the CDC website atwww.cdc.gov/coronavirus/2019-ncov/travelers. 4 General Instructions [facility] Emergency Department [address] [place] [address] Phone #: ext- [phone] 11/01/2020 12:55 Patient: GLEN VERGARA Sex: F : 1945 Age: 75yTo help prevent spreading the infection, wash your hands often, or use an alcohol-based hand hearth feeder.The CDC advises that you shouldn't wear a face mask if you are not sick.To protect yourself from COVID-19: Wash your hands often with soap and clean, running water for at least 20 seconds. If you don't have access to soap and water, use an alcohol-based hand hearth feeder often. Make sure it has at least [...] tools with sick people. 5 General Instructions [facility] Emergency Department [address] [place] [address] Phone #: ext- [phone] 11/01/2020 12:55 Patient: GLEN VERGARA Sex: F : 1945 Age: 75y Don't [...] to get medical care. 6 General Instructions [facility] Emergency Department [address] [place] [address] Phone #: ext- [phone] 11/01/2020 12:55 [id number] Sex: F D OB: 1945 Age: 75y [...] with COVID-19 and your symptoms are worse [id number] [employer]. [address] [place] [address]. All rights reserved. This information is not intended as asubstitute for professional medical care. Always follow your healthcare professional's instructions. You have been given the following additional information: 7 General Instructions [facility] Emergency Department [address] [place] [address] Phone #: ext- [phone] 11/01/2020 12:55 Patient: GLEN VERGARA Ryann Sex: F : 1945 Age: 75y Coronavirus Disease 2019 (COVID-19)(Electronically signed by MILE Orellana 11/01/2020 21:48) Name Value Range Interpretation Code Description Data Danisha rce(s) Supporting Document(s) ID Date Data Source [id number] 11/01/2020 12:58:00 PM EST [facility] 1 Clinical Report - Nurses [facility] Emergency Department [address] [place] [address] Phone #: ext- [phone] 11/01/2020 12:55 Patient: MARRY VERGARARA Garzon Sex: F : 1945 Age: 75yTRIAGEArrived by private vehicle. Historian: patient. Unaccompanied. ( body aches, dry cough and feveryesterday).Acuity: LEVEL 3.Chief Complaint: FEVER, COUGH and BODY ACHES.Alert. No acute distress.This started yesterday. She has had a headache. 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 SEPSIS SCREEN NEGATIVE. No suspected or confirmedsigns of infection present. --13:03 11/01/20 Kaylee Coates R.N.12:55 11/01/20. BP: 120/53. MAP: 75. HR: 65. RR: 20. O2 saturation: 94%. Temp: 97.4 F. Pain level now:010. --13:03 11/01/20 Kaylee Coates R.N.Weight: 83.4 kg [...] to the 2 Clinical Report - Nurses [facility] Emergency Department [address] [place] [address] Phone #: ext- [phone] 11/01/2020 12:55 [id number] Sex[facility] F : 1945 Age: 75y question(s) [...] assessment completed. No skin integrity risk identified. --13:03 11/01/20 Kaylee Coates R.N. Interventions Identification band on patient. To treatment room. --13:03 11/01/20 Kaylee Coates R.N.PHYSICAL ASSESSMENT( body aches).GENERAL / [...] ready for evaluation- ED physician and PA notified.--13:06 11/01/20 Kaylee Caotes R.N. ( pt requests a covid test). --13:06 11/01/20 Kaylee Coates R.N. Patient ID band checked [...] Coates R.N. 3 Clinical Report - Nurses [facility] Emergency Department [address] [place] [address] Phone #: ext- [phone] 11/01/2020 12:55 Patient: GLEN VERGARA Sex: F : 1945 Age: 75y 13:30 [...] Patient verbalized understanding. Written instructions provided in Senegalese. ( covid test results will be called to you need to quarantine until you receive results or 14 days). The patient was discharged home and accompanied by spouse. She left ambulatory and via private vehicle. Patient driving. --14:17 11/01/20 Kaylee Coates R.N. 14:14 11/01/20. BP: 118/63. MAP: 81. HR: 59. RR: 18. O2 saturation: 95%. Temp: 98.2 F. Pain level now: 010. --14:17 11/01/20 Kaylee Coates R.N. Departure time: 14:17 11/01/2020. --14:17 11/01/20 Kaylee Coates R.N.Locked/Released at 11/01/2020 14:19 by Kaylee Coates R.N. Name Value Range Interpretation Code Description Data Danisha rce(s) Supporting Document(s) ID Date Data Source [id number] 11/01/2020 12:58:00 PM EST [facility] 1 Clinical Report - Physicians/Mid Levels [facility] Emergency Department [address] [place] [address] Phone #: ext- [phone] 11/01/2020 12:55 Patient: GLEN VERGARA Sex: F : 1945 Age: 75y Time [...] Heart sounds normal. 2 Clinical Report - Physicians/[facility] Emergency Department [address] [place] [address] Phone #: ext- [phone] 11/01/2020 12:55 Patient: GLEN VERGARA Sex: F : 1945 Age: 75y Respiratory: [...] ibuprofen. 3 Clinical Report - Physicians/Mid Levels [facility] Emergency Department [address] [place] [address] Phone #: ext- [phone] 11/01/2020 12:55 Patient: GLEN VERGARA Sex: F : 1945 Age: 75y Your [...] tablet. Refills: 0. Substitution permitted. Pharmacy - [facility] [phone] - [phone] ; [place] [address]. . Follow-up: Follow up with your doctor in two weeks if not better. Reason for referral: evaluation and treatment. Summary of care provided to patient. Understanding of the discharge instructions verbalized by patient.(Electronically signed by MILE Orellana 11/01/2020 21:48) Name Value Range Interpretation Code Description Data Danisha rce(s) Supporting Document(s) ID Date Data Source [id number] 11/01/2020 12:58:00 PM EST [facility] GLEN Wall VisitID: [id number] Date: 15:06covid test negative, pt made aware(Electronically signed by Maribel Smith RN - 11/03/2020 15:06) Name Value Range Interpretation Code Description Data Danisha rce(s) Supporting Document(s) ID Date Data Source [id number] 11/01/2020 01:05:00 PM EST [facility] ([facility] Name Value Range Interpretation Code Description Data [facility] Supporting Document(s) Coronavirus Covid-19 Laboratory test result [facility] ([facility] This nucleic acid amplification test was developed and its performance characteristics determined by [employer]. Nucleic acid amplification tests include PCR and [...] in this assay. ID Date Data Source [id number] 11/01/2020 01:05:00 PM EST NELL ([facility] Name Value Range Interpretation Code Description Data Danisha rce(s) Supporting Document(s) Influenza B Laboratory test result Vilma DANG ([facility] Influenza A Laboratory test result Vilma DANG ([facility] Influenza B Reenter Laboratory test result MEDKEVIN ([facility] <content>PROCEDURAL CONTROL VALID</con tent>
<content>KIT LOT [...] treatment or other patient management</content>
<content>decisions.</content>
<content></content> Influenza A Reenter Laboratory test result [facility] ([facility] ID Date Data Source [id number] 11/01/2020 01:05:00 PM EST [facility] Name Value Range Interpretation Code Description Data Danisha rce(s) Supporting Document(s) SARS coronavirus 2 RNA [facility] This lab was ordered by [facility] Jasper arevalo and reported by [facility]. ID Date Data Source [id number] 11/03/2020 02:15:00 PM EST [facility] Name Value Range Interpretation Code Description Data Danisha rce(s) Supporting Document(s) SARS-CoV-2, KIAH Not Detected Not Detected [facility] This nucleic acid amplification test was developed and its performancecharacteristics determined by [employer]. Nucleic acidamplification tests include PCR and TMA. [...] in this assay. ID Date Data Source [id number] 11/01/2020 01:46:00 PM EST [facility] Name Value Range Interpretation Code Description Data Danisha rce(s) Supporting Document(s) Influenza virus A Ag [Presence] in Nasopharynx by [facility] y NEGATIVE NORMAL: NEGATIVE [facility] Influenza virus B Ag [Presence] in Nasopharynx by [facility] y NEGATIVE NORMAL: NEGATIVE [facility] NEGATIVENEGATIVE PROCEDURAL CO NTROL VALID KIT LOT # _[id number] 11/01/20.1346.TAD. . . KIT EXP DATE _01.28.21 11/01/20.1346.TAD. . .The Influenza A & B assay is a rapid molecular in vitro diagnostic testutilizing an isothermal nucleic acid amplification technology for thequalitative detection of influenza A and B viral RNA.Negative results do not preclude influenza virus infection and should not beused as the sole basis for diagnosis, treatment or other patient managementdecisions. ID Date Data Source [id number] 10/12/2020 12:00:00 AM EST [facility] Name Value Range Interpretation Code Description Data Danisha rce(s) Supporting Document(s) SARS-CoV2 Rapid Antigen [facility] This lab was ordered by [facility] and reported by [facility]. ID Date Data Source [id number] 09/30/2020 09:03:00 [place] [address] OPERATIVE SUMMARYNAME: URSULA Garzon DATE OF : 1945TTENDING PHYS: Pierce Kebede MD DATE: 09/30/20 MR#: [id number] PROCEDURE: 09/30/2020PRE- OPERATIVE DIAGNOSIS: Colonoscopy for [...] LOSS: None.IV FLUIDS: Crystalloid.DRAINS: None.COMPLICATIONS: None. [address] [place] [address] OPERATIVE SUMMARYNAME: URSULA Garzon DATE OF : 1945TTENDING PHYS: Pierce Kebede MD DATE: 09/30/20 MR#: [id number]:Patient tolerated procedure well, and was sent to the recovery room in good condition.DD: Pierce Kebede MD 09/30/20 08:52DT: LLUVIA 09/30/20 08:59DS: Pierce Kebede MD 10/07/20 11:22 2 Name Value Range Interpretation Code Description Data Danisha rce(s) Supporting Document(s) ID Date Data Source [id number] 09/26/2020 09:30:00 AM EST [facility] ([facility] Name Value Range Interpretation Code Description Data Danisha rce(s) Supporting Document(s) Coronavirus Covid-19 Laboratory test result [facility] ([facility] This nucleic acid amplification test was developed and its performance characteristics determined by [employer]. Nucleic acid amplification tests include PCR and [...] in this assay. ID Date Data Source [id number] 09/26/2020 09:30:00 AM EST [facility] Name Value Range Interpretation Code Description Data Danisha rce(s) Supporting Document(s) SARS coronavirus 2 RNA [facility] and reported by [facility]. ID Date Data Source [id number] 09/28/2020 07:13:00 AM EST [facility] Name Value Range Interpretation Code Description Data Danisha rce(s) Supporting Document(s) SARS-CoV-2, KIAH Not Detected Not Detected [facility] This nucleic acid amplification test was developed and its performancecharacteristics determined by [facility]. Nucleic acidamplification tests include PCR and [...] in this assay. ID Date Data Source [id number] 09/23/2020 10:48:00 AM EST [facility] ([facility] Name Value Range Interpretation Code Description Data Danisha rce(s) Supporting Document(s) Color Laboratory test result [facility] ([facility] NORMAL RANGES Age WBC [...] HCT IS 5% LESS SOURCE FOR DATA: [employer] 1800 OPERATION MANUAL( AUTOMATED BLOOD COUNTS AND [...] >32 mL/min Normal Clarity Laboratory test result [facility] ([facility] [...] HCT IS 5% LESS SOURCE FOR DATA: [employer] 1800 OPERATION MANUAL( AUTOMATED BLOOD COUNTS AND [...] Normal Glucose-Ua Laboratory test result ME MOSHER ([facility] NORMAL RANGES Age WBC [...] HCT IS 5% LESS SOURCE FOR DATA: [employer] 1800 OPERATION MANUAL( AUTOMATED BLOOD COUNTS AND [...] >32 mL/min Normal Ketone Laboratory test result NE[facility] ([facility] NORMAL RANGES Age WBC [...] HCT IS 5% LESS SOURCE FOR DATA: [employer] 1800 OPERATION MANUAL( AUTOMATED BLOOD COUNTS AND [...] >32 mL/min Normal Bilirubin,Urine Laboratory test result [facility] ([facility] NORMAL RANGES Age WBC [...] HCT IS 5% LESS SOURCE FOR DATA: [employer] DYN 1800 OPERATION MANUAL( AUTOMATED BLOOD COUNTS [...] result Abnormal (applies to non -numeric results) [facility] ([facility] NORMAL RANGES Age WBC [...] HCT IS 5% LESS SOURCE FOR DATA: [employer] 1800 OPERATION MANUAL( AUTOMATED BLOOD COUNTS AND [...] >32 mL/min Normal Protein Laboratory test result [facility] ([facility] NORMAL RANGES Age WBC [...] HCT IS 5% LESS SOURCE FOR DATA: [employer] 1800 OPERATION MANUAL( AUTOMATED BLOOD COUNTS AND [...] >32 mL/min Normal Urobilinogen 0.2 NA 0.2-1.0 [facility] ([facility] NORMAL RANGES Age WBC RBC [...] HCT IS 5% LESS SOURCE FOR DATA: [employer] 1800 OPERATION MANUAL( AUTOMATED BLOOD COUNTS AND [...] >32 mL/min Normal pH 6.0 # 5.0-8.0 [facility] ([facility] [...] HCT IS 5% LESS SOURCE FOR DATA: [employer] 1800 OPERATION MANUAL( AUTOMATED BLOOD COUNTS AND [...] >32 mL/min Normal Nitrite Laboratory test result [facility] ([facility] NORMAL RANGES Age WBC [...] HCT IS 5% LESS SOURCE FOR DATA: [employer] 1800 OPERATION MANUAL( AUTOMATED BLOOD COUNTS AND [...] Abnormal (applies to non -numeric results) [facility] ([facility] NORMAL RANGES [...] HCT IS 5% LESS SOURCE FOR DATA: [employer] 1800 OPERATION MANUAL( AUTOMATED BLOOD COUNTS AND [...] Comment Laboratory test result Above high normal [facility] ([facility] NORMAL RANGES Age WBC [...] HCT IS 5% LESS SOURCE FOR DATA: [employer] 1800 OPERATION MANUAL( AUTOMATED BLOOD COUNTS AND [...] >32 mL/min Normal ID Date Data Source [id number] 09/23/2020 10:48:00 AM EST NE[facility] ([facility] Name Value Range Interpretation Code Description Data Danisha rce(s) Supporting Document(s) Glu 108 mg/dL 70-110 [facility] ([facility] NORMAL RANGES Age WBC [...] HCT IS 5% LESS SOURCE FOR DATA: [employer] 1800 OPERATION MANUAL( AUTOMATED BLOOD COUNTS AND [...] above >32 mL/min Normal BUN 9 mg/dL 8 [facility] ([facility] NORMAL RANGES Age [...] >32 mL/min Normal Creat 0.9 mg/dL 0.5-1.0 [facility] ([facility] NORMAL RANGES Age WBC [...] HCT IS 5% LESS SOURCE FOR DATA: [employer] 1800 OPERATION MANUAL( AUTOMATED BLOOD COUNTS AND [...] above >32 mL/min Normal BUN/Creatinine Ratio 10.0 CALC [employer] ([facility] NORMAL RANGES Age WBC [...] HCT IS 5% LESS SOURCE FOR DATA: [employer] 1800 OPERATION MANUAL( AUTOMATED BLOOD COUNTS AND [...] >32 mL/min Normal K 4.9 mmol/L 3.5-5.1 [facility] ([facility] NORMAL RANGES Age WBC RBC [...] HCT IS 5% LESS SOURCE FOR DATA: [employer] 1800 OPERATION MANUAL( AUTOMATED BLOOD COUNTS AND [...] >32 mL/min Normal Na 136 mmol/L 136-145 [facility] ([facility] NORMAL RANGES Age [...] HCT IS 5% LESS SOURCE FOR DATA: [employer] 1800 OPERATION MANUAL( AUTOMATED BLOOD COUNTS AND [...] >32 mL/min Normal CL 98.7 mmol/L 98.0-107.0 [facility] ([facility] NORMAL RANGES Age WBC [...] HCT IS 5% LESS SOURCE FOR DATA: [employer] 1800 OPERATION MANUAL( AUTOMATED BLOOD COUNTS AND [...] Co2 29.6 mmol/L 22.0-29.0 Above high normal [facility] ([facility] NORMAL RANGES [...] HCT IS 5% LESS SOURCE FOR DATA: [employer] 1800 OPERATION MANUAL( AUTOMATED BLOOD COUNTS AND [...] TP 6.5 g/dL 6.6-8.7 Below low normal [facility] ( [facility] NORMAL RANGES Age WBC [...] HCT IS 5% LESS SOURCE FOR DATA: [employer] 1800 OPERATION MANUAL( AUTOMATED BLOOD COUNTS AND [...] >32 mL/min Normal CA 9.7 mg/dL 8.6-10.2 [facility] ([facility] NORMAL RANGES Age WBC RBC [...] HCT IS 5% LESS SOURCE FOR DATA: [employer] 1800 OPERATION MANUAL( AUTOMATED BLOOD COUNTS AND [...] >32 mL/min Normal Alb 4.2 g/dL 3.4-4.8 [facility] ([facility] NORMAL RANGES Age WBC [...] HCT IS 5% LESS SOURCE FOR DATA: [employer] DYN 1800 OPERATION MANUAL( AUTOMATED BLOOD COUNTS [...] >32 mL/min Normal A/G Ratio 1.8 CALC [employer] ([facility] NORMAL RANGES Age [...] HCT IS 5% LESS SOURCE FOR DATA: [employer] DYN 1800 OPERATION MANUAL( AUTOMATED BLOOD COUNTS [...] >32 mL/min Normal Alp 57.8 U/L 35-129 [facility] ([facility] NORMAL RANGES Age [...] HCT IS 5% LESS SOURCE FOR DATA: [employer] 1800 OPERATION MANUAL( AUTOMATED BLOOD COUNTS AND [...] >32 mL/min Normal Globulin 2.3 CALC [facility] ([facility] [...] HCT IS 5% LESS SOURCE FOR DATA: [employer] 1800 OPERATION MANUAL( AUTOMATED BLOOD COUNTS AND [...] >32 mL/min Normal Tbili 0.37 mg/dL 0.0-1.2 [facility] ([facility] NORMAL RANGES Age [...] HCT IS 5% LESS SOURCE FOR DATA: [employer] 1800 OPERATION MANUAL( AUTOMATED BLOOD COUNTS AND [...] mL/min Normal Ast (Sgot) 19 U/L 0-40 [facility] ([facility] NORMAL RANGES Age [...] HCT IS 5% LESS SOURCE FOR DATA: [employer] 1800 OPERATION MANUAL( AUTOMATED BLOOD COUNTS AND [...] mL/min Normal Alt (SGPT) 16 U/L 0-41 [facility] ([facility] NORMAL RANGES Age [...] HCT IS 5% LESS SOURCE FOR DATA: [employer] 1800 OPERATION MANUAL( AUTOMATED BLOOD COUNTS AND [...] HCT IS 5% LESS SOURCE FOR DATA: [employer] 1800 OPERATION MANUAL( AUTOMATED BLOOD COUNTS AND [...] >32 mL/min Normal Anion Gap 12 mmol/L [facility] ([facility] NORMAL RANGES Age WBC [...] HCT IS 5% LESS SOURCE FOR DATA: [employer] 1800 OPERATION MANUAL( AUTOMATED BLOOD COUNTS AND [...] and above >32 mL/min Normal eGFR Non-Afr. Serbian 63 # [facility] ([facility] NORMAL RANGES Age WBC [...] HCT IS 5% LESS SOURCE FOR DATA: [employer] 1800 OPERATION MANUAL( AUTOMATED BLOOD COUNTS AND [...] above >32 mL/min Normal eGFR 74 # MEDKEVIN ( [facility] NORMAL RANGES Age WBC [...] HCT IS 5% LESS SOURCE FOR DATA: [employer] 1800 OPERATION MANUAL( AUTOMATED BLOOD COUNTS AND [...] >32 mL/min Normal ID Date Data Source [id number] 09/23/2020 10:48:00 AM KOBE CAMEJO ([facility] Name Value Range Interpretation Code Description Data Danisha rce(s) Supporting Document(s) WBC 6.4 10E3/uL 4.1-10.9 NELL ([facility] NORMAL RANGES Age WBC [...] HCT IS 5% LESS SOURCE FOR DATA: [employer] 1800 OPERATION MANUAL( AUTOMATED BLOOD COUNTS AND [...] >32 mL/min Normal HGB 13.1 g/dL 12.0-18.0 [facility] ([facility] NORMAL [...] HCT IS 5% LESS SOURCE FOR DATA: [employer] 1800 OPERATION MANUAL( AUTOMATED BLOOD COUNTS AND [...] >32 mL/min Normal RBC 4.37 10E6/uL 4.20-6.30 [facility] ([facility] NORMAL RANGES Age WBC RBC [...] HCT IS 5% LESS SOURCE FOR DATA: [employer] 1800 OPERATION MANUAL( AUTOMATED BLOOD COUNTS AND [...] >32 mL/min Normal HCT 39.4 % 37.0-51.0 [facility] ([facility] NORMAL [...] HCT IS 5% LESS SOURCE FOR DATA: [employer] 1800 OPERATION MANUAL( AUTOMATED BLOOD COUNTS AND [...] mL/min Normal MCH 30.0 pg 26.0-32.0 [facility] ([facility] NORMAL [...] HCT IS 5% LESS SOURCE FOR DATA: [employer] 1800 OPERATION MANUAL( AUTOMATED BLOOD COUNTS AND [...] >32 mL/min Normal MCV 90.2 fL 80.0-97.0 [facility] ([facility] [...] HCT IS 5% LESS SOURCE FOR DATA: [employer] DYN 1800 OPERATION MANUAL( AUTOMATED BLOOD COUNTS [...] >32 mL/min Normal MCHC 33.2 g/dL 31.0-36.0 [facility] ([facility] NORMAL RANGES Age [...] HCT IS 5% LESS SOURCE FOR DATA: [employer] 1800 OPERATION MANUAL( AUTOMATED BLOOD COUNTS AND [...] >32 mL/min Normal PLT 214 10E3/uL 140-440 [facility] ([facility] [place] NORMAL RANGES Age WBC RBC HGB [...] HCT IS 5% LESS SOURCE FOR DATA: [employer] 1800 OPERATION MANUAL( AUTOMATED BLOOD COUNTS AND [...] >32 mL/min Normal RDW-CV 12.9 % 11.5-14.5 [facility] ([facility] NORMAL RANGES Age [...] >32 mL/min Normal Lym% 29.1 % 10.0-58.5 [facility] ([facility] NORMAL RANGES Age WBC [...] HCT IS 5% LESS SOURCE FOR DATA: [employer] 1800 OPERATION MANUAL( AUTOMATED BLOOD COUNTS AND [...] >32 mL/min Normal Neut% 61.4 % 37.0-92.0 [facility] ([facility] [...] HCT IS 5% LESS SOURCE FOR DATA: [employer] 1800 OPERATION MANUAL( AUTOMATED BLOOD COUNTS AND [...] >32 mL/min Normal MXD% 9.5 % 0.1-24.0 [facility] ([facility] NORMAL [...] HCT IS 5% LESS SOURCE FOR DATA: [employer] 1800 OPERATION MANUAL( AUTOMATED BLOOD COUNTS AND [...] >32 mL/min Normal Neut# 3.9 % 2.0-7.8 [facility] ([facility] [...] HCT IS 5% LESS SOURCE FOR DATA: [employer] 1800 OPERATION MANUAL( AUTOMATED BLOOD COUNTS AND [...] mL/min Normal Lym# 1.9 10E3/uL 0.6-4.1 [facility] ([facility] NORMAL RANGES Age WBC [...] HCT IS 5% LESS SOURCE FOR DATA: [employer] 1800 OPERATION MANUAL( AUTOMATED BLOOD COUNTS AND [...] >32 mL/min Normal MXD# 0.6 10E3/uL 0.0-1.8 [facility] ([facility] NORMAL RANGES Age WBC [...] HCT IS 5% LESS SOURCE FOR DATA: [employer] 1800 OPERATION MANUAL( AUTOMATED BLOOD COUNTS AND [...] MPV 8.6 fL 9.0-13.0 Below low normal [facility] ( [facility] NORMAL RANGES Age WBC [...] HCT IS 5% LESS SOURCE FOR DATA: [employer] 1800 OPERATION MANUAL( AUTOMATED BLOOD COUNTS AND [...] >32 mL/min Normal ID Date Data Source [id number] 08/29/2020 12:23:00 PM EDT [facility] ([facility] Name Value Range Interpretation Code Description Data Danisha rce(s) Supporting Document(s) Color Urine Laboratory test result M [facility] ([facility] Appearance of Urine Laboratory test result [facility] ([facility] Specific [place] 1.015 1.00-1.03 [facility] ([facility] Glucose Urine Laboratory test result [facility] ([facility] PH Urine 6.0 5.0-8.0 [facility] ([facility] Bilirubin.total [Presence] in Urine by Test strip Laboratory test res ult [facility] ([facility] Ketones Laboratory test result [facility] ([facility] Blood Urine Laboratory test result M [facility] ([facility] Nitrite Laboratory test result [facility] ([facility] Urobilinogen 0.2 EU/dl 0.2-1.0 [facility] ([facility] Protein Urine Laboratory test result [facility] ([facility] Leukocytes Laboratory test result Above high normal [facility] ([facility] ID Date Data Source [id number] 08/29/2020 12:22:00 PM EDT [facility] ([facility] Name Value Range Interpretation Code Description Data Danisha rce(s) Supporting Document(s) Alb 10 mg/L 1-30 [facility] A/C Ratio Laboratory test result Abnormal (applies to non -numeric results) [facility] ([facility] Creatinine, Urine 50 mg/dL 10-300 [facility] ID Date Data Source [id number] 08/29/2020 11:59:00 AM EDT [facility] ([facility] Name Value Range Interpretation Code Description Data Danisha rce(s) Supporting Document(s) Creatine kinase [Enzymatic activity/volume] in Serum or Plasma 49 U /L 26-192 [facility] ([facility] NORMAL RANGES Age WBC RBC HGB [...] HCT IS 5% LESS SOURCE FOR DATA: [employer] 1800 OPERATION MANUAL( AUTOMATED BLOOD COUNTS AND [...] 2-19 YEARS EXCLUSIVE. ID Date Data Source [id number] 08/29/2020 11:59:00 AM EDT [facility] ([facility] Name Value Range Interpretation Code Description Data Danisha rce(s) Supporting Document(s) Chol 189 mg/dL 0-200 [facility] ([facility] NORMAL [...] HCT IS 5% LESS SOURCE FOR DATA: [employer] 1800 OPERATION MANUAL( AUTOMATED BLOOD COUNTS AND [...] 2-19 YEARS EXCLUSIVE. Trig 162 mg/dL 40-200 [facility] ([facility] NORMAL [...] HCT IS 5% LESS SOURCE FOR DATA: [employer] 1800 OPERATION MANUAL( AUTOMATED BLOOD COUNTS AND [...] 2-19 YEARS EXCLUSIVE. LDL_C 108 Calc 75-129 [facility] ([facility] [...] HCT IS 5% LESS SOURCE FOR DATA: [employer] 1800 OPERATION MANUAL( AUTOMATED BLOOD COUNTS [...] in Serum or Plasma 48 mg/dL 45-65 [facility] ([facility] NORMAL RANGES [...] HCT IS 5% LESS SOURCE FOR DATA: [employer] 1800 OPERATION MANUAL( AUTOMATED BLOOD COUNTS AND [...] 2-19 YEARS EXCLUSIVE. Cho/HDL Ratio 3.9 CALC [facility] ([facility] NORMAL RANGES Age WBC RBC [...] HCT IS 5% LESS SOURCE FOR DATA: [employer] 1800 OPERATION MANUAL( AUTOMATED BLOOD COUNTS AND [...] 2-19 YEARS EXCLUSIVE. ID Date Data Source [id number] 08/29/2020 11:59:00 AM EDT [facility] ([facility] Name Value Range Interpretation [...] HCT IS 5% LESS SOURCE FOR DATA: [employer] 1800 OPERATION MANUAL( AUTOMATED BLOOD COUNTS AND [...] 2-19 YEARS EXCLUSIVE. Creat 0.8 mg/dL 0.5-1.0 [facility] ([facility] NORMAL [...] HCT IS 5% LESS SOURCE FOR DATA: [employer] 1800 OPERATION MANUAL( AUTOMATED BLOOD COUNTS AND [...] 2-19 YEARS EXCLUSIVE. BUN 13 mg/dL 8-23 [facility] NORMAL RANGES Age WBC [...] HCT IS 5% LESS SOURCE FOR DATA: [employer] 1800 OPERATION MANUAL( AUTOMATED BLOOD COUNTS AND [...] 2-19 YEARS EXCLUSIVE. BUN/Creatinine Ratio 15.4 CALC [facility] ([facility] NORMAL RANGES Age [...] HCT IS 5% LESS SOURCE FOR DATA: [employer] 1800 OPERATION MANUAL( AUTOMATED BLOOD COUNTS AND [...] 2-19 YEARS EXCLUSIVE. K 4.5 mmol/L 3.5-5.1 [facility] ([facility] NORMAL [...] HCT IS 5% LESS SOURCE FOR DATA: [employer] 1800 OPERATION MANUAL( AUTOMATED BLOOD COUNTS AND [...] Na 135 mmol/L 136-145 Below low normal [facility] ( [facility] NORMAL RANGES Age WBC [...] HCT IS 5% LESS SOURCE FOR DATA: [employer] 1800 OPERATION MANUAL( AUTOMATED BLOOD COUNTS AND [...] 2-19 YEARS EXCLUSIVE. CL 98.3 mmol/L 98.0-107.0 [facility] ([facility] NORMAL RANGES Age WBC RBC [...] HCT IS 5% LESS SOURCE FOR DATA: [employer] 1800 OPERATION MANUAL( AUTOMATED BLOOD COUNTS AND [...] 2-19 YEARS EXCLUSIVE. Co2 23.9 mmol/L 22.0-29.0 [facility] ([facility] NORMAL RANGES Age WBC [...] HCT IS 5% LESS SOURCE FOR DATA: [employer] 1800 OPERATION MANUAL( AUTOMATED BLOOD COUNTS AND [...] 2-19 YEARS EXCLUSIVE. CA 9.5 mg/dL 8.6-10.2 [facility] ([facility] NORMAL [...] 2-19 YEARS EXCLUSIVE. TP 6.8 g/dL 6.6-8.7 [facility] ([facility] NORMAL [...] HCT IS 5% LESS SOURCE FOR DATA: [employer] 1800 OPERATION MANUAL( AUTOMATED BLOOD COUNTS AND [...] 2-19 YEARS EXCLUSIVE. Alb 4.3 g/dL 3.4-4.8 [facility] ([facility] NORMAL [...] HCT IS 5% LESS SOURCE FOR DATA: [employer] 1800 OPERATION MANUAL( AUTOMATED BLOOD COUNTS AND [...] HCT IS 5% LESS SOURCE FOR DATA: [employer] DYN 1800 OPERATION MANUAL( AUTOMATED BLOOD COUNTS [...] 2-19 YEARS EXCLUSIVE. Alp 58.3 U/L 35-129 [facility] ([facility] [...] HCT IS 5% LESS SOURCE FOR DATA: [employer] 1800 OPERATION MANUAL( AUTOMATED BLOOD COUNTS AND [...] HCT IS 5% LESS SOURCE FOR DATA: [employer] 1800 OPERATION MANUAL( AUTOMATED BLOOD COUNTS AND [...] YEARS EXCLUSIVE. Alt (SGPT) 16 U/L 0-41 [facility] NORMAL RANGES Age [...] HCT IS 5% LESS SOURCE FOR DATA: [employer] 1800 OPERATION MANUAL( AUTOMATED BLOOD COUNTS [...] YEARS EXCLUSIVE. Ast (Sgot) 19 U/L 0-40 [facility] ([facility] NORMAL RANGES Age [...] HCT IS 5% LESS SOURCE FOR DATA: [employer] 1800 OPERATION MANUAL( AUTOMATED BLOOD COUNTS AND [...] HCT IS 5% LESS SOURCE FOR DATA: [employer] 1800 OPERATION MANUAL( AUTOMATED BLOOD COUNTS AND [...] 2-19 YEARS EXCLUSIVE. Tbili 0.49 mg/dL 0.0-1.2 [facility] NORMAL RANGES Age [...] HCT IS 5% LESS SOURCE FOR DATA: [employer] 1800 OPERATION MANUAL( AUTOMATED BLOOD COUNTS AND [...] 2-19 YEARS EXCLUSIVE. Anion Gap 17 mmol/L [facility] ([facility] [...] HCT IS 5% LESS SOURCE FOR DATA: [employer] 1800 OPERATION MANUAL( AUTOMATED BLOOD COUNTS AND [...] YEARS EXCLUSIVE. eGFR 85 # [facility] ( [facility] NORMAL RANGES Age WBC [...] HCT IS 5% LESS SOURCE FOR DATA: [employer] 1800 OPERATION MANUAL( AUTOMATED BLOOD COUNTS AND [...] INDIVIDUALA AGED 2-19 YEARS EXCLUSIVE. eGFR Non-Afr. Serbian 73 # [facility] ([facility] [...] HCT IS 5% LESS SOURCE FOR DATA: [employer] 1800 OPERATION MANUAL( AUTOMATED BLOOD COUNTS AND [...] 2-19 YEARS EXCLUSIVE. ID Date Data Source [id number] 08/29/2020 11:59:00 AM EDT [facility] ([facility] Name Value Range Interpretation Code Description Data Danisha rce(s) Supporting Document(s) WBC 6.8 10E3/uL 4.1-10.9 [facility] ([facility] NORMAL RANGES Age WBC [...] HCT IS 5% LESS SOURCE FOR DATA: [employer] 1800 OPERATION MANUAL( AUTOMATED BLOOD COUNTS AND [...] 2-19 YEARS EXCLUSIVE. HGB 13.4 g/dL 12.0-18.0 [facility] ([facility] NORMAL RANGES Age [...] HCT IS 5% LESS SOURCE FOR DATA: [employer] 1800 OPERATION MANUAL( AUTOMATED BLOOD COUNTS AND [...] 2-19 YEARS EXCLUSIVE. RBC 4.40 10E6/uL 4.20-6.30 [facility] ([facility] NORMAL RANGES Age WBC RBC [...] HCT IS 5% LESS SOURCE FOR DATA: [employer] 1800 OPERATION MANUAL( AUTOMATED BLOOD COUNTS AND [...] 2-19 YEARS EXCLUSIVE. MCH 30.5 pg 26.0-32.0 [facility] ([facility] NORMAL [...] HCT IS 5% LESS SOURCE FOR DATA: [employer] 1800 OPERATION MANUAL( AUTOMATED BLOOD COUNTS AND [...] 2-19 YEARS EXCLUSIVE. MCV 90.9 fL 80.0-97.0 [facility] ([facility] NORMAL [...] 2-19 YEARS EXCLUSIVE. HCT 40.0 % 37.0-51.0 [facility] ([facility] NORMAL [...] HCT IS 5% LESS SOURCE FOR DATA: [employer] 1800 OPERATION MANUAL( AUTOMATED BLOOD COUNTS AND [...] 2-19 YEARS EXCLUSIVE. MCHC 33.5 g/dL 31.0-36.0 [facility] ([facility] NORMAL [...] HCT IS 5% LESS SOURCE FOR DATA: [employer] 1800 OPERATION MANUAL( AUTOMATED BLOOD COUNTS AND [...] 2-19 YEARS EXCLUSIVE. RDW-CV 12.4 % 11.5-14.5 [facility] ([facility] [...] HCT IS 5% LESS SOURCE FOR DATA: [employer] 1800 OPERATION MANUAL( AUTOMATED BLOOD COUNTS AND [...] 2-19 YEARS EXCLUSIVE. PLT 203 10E3/uL 140-440 [facility] ([facility] NORMAL RANGES Age WBC [...] HCT IS 5% LESS SOURCE FOR DATA: [employer] 1800 OPERATION MANUAL( AUTOMATED BLOOD COUNTS AND [...] HCT IS 5% LESS SOURCE FOR DATA: [employer] 1800 OPERATION MANUAL( AUTOMATED BLOOD COUNTS AND [...] 2-19 YEARS EXCLUSIVE. Lym% 22.7 % 10.0-58.5 [facility] ([facility] NORMAL [...] HCT IS 5% LESS SOURCE FOR DATA: [employer] 1800 OPERATION MANUAL( AUTOMATED BLOOD COUNTS AND [...] 2-19 YEARS EXCLUSIVE. MXD% 9.8 % 0.1-24.0 [facility] ([facility] [...] HCT IS 5% LESS SOURCE FOR DATA: [employer] 1800 OPERATION MANUAL( AUTOMATED BLOOD COUNTS AND [...] 2-19 YEARS EXCLUSIVE. Neut# 4.6 % 2.0-7.8 [facility] ([facility] NORMAL [...] HCT IS 5% LESS SOURCE FOR DATA: [employer] 1800 OPERATION MANUAL( AUTOMATED BLOOD COUNTS AND [...] 2-19 YEARS EXCLUSIVE. Lym# 1.5 10E3/uL 0.6-4.1 [facility] ([facility] NORMAL RANGES Age WBC [...] HCT IS 5% LESS SOURCE FOR DATA: [employer] 1800 OPERATION MANUAL( AUTOMATED BLOOD COUNTS AND [...] 2-19 YEARS EXCLUSIVE. MXD# 0.7 10E3/uL 0.0-1.8 [facility] ([facility] NORMAL RANGES Age WBC [...] HCT IS 5% LESS SOURCE FOR DATA: [employer] 1800 OPERATION MANUAL( AUTOMATED BLOOD COUNTS AND [...] MPV 8.9 fL 9.0-13.0 Below low normal [facility] ( [facility] NORMAL RANGES Age WBC [...] HCT IS 5% LESS SOURCE FOR DATA: [employer] 1800 OPERATION MANUAL( AUTOMATED BLOOD COUNTS AND [...] ADOLESCENTS REPRESENTS INDIVIDUALA AGED 2-19 YEARS EXCLUSIVE. Procedure Social History Code Duration Value Status Description Data Source(s ) Smoking 12/05/2020 12:00:00 AM EST Patient is a former smoker completed Patient is a former smoker [facility] ([facility] Vital Signs ID Date Data Source UNK Name Value Range Interpretation Code Description Data Source(s) Systolic blood pressure 118 mm[Hg] 118 mm[Hg] M [facility] ([facility] Diastolic blood pressure 78 mm[Hg] 78 mm[Hg] [facility] ([facility] Body temperature 98.3 [degF] 98.3 [degF] [facility] ([facility] Heart rate 72 /min 72 /min [facility] ([facility] Respiratory rate 16 /min 16 /min [facility] ( [facility] Body height 64 [in_i] 64 [in_i] [facility] ([facility] 5'4" Body weight 169.00 [lb_av] 169.00 [lb_av] [facility] T ([facility] [place] body weight 120 [lb_av] 120 [lb_av] [facility] ([facility] Body mass index (BMI) [Ratio] 29.0 kg/m2 29.0 k g/m2 [facility] ([facility] Oxygen saturation in Arterial blood by Pulse oximetry 95 % 95 % [facility] ([facility] Systolic blood pressure 106 mm[Hg] 106 mm[Hg] M [facility] ([facility] Diastolic blood pressure 60 mm[Hg] 60 mm[Hg] [facility] ([facility] Body temperature 97.8 [degF] 97.8 [degF] [facility] ([facility] Heart rate 72 /min 72 /min [facility] ([facility] Respiratory rate 16 /min 16 /min [facility] ( [facility] Body height 64 [in_i] 64 [in_i] [facility] ([facility] 5'4" Body weight 179.00 [lb_av] 179.00 [lb_av] [facility] ([facility] [place] body weight 120 [lb_av] 120 [lb_av] [facility] ([facility] Body mass index (BMI) [Ratio] 30.7 kg/m2 30.7 k g/m2 [facility] ([facility] Oxygen saturation in Arterial blood by Pulse oximetry 96 % 96 % [facility] ([facility] Body temperature 97.9 [degF] 97.9 [degF] [facility] (Jatnider Gordon MD) Systolic blood pressure 152 mm[Hg] 152 mm[Hg] M [facility]ENT (Jatinder Gordon MD) Diastolic blood pressure 85 mm[Hg] 85 mm[Hg] [facility] (Jatinder Gordon MD) Heart rate 72 /min 72 /min [facility] (Jatinder Gordon MD) Oxygen saturation in Arterial blood by Pulse oximetry 93 % 93 % [facility] (Jatinder Gordon MD) Body height 64 [in_i] 64 [in_i] [facility] (Jatinder Gordon MD) 5'4" Body weight 188.00 [lb_av] 188.00 [lb_av] [facility] T (Jatinder Gordon MD) Body mass index (BMI) [Ratio] 32.3 kg/m2 32.3 k g/m2 [facility] (Jatinder Gordon MD) Body weight 188.00 [lb_av] 188.00 [lb_av] [facility] T (Jatinder Gordon MD) Body temperature 97.9 [degF] 97.9 [degF] [facility] (Jatinder Gordon MD) Systolic blood pressure 130 mm[Hg] 130 mm[Hg] M [facility] (Jatinder Gordon MD) Diastolic blood pressure 79 mm[Hg] 79 mm[Hg] [facility] (Jatinder Gordon MD) Heart rate 72 /min 72 /min [facility] (Jatinder Gordon MD) Oxygen saturation in Arterial blood by Pulse oximetry 95 % 95 % [facility] (Jatinder Gordon MD) Heart rate 70 /min 70 /min [facility] ([facility] Body weight 190.00 [lb_av] 190.00 [lb_av] [facility] ([facility] [place] body weight 120 [lb_av] 120 [lb_av] [facility] ([facility] Body mass index (BMI) [Ratio] 32.6 kg/m2 32.6 k g/m2 [facility] ([facility] Oxygen saturation in Arterial blood by Pulse oximetry 97 % 97 % [facility] ([facility] Systolic blood pressure 126 mm[Hg] 126 mm[Hg] M [facility] ([facility] Diastolic blood pressure 84 mm[Hg] 84 mm[Hg] [facility] ([facility] Body temperature 97.3 [degF] 97.3 [degF] [facility] ([facility] Respiratory rate 16 /min 16 /min [facility] ( [facility] Body height 64 [in_i] 64 [in_i] [facility] ([facility] 5'4" Systolic blood pressure 132 mm[Hg] 132 mm[Hg] M [facility] ([facility] Diastolic blood pressure 80 mm[Hg] 80 mm[Hg] [facility] ([facility] [place] body weight 120 [lb_av] 120 [lb_av] [facility] ([facility] Body mass index (BMI) [Ratio] 32.4 kg/m2 32.4 k g/m2 [facility] ([facility] Body temperature 97.8 [degF] 97.8 [degF] [facility] ([facility] Heart rate 73 /min 73 /min [facility] ([facility] Body weight 189.00 [lb_av] 189.00 [lb_av] [facility] ([facility] Respiratory rate 16 /min 16 /min [facility] ( [facility] Body height 64 [in_i] 64 [in_i] [facility] 5'4" Oxygen saturation in Arterial blood by Pulse oximetry 92 % 92 % [facility] ([facility] (AT Rest), (Room Air) Heart rate 64 /min 64 /min [facility] ([facility] Respiratory rate 16 /min 16 /min [facility] ( [facility] Body height 64 [in_i] 64 [in_i] [facility] ([facility] 5'4" Body weight 187.00 [lb_av] 187.00 [lb_av] [facility] T ([facility] Systolic blood pressure 110 mm[Hg] 110 mm[Hg] M [facility] ([facility] Diastolic blood pressure 82 mm[Hg] 82 mm[Hg] [facility] ([facility] Body temperature 98.0 [degF] 98.0 [degF] [facility] ([facility] [place] body weight 120 [lb_av] 120 [lb_av] [facility] ([facility] Body mass index (BMI) [Ratio] 32.1 kg/m2 32.1 k g/m2 [facility] ([facility] Oxygen saturation in Arterial blood by Pulse oximetry 97 % 97 % [facility] ([facility] ID Date Data Source [id number] 05/29/2021 08:59:08 AM EDT [facility] Name Value Range Interpretation Code Description Data Source(s) WEIGHT RECORDED 175.70 pounds 175.70 pounds [facility] Height 64 Inches 064 Inches [facility] ID Date Data Source [id number] 10/07/2020 11:22:56 AM EST [facility] Name Value Range Interpretation Code Description Data Source(s) WEIGHT RECORDED 195.00 pounds 195.00 pounds [facility] Height 64 Inches 064 Inches [facility]
[2021-08-29] MEDS: OFLOXACIN 0.3 % (OCUFLOX) OPTH SOL 5ML OS SCH ×3 (10:28→10:47)
[2021-08-29] MEDS: PHENYLEPHRINE 2.5% OPHTH SOL 2ML OS SCH ×3 (10:28→10:47)
[2021-08-29] MEDS: TROPICAMIDE 1% OPHTH SOLN 2ML OS SCH ×3 (10:28→10:47)
[2021-08-29] MEDS ORDERED: BSS IRR 500ML/OMIDRIA 4ML IRR BAG (OR ONLY) As Ordered ONE (10:35)
[2021-08-29] MEDS ORDERED: ERYTHROMYCIN OPHTH OINT As Ordered ONE (11:47)
[2021-08-29 12:20] VITALS: BP 127/58
--- NOTE | 2021-08-29 14:11 | ROOPDOC ---
[facility] Report Of Operation Report of Operation PREPROCEDURE DIAGNOSES: Mature cataract left eye. POSTPROCEDURE DIAGNOSES: Same. PROCEDURE PERFORMED: Phacoemulsification cataract extraction implantation intraocular lens left eye. SURGEON: Shree Luna MD REPAIR DEPARTMENT SUPERVISOR: None ANESTHESIA: MAC. ESTIMATED BLOOD LOSS: Approximately 0 cc mL. COMPLICATIONS: None. LENS: 22.5. diopters SPECIMENS REMOVED: None INDICATIONS: Patient experienced decreased vision associated with cataract formation. Slit-lamp examination confirmed the diagnosis. Informed consent was obtained for removal of the cataract and placement of intraocular lens. PROCEDURE NOTE: Patient was identified in the holding room and the operative eye was marked. Patient was wheeled spine the OR suite and positioned on the stretcher. The lids lashes and periocular face of the operative eye were prepped with 5% povidone iodine. The lashes were taped with a Tegaderm dressing. A speculum was placed in the operative eye. 1 mm side-port was created. 1% preservative-free lidocaine was injected. Viscoat was injected. A 2.6 mm stepped groove clear cornea incision was made temporally. A bent cystotome needle and Utrata forceps were used to fashion a continuous cu rvilinear capsulorhexis. BSS was used to hydrodissect. The lens was found to rotate freely. The lens was phacoemulsified using a divide and conquer technique. Residual cortex was removed with the I/A. Provisc was injected to expand the capsular bag. The lens was injected using the lens delivery system and positioned with a Carlos hook. Residual viscoelastic was removed with the I/A. BSS was used to hydrate the corneal wound. Antibiotic prophylaxis was injected. The speculum was removed from the eye. A shield was taped over the eye. The patient was sent in excellent condition to the recovery room with a shield. SHREE LUNA M.D. Aug 29, 2021 14:11
== END 2021-08-29 12:27 | disposition home or self-care (01) ==
LOC: M SDC 08:54
PROVIDERS: ATTEND Ophthalmology
DX: H25.12 Age-related nuclear cataract, left eye (principal); T88.59XD Other complications of anesthesia, subsequent encounter; Z95.2 Presence of prosthetic heart valve; I25.2 Old myocardial infarction; I10 Essential (primary) hypertension; E78.5 Hyperlipidemia, unspecified; R12 Heartburn; K44.9 Diaphragmatic hernia without obstruction or gangrene; K57.90 Diverticulosis of intestine, part unspecified, without perforation or abscess without bleeding; M19.90 Unspecified osteoarthritis, unspecified site; G47.30 Sleep apnea, unspecified; Z87.891 Personal history of nicotine dependence; Z88.5 Allergy status to narcotic agent; Z88.0 Allergy status to penicillin; Z79.899 Other long term (current) drug therapy; Z79.82 Long term (current) use of aspirin; Z79.1 Long term (current) use of non-steroidal anti-inflammatories (NSAID)
CPT/HCPCS: 66984; J1097; J2250; J2280; J3010; V2632

== ENCOUNTER → 2021-09-22 | Outpatient (CLI) | payer MEDICARE ==
[~2021-09-22] MED LIST changes: -DUOVISC (0.50ML VISCOAT/0.85ML PROVISC) OPHTH KIT As Ordered ONE; -MIDAZOLAM INJ 2MG/2ML VIAL (J2250 PER 1MG) As Ordered ONE; -MOXIFLOXACIN 0.8MG 0.8ML INTRAOCULAR SYRINGE As Ordered ONE; -PHENYLEPHRINE 1.5%/LIDOCAINE 1% INTRAOCULAR 0.8ML SYRINGE As Ordered ONE; -PROPARACAINE 0.5% OPHTH SOL 15ML OS ONE; -fentaNYL 100 MCG/2 ML INJECTION (J3010) As Ordered ONE
== END ==
LOC: M LABSMTC 11:27
PROVIDERS: ATTEND Anesthesiology
DX: Z01.818 Encounter for other preprocedural examination (principal); Z11.52 Encounter for screening for COVID-19

== ENCOUNTER 2021-09-26 09:27 | Day surgery (SDC) | payer MEDICARE ==
[~2021-09-26] VITALS: Ht 162.6 cm; Wt 76.6 kg
[~2021-09-26 09:27] MED LIST changes: +DUOVISC (0.50ML VISCOAT/0.85ML PROVISC) OPHTH KIT As Ordered ONE; +LOSA50TA28 PO; -LOSA50TA88 PO; +MOXIFLOXACIN 0.8MG 0.8ML INTRAOCULAR SYRINGE As Ordered ONE; +OMEP-173 PO; -OMEP-218 PO; +PHENYLEPHRINE 1.5%/LIDOCAINE 1% INTRAOCULAR 0.8ML SYRINGE As Ordered ONE; +PROPARACAINE 0.5% OPHTH SOL 15ML OD ONE
[2021-09-26] MEDS ORDERED: BSS IRR 500ML/OMIDRIA 4ML IRR BAG (OR ONLY) As Ordered ONE (10:00)
[2021-09-26] MEDS: OFLOXACIN 0.3 % (OCUFLOX) OPTH SOL 5ML OD SCH ×3 (10:24→10:44)
[2021-09-26] MEDS: PHENYLEPHRINE 2.5% OPHTH SOL 2ML OD SCH ×3 (10:24→10:44)
[2021-09-26] MEDS: TROPICAMIDE 1% OPHTH SOLN 2ML OD SCH ×3 (10:24→10:44)
[2021-09-26] MEDS ORDERED: MIDAZOLAM INJ 2MG/2ML VIAL (J2250 PER 1MG) As Ordered ONE (11:36)
[2021-09-26 12:30] VITALS: BP 161/81
== END 2021-09-26 12:40 | disposition home or self-care (01) ==
LOC: M SDC 09:27
PROVIDERS: ATTEND Ophthalmology
DX: H25.11 Age-related nuclear cataract, right eye (principal); G47.33 Obstructive sleep apnea (adult) (pediatric); I10 Essential (primary) hypertension; E78.5 Hyperlipidemia, unspecified; I25.2 Old myocardial infarction; K21.9 Gastro-esophageal reflux disease without esophagitis; K44.9 Diaphragmatic hernia without obstruction or gangrene; Z88.0 Allergy status to penicillin; Z88.5 Allergy status to narcotic agent; Z79.899 Other long term (current) drug therapy
CPT/HCPCS: 66984; J1097; J2250; J2280; V2632

== ENCOUNTER → 2023-12-28 | Outpatient (CLI) | payer MEDICARE, OTHER ==
[~2023-12-28] MED LIST changes: -DUOVISC (0.50ML VISCOAT/0.85ML PROVISC) OPHTH KIT As Ordered ONE; -MOXIFLOXACIN 0.8MG 0.8ML INTRAOCULAR SYRINGE As Ordered ONE; -PAXI30TA11 PO; +PAXI30TA12 PO; -PHENYLEPHRINE 1.5%/LIDOCAINE 1% INTRAOCULAR 0.8ML SYRINGE As Ordered ONE; -PROPARACAINE 0.5% OPHTH SOL 15ML OD ONE
[2023-12-28 16:50] LABS: APPEARANCE, URINE HAZY (CLEAR); BACTERIA, URINE AUTO NEGATIVE (NEGATIVE); BILIRUBIN, URINE AUTO NEGATIVE (NEGATIVE); BLOOD, URINE BLOOD NEGATIVE (NEGATIVE); COLOR, URINE YELLOW (YELLOW); GLUCOSE, URINE (UA) AUTO NEGATIVE (NEGATIVE); KETONE, URINE AUTO NEGATIVE (NEGATIVE); LEUKOCYTE ESTERASE, URINE AUTO 3+ (NEGATIVE); MUCUS, URINE SMALL (NEGATIVE); NITRITE, URINE AUTO NEGATIVE (NEGATIVE); PROTEIN, URINE AUTO NEGATIVE (NEGATIVE); RBC, URINE AUTO 3 /HPF (0-3); SPECIFIC GRAVITY URINE AUTO 1.017 (1.002-1.035); SQUAMOUS EPITHELIAL CELL UR AU 9 /HPF (0-6); TRANSITIONAL EPITHELIAL AUTO 1 /HPF; UROBILINOGEN, URINE AUTO 0.2 mg/dL (0.0-2.0); WBC, URINE AUTO 3 /HPF (0-3)
[2023-12-28 16:52] LABS: BASO % 0.4 % (0.0-1.0); EOS # 0.2 10^3/uL (0.0-0.5); EOS % 2.1 % (0.0-3.0); HEMATOCRIT 40.7 % (36.0-47.0); HEMOGLOBIN 12.9 g/dl (12.0-15.5); LYMPH # 1.9 10^3/uL (1.5-5.0); LYMPH % 22.7 % (24.0-44.0); MEAN CORPUSCULAR HGB CONC 31.7 g/dl (32.0-36.5); MEAN CORPUSCULAR VOLUME 91.5 fl (80.0-96.0); MONO # 0.7 10^3/uL (0.0-0.8); MONO % 8.3 % (2.0-8.0); NEUTROPHILS # 5.5 10^3/uL (1.5-8.5); NEUTROPHILS % 66.3 % (36.0-66.0); PLATELET COUNT, AUTOMATED 190 10^3/uL (150-450); RED BLOOD COUNT 4.45 10^6/uL (4.00-5.40); WHITE BLOOD COUNT 8.3 10^3/uL (4.0-10.0)
[2023-12-28 17:13] LABS: ALBUMIN 3.8 G/DL (3.2-5.2); ALKALINE PHOSPHATASE 70 U/L (46-116); ALT/SGPT 20 U/L (7.0-40); AST/SGOT 22 U/L (<34); BILIRUBIN,TOTAL 0.5 MG/DL (0.3-1.2); BLOOD UREA NITROGEN 17 MG/DL (9-23); CALCIUM LEVEL 9.4 MG/DL (8.3-10.6); CARBON DIOXIDE LEVEL 30 MMOL/L (20-31); CHLORIDE LEVEL 103 MMOL/L (98-107); CHOLESTEROL LEVEL 176 MG/DL (<200); CREATININE FOR GFR 0.87 MG/DL (0.55-1.30); GLOMERULAR FILTRATION RATE > 60.0 (>39); GLUCOSE, FASTING 96 MG/DL (74-106); HDL CHOLESTEROL 60.6 MG/DL (>40); LDL CHOLESTEROL 93.2 MG/DL (<100); NON-HDL-C 115.4 MG/DL; POTASSIUM SERUM 3.9 MMOL/L (3.5-5.1); SODIUM LEVEL 138 MMOL/L (136-145); TOTAL PROTEIN 7.2 G/DL (5.7-8.2); TRIGLYCERIDES LEVEL 111 MG/DL (<150)
== END ==
LOC: M WUC 11:15
PROVIDERS: ATTEND Family Medicine
DX: I10 Essential (primary) hypertension (principal); E78.5 Hyperlipidemia, unspecified; M79.622 Pain in left upper arm